=== PATIENT | male | born 1950 | race Caucasian/White ===

== ENCOUNTER 2021-10-15 11:45 | Outpatient (RCR) | payer MEDICARE, SELFPAY ==
[2021-10-15 12:03] VITALS: BMI 23.8
[2021-10-15 13:13] VITALS: BP 166/80; PULSE 76; TEMP 37.2
--- NOTE | 2021-10-15 13:34 | PC.ADMIT ---
Patient advised to come [place] [facility] by his sister who is a practitioner as patient has been experiencing increased depression and anxiety sxs. Patient has a history of ECT. When meeting with patient he appeared with increased anxiety. Stated he is here as he is struggling with some issues however would not elaborate. Patient is alert and oriented x4. Calm and cooperative. Presented with depressed mood and anxious affect. Denied SI or thoughts to harm himself. Patient given a copy of his safety plan if needed. BP 166/80 P 76. Patient denied history of hypertension. Denied any medical issues. [facility] prescriber Rosalia Calvillo [employer] is aware. Will monitor.
--- NOTE | 2021-10-15 14:31 | PC.NURSE ---
Medications reconciled with patient's pharmacy and per patient. Patient reports taking medications as prescribed.
--- NOTE | 2021-10-15 16:03 | P.HPPSP_ITS ---
[facility] Date of Service: 10/15/21 Chief Complaint: MDD Sources of Information: patient interviewed, chart reviewed and crisis/core team assessment reviewed HPI Medical Problems Affecting Mental Status: No Narrative: Patient is a 71-year-old male, referred to [facility] through his sister who is a retired nurse practitioner. His sister had become concerned due to indecisiveness, planning to go visit a sibling, turning around after 2 hours to come back home. Patient reports experiencing increased depression, anxiety, excessive worry, indecisiveness over past several months. Patient also had reported catastrophic thinking during initial intake with clinician, as well as feeling dread, confusion, hopelessness, anhedonia, low energy, difficulty with appetite and sleep. Patient has lost 15 lb recently. 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 Passive SI, with no intent or plan. Patient was guarded and constricted during interview, with hesitancy to answer questions at times. When asked if he had any concerns at this time, he stated ?no ?. He then stated that he had some issues he needed to work through. Patient has had ECT year in the past, which he found helpful. Medical chart review shows he was here in 2000 for ECT, and then he participated in this programs [facility]. Patient currently has outpatient provider psychiatrist and therapist. Past Psychiatric History: Several inpatient stays at [facility], as well as in 2000, After being referred here from inpatient unit at [place] for ECT. Several [facility]'s, including [facility]. Psychiatrist: Tim Brooks [phone]. Therapist Daniel Ryan [phone]. Medical Evaluation Reviewed: Yes [facility] Medical History No known health problems Ruptured liver Surgical History H/O right knee surgery Family History: Alcohol use disorder Social History: Lives alone in an apartment. Raised by both parents, they when he was 12 years old. Five sisters, 1 at age 22 due to illness. Describes family as supportive. Lives alone, has supportive friends. Met developmental milestones as expected. Attended private boarding schools, graduated high school, college. 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 Patient , former spouse has 2 children from a previous marriage. Substance History: Occasional alcohol, 1-2 glasses of wine per month. Trauma History: None reported Diagnostics Vital Signs (24Hr): Vital Signs - 24 hr 10/15/21 13:13 Temperature 98.9 F Pulse Rate 76 Blood Pressure 166/80 H BMI result Body Mass Index 23.8 Meds/Allergies Meds Home Medications Medication Instructions Recorded Confirmed Type l theanine 200 mg PO QID PRN Anxiety 10/15/21 History lamotrigine 100 mg tablet 100 mg PO DAILY 10/15/21 10/15/21 History (Lamictal) mirtazapine 15 mg tablet 15 mg PO BEDTIME 10/15/21 10/15/21 History quetiapine 50 mg tablet 50 - 100 mg PO BEDTIME PRN Anxiety 10/15/21 10/15/21 History risperidone 0.5 mg tablet 0.5 mg PO BID 10/15/21 10/15/21 History (Risperdal) Allergies Allergies Allergy/AdvReac Type Severity Reaction Status Date / Time No Known Allergies Allergy Verified 10/15/21 12:04 Mental Status Exam Mental Status Exam Narrative: Well-developed, well-nourished male, in NAD. Appears stated age. Patient Appearance: Disheveled and Unkempt Patient Orientation: Person, Place, Time and Situation Level of Consciousness: Appropriate Patient Behavior: Guarded, Anxious and Good Eye Contact Mood Description: Depressed and Anxious Affect Description: Depressed and Anxious Patient Cognition Impaired: No Ability to Follow Directions: Good Speech Pattern: Clear, Appropriate, Coherent and Soft-Spoken Memory Description: Intact Hallucinations: None Delusions: Not Present Thought Process: Intact Thought Content: positive for Preoccupation, positive for Slowed Thinking and positive for Suicidal Ideation (Passive, no intent or plan.) Depressive Symptoms: Increased Anxiety, Diff. Making Decisions, Difficulty Sleeping, Changes in Appetite (Decreased), Significant Weight Loss (Lost 15 lb recently), Loss of Int. in Activity, Increased Fatigue, Thoughts of /Suicide, Loss of Energy and Difficulty Concentrating Judgement: Fair Telehealth Telehealth Location of provider rendering services: practice address Location of patient: address on file Patient Identification confirmed using: Name, : Yes Telehealth method: video Patient verbally consented to treatment: Yes Patient verbally consented to billing insurance company: Yes Patient informed of any privacy concerns related to visit: Yes Minutes spent on Phone/Video with Pt.: 45 Assessment & Plan Assessment & Plan (1) Major depressive disorder, recurrent severe without psychotic features: Status: Acute Code(s): F33.2 - Major depressive disorder, recurrent severe without psychotic features Assessment and Plan: Patient is a 71-year-old male, referred to [facility] through his sister who is a retired nurse practitioner. His sister had become concerned due to indecisiveness, planning to go visit a sibling, turning around after 2 hours to come back home. Patient reports experiencing increased depression, anxiety, excessive worry, indecisiveness over past several months. Patient also had reported catastrophic thinking during initial intake with clinician, as well as feeling dread, confusion, hopelessness, anhedonia, low energy, difficulty with appetite and sleep. Patient has lost 15 lb recently. 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 Passive SI, with no intent or plan. Patient reports he had been here in 2000 to receive ECT after several inpatient hospitalizations due to increased depression symptoms. ECT had been effective at that time. Patient was guarded at times. He is working with an outpatient psychiatrist, he states that he sees him every 2-3 weeks. Patient also has an outpatient therapist that he works with on a regular basis. Patient was unkempt in appearance, and appear distracted at times, with anxious, depressed mood and affect. Patient reports that he has had some difficulty attending here today, as he has found it to be anxiety provoking. Will I did reassure him that after the 1st day he will be more familiar with the schedule in the groups, and that he may feel more at ease tomorrow. We discussed his current medication regimen. He is satisfied with current medications, and does not want any changes today. We will explore this further during next encounter, and possibly discuss adding antidepressant, or possibly discuss to TMS or ECT as a treatment option. (2) Generalized anxiety disorder: Status: Acute Code(s): F41.1 - Generalized anxiety disorder Plan 1. Continue with current [facility] plan of care. 2. Obtain labs, including Marsha Chem profile, DA S, CBC with diff, free T4, TSH. 3. Obtain collateral information. 4. A follow-up as per protocol. Patient educated on: diagnosis, medication risk/benefits and therapeutic strategies Informed Consent: understands Reason for continued partial hosp. stay Substantial Risk for: harm to self, inability to function, rapid decompensation and med/psych decompensation Certification I certify that partial hospital treatment is medically necessary due to the symptoms and problems resulting from the patient's mental illness and the failure to treat the patient at the partial hospital level of care would likely result in the patient requiring inpatient psychiatric care which could not be prevented at a less intensive level of care.
--- NOTE | 2021-10-16 09:51 | PC.NURSE ---
I spoke with Kobe. He states that he doesn't want to continue in the program at this time. He does have outpatient providers . I reminded him that he is welcome to call for an intake any in the future if he should decide that he wants to come back.
--- NOTE | 2021-10-16 09:57 | PC.NURSE ---
Patient decided to discharge from the program today as he is too anxious however stated he would like to do the program possibly in the future. Patient denied SI or thoughts to harm himself. He has the crisis number if needed. Spoke to patient about his blood pressure of 166/80 and had him write it down. I recommended having his sister monitor it and to f/u with his PCP.
== END 2021-10-15 23:59 | disposition home or self-care (01) ==
LOC: HO.PHPA 11:45
PROVIDERS: Visit Provider Psychiatry & Neurology Psychiatry
DX: F33.2 Major depressive disorder, recurrent severe without psychotic features (principal); F41.1 Generalized anxiety disorder
CPT/HCPCS: 90791; 90853

== ENCOUNTER 2022-05-07 16:33 | Inpatient (IN) | payer MEDICARE, SELFPAY ==
[2022-05-07 18:00] VITALS: BP 147/76; PULSE 57; RESP 16; TEMP 37.2; O2SAT 99
[2022-05-07 18:57] VITALS: BMI 22.4
--- NOTE | 2022-05-07 19:04 | PC.ADMIT ---
Pt. arrived on unit via stretcher accompanied by 2 leverman. Pt. is a lateral transfer from [facility] behavioral health unit, where he has been since January. Pt. with diagnosis of depression with psychosis and is here for ECT. Pt. alert and oriented X 4 at time of admission. [facility] reports he has periods of confusion, and he endorses problems with his memory. Pt. signed CV and oriented to unit and policies. Ambulated independently with walker. Has known hx. of orthostatic hypotension but denies dizziness at this time. Uses TEDs and abdominal binder to support BP and education done to count to 10 upon sitting before standing and again before walking and he verbalized understanding. Pt. signed ROIs and message left for sister to call for update.
[2022-05-07] MEDS: traZODone HCL 50 MG TABLET PO (20:52)
[2022-05-07] MEDS: OLANZapine 7.5 MG TABLET 15 MG PO (21:37)
[2022-05-07] MEDS: risperiDONE 0.5 MG TABLET PO (21:37)
[2022-05-07] MEDS: clonazePAM 0.5 MG TABLET PO (21:37)
[2022-05-07] MEDS: Mirtazapine 15 MG TABLET PO (21:37)
[2022-05-08 06:00] VITALS: BP 124/62; PULSE 78; RESP 16; TEMP 36.7; O2SAT 97
--- NOTE | 2022-05-08 07:29 | HO.PSYADMNOT ---
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 The patient has been transferred from [facility] for ECT. According to the chart and patient's report, the present episode started more than a year ago with neurovegetative symptoms elicited by and atonia, lack of energy, and even suicidal thoughts. He had been admitted at [facility] inpatient Unit for several weeks, he was Section 7 and [address] and we have a court order to do ECT. He was transferred to this facility for ECT treatment. On interview, the patient reported depressed mood, anhedonia, lack of energy, feelings of hopelessness and worthlessness and even suicidal ideation but he is able to contract for safety in the facility. I provided psychoeducation to ECT and the patient was reluctant since he is scared of losing his memory. Risks, benefits, side-effects and alternatives were thoroughly discussed that he is fully aware that he will have ECT as per court order. There is no evidence of active psychotic symptoms at this moment. Past Psychiatric History: Several inpatient stays at [facility], as well as in 2000, After being referred here from inpatient unit at [facility] for ECT. Several [facility], [place] [facility] Psychiatrist: Tim Brooks [phone]. Therapist Daniel Ryan [phone]. Medical Evaluation Reviewed: Hospitalist Elieser Pending [facility] Medical History No known health problems Ruptured liver Surgical History H/O right knee surgery Family History: Alcohol use disorder Social History: Lives alone in an apartment. Raised by both parents, they when he was 12 years old. Five sisters, 1 at age 24 due to illness. Describes family as supportive. Lives alone, has supportive friends. Met developmental milestones as expected. Attended private boarding schools, graduated high school, college. 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 Patient , former spouse has 2 children from a previous marriage. Substance History: Denies Trauma History: None reported Diagnostics Vital Signs (24Hr): Vital Signs - 24 hr 05/07/22 18:00 Temperature 99 F Pulse Rate 57 Respiratory Rate 16 Blood Pressure 147/76 H Pulse Oximetry 99 Oxygen Delivery Method Room Air BMI result Body Mass Index 22.4 Labs 05/08/22 08:43 05/08/22 08:43 Meds/Allergies Meds Home Medications Medication Instructions Recorded Confirmed Type l theanine 200 mg PO QID PRN Anxiety 10/15/21 05/07/22 History lamotrigine 100 mg tablet 100 mg PO DAILY 10/15/21 05/07/22 History (Lamictal) mirtazapine 15 mg tablet 15 mg PO BEDTIME 10/15/21 05/07/22 History quetiapine 50 mg tablet 50 - 100 mg PO BEDTIME PRN Anxiety 10/15/21 05/07/22 History risperidone 0.5 mg tablet 0.5 mg PO BID 10/15/21 05/07/22 History (Risperdal) amlodipine 2.5 mg tablet 2.5 mg PO DAILY 05/07/22 05/07/22 History cholecalciferol (vitamin D3) 25 25 mcg PO DAILY 05/07/22 05/07/22 History mcg (1,000 unit) capsule clonazepam 0.5 mg disintegrating 0.5 mg PO BEDTIME 05/07/22 05/07/22 History tablet cyanocobalamin (vitamin B-12) 1,000 mcg PO DAILY 05/07/22 05/07/22 History 1,000 mcg tablet fluvoxamine 100 mg tablet 100 mg PO BEDTIME 05/07/22 05/07/22 History olanzapine 15 mg disintegrating 15 mg PO BEDTIME 05/07/22 05/07/22 History tablet olanzapine 5 mg disintegrating 2.5 mg PO BID PRN Agitation 05/07/22 05/07/22 History tablet ondansetron HCl 4 mg tablet 4 mg PO NEEDED PRN Nausea 05/07/22 05/07/22 History Allergies Allergies Allergy/AdvReac Type Severity Reaction Status Date / Time Latex, Natural Rubber AdvReac Mild Rash Verified 05/07/22 19:00 Mental Status Exam Mental Status Exam Patient Appearance: Well Grooomed and Appropriate Patient Orientation: Person, Place and Situation Level of Consciousness: Awake and Appropriate Patient Behavior: Cooperative and Passive Mood Description: Depressed Affect Description: Blunted Patient Cognition Impaired: No Ability to Follow Directions: Good Speech Pattern: Clear Hallucinations: None Delusions: Not Present Thought Process: Linear Thought Content: positive for Circumstantial Judgement: Poor Assessment & Plan Assessment & Plan (1) Generalized anxiety disorder: Status: Acute Code(s): F41.1 - Generalized anxiety disorder (2) Major depressive disorder, recurrent: Status: Acute Code(s): F33.9 - Major depressive disorder, recurrent, unspecified Plan The patient is an elderly male with a long history of major depressive disorder with several prior admissions into the hospital for exacerbation of depression and previous treatment with ECT with for improvement. The patient was initially treated at [facility] and transferring to this facility for ECT. At this moment, the patient is severely depressed with some neuro cognitive impairment. Plan 1. Gather collateral information. 2. Hospitalist workout with clearance for ECT. 3. Continue regular medications. 4. EKG for ECT treatment. 5. ECT as soon as he is medically cleared. 6. Reassessment with results. Patient educated on: diagnosis and ECT Informed Consent: further education needed Reason for continued inpatient stay Substantial Risk for: harm to self, inability to function, rapid decompensation and med/psych decompensation Statement Statement: I have reviewed the history and physical and performed a pertinent examination on my patient. No changes have occurred unless specified. If the History and Physical was not performed prior to admission, the Hospitalist's service will be consulted for completing the admission physical. Time Spent With Patient Time: Total time managing care of this patient today __60__ minutes.
[2022-05-08] MEDS: Cyanocobalamin (Vitamin B-12) 1,000 MCG TABLET 1000 MCG PO (08:34)
[2022-05-08] MEDS: amLODIPine Besylate 2.5 MG TABLET PO (08:34)
[2022-05-08] MEDS: risperiDONE 0.5 MG TABLET PO ×2 (08:34→20:48)
[2022-05-08] MEDS: lamoTRIgine 100 MG TABLET PO (08:34)
[2022-05-08] MEDS: Cholecalciferol (Vitamin D3) 25 MCG TABLET PO (08:35)
[2022-05-08 09:00] LABS: MANUAL DIFF FLAG NO
[2022-05-08 09:01] LABS: Basophils Percent Auto 0.5 % (0-2); Eosinophils Absolute Auto 0.1 X10*3/uL (0.0-0.4); Eosinophils Percent Auto 3.2 % (0-4); Hemoglobin 13.6 g/dl (14.0-18.0); Imm Gran Abs Auto 0.01 X10*3/uL (0.00-0.03); Imm Gran Pct Auto 0.3 % (0.0-0.4); Lymphocytes Percent Auto 27.4 % (20-40); Mean Corpuscular Hemoglobin 31.3 pg (27.0-33.0); Mean Corpuscular Volume 92.2 fL (80.0-98.0); Mean Platelet Volume 8.7 fL (9.4-12.4); Monocytes Absolute Auto 0.3 X10*3/uL (0.1-1.2); Monocytes Percent Auto 8.6 % (2-11); Neutrophils Absolute Auto 2.2 x10*3/uL (2.0-8.3); Platelet Count 150 X10*3/uL (160-400); Red Blood Count 4.34 X10*6/uL (4.60-5.80); Red Cell Distribution Width 12.5 % (11.0-16.0); White Blood Count 3.7 X10*3/uL (4.8-10.8)
[2022-05-08 09:42] LABS: Alanine Aminotransferase 13 U/L (0-40); Albumin Level 3.4 g/dL (3.5-5.0); Alkaline Phosphatase 54 U/L (39-117); Anion Gap 11 (12-20); Aspartate Amino Transferase 15 U/L (5-37); Bilirubin Total 0.7 mg/dL (0.0-1.0); Blood Urea Nitrogen 16 mg/dL (9-16); Calcium 8.8 mg/dL (8.4-10.2); Carbon Dioxide 31 mmol/L (22-29); Chloride 107 mmol/L (96-108); Cholesterol 165 mg/dL; Creatinine Clr Calc Pharmacy 94.6; Estimated Glomerular Filt Rate > 60; Glucose Fasting 128 mg/dL (60-99); HDL Cholesterol 50 mg/dL; LDL Cholesterol Calculated 101 mg/dl; Potassium 3.9 mmol/L (3.3-5.1); Sodium 145 mmol/L (135-145); Total Protein 5.3 g/dL (6.5-8.0); Triglycerides 72 mg/dL
[2022-05-08 09:55] LABS: Estimated Average Glucose 103 mg/dL; Hemoglobin A1c % 5.2 %
[2022-05-08 10:11] LABS: Folate 14.9 ng/mL (> or = 4.0); TSH reflex Free T4 1.51 uIU/mL (0.32-4.0); Vitamin B12 545 pg/mL (200-900)
--- NOTE | 2022-05-08 15:35 | MHC.CLN ---
RE: CONSULT FOR WT LOSS HT 77 WT 85.7KG (188.5#) IBW 208# PT IS 91% IBW INDICATES ADEQUATE WT FOR HT BMI 22.4 PREVIOUS WT HX REVEALS 91.1KG (10/15/21) PT WITH 6% NONSIGNIFICANT WT LOSS X 6 MONTHS DIET RX: REGULAR-APPROPRIATE IF PO INTAKE <25% X 3 DAYS RECOMMEND ADDING ENSURE SUPPLEMENT BID MONITOR PO INTAKE CLOSELY WEEKLY WEIGHTS
[2022-05-08 18:00] VITALS: BP 118/69; PULSE 70; RESP 16; TEMP 36.5; O2SAT 97
[2022-05-08] MEDS: OLANZapine 7.5 MG TABLET 15 MG PO (20:47)
[2022-05-08] MEDS: Mirtazapine 15 MG TABLET PO (20:47)
[2022-05-08] MEDS: clonazePAM 0.5 MG TABLET PO (20:48)
[2022-05-08] MEDS: fluvoxaMINE Maleate 50 MG TABLET 100 MG PO (20:48)
[2022-05-09 06:00] VITALS: BP 109/52; PULSE 68; RESP 16; TEMP 36.7; O2SAT 96
[2022-05-09] MEDS: Cholecalciferol (Vitamin D3) 25 MCG TABLET PO (08:46)
[2022-05-09] MEDS: lamoTRIgine 100 MG TABLET PO (08:46)
[2022-05-09] MEDS: amLODIPine Besylate 2.5 MG TABLET PO (08:46)
[2022-05-09] MEDS: Cyanocobalamin (Vitamin B-12) 1,000 MCG TABLET 1000 MCG PO (08:46)
[2022-05-09] MEDS: risperiDONE 0.5 MG TABLET PO ×2 (08:46→20:18)
--- NOTE | 2022-05-09 13:35 | ECG_ITS ---
Test Reason : ECT CLEARENCE Blood Pressure : / mmHG Vent. Rate : 062 BPM Atrial Rate : 062 BPM P-R Int : 152 ms QRS Dur : 098 ms QT Int : 392 ms P-R-T Axes : 071 050 055 degrees QTc Int : 397 ms Normal sinus rhythm Normal ECG No previous ECGs available Referred By: Shital Bui Electronically Signed By:GOPAL FLORIAN
--- NOTE | 2022-05-09 14:23 | P.PNPSI_ITS ---
Subjective Subjective Date of Service: 05/09/22 Reason For Visit: depression w/ SI Subjective Notes: Conditional Voluntary Interim History: The nursing staff reported the patient is cooperative and pleasant, no new symptoms. On interview the patient has severe depression with blunted affect even though, his cognition is impaired. The occupational therapist reported that he scored 20/30 on the [place] and 5.0 on the Geoff test. Most likely this cognitive impair ment is due to save the dementia or depression. We discussed with the patient the treatment options and we will have ECT schedule starting next Thursday. Mental Status Exam Mental Status Exam Patient Appearance: Well Grooomed and Appropriate Patient Orientation: Person, Place, Time and Situation Level of Consciousness: Awake and Appropriate Patient Behavior: Guarded and Passive Mood Description: Withdrawn and Depressed Affect Description: Blunted Patient Cognition Impaired: Yes Ability to Follow Directions: Fair Speech Pattern: Clear Hallucinations: None Delusions: Not Present Thought Process: Distracted and Linear Thought Content: positive for [place] and positive for Circumstantial Judgement: Fair Diagnostics Vital Signs (24Hr): Vital Signs - 24 hr 05/08/22 18:00 05/09/22 06:00 Temperature 97.7 F 98.0 F Pulse Rate 70 68 Respiratory Rate 16 16 Blood Pressure 118/69 109/52 L Pulse Oximetry 97 96 Oxygen Delivery Method Room Air Room Air BMI result Body Mass Index 22.4 Labs 05/08/22 08:43 05/08/22 08:43 Labs: Laboratory Results - last 48 hr 05/08/22 05/08/22 05/08/22 08:43 08:43 08:43 WBC 3.7 L RBC 4.34 L Hgb 13.6 L Hct 40.0 L MCV 92.2 MCH 31.3 MCHC 34.0 RDW 12.5 Plt Count 150 L MPV 8.7 L Immature Gran % (Auto) 0.3 Neut % (Auto) 60.0 Lymph % (Auto) 27.4 [place] % (Auto) 8.6 Eos % (Auto) 3.2 Baso % (Auto) 0.5 Lymph # (Auto) 1.0 L [place] # (Auto) 0.3 Eos # (Auto) 0.1 Baso # (Auto) 0.0 Abs Immat Gran (auto) 0.01 Absolute Neuts (auto) 2.2 Absolute Nucleated RBC 0.000 Nucleated RBC % (auto) 0.0 Sodium 145 Potassium 3.9 Chloride 107 Carbon Dioxide 31 H Anion Gap 11 L BUN 16 Creatinine 0.83 Estim Creat Clear Calc 94.6 Estimated GFR > 60 Fasting Glucose 128 H Estimat Average Glucose 103 Hemoglobin A1c % 5.2 Calcium 8.8 Total Bilirubin 0.7 AST 15 ALT 13 Alkaline Phosphatase 54 Total Protein 5.3 L Albumin 3.4 L Triglycerides 72 Cholesterol 165 LDL Cholesterol, Calc 101 HDL Cholesterol 50 Vitamin B12 545 Folate 14.9 TSH 1.51 Medications Medications Current Medications Acetaminophen (Acetaminophen 325 Mg Tablet) 650 mg PO Q6H PRN PRN Reason: Headache/Pain Mild Scale (1-3) Acetaminophen (Acetaminophen 325 Mg Tablet) 650 mg PO Q6H PRN PRN Reason: Headache/Pain Mild Scale (1-3) Al Hydroxide/Mg Hydroxide (Magnesium Hydrox/Alum Hydrox 30 Ml Oral.Susp) 30 ml PO Q6H PRN PRN Reason: Heartburn/Nausea Al Hydroxide/Mg Hydroxide (Magnesium Hydrox/Alum Hydrox 30 Ml Oral.Susp) 30 ml PO Q6H PRN PRN Reason: Heartburn/Nausea Amlodipine Besylate (Amlodipine Besylate 2.5 Mg Tablet) 2.5 mg PO DAILY [facility]; Protocol Last Admin: 05/09/22 08:46 Dose: 2.5 mg Clonazepam (Clonazepam 0.5 Mg Tablet) 0.5 mg PO BEDTIME [facility] Last Admin: 05/08/22 20:48 Dose: 0.5 mg Cyanocobalamin (Cyanocobalamin (Vitamin B-12) 1,000 Mcg Tablet) 1,000 mcg PO DAILY [facility] Last Admin: 05/09/22 08:46 Dose: 1,000 mcg Fluvoxamine Maleate (Fluvoxamine Maleate 50 Mg Tablet) 100 mg PO BEDTIME [facility] Last Admin: 05/08/22 20:48 Dose: 100 mg Hydroxyzine HCl (Hydroxyzine Hcl 25 Mg Tablet) 25 mg PO Q6H PRN PRN Reason: Anxiety Lamotrigine (Lamotrigine 100 Mg Tablet) 100 mg PO DAILY [facility] Last Admin: 05/09/22 08:46 Dose: 100 mg Magnesium Hydroxide (Milk Of Magnesia 30 Ml Oral.Susp) 30 ml PO DAILY PRN PRN Reason: Constipation Magnesium Hydroxide (Milk Of Magnesia 30 Ml Oral.Susp) 30 ml PO DAILY PRN PRN Reason: Constipation Mirtazapine (Mirtazapine 15 Mg Tablet) 15 mg PO BEDTIME [facility] Last Admin: 05/08/22 20:47 Dose: 15 mg Non-Formulary Medication (L Theanine) 200 mg PO QID PRN PRN Reason: Anxiety Olanzapine (Olanzapine 2.5 Mg Tablet) 2.5 mg PO BID PRN PRN Reason: Agitation Olanzapine (Olanzapine 7.5 Mg Tablet) 15 mg PO BEDTIME I[facility] Last Admin: 05/08/22 20:47 Dose: 15 mg Ondansetron HCl (Ondansetron Odt 4 Mg Tab.Rapdis) 4 mg TRANSLINGU DAILY PRN PRN Reason: Nausea Quetiapine Fumarate (Quetiapine Fumarate 100 Mg Tablet) 100 mg PO BEDTIME PRN PRN Reason: Anxiety Risperidone (Risperidone 0.5 Mg Tablet) 0.5 mg PO BID [facility] Last Admin: 05/09/22 08:46 Dose: 0.5 mg Trazodone HCl (Trazodone Hcl 50 Mg Tablet) 50 mg PO BEDTIME MRX1 PRN PRN Reason: Insomnia Last Admin: 05/07/22 20:52 Dose: 50 mg Vitamin D (Cholecalciferol (Vitamin D3) 25 Mcg Tablet) 25 mcg PO DAILY [facility] Last Admin: 05/09/22 08:46 Dose: 25 mcg Allergies Allergies Allergy/AdvReac Type Severity Reaction Status Date / Time Latex, Natural Rubber AdvReac Mild Rash Verified 05/07/22 19:00 Assessment & Plan Assessment & Plan (1) Generalized anxiety disorder: Status: Acute Code(s): F41.1 - Generalized anxiety disorder (2) Major depressive disorder, recurrent: Status: Acute Code(s): F33.9 - Major depressive disorder, recurrent, unspecified Plan The patient is an elderly male with a long history of major depressive disorder with several prior admissions into the hospital for exacerbation of depression and previous treatment with ECT with for improvement. The patient was initially treated at [facility] and transferring to this facility for ECT. At this moment, the patient is severely depressed with some neuro cognitive impairment. Plan 1. Gather collateral information. 2. Hospitalist workout with clearance for ECT. 3. Continue regular medications. 4. EKG for ECT treatment. 5. ECT as soon as he is medically cleared. Schedule for next Thursday 6. Reassessment with results. Reason for contiued inpatient stay Substantial Risk for: inability to function, rapid decompensation and med/psych decompensation Time Spent With Patient Time: Total time managing care of this patient today _20___ minutes.
--- NOTE | 2022-05-09 14:27 | P.CONAN_ITS ---
HPI - Anesthesia Eval Consult details Narrative: 72 yo male patient for ECT PMFSH Active Problems Active Problems: All Active Problems (Updated 05/08/22 @ 07:31 by Robin Chambers) Major depressive disorder, recurrent (Acute) Generalized anxiety disorder (Acute) Major depressive disorder, recurrent severe without psychotic features (Acute) Past Medical History Medical History No known health problems Ruptured liver Surgical History Surgical History H/O right knee surgery Social History Social History Household Members: None Housing: Apartment Do you presently have visiting nurse or other home services: No Patient Tobacco Use Status: Never used Tobacco Smoked in Last 30 Days: No e-Cigarette/Vaping Use: Never Used Second Hand Smoke Exposure: No Use of substances other than those prescribed or required for medical reasons: No Currently Displaying Signs/Symptoms of Drug Intoxication Withdrawal: No Any prior treatment program specific to substance use: No Have you been hit, kicked, punched, or otherwise hurt by someone within the past year? If so, by whom?: No Do you feel safe in your current relationship?: No Current Relationship Is there a partner from a previous relationship who is making you feel unsafe now?: No Are you made to feel afraid or neglected: No Spiritual Healthcare Practices: n/a Yarsani Healthcare Practices: n/a Cultural Healthcare Practices: n/a Advance Directives: No Advance Directives Information Provided: No Do you have thoughts of harming others: None Do you have a plan to hurt others: No Plan Recently lost weight without trying: Yes How much weight loss: Unsure Eating poorly because of decreased appetite: No Nutrition screen score: 4 Nutrition Risks: No Nutritional Risk Poor oral hygiene: No Meds Allergies Allergy/AdvReac Type Severity Reaction Status Date / Time Latex, Natural Rubber AdvReac Mild Rash Verified 05/07/22 19:00 Active Medications: Current Medications Acetaminophen (Acetaminophen 325 Mg Tablet) 650 mg PO Q6H PRN PRN Reason: Headache/Pain Mild Scale (1-3) Acetaminophen (Acetaminophen 325 Mg Tablet) 650 mg PO Q6H PRN PRN Reason: Headache/Pain Mild Scale (1-3) Al Hydroxide/Mg Hydroxide (Magnesium Hydrox/Alum Hydrox 30 Ml Oral.Susp) 30 ml PO Q6H PRN PRN Reason: Heartburn/Nausea Al Hydroxide/Mg Hydroxide (Magnesium Hydrox/Alum Hydrox 30 Ml Oral.Susp) 30 ml PO Q6H PRN PRN Reason: Heartburn/Nausea Amlodipine Besylate (Amlodipine Besylate 2.5 Mg Tablet) 2.5 mg PO DAILY [facility]; Protocol Last Admin: 05/09/22 08:46 Dose: 2.5 mg Clonazepam (Clonazepam 0.5 Mg Tablet) 0.5 mg PO BEDTIME [facility] Last Admin: 05/08/22 20:48 Dose: 0.5 mg Cyanocobalamin (Cyanocobalamin (Vitamin B-12) 1,000 Mcg Tablet) 1,000 mcg PO DAILY [facility] Last Admin: 05/09/22 08:46 Dose: 1,000 mcg Fluvoxamine Maleate (Fluvoxamine Maleate 50 Mg Tablet) 100 mg PO BEDTIME [facility] Last Admin: 05/08/22 20:48 Dose: 100 mg Hydroxyzine HCl (Hydroxyzine Hcl 25 Mg Tablet) 25 mg PO Q6H PRN PRN Reason: Anxiety Lamotrigine (Lamotrigine 100 Mg Tablet) 100 mg PO DAILY [facility] Last Admin: 05/09/22 08:46 Dose: 100 mg Magnesium Hydroxide (Milk Of Magnesia 30 Ml Oral.Susp) 30 ml PO DAILY PRN PRN Reason: Constipation Magnesium Hydroxide (Milk Of Magnesia 30 Ml Oral.Susp) 30 ml PO DAILY PRN PRN Reason: Constipation Mirtazapine (Mirtazapine 15 Mg Tablet) 15 mg PO BEDTIME [facility] Last Admin: 05/08/22 20:47 Dose: 15 mg Non-Formulary Medication (L Theanine) 200 mg PO QID PRN PRN Reason: Anxiety Olanzapine (Olanzapine 2.5 Mg Tablet) 2.5 mg PO BID PRN PRN Reason: Agitation Olanzapine (Olanzapine 7.5 Mg Tablet) 15 mg PO BEDTIME [facility] Last Admin: 05/08/22 20:47 Dose: 15 mg Ondansetron HCl (Ondansetron Odt 4 Mg Tab.Rapdis) 4 mg TRANSLINGU DAILY PRN PRN Reason: Nausea Quetiapine Fumarate (Quetiapine Fumarate 100 Mg Tablet) 100 mg PO BEDTIME PRN PRN Reason: Anxiety Risperidone (Risperidone 0.5 Mg Tablet) 0.5 mg PO BID [facility] Last Admin: 05/09/22 08:46 Dose: 0.5 mg Trazodone HCl (Trazodone Hcl 50 Mg Tablet) 50 mg PO BEDTIME MRX1 PRN PRN Reason: Insomnia Last Admin: 05/07/22 20:52 Dose: 50 mg Vitamin D (Cholecalciferol (Vitamin D3) 25 Mcg Tablet) 25 mcg PO DAILY [facility] Last Admin: 05/09/22 08:46 Dose: 25 mcg Home Medications Medication Instructions Recorded Confirmed Last Taken Type l theanine 200 mg PO QID PRN Anxiety 10/15/21 05/07/22 10/15/21 07:20 History lamotrigine 100 mg tablet 100 mg PO DAILY 10/15/21 05/07/22 10/15/21 07:20 History (Lamictal) mirtazapine 15 mg tablet 15 mg PO BEDTIME 10/15/21 05/07/22 10/14/21 21:30 History quetiapine 50 mg tablet 50 - 100 mg PO BEDTIME PRN Anxiety 10/15/21 05/07/22 10/14/21 20:30 History risperidone 0.5 mg tablet 0.5 mg PO BID 10/15/21 05/07/22 10/15/21 07:20 History (Risperdal) amlodipine 2.5 mg tablet 2.5 mg PO DAILY 05/07/22 05/07/22 Unknown History cholecalciferol (vitamin D3) 25 25 mcg PO DAILY 05/07/22 05/07/22 Unknown History mcg (1,000 unit) capsule clonazepam 0.5 mg disintegrating 0.5 mg PO BEDTIME 05/07/22 05/07/22 Unknown History tablet cyanocobalamin (vitamin B-12) 1,000 mcg PO DAILY 05/07/22 05/07/22 Unknown History 1,000 mcg tablet fluvoxamine 100 mg tablet 100 mg PO BEDTIME 05/07/22 05/07/22 Unknown History olanzapine 15 mg disintegrating 15 mg PO BEDTIME 05/07/22 05/07/22 Unknown History tablet olanzapine 5 mg disintegrating 2.5 mg PO BID PRN Agitation 05/07/22 05/07/22 Unknown History tablet ondansetron HCl 4 mg tablet 4 mg PO NEEDED PRN Nausea 05/07/22 05/07/22 Unknown History Exam Exam Date and Time: May 09, 2022 053 Height,Weight and Vital Signs: Height 6 ft 5 in Weight 85.7 kg Last Vital Signs Temp 98.0 F 05/09/22 06:00 Pulse 68 05/09/22 06:00 Resp 16 05/09/22 06:00 BP 109/52 L 05/09/22 06:00 Pulse Ox 96 05/09/22 06:00 O2 Del Method 05/09/22 06:00 Pertinent Lab Results Pertinent Lab Results: Laboratory Tests 05/08/22 05/08/22 05/08/22 08:43 08:43 08:43 WBC 3.7 L RBC 4.34 L Hgb 13.6 L Hct 40.0 L MCV 92.2 MCH 31.3 MCHC 34.0 RDW 12.5 Plt Count 150 L MPV 8.7 L Immature Gran % (Auto) 0.3 Neut % (Auto) 60.0 Lymph % (Auto) 27.4 Sutton % (Auto) 8.6 Eos % (Auto) 3.2 Baso % (Auto) 0.5 Lymph # (Auto) 1.0 L Sutton # (Auto) 0.3 Eos # (Auto) 0.1 Baso # (Auto) 0.0 Abs Immat Gran (auto) 0.01 Absolute Neuts (auto) 2.2 Absolute Nucleated RBC 0.000 Nucleated RBC % (auto) 0.0 Sodium 145 Potassium 3.9 Chloride 107 Carbon Dioxide 31 H Anion Gap 11 L BUN 16 Creatinine 0.83 Estim Creat Clear Calc 94.6 Estimated GFR > 60 Fasting Glucose 128 H Estimat Average Glucose 103 Hemoglobin A1c % 5.2 Calcium 8.8 Total Bilirubin 0.7 AST 15 ALT 13 Alkaline Phosphatase 54 Total Protein 5.3 L Albumin 3.4 L Triglycerides 72 Cholesterol 165 LDL Cholesterol, Calc 101 HDL Cholesterol 50 Vitamin B12 545 Folate 14.9 TSH 1.51
--- NOTE | 2022-05-09 15:25 | P.CONHOSP_ITS ---
History of Present Illness Data of Consult Service Date: 05/09/22 Primary Care Provider: Chandni Hidalgo MD HPI Reason for consult: Admission H&P and ECT clearance Pt is a 72-year-old male with a PMH significant for HTN, insomnia, ERENDIRA, and severe depression who is seen for admission history and physical and ECT clearance. Patient has been hospitalized psych gomez at [facility] since October 2021, transferred here for ECT therapy. Pt states he has had occasional lightheadedness and dizziness for past 5-6 months since when he was admitted to [facility]. Also notes he has not been drinking much less fluid than normal out of fear of urinary incontinence while in the hospital. Patient also complains of chronic constipation with last BM nearly a week ago. Patient requesting suppository. Patient otherwise has no acute complaints. Denies chest pain/pressure, palpitations. No shortness of breath. Denies fever, chills, nausea, vomiting, abdominal pain. Patient notes that he has had one previous ECT procedure 2000. He is unaware of any complications from the procedure, though he does not feel that it helped much. Pt denies a PMH of cerebral hemorrhage or stroke, CAD, space-occupying intracranial lesion, bleeding or otherwise unstable vascular aneurysm, seizure, TBI, and severe pulmonary condition. Pt denies any past problems with anesthesiaPt. EKG normal sinus rhythm and negative for acute ischemia and prolonged QTc. There are no obvious contraindications to the planned procedure. Review of Systems Review of Systems: Negative except that which is stated in the HPI. Yes all other systems are reviewed and are negative [facility] Medical History (Updated 05/09/22 @ 15:51 by SYDNI Mao) No known health problems Ruptured liver Surgical History H/O right knee surgery Social History Household Members: None Housing: Apartment Do you presently have visiting nurse or other home services: No Patient Tobacco Use Status: Never used Tobacco Smoked in Last 30 Days: No e-Cigarette/Vaping Use: Never Used Second Hand Smoke Exposure: No Use of substances other than those prescribed or required for medical reasons: No Currently Displaying Signs/Symptoms of Drug Intoxication Withdrawal: No Any prior treatment program specific to substance use: No Have you been hit, kicked, punched, or otherwise hurt by someone within the past year? If so, by whom?: No Do you feel safe in your current relationship?: No Current Relationship Is there a partner from a previous relationship who is making you feel unsafe now?: No Are you made to feel afraid or neglected: No Spiritual Healthcare Practices: n/a Islam Healthcare Practices: n/a Cultural Healthcare Practices: n/a Advance Directives: No Advance Directives Information Provided: No Do you have thoughts of harming others: None Do you have a plan to hurt others: No Plan Recently lost weight without trying: Yes How much weight loss: Unsure Eating poorly because of decreased appetite: No Nutrition screen score: 4 Nutrition Risks: No Nutritional Risk Poor oral hygiene: No Meds Allergies Allergy/AdvReac Type Severity Reaction Status Date / Time Latex, Natural Rubber AdvReac Mild Rash Verified 05/07/22 19:00 Active Medications: Current Medications Acetaminophen (Acetaminophen 325 Mg Tablet) 650 mg PO Q6H PRN PRN Reason: Headache/Pain Mild Scale (1-3) Acetaminophen (Acetaminophen 325 Mg Tablet) 650 mg PO Q6H PRN PRN Reason: Headache/Pain Mild Scale (1-3) Al Hydroxide/Mg Hydroxide (Magnesium Hydrox/Alum Hydrox 30 Ml Oral.Susp) 30 ml PO Q6H PRN PRN Reason: Heartburn/Nausea Al Hydroxide/Mg Hydroxide (Magnesium Hydrox/Alum Hydrox 30 Ml Oral.Susp) 30 ml PO Q6H PRN PRN Reason: Heartburn/Nausea Amlodipine Besylate (Amlodipine Besylate 2.5 Mg Tablet) 2.5 mg PO DAILY [facility]; Protocol Last Admin: 05/09/22 08:46 Dose: 2.5 mg Clonazepam (Clonazepam 0.5 Mg Tablet) 0.5 mg PO BEDTIME [facility] Last Admin: 05/08/22 20:48 Dose: 0.5 mg Cyanocobalamin (Cyanocobalamin (Vitamin B-12) 1,000 Mcg Tablet) 1,000 mcg PO DAILY [facility] Last Admin: 05/09/22 08:46 Dose: 1,000 mcg Fluvoxamine Maleate (Fluvoxamine Maleate 50 Mg Tablet) 100 mg PO BEDTIME [facility] Last Admin: 05/08/22 20:48 Dose: 100 mg Hydroxyzine HCl (Hydroxyzine Hcl 25 Mg Tablet) 25 mg PO Q6H PRN PRN Reason: Anxiety Lamotrigine (Lamotrigine 100 Mg Tablet) 100 mg PO DAILY [facility] Last Admin: 05/09/22 08:46 Dose: 100 mg Magnesium Hydroxide (Milk Of Magnesia 30 Ml Oral.Susp) 30 ml PO DAILY PRN PRN Reason: Constipation Magnesium Hydroxide (Milk Of Magnesia 30 Ml Oral.Susp) 30 ml PO DAILY PRN PRN Reason: Constipation Mirtazapine (Mirtazapine 15 Mg Tablet) 15 mg PO BEDTIME [facility] Last Admin: 05/08/22 20:47 Dose: 15 mg Non-Formulary Medication (L Theanine) 200 mg PO QID PRN PRN Reason: Anxiety Olanzapine (Olanzapine 2.5 Mg Tablet) 2.5 mg PO BID PRN PRN Reason: Agitation Olanzapine (Olanzapine 7.5 Mg Tablet) 15 mg PO BEDTIME [facility] Last Admin: 05/08/22 20:47 Dose: 15 mg Ondansetron HCl (Ondansetron Odt 4 Mg Tab.Rapdis) 4 mg TRANSLINGU DAILY PRN PRN Reason: Nausea Quetiapine Fumarate (Quetiapine Fumarate 100 Mg Tablet) 100 mg PO BEDTIME PRN PRN Reason: Anxiety Risperidone (Risperidone 0.5 Mg Tablet) 0.5 mg PO BID [facility] Last Admin: 05/09/22 08:46 Dose: 0.5 mg Trazodone HCl (Trazodone Hcl 50 Mg Tablet) 50 mg PO BEDTIME MRX1 PRN PRN Reason: Insomnia Last Admin: 05/07/22 20:52 Dose: 50 mg Vitamin D (Cholecalciferol (Vitamin D3) 25 Mcg Tablet) 25 mcg PO DAILY [facility] Last Admin: 05/09/22 08:46 Dose: 25 mcg Home Medications Medication Instructions Recorded Confirmed Last Taken Type l theanine 200 mg PO QID PRN Anxiety 10/15/21 05/07/22 10/15/21 07:20 History lamotrigine 100 mg tablet 100 mg PO DAILY 10/15/21 05/07/22 10/15/21 07:20 History (Lamictal) mirtazapine 15 mg tablet 15 mg PO BEDTIME 10/15/21 05/07/22 10/14/21 21:30 History quetiapine 50 mg tablet 50 - 100 mg PO BEDTIME PRN Anxiety 10/15/21 05/07/22 10/14/21 20:30 History risperidone 0.5 mg tablet 0.5 mg PO BID 10/15/21 05/07/22 10/15/21 07:20 History (Risperdal) amlodipine 2.5 mg tablet 2.5 mg PO DAILY 05/07/22 05/07/22 Unknown History cholecalciferol (vitamin D3) 25 25 mcg PO DAILY 05/07/22 05/07/22 Unknown History mcg (1,000 unit) capsule clonazepam 0.5 mg disintegrating 0.5 mg PO BEDTIME 05/07/22 05/07/22 Unknown History tablet cyanocobalamin (vitamin B-12) 1,000 mcg PO DAILY 05/07/22 05/07/22 Unknown History 1,000 mcg tablet fluvoxamine 100 mg tablet 100 mg PO BEDTIME 05/07/22 05/07/22 Unknown History olanzapine 15 mg disintegrating 15 mg PO BEDTIME 05/07/22 05/07/22 Unknown History tablet olanzapine 5 mg disintegrating 2.5 mg PO BID PRN Agitation 05/07/22 05/07/22 Unknown History tablet ondansetron HCl 4 mg tablet 4 mg PO NEEDED PRN Nausea 05/07/22 05/07/22 Unknown History Physical Exam Vital Signs and Narrative: Vital Signs: Last Vital Signs Temp 98.0 F 05/09/22 06:00 Pulse 68 05/09/22 06:00 Resp 16 05/09/22 06:00 BP 109/52 L 05/09/22 06:00 Pulse Ox 96 05/09/22 06:00 O2 Del Method 05/09/22 06:00 BMI result Body Mass Index 22.4 General: AOx3, no acute distress Resp: CTA bilaterally CVS: S1, S2, RRR GI: +BS, NT, no distention Skin: No rash Neuro: Cranial nerves II-XII grossly intact. Motor grossly intact Extremities: No edema Psych: Appropriate affect Results Labs 05/08/22 08:43 05/08/22 08:43 Assessment and Plan (1) Routine history and physical examination of adult: Status: Acute Plan Pt is a 72-year-old male with a PMH significant for HTN, insomnia, ERENDIRA, and severe depression who is seen for admission history and physical and ECT clearance. Patient has been hospitalized psych gomez at [facility] since October 2021, transferred here for ECT therapy. Pt states he has had occasional lightheadedness and dizziness for past 5-6 months since when he was admitted to [facility]. Also notes he has not been drinking much less fluid than normal out of fear of urinary incontinence while in the hospital. Patient also complains of chronic constipation with last BM nearly a week ago. Patient requesting suppository. Patient otherwise has no acute complaints. ECT Pt scheduled to undergo ECT on Thursday Pt with previous ECTY experience in 2000 H&P reveal no obvious contraindications to the planned procedure HTN Continue amlodipine Constipation Pt states he has not had a bowel movement for the past week Suppository Daily Colace Lightheadedness and dizziness Likely secondary to lack of p.o. intake Encourage p.o. intake of fluid Mental health Plan as per psychiatry team Thank you for allowing us to participate in the care of this pt. Signing off at this time. Please contact us if there are any acute questions or concerns. Time Spent With Patient Time: Total time managing care of this patient today ____ minutes.
[2022-05-09 18:00] VITALS: BP 169/77; PULSE 74; RESP 20; TEMP 36.8; O2SAT 95
[2022-05-09] MEDS: clonazePAM 0.5 MG TABLET PO (20:17)
[2022-05-09] MEDS: Mirtazapine 15 MG TABLET PO (20:17)
[2022-05-09] MEDS: OLANZapine 7.5 MG TABLET 15 MG PO (20:17)
[2022-05-09] MEDS: fluvoxaMINE Maleate 50 MG TABLET 100 MG PO (20:17)
[2022-05-10 06:00] VITALS: BP 133/70; PULSE 80; RESP 18; TEMP 37.1; O2SAT 94
[2022-05-10] MEDS: amLODIPine Besylate 2.5 MG TABLET PO (10:55)
[2022-05-10] MEDS: lamoTRIgine 100 MG TABLET PO (10:55)
[2022-05-10] MEDS: risperiDONE 0.5 MG TABLET PO ×2 (10:55→20:27)
[2022-05-10] MEDS: Cholecalciferol (Vitamin D3) 25 MCG TABLET PO (10:55)
[2022-05-10] MEDS: Cyanocobalamin (Vitamin B-12) 1,000 MCG TABLET 1000 MCG PO (10:55)
[2022-05-10] MEDS: Milk of Magnesia 30 ML ORAL.SUSP PO (11:05)
--- NOTE | 2022-05-10 11:57 | P.PNPSI_ITS ---
Subjective Subjective Date of Service: 05/10/22 Reason For Visit: depression w/ SI Interim History: depressed. ECT starts thursday. somatically preoccupied - bowels. no notable issues per staff weapons officer. Mental Status Exam Mental Status Exam Patient Appearance: Well Grooomed and Appropriate Patient Orientation: Person, Place, Time and Situation Level of Consciousness: Awake and Appropriate Patient Behavior: Guarded and Passive Mood Description: Withdrawn and Depressed Affect Description: Blunted Patient Cognition Impaired: Yes Ability to Follow Directions: Fair Speech Pattern: Clear Hallucinations: None Delusions: Not Present Thought Process: Distracted and Linear Thought Content: positive for Adrian and positive for Circumstantial Judgement: Fair Diagnostics Vital Signs (24Hr): Vital Signs - 24 hr 05/09/22 18:00 05/10/22 06:00 Temperature 98.2 F 98.8 F Pulse Rate 74 80 Respiratory Rate 20 18 Blood Pressure 169/77 H 133/70 Pulse Oximetry 95 94 Oxygen Delivery Method Room Air Room Air BMI result Body Mass Index 22.4 Labs 05/08/22 08:43 05/08/22 08:43 Medications Medications Current Medications Acetaminophen (Acetaminophen 325 Mg Tablet) 650 mg PO Q6H PRN PRN Reason: Headache/Pain Mild Scale (1-3) Acetaminophen (Acetaminophen 325 Mg Tablet) 650 mg PO Q6H PRN PRN Reason: Headache/Pain Mild Scale (1-3) Al Hydroxide/Mg Hydroxide (Magnesium Hydrox/Alum Hydrox 30 Ml Oral.Susp) 30 ml PO Q6H PRN PRN Reason: Heartburn/Nausea Al Hydroxide/Mg Hydroxide (Magnesium Hydrox/Alum Hydrox 30 Ml Oral.Susp) 30 ml PO Q6H PRN PRN Reason: Heartburn/Nausea Amlodipine Besylate (Amlodipine Besylate 2.5 Mg Tablet) 2.5 mg PO DAILY [facility]; Protocol Last Admin: 05/10/22 10:55 Dose: 2.5 mg Bisacodyl (Bisacodyl 10 Mg Supp.Rect) 10 mg NE DAILY PRN PRN Reason: Constipation Clonazepam (Clonazepam 0.5 Mg Tablet) 0.5 mg PO BEDTIME [facility] Last Admin: 05/09/22 20:17 Dose: 0.5 mg Cyanocobalamin (Cyanocobalamin (Vitamin B-12) 1,000 Mcg Tablet) 1,000 mcg PO DAILY [facility] Last Admin: 05/10/22 10:55 Dose: 1,000 mcg Fluvoxamine Maleate (Fluvoxamine Maleate 50 Mg Tablet) 100 mg PO BEDTIME [facility] Last Admin: 05/09/22 20:17 Dose: 100 mg Hydroxyzine HCl (Hydroxyzine Hcl 25 Mg Tablet) 25 mg PO Q6H PRN PRN Reason: Anxiety Lamotrigine (Lamotrigine 100 Mg Tablet) 100 mg PO DAILY [facility] Last Admin: 05/10/22 10:55 Dose: 100 mg Magnesium Hydroxide (Milk Of Magnesia 30 Ml Oral.Susp) 30 ml PO DAILY PRN PRN Reason: Constipation Last Admin: 05/10/22 11:05 Dose: 30 ml Magnesium Hydroxide (Milk Of Magnesia 30 Ml Oral.Susp) 30 ml PO DAILY PRN PRN Reason: Constipation Mirtazapine (Mirtazapine 15 Mg Tablet) 15 mg PO BEDTIME [facility] Last Admin: 05/09/22 20:17 Dose: 15 mg Olanzapine (Olanzapine 2.5 Mg Tablet) 2.5 mg PO BID PRN PRN Reason: Agitation Olanzapine (Olanzapine 7.5 Mg Tablet) 15 mg PO BEDTIME [facility] Last Admin: 05/09/22 20:17 Dose: 15 mg Ondansetron HCl (Ondansetron Odt 4 Mg Tab.Rapdis) 4 mg TRANSLINGU DAILY PRN PRN Reason: Nausea Quetiapine Fumarate (Quetiapine Fumarate 100 Mg Tablet) 100 mg PO BEDTIME PRN PRN Reason: Anxiety Risperidone (Risperidone 0.5 Mg Tablet) 0.5 mg PO BID [facility] Last Admin: 05/10/22 10:55 Dose: 0.5 mg Trazodone HCl (Trazodone Hcl 50 Mg Tablet) 50 mg PO BEDTIME MRX1 PRN PRN Reason: Insomnia Last Admin: 05/07/22 20:52 Dose: 50 mg Vitamin D (Cholecalciferol (Vitamin D3) 25 Mcg Tablet) 25 mcg PO DAILY [facility] Last Admin: 05/10/22 10:55 Dose: 25 mcg Allergies Allergies Allergy/AdvReac Type Severity Reaction Status Date / Time Latex, Natural Rubber AdvReac Mild Rash Verified 05/07/22 19:00 Assessment & Plan Assessment & Plan (1) Routine history and physical examination of adult: Status: Acute Code(s): Z00.00 - Encounter for general adult medical examination without abnormal findings (2) Generalized anxiety disorder: Status: Acute Code(s): F41.1 - Generalized anxiety disorder (3) Major depressive disorder, recurrent severe without psychotic features: Status: Acute Code(s): F33.2 - Major depressive disorder, recurrent severe without psychotic features (4) HTN (hypertension): Status: Acute Code(s): I10 - Essential (primary) hypertension Plan The patient is an elderly male with a long history of major depressive disorder with several prior admissions into the hospital for exacerbation of depression and previous treatment with ECT with for improvement.? The patient was initially treated at [facility] and transferring to this facility for ECT.? At this moment, the patient is severely depressed with some neuro cognitive impairment. Plan 1. Gather collateral information.? 2. Hospitalist workout with clearance for ECT.? 3. Continue regular medications.? 4. EKG for ECT treatment.? 5. ECT as soon as he is medically cleared.? Schedule for next Thursday 6. Reassessment with results.? 05/10: no change in mgmt, ECT for thursday. Reason for contiued inpatient stay Substantial Risk for: harm to self, inability to function and rapid decompensation Time Spent With Patient Time: Total time managing care of this patient today _20___ minutes.
[2022-05-10 18:00] VITALS: BP 126/58; PULSE 61; RESP 16; TEMP 36.6; O2SAT 99
[2022-05-10] MEDS: clonazePAM 0.5 MG TABLET PO (20:27)
[2022-05-10] MEDS: fluvoxaMINE Maleate 50 MG TABLET 100 MG PO (20:27)
[2022-05-10] MEDS: Mirtazapine 15 MG TABLET PO (20:27)
[2022-05-10] MEDS: OLANZapine 7.5 MG TABLET 15 MG PO (20:27)
[2022-05-11 08:30] VITALS: BP 184/87; PULSE 71; RESP 18; TEMP 36.6; O2SAT 98
[2022-05-11] MEDS: amLODIPine Besylate 2.5 MG TABLET PO (09:09)
[2022-05-11] MEDS: Cyanocobalamin (Vitamin B-12) 1,000 MCG TABLET 1000 MCG PO (09:09)
[2022-05-11] MEDS: risperiDONE 0.5 MG TABLET PO ×2 (09:09→20:44)
[2022-05-11] MEDS: lamoTRIgine 100 MG TABLET PO (09:09)
[2022-05-11] MEDS: Cholecalciferol (Vitamin D3) 25 MCG TABLET PO (09:09)
--- NOTE | 2022-05-11 12:26 | P.PNPSI_ITS ---
Subjective Subjective Date of Service: 05/11/22 Reason For Visit: depression w/ SI Interim History: calm, cooperative. 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 planning for ECT tomorrow. no change in presentation. had a satisfactory BM yesterday. per staff, no issues. Mental Status Exam Mental Status Exam Patient Appearance: Well Grooomed and Appropriate Patient Orientation: Person, Place, Time and Situation Level of Consciousness: Awake and Appropriate Patient Behavior: Guarded and Passive Mood Description: Withdrawn and Depressed Affect Description: Blunted Patient Cognition Impaired: Yes Ability to Follow Directions: Fair Speech Pattern: Clear Hallucinations: None Delusions: Not Present Thought Process: Distracted and Linear Thought Content: positive for [place] and positive for Circumstantial Judgement: Fair Diagnostics Vital Signs (24Hr): Vital Signs - 24 hr 05/10/22 18:00 05/11/22 08:30 Temperature 98 F 97.9 F Pulse Rate 61 71 Respiratory Rate 16 18 Blood Pressure 126/58 L 184/87 H Pulse Oximetry 99 98 Oxygen Delivery Method Room Air Room Air BMI result Body Mass Index 22.4 Labs 05/08/22 08:43 05/08/22 08:43 Medications Medications Current Medications Acetaminophen (Acetaminophen 325 Mg Tablet) 650 mg PO Q6H PRN PRN Reason: Headache/Pain Mild Scale (1-3) Acetaminophen (Acetaminophen 325 Mg Tablet) 650 mg PO Q6H PRN PRN Reason: Headache/Pain Mild Scale (1-3) Al Hydroxide/Mg Hydroxide (Magnesium Hydrox/Alum Hydrox 30 Ml Oral.Susp) 30 ml PO Q6H PRN PRN Reason: Heartburn/Nausea Al Hydroxide/Mg Hydroxide (Magnesium Hydrox/Alum Hydrox 30 Ml Oral.Susp) 30 ml PO Q6H PRN PRN Reason: Heartburn/Nausea Amlodipine Besylate (Amlodipine Besylate 2.5 Mg Tablet) 2.5 mg PO DAILY [facility]; Protocol Last Admin: 05/11/22 09:09 Dose: 2.5 mg Bisacodyl (Bisacodyl 10 Mg Supp.Rect) 10 mg [place] DAILY PRN PRN Reason: Constipation Clonazepam (Clonazepam 0.5 Mg Tablet) 0.5 mg PO BEDTIME [facility] Last Admin: 05/10/22 20:27 Dose: 0.5 mg Cyanocobalamin (Cyanocobalamin (Vitamin B-12) 1,000 Mcg Tablet) 1,000 mcg PO D AILY [facility] Last Admin: 05/11/22 09:09 Dose: 1,000 mcg Fluvoxamine Maleate (Fluvoxamine Maleate 50 Mg Tablet) 100 mg PO BEDTIME [facility] Last Admin: 05/10/22 20:27 Dose: 100 mg Hydroxyzine HCl (Hydroxyzine Hcl 25 Mg Tablet) 25 mg PO Q6H PRN PRN Reason: Anxiety Lamotrigine (Lamotrigine 100 Mg Tablet) 100 mg PO DAILY [facility] Last Admin: 05/11/22 09:09 Dose: 100 mg Magnesium Hydroxide (Milk Of Magnesia 30 Ml Oral.Susp) 30 ml PO DAILY PRN PRN Reason: Constipation Last Admin: 05/10/22 11:05 Dose: 30 ml Magnesium Hydroxide (Milk Of Magnesia 30 Ml Oral.Susp) 30 ml PO DAILY PRN PRN Reason: Constipation Mirtazapine (Mirtazapine 15 Mg Tablet) 15 mg PO BEDTIME [facility] Last Admin: 05/10/22 20:27 Dose: 15 mg Olanzapine (Olanzapine 2.5 Mg Tablet) 2.5 mg PO BID PRN PRN Reason: Agitation Olanzapine (Olanzapine 7.5 Mg Tablet) 15 mg PO BEDTIME [facility] Last Admin: 05/10/22 20:27 Dose: 15 mg Ondansetron HCl (Ondansetron Odt 4 Mg Tab.Rapdis) 4 mg TRANSLINGU DAILY PRN PRN Reason: Nausea Quetiapine Fumarate (Quetiapine Fumarate 100 Mg Tablet) 100 mg PO BEDTIME PRN PRN Reason: Anxiety Risperidone (Risperidone 0.5 Mg Tablet) 0.5 mg PO BID [facility] Last Admin: 05/11/22 09:09 Dose: 0.5 mg Trazodone HCl (Trazodone Hcl 50 Mg Tablet) 50 mg PO BEDTIME MRX1 PRN PRN Reason: Insomnia Last Admin: 05/07/22 20:52 Dose: 50 mg Vitamin D (Cholecalciferol (Vitamin D3) 25 Mcg Tablet) 25 mcg PO DAILY [facility] Last Admin: 05/11/22 09:09 Dose: 25 mcg Allergies Allergies Allergy/AdvReac Type Severity Reaction Status Date / Time Latex, Natural Rubber AdvReac Mild Rash Verified 05/07/22 19:00 Assessment & Plan Assessment & Plan (1) Routine history and physical examination of adult: Status: Acute Code(s): Z00.00 - Encounter for general adult medical examination without abnormal findings (2) Generalized anxiety disorder: Status: Acute Code(s): F41.1 - Generalized anxiety disorder (3) Major depressive disorder, recurrent severe without psychotic features: Status: Acute Code(s): F33.2 - Major depressive disorder, recurrent severe without psychotic features (4) HTN (hypertension): Status: Acute Code(s): I10 - Essential (primary) hypertension Plan The patient is an elderly male with a long history of major depressive disorder with several prior admissions into the hospital for exacerbation of depression and previous treatment with ECT with for improvement.? The patient was initially treated at [facility] and transferring to this facility for ECT.? At this moment, the patient is severely depressed with some neuro cognitive impairment. Plan 1. Gather collateral information.? 2. Hospitalist workout with clearance for ECT.? 3. Continue regular medications.? 4. EKG for ECT treatment.? 5. ECT as soon as he is medically cleared.? Schedule for next Thursday 6. Reassessment with results.? 05/10: no change in mgmt, ECT for thursday. 05/11: no change in mgmt, ECT for tomorrow. Reason for contiued inpatient stay Substantial Risk for: harm to self, inability to function and rapid decompensation Time Spent With Patient Time: Total time managing care of this patient today ____ minutes.
[2022-05-11 18:42] LABS: COVID-19 Test Positive (Negative); IDNOW Serial# 55D5AD1C
[2022-05-11 20:30] VITALS: BP 139/64; PULSE 71; RESP 16; TEMP 37; O2SAT 95
[2022-05-11] MEDS: OLANZapine 7.5 MG TABLET 15 MG PO (20:44)
[2022-05-11] MEDS: clonazePAM 0.5 MG TABLET PO (20:44)
[2022-05-11] MEDS: Mirtazapine 15 MG TABLET PO (20:44)
[2022-05-11] MEDS: fluvoxaMINE Maleate 50 MG TABLET 100 MG PO (20:44)
[2022-05-12] VITALS (8 sets, daily range): BP systolic 121–189; BP diastolic 58–87; PULSE 61–86; RESP 16–22; TEMP 36.8–39; O2SAT 95–97
[2022-05-12] MEDS: Cholecalciferol (Vitamin D3) 25 MCG TABLET PO (08:59)
[2022-05-12] MEDS: Cyanocobalamin (Vitamin B-12) 1,000 MCG TABLET 1000 MCG PO (09:00)
[2022-05-12] MEDS: lamoTRIgine 100 MG TABLET PO (09:00)
[2022-05-12] MEDS: amLODIPine Besylate 2.5 MG TABLET PO (09:00)
[2022-05-12] MEDS: risperiDONE 0.5 MG TABLET PO ×2 (09:00→20:53)
--- NOTE | 2022-05-12 12:31 | P.PNPSI_ITS ---
Subjective Subjective Date of Service: 05/12/22 Reason For Visit: depression w/ SI Subjective Notes: Conditional Voluntary Interim History: The nursing staff reported the patient tested positive to COVID, the ACT was consult today. Apparently he has been asymptomatic afebrile with vital signs within normal limits. He slept well last night. On interview the patient denies new symptoms he is a little anxious due to the new diagnosis but able to cope with it. Still depressed at baseline. We discussed the case with the substation operator chief the% any and we will wait until next Thursday if his remains asymptomatic to reassess if we can start ECT as soon as possible. Mental Status Exam Mental Status Exam Patient Appearance: Well Grooomed Patient Orientation: Person and Situation Level of Consciousness: Awake and Appropriate Patient Behavior: Guarded and Passive Mood Description: Withdrawn Affect Description: Constricted Patient Cognition Impaired: Yes Ability to Follow Directions: Good Speech Pattern: Clear Hallucinations: None Delusions: Not Present Thought Process: Linear Thought Content: positive for [place] and positive for Circumstantial Judgement: Fair Diagnostics Vital Signs (24Hr): Vital Signs - 24 hr 05/11/22 20:30 05/12/22 05:37 05/12/22 05:42 Temperature 98.6 F 98.2 F 98.2 F Pulse Rate 71 68 68 Respiratory Rate 16 16 16 Blood Pressure 139/64 154/78 H 154/78 H Pulse Oximetry 95 97 97 Oxygen Delivery Method Room Air Room Air 05/12/22 09:00 Temperature 98.3 F Pulse Rate 61 Respiratory Rate 18 Blood Pressure 149/71 H Pulse Oximetry 97 Oxygen Delivery Method Room Air BMI result Body Mass Index 22.4 Labs 05/08/22 08:43 05/08/22 08:43 Labs: Laboratory Results - last 48 hr 05/11/22 18:25 COVID-19 ([facility]) Positive A COVID-19 Clin Com See Note Medications Medications Current Medications Acetaminophen (Acetaminophen 325 Mg Tablet) 650 mg PO Q6H PRN PRN Reason: Headache/Pain Mild Scale (1-3) Acetaminophen (Acetaminophen 325 Mg Tablet) 650 mg PO Q6H PRN PRN Reason: Headache/Pain Mild Scale (1-3) Al Hydroxide/Mg Hydroxide (Magnesium Hydrox/Alum Hydrox 30 Ml Oral.Susp) 30 ml PO Q6H PRN PRN Reason: Heartburn/Nausea Al Hydroxide/Mg Hydroxide (Magnesium Hydrox/Alum Hydrox 30 Ml Oral.Susp) 30 ml PO Q6H PRN PRN Reason: Heartburn/Nausea Amlodipine Besylate (Amlodipine Besylate 2.5 Mg Tablet) 2.5 mg PO DAILY [facility]; Protocol Last Admin: 05/12/22 09:00 Dose: 2.5 mg Bisacodyl (Bisacodyl 10 Mg Supp.Rect) 10 mg [place] DAILY PRN PRN Reason: Constipation Clonazepam (Clonazepam 0.5 Mg Tablet) 0.5 mg PO BEDTIME [facility] Last Admin: 05/11/22 20:44 Dose: 0.5 mg Cyanocobalamin (Cyanocobalamin (Vitamin B-12) 1,000 Mcg Tablet) 1,000 mcg PO DAILY [facility] Last Admin: 05/12/22 09:00 Dose: 1,000 mcg Fluvoxamine Maleate (Fluvoxamine Maleate 50 Mg Tablet) 100 mg PO BEDTIME [facility] Last Admin: 05/11/22 20:44 Dose: 100 mg Hydroxyzine HCl (Hydroxyzine Hcl 25 Mg Tablet) 25 mg PO Q6H PRN PRN Reason: Anxiety Lamotrigine (Lamotrigine 100 Mg Tablet) 100 mg PO DAILY [facility] Last Admin: 05/12/22 09:00 Dose: 100 mg Magnesium Hydroxide (Milk Of Magnesia 30 Ml Oral.Susp) 30 ml PO DAILY PRN PRN Reason: Constipation Last Admin: 05/10/22 11:05 Dose: 30 ml Magnesium Hydroxide (Milk Of Magnesia 30 Ml Oral.Susp) 30 ml PO DAILY PRN PRN Reason: Constipation Mirtazapine (Mirtazapine 15 Mg Tablet) 15 mg PO BEDTIME [facility] Last Admin: 05/11/22 20:44 Dose: 15 mg Olanzapine (Olanzapine 2.5 Mg Tablet) 2.5 mg PO BID PRN PRN Reason: Agitation Olanzapine (Olanzapine 7.5 Mg Tablet) 15 mg PO BEDTIME [facility] Last Admin: 05/11/22 20:44 Dose: 15 mg Ondansetron HCl (Ondansetron Odt 4 Mg Tab.Rapdis) 4 mg TRANSLINGU DAILY PRN PRN Reason: Nausea Quetiapine Fumarate (Quetiapine Fumarate 100 Mg Tablet) 100 mg PO BEDTIME PRN PRN Reason: Anxiety Risperidone (Risperidone 0.5 Mg Tablet) 0.5 mg PO BID [facility] Last Admin: 05/12/22 09:00 Dose: 0.5 mg Trazodone HCl (Trazodone Hcl 50 Mg Tablet) 50 mg PO BEDTIME MRX1 PRN PRN Reason: Insomnia Last Admin: 05/07/22 20:52 Dose: 50 mg Vitamin D (Cholecalciferol (Vitamin D3) 25 Mcg Tablet) 25 mcg PO DAILY [facility] Last Admin: 05/12/22 08:59 Dose: 25 mcg Allergies Allergies Allergy/AdvReac Type Severity Reaction Status Date / Time Latex, Natural Rubber AdvReac Mild Rash Verified 05/07/22 19:00 Assessment & Plan Assessment & Plan (1) Routine history and physical examination of adult: Status: Acute Code(s): Z00.00 - Encounter for general adult medical examination without abnormal findings (2) Generalized anxiety disorder: Status: Acute Code(s): F41.1 - Generalized anxiety disorder (3) Major depressive disorder, recurrent severe without psychotic features: Status: Acute Code(s): F33.2 - Major depressive disorder, recurrent severe without psychotic features (4) HTN (hypertension): Status: Acute Code(s): I10 - Essential (primary) hypertension Plan The patient is an elderly male with a long history of major depressive disorder with several prior admissions into the hospital for exacerbation of d epression and previous treatment with ECT with for improvement.? The patient was initially treated at [facility] and transferring to this facility for ECT.? At this moment, the patient is severely depressed with some neuro cognitive impairment. Plan 1. Gather collateral information.? 2. Hospitalist workout with clearance for ECT.? Ready for ECT as per ThursdayMay 12 3. Continue regular medications.? 4. EKG for ECT treatment.? 5. ECT as soon as he is medically cleared.? Schedule for next Thursday but since he is COVID-19 his will be held until reassessment 6. Reassessment with results.? Reason for contiued inpatient stay Substantial Risk for: inability to function, rapid decompensation and med/psych decompensation Time Spent With Patient Time: Total time managing care of this patient today __20__ minutes.
[2022-05-12] MEDS: Acetaminophen 325 MG TABLET 650 MG PO ×2 (16:05→21:15)
--- NOTE | 2022-05-12 19:33 | PC.NURSE ---
COVID positive, remains isolative to room due to precautions. Intermittent non-productive cough noted. VS 98.3-61-18 149/71 O2 sat 97% rm air at 0900. VS 100.4-86-18 02 SAT 96% rm air at 1546. BP 189/87 right arm supine, 174/82 left arm supine at 1547. Dr Chambers notified of BP, no new orders received. Tylenol 650 mg po given at 1605 for temp. Temp 100.5 orally at 1850. Temps reported to nurses on oncoming shift.
[2022-05-12] MEDS: OLANZapine 7.5 MG TABLET 15 MG PO (20:52)
[2022-05-12] MEDS: clonazePAM 0.5 MG TABLET PO (20:52)
[2022-05-12] MEDS: Mirtazapine 15 MG TABLET PO (20:53)
[2022-05-12] MEDS: fluvoxaMINE Maleate 50 MG TABLET 100 MG PO (20:53)
[2022-05-13 01:46] VITALS: TEMP 37.3
[2022-05-13] MEDS: Acetaminophen 325 MG TABLET 650 MG PO ×2 (04:56→20:13)
[2022-05-13] MEDS: Cholecalciferol (Vitamin D3) 25 MCG TABLET PO (10:33)
[2022-05-13] MEDS: Cyanocobalamin (Vitamin B-12) 1,000 MCG TABLET 1000 MCG PO (10:33)
[2022-05-13] MEDS: lamoTRIgine 100 MG TABLET PO (10:33)
[2022-05-13] MEDS: risperiDONE 0.5 MG TABLET PO ×2 (10:33→20:27)
[2022-05-13 11:25] VITALS: BP 108/49; PULSE 68; RESP 18; TEMP 37.2; O2SAT 96
--- NOTE | 2022-05-13 13:56 | P.PNPSI_ITS ---
Subjective Subjective Date of Service: 05/13/22 Reason For Visit: depression w/ SI Subjective Notes: Conditional Voluntary Interim History: The nursing staff reported that he had a mild low fever his blood pressure was slightly high last evening. Besides that he seems asymptomatic of COVID-19. He is complaining of urinary incontinence. The occupational therapist reported that he should be using his [employer] because it is unsafe. He is trying to exercise himself. On interview the patient denies new symptoms he is dysphoric and anxious, ECT has been held due to COVID-19 infection. Mental Status Exam Mental Status Exam Patient Appearance: Well Grooomed and Appropriate Patient Orientation: Person and Situation Level of Consciousness: Awake and Appropriate Patient Behavior: Guarded and Passive Mood Description: Calm Affect Description: Constricted Patient Cognition Impaired: Yes Ability to Follow Directions: Good Speech Pattern: Clear Hallucinations: None Delusions: Not Present Thought Process: Linear and Slowed Thinking Thought Content: positive for [place] and positive for Circumstantial Judgement: Fair Diagnostics Vital Signs (24Hr): Vital Signs - 24 hr 05/12/22 15:46 05/12/22 15:47 05/12/22 18:50 Temperature 100.4 F 100.5 F H Pulse Rate 86 86 Respiratory Rate 18 Blood Pressure 189/87 H 174/82 H Pulse Oximetry 96 Oxygen Delivery Method Room Air 05/12/22 19:30 05/12/22 22:00 05/13/22 01:46 Temperature 101.2 F H 102.2 F H 99.1 F Pulse Rate 78 76 Respiratory Rate 20 22 H Blood Pressure 144/67 H 121/58 L Pulse Oximetry 95 97 Oxygen Delivery Method Room Air Room Air 05/13/22 11:25 Temperature 99.0 F Pulse Rate 68 Respiratory Rate 18 Blood Pressure 108/49 L Pulse Oximetry 96 Oxygen Delivery Method Room Air BMI result Body Mass Index 22.4 Labs 05/08/22 08:43 05/08/22 08:43 Labs: Laboratory Results - last 48 hr 05/11/22 18:25 COVID-19 ([facility]) Positive A COVID-19 Clin Com See Note Medications Medications Current Medications Acetaminophen (Acetaminophen 325 Mg Tablet) 650 mg PO Q6H PRN PRN Reason: Headache/Pain Mild Scale (1-3) Last Admin: 05/13/22 04:56 Dose: 650 mg Acetaminophen (Acetaminophen 325 Mg Tablet) 650 mg PO Q6H PRN PRN Reason: Headache/Pain Mild Scale (1-3) Al Hydroxide/Mg Hydroxide (Magnesium Hydrox/Alum Hydrox 30 Ml Oral.Susp) 30 ml PO Q6H PRN PRN Reason: Heartburn/Nausea Al Hydroxide/Mg Hydroxide (Magnesium Hydrox/Alum Hydrox 30 Ml Oral.Susp) 30 ml PO Q6H PRN PRN Reason: Heartburn/Nausea Amlodipine Besylate (Amlodipine Besylate 2.5 Mg Tablet) 2.5 mg PO DAILY [facility]; Protocol Last Admin: 05/13/22 10:34 Dose: Not Given Bisacodyl (Bisacodyl 10 Mg Supp.Rect) 10 mg [place] DAILY PRN PRN Reason: Constipation Clonazepam (Clonazepam 0.5 Mg Tablet) 0.5 mg PO BEDTIME [facility] Last Admin: 05/12/22 20:52 Dose: 0.5 mg Cyanocobalamin (Cyanocobalamin (Vitamin B-12) 1,000 Mcg Tablet) 1,000 mcg PO DAILY [facility] Last Admin: 05/13/22 10:33 Dose: 1,000 mcg Fluvoxamine Maleate (Fluvoxamine Maleate 50 Mg Tablet) 100 mg PO BEDTIME [facility] Last Admin: 05/12/22 20:53 Dose: 100 mg Hydroxyzine HCl (Hydroxyzine Hcl 25 Mg Tablet) 25 mg PO Q6H PRN PRN Reason: Anxiety Lamotrigine (Lamotrigine 100 Mg Tablet) 100 mg PO DAILY [facility] Last Admin: 05/13/22 10:33 Dose: 100 mg Magnesium Hydroxide (Milk Of Magnesia 30 Ml Oral.Susp) 30 ml PO DAILY PRN PRN Reason: Constipation Last Admin: 05/10/22 11:05 Dose: 30 ml Magnesium Hydroxide (Milk Of Magnesia 30 Ml Oral.Susp) 30 ml PO DAILY PRN PRN Reason: Constipation Mirtazapine (Mirtazapine 15 Mg Tablet) 15 mg PO BEDTIME [facility] Last Admin: 05/12/22 20:53 Dose: 15 mg Olanzapine (Olanzapine 2.5 Mg Tablet) 2.5 mg PO BID PRN PRN Reason: Agitation Olanzapine (Olanzapine 7.5 Mg Tablet) 15 mg PO BEDTIME [facility] Last Admin: 05/12/22 20:52 Dose: 15 mg Ondansetron HCl (Ondansetron Odt 4 Mg Tab.Rapdis) 4 mg TRANSLINGU DAILY PRN PRN Reason: Nausea Quetiapine Fumarate (Quetiapine Fumarate 100 Mg Tablet) 100 mg PO BEDTIME PRN PRN Reason: Anxiety Risperidone (Risperidone 0.5 Mg Tablet) 0.5 mg PO BID [facility] Last Admin: 05/13/22 10:33 Dose: 0.5 mg Trazodone HCl (Trazodone Hcl 50 Mg Tablet) 50 mg PO BEDTIME MRX1 PRN PRN Reason: Insomnia Last Admin: 05/07/22 20:52 Dose: 50 mg Vitamin D (Cholecalciferol (Vitamin D3) 25 Mcg Tablet) 25 mcg PO DAILY [facility] Last Admin: 05/13/22 10:33 Dose: 25 mcg Allergies Allergies Allergy/AdvReac Type Severity Reaction Status Date / Time Latex, Natural Rubber AdvReac Mild Rash Verified 05/07/22 19:00 Assessment & Plan Assessment & Plan (1) Routine history and physical examination of adult: Status: Acute Code(s): Z00.00 - Encounter for general adult medical examination without abnormal findings (2) Generalized anxiety disorder: Status: Acute Code(s): F41.1 - Generalized anxiety disorder (3) Major depressive disorder, recurrent severe without psychotic features: Status: Acute Code(s): F33.2 - Major depressive disorder, recurrent severe without psychotic features (4) HTN (hypertension): Status: Acute Code(s): I10 - Essential (primary) hypertension Plan The patient is an elderly male with a long history of major depressive disorder with several prior admissions into the hospital for exacerbation of depression and previous treatment with ECT with for improvement.? The patient was initially treated at [facility] and transferring to this facility for ECT.? At this moment, the patient is severely depressed with some neuro cognitive impairment. Plan 1. Gather collateral information.? 2. Hospitalist workout with clearance for ECT.? Ready for ECT as per ThursdayMay 12 3. Continue regular medications.? 4. EKG for ECT treatment.? 5. ECT as soon as he is medically cleared.? Schedule for next Thursday but since he is COVID-19 his will be held until reassessment 6. Reassessment with results.? Reason for contiued inpatient stay Substantial Risk for: inability to function, rapid decompensation and med/psych decompensation Time Spent With Patient Time: Total time managing care of this patient today __20__ minutes.
[2022-05-13 18:00] VITALS: BP 160/74; PULSE 84; RESP 18; TEMP 38.1; O2SAT 93
[2022-05-13] MEDS: clonazePAM 0.5 MG TABLET PO (19:53)
[2022-05-13] MEDS: fluvoxaMINE Maleate 50 MG TABLET 100 MG PO (19:54)
[2022-05-13] MEDS: OLANZapine 7.5 MG TABLET 15 MG PO (19:54)
[2022-05-13] MEDS: Mirtazapine 15 MG TABLET PO (19:54)
[2022-05-14 01:21] VITALS: TEMP 37.2
[2022-05-14 06:00] VITALS: BP 125/58; PULSE 73; RESP 14; TEMP 37.3; O2SAT 95
[2022-05-14] MEDS: amLODIPine Besylate 2.5 MG TABLET PO (10:22)
[2022-05-14] MEDS: Cholecalciferol (Vitamin D3) 25 MCG TABLET PO (10:22)
[2022-05-14] MEDS: lamoTRIgine 100 MG TABLET PO (10:22)
[2022-05-14] MEDS: risperiDONE 0.5 MG TABLET PO ×2 (10:22→20:13)
[2022-05-14] MEDS: Cyanocobalamin (Vitamin B-12) 1,000 MCG TABLET 1000 MCG PO (10:23)
--- NOTE | 2022-05-14 12:43 | HO.PSYCHPN ---
Subjective Subjective Date of Service: 05/14/22 Reason For Visit: depression w/ SI Subjective Notes: Conditional Voluntary Interim History: The nursing staff reported the patient has been isolative for COVID-19, he has productive cough that he slept the 2nd half of the night. He has been slightly irritable due to his peer who speaks a lot. The occupational therapist reports that he the patient can not follow directions but he has poor judgment. On interview the patient denies new symptoms, he is waiting to clear for COVID-19 to start ECT. Mental Status Exam Mental Status Exam Patient Appearance: Well Grooomed and Appropriate Patient Orientation: Person and Situation Level of Consciousness: Awake and Appropriate Patient Behavior: Guarded and Passive Mood Description: Calm Affect Description: Constricted Patient Cognition Impaired: Yes Ability to Follow Directions: Good Speech Pattern: Clear Hallucinations: None Delusions: Not Present Thought Process: Distracted and Linear Thought Content: positive for [place] and positive for Circumstantial Judgement: Fair Diagnostics Vital Signs (24Hr): Vital Signs - 24 hr 05/13/22 18:00 05/14/22 01:21 05/14/22 06:00 Temperature 100.6 F H 98.9 F 99.1 F Pulse Rate 84 73 Respiratory Rate 18 14 Blood Pressure 160/74 H 125/58 L Pulse Oximetry 93 95 Oxygen Delivery Method Room Air Room Air BMI result Body Mass Index 22.4 Labs 05/08/22 08:43 05/08/22 08:43 Medications Medications Current Medications Acetaminophen (Acetaminophen 325 Mg Tablet) 650 mg PO Q6H PRN PRN Reason: Headache/Pain Mild Scale (1-3) Last Admin: 05/13/22 20:13 Dose: 650 mg Acetaminophen (Acetaminophen 325 Mg Tablet) 650 mg PO Q6H PRN PRN Reason: Headache/Pain Mild Scale (1-3) Al Hydroxide/Mg Hydroxide (Magnesium Hydrox/Alum Hydrox 30 Ml Oral.Susp) 30 ml PO Q6H PRN PRN Reason: Heartburn/Nausea Al Hydroxide/Mg Hydroxide (Magnesium Hydrox/Alum Hydrox 30 Ml Oral.Susp) 30 ml PO Q6H PRN PRN Reason: Heartburn/Nausea Amlodipine Besylate (Amlodipine Besylate 2.5 Mg Tablet) 2.5 mg PO DAILY [facility]; Protocol Last Admin: 05/14/22 10:22 Dose: 2.5 mg Bisacodyl (Bisacodyl 10 Mg Supp.Rect) 10 mg [place] DAILY PRN PRN Reason: Constipation Clonazepam (Clonazepam 0.5 Mg Tablet) 0.5 mg PO BEDTIME [facility] Last Admin: 05/13/22 19:53 Dose: 0.5 mg Cyanocobalamin (Cyanocobalamin (Vitamin B-12) 1,000 Mcg Tablet) 1,000 mcg PO DAILY [facility] Last Admin: 05/14/22 10:23 Dose: 1,000 mcg Fluvoxamine Maleate (Fluvoxamine Maleate 50 Mg Tablet) 100 mg PO BEDTIME [facility] Last Admin: 05/13/22 19:54 Dose: 100 mg Hydroxyzine HCl (Hydroxyzine Hcl 25 Mg Tablet) 25 mg PO Q6H PRN PRN Reason: Anxiety Lamotrigine (Lamotrigine 100 Mg Tablet) 100 mg PO DAILY [facility] Last Admin: 05/14/22 10:22 Dose: 100 mg Magnesium Hydroxide (Milk Of Magnesia 30 Ml Oral.Susp) 30 ml PO DAILY PRN PRN Reason: Constipation Last Admin: 05/10/22 11:05 Dose: 30 ml Magnesium Hydroxide (Milk Of Magnesia 30 Ml Oral.Susp) 30 ml PO DAILY PRN PRN Reason: Constipation Mirtazapine (Mirtazapine 15 Mg Tablet) 15 mg PO BEDTIME [facility] Last Admin: 05/13/22 19:54 Dose: 15 mg Olanzapine (Olanzapine 2.5 Mg Tablet) 2.5 mg PO BID PRN PRN Reason: Agitation Olanzapine (Olanzapine 7.5 Mg Tablet) 15 mg PO BEDTIME [facility] Last Admin: 05/13/22 19:54 Dose: 15 mg Ondansetron HCl (Ondansetron Odt 4 Mg Tab.Rapdis) 4 mg TRANSLINGU DAILY PRN PRN Reason: Nausea Quetiapine Fumarate (Quetiapine Fumarate 100 Mg Tablet) 100 mg PO BEDTIME PRN PRN Reason: Anxiety Risperidone (Risperidone 0.5 Mg Tablet) 0.5 mg PO BID [facility] Last Admin: 05/14/22 10:22 Dose: 0.5 mg Trazodone HCl (Trazodone Hcl 50 Mg Tablet) 50 mg PO BEDTIME MRX1 PRN PRN Reason: Insomnia Last Admin: 05/07/22 20:52 Dose: 50 mg Vitamin D (Cholecalciferol (Vitamin D3) 25 Mcg Tablet) 25 mcg PO DAILY [facility] Last Admin: 05/14/22 10:22 Dose: 25 mcg Allergies Allergies Allergy/AdvReac Type Severity Reaction Status Date / Time Latex, Natural Rubber AdvReac Mild Rash Verified 05/07/22 19:00 Assessment & Plan Assessment & Plan (1) Routine history and physical examination of adult: Status: Acute Code(s): Z00.00 - Encounter for general adult medical examination without abnormal findings (2) Generalized anxiety disorder: Status: Acute Code(s): F41.1 - Generalized anxiety disorder (3) Major depressive disorder, recurrent severe without psychotic features: Status: Acute Code(s): F33.2 - Major depressive disorder, recurrent severe without psychotic features (4) HTN (hypertension): Status: Acute Code(s): I10 - Essential (primary) hypertension Plan The patient is an elderly male with a long history of major depressive disorder with several prior admissions into the hospital for exacerbation of depression and previous treatment with ECT with for improvement.? The patient was initially treated at [facility] and transferring to this facility for ECT.? At this moment, the patient is severely depressed with some neuro cognitive impairment. Plan 1. Gather collateral information.? 2. Hospitalist workout with clearance for ECT.? Ready for ECT as per ThursdayMay 12 3. Continue regular medications.? 4. EKG for ECT treatment.? 5. ECT as soon as he is medically cleared.? Schedule for next Thursday but since he is COVID-19 his will be held until reassessment 6. Reassessment with results.? Reason for contiued inpatient stay Substantial Risk for: inability to function, rapid decompensation and med/psych decompensation Time Spent With Patient Time: Total time managing care of this patient today __20__ minutes.
[2022-05-14 18:00] VITALS: BP 151/78; PULSE 68; RESP 18; TEMP 37.5; O2SAT 97
[2022-05-14] MEDS: fluvoxaMINE Maleate 50 MG TABLET 100 MG PO (20:13)
[2022-05-14] MEDS: traZODone HCL 50 MG TABLET PO (20:13)
[2022-05-14] MEDS: clonazePAM 0.5 MG TABLET PO (20:13)
[2022-05-14] MEDS: OLANZapine 7.5 MG TABLET 15 MG PO (20:13)
[2022-05-14] MEDS: Mirtazapine 15 MG TABLET PO (20:14)
[2022-05-15 06:00] VITALS: BP 125/58; PULSE 75; RESP 16; TEMP 36.8; O2SAT 94
[2022-05-15 07:00] VITALS: BMI 25.6
[2022-05-15] MEDS: lamoTRIgine 100 MG TABLET PO (09:18)
[2022-05-15] MEDS: Cyanocobalamin (Vitamin B-12) 1,000 MCG TABLET 1000 MCG PO (09:19)
[2022-05-15] MEDS: amLODIPine Besylate 2.5 MG TABLET PO (09:19)
[2022-05-15] MEDS: Cholecalciferol (Vitamin D3) 25 MCG TABLET PO (09:19)
[2022-05-15] MEDS: risperiDONE 0.5 MG TABLET PO ×2 (09:19→20:41)
--- NOTE | 2022-05-15 17:36 | P.PNPSI_ITS ---
Subjective Subjective Date of Service: 05/15/22 Reason For Visit: depression w/ SI Subjective Notes: Conditional Voluntary Interim History: The nursing staff reported the patient has been isolative due to COVID. He had a productive cough and he slept the 2nd half of the night. He had been irritable with peers. The occupational therapy reported that he can not follow directions and he had been exercising. But he has very poor judgment and safety awareness chart On interview the patient denies new symptoms he looks dysphoric but able to cope with stressor of COVID-19 treatment. Mental Status Exam Mental Status Exam Patient Appearance: Well Grooomed and Appropriate Patient Orientation: Person, Place and Time Level of Consciousness: Awake and Appropriate Patient Behavior: Appropriate and Cooperative Mood Description: Withdrawn Affect Description: Constricted Ability to Follow Directions: Good Speech Pattern: Clear Hallucinations: None Delusions: Not Present Thought Process: Distracted Thought Content: positive for Ge[place] Judgement: Fair Diagnostics Vital Signs (24Hr): Vital Signs - 24 hr 05/14/22 18:00 05/15/22 06:00 Temperature 99.5 F 98.3 F Pulse Rate 68 75 Respiratory Rate 18 16 Blood Pressure 151/78 H 125/58 L Pulse Oximetry 97 94 Oxygen Delivery Method Room Air Room Air BMI result Body Mass Index 25.6 Labs 05/08/22 08:43 05/08/22 08:43 Medications Medications Current Medications Acetaminophen (Acetaminophen 325 Mg Tablet) 650 mg PO Q6H PRN PRN Reason: Headache/Pain Mild Scale (1-3) Last Admin: 05/13/22 20:13 Dose: 650 mg Acetaminophen (Acetaminophen 325 Mg Tablet) 650 mg PO Q6H PRN PRN Reason: Headache/Pain Mild Scale (1-3) Al Hydroxide/Mg Hydroxide (Magnesium Hydrox/Alum Hydrox 30 Ml Oral.Susp) 30 ml PO Q6H PRN PRN Reason: Heartburn/Nausea Al Hydroxide/Mg Hydroxide (Magnesium Hydrox/Alum Hydrox 30 Ml Oral.Susp) 30 ml PO Q6H PRN PRN Reason: Heartburn/Nausea Amlodipine Besylate (Amlodipine Besylate 2.5 Mg Tablet) 2.5 mg PO DAILY [facility]; Protocol Last Admin: 05/15/22 09:19 Dose: 2.5 mg Bisacodyl (Bisacodyl 10 Mg Supp.Rect) 10 mg [place] DAILY PRN PRN Reason: Constipation Clonazepam (Clonazepam 0.5 Mg Tablet) 0.5 mg PO BEDTIME [facility] Last Admin: 05/14/22 20:13 Dose: 0.5 mg Cyanocobalamin (Cyanocobalamin (Vitamin B-12) 1,000 Mcg Tablet) 1,000 mcg PO DAILY [facility] Last Admin: 05/15/22 09:19 Dose: 1,000 mcg Fluvoxamine Maleate (Fluvoxamine Maleate 50 Mg Tablet) 100 mg PO BEDTIME [facility] Last Admin: 05/14/22 20:13 Dose: 100 mg Hydroxyzine HCl (Hydroxyzine Hcl 25 Mg Tablet) 25 mg PO Q6H PRN PRN Reason: Anxiety Lamotrigine (Lamotrigine 100 Mg Tablet) 100 mg PO DAILY [facility] Last Admin: 05/15/22 09:18 Dose: 100 mg Magnesium Hydroxide (Milk Of Magnesia 30 Ml Oral.Susp) 30 ml PO DAILY PRN PRN Reason: Constipation Last Admin: 05/10/22 11:05 Dose: 30 ml Magnesium Hydroxide (Milk Of Magnesia 30 Ml Oral.Susp) 30 ml PO DAILY PRN PRN Reason: Constipation Mirtazapine (Mirtazapine 15 Mg Tablet) 15 mg PO BEDTIME [facility] Last Admin: 05/14/22 20:14 Dose: 15 mg Olanzapine (Olanzapine 2.5 Mg Tablet) 2.5 mg PO BID PRN PRN Reason: Agitation Olanzapine (Olanzapine 7.5 Mg Tablet) 15 mg PO BEDTIME [facility] Last Admin: 05/14/22 20:13 Dose: 15 mg Ondansetron HCl (Ondansetron Odt 4 Mg Tab.Rapdis) 4 mg TRANSLINGU DAILY PRN PRN Reason: Nausea Quetiapine Fumarate (Quetiapine Fumarate 100 Mg Tablet) 100 mg PO BEDTIME PRN PRN Reason: Anxiety Risperidone (Risperidone 0.5 Mg Tablet) 0.5 mg PO BID [facility] Last Admin: 05/15/22 09:19 Dose: 0.5 mg Trazodone HCl (Trazodone Hcl 50 Mg Tablet) 50 mg PO BEDTIME MRX1 PRN PRN Reason: Insomnia Last Admin: 05/14/22 20:13 Dose: 50 mg Vitamin D (Cholecalciferol (Vitamin D3) 25 Mcg Tablet) 25 mcg PO DAILY [facility] Last Admin: 05/15/22 09:19 Dose: 25 mcg Allergies Allergies Allergy/AdvReac Type Severity Reaction Status Date / Time Latex, Natural Rubber AdvReac Mild Rash Verified 05/07/22 19:00 Assessment & Plan Assessment & Plan (1) Routine history and physical examination of adult: Status: Acute Code(s): Z00.00 - Encounter for general adult medical examination without abnormal findings (2) Generalized anxiety disorder: Status: Acute Code(s): F41.1 - Generalized anxiety disorder (3) Major depressive disorder, recurrent severe without psychotic features: Status: Acute Code(s): F33.2 - Major depressive disorder, recurrent severe without psychotic features (4) HTN (hypertension): Status: Acute Code(s): I10 - Essential (primary) hypertension Plan The patient is an elderly male with a long history of major depressive disorder with several prior admissions into the hospital for exacerbation of d epression and previous treatment with ECT with for improvement.? The patient was initially treated at [facility] and transferring to this facility for ECT.? At this moment, the patient is severely depressed with some neuro cognitive impairment. Plan 1. Gather collateral information.? 2. Hospitalist workout with clearance for ECT.? Ready for ECT as per ThursdayMay 12 3. Continue regular medications.? 4. EKG for ECT treatment.? 5. ECT as soon as he is medically cleared.? Since he has COVID, he cannot have ECT at this moment. Reason for contiued inpatient stay Substantial Risk for: inability to function, rapid decompensation and med/psych decompensation Time Spent With Patient Time: Total time managing care of this patient today _20___ minutes.
[2022-05-15 18:00] VITALS: BP 133/70; PULSE 90; RESP 16; TEMP 36.7; O2SAT 95
[2022-05-15] MEDS: fluvoxaMINE Maleate 50 MG TABLET 100 MG PO (20:41)
[2022-05-15] MEDS: Mirtazapine 15 MG TABLET PO (20:41)
[2022-05-15] MEDS: OLANZapine 7.5 MG TABLET 15 MG PO (20:41)
[2022-05-15] MEDS: traZODone HCL 50 MG TABLET PO (20:42)
[2022-05-15] MEDS: clonazePAM 0.5 MG TABLET PO (20:42)
[2022-05-16] MEDS: amLODIPine Besylate 2.5 MG TABLET PO (09:36)
[2022-05-16] MEDS: lamoTRIgine 100 MG TABLET PO (09:36)
[2022-05-16] MEDS: Cholecalciferol (Vitamin D3) 25 MCG TABLET PO (09:36)
[2022-05-16] MEDS: risperiDONE 0.5 MG TABLET PO ×2 (09:36→20:07)
[2022-05-16] MEDS: Cyanocobalamin (Vitamin B-12) 1,000 MCG TABLET 1000 MCG PO (09:36)
--- NOTE | 2022-05-16 10:56 | P.PNPSI_ITS ---
Subjective Subjective Date of Service: 05/16/22 Reason For Visit: depression w/ SI Subjective Notes: Conditional Voluntary Interim History: Pt reports feeling physically better given that he is covid positive. He reports less malaise and less chills. No fever. No SOB.He does report feeling tired. He reports constipation. He states last BM 3 days ago and feels it was hard and not complete. He denies SI/HI. He asks appropriate questions about isolation and when can he resume ECT. No plan or intent to harm himself. Medication Compliance: Yes Side effects from medications: No Mental Status Exam Mental Status Exam Narrative: Appearance: wearing hospital gown, fair hygiene in NAD behavior: cooperative Speech: clear, normal rate/rhythm/volume, spontaneous TP: linear TC: feeling better from covid, but feeling tired, sleeping most of day. Mood: very tired Affect: congruent, does brightens at times SI: none HI: none VH/AH: none Delusions: no overt delusional content reported or noted. Insight/judgment: fair x 2 Memory/cog: alert, oriented x 3. grossly intact to conversational testing. Diagnostics Vital Signs (24Hr): Vital Signs - 24 hr 05/15/22 18:00 Temperature 98.1 F Pulse Rate 90 Respiratory Rate 16 Blood Pressure 133/70 Pulse Oximetry 95 Oxygen Delivery Method Room Air BMI result Body Mass Index 25.6 Labs 05/08/22 08:43 05/08/22 08:43 Medications Medications Current Medications Acetaminophen (Acetaminophen 325 Mg Tablet) 650 mg PO Q6H PRN PRN Reason: Headache/Pain Mild Scale (1-3) Last Admin: 05/13/22 20:13 Dose: 650 mg Acetaminophen (Acetaminophen 325 Mg Tablet) 650 mg PO Q6H PRN PRN Reason: Headache/Pain Mild Scale (1-3) Al Hydroxide/Mg Hydroxide (Magnesium Hydrox/Alum Hydrox 30 Ml Oral.Susp) 30 ml PO Q6H PRN PRN Reason: Heartburn/Nausea Al Hydroxide/Mg Hydroxide (Magnesium Hydrox/Alum Hydrox 30 Ml Oral.Susp) 30 ml PO Q6H PRN PRN Reason: Heartburn/Nausea Amlodipine Besylate (Amlodipine Besylate 2.5 Mg Tablet) 2.5 mg PO DAILY [facility]; Protocol Last Admin: 05/16/22 09:36 Dose: 2.5 mg Bisacodyl (Bisacodyl 10 Mg Supp.Rect) 10 mg [place] DAILY PRN PRN Reason: Constipation Clonazepam (Clonazepam 0.5 Mg Tablet) 0.5 mg PO BEDTIME ON [facility] OF [facility] Last Admin: 05/15/22 20:42 Dose: 0.5 mg Cyanocobalamin (Cyanocobalamin (Vitamin B-12) 1,000 Mcg Tablet) 1,000 mcg PO DAILY [facility] Last Admin: 05/16/22 09:36 Dose: 1,000 mcg Fluvoxamine Maleate (Fluvoxamine Maleate 50 Mg Tablet) 100 mg PO BEDTIME ON [facility] Last Admin: 05/15/22 20:41 Dose: 100 mg Hydroxyzine HCl (Hydroxyzine Hcl 25 Mg Tablet) 25 mg PO Q6H PRN PRN Reason: Anxiety Lamotrigine (Lamotrigine 100 Mg Tablet) 100 mg PO DAILY [facility] Last Admin: 05/16/22 09:36 Dose: 100 mg Magnesium Hydroxide (Milk Of Magnesia 30 Ml Oral.Susp) 30 ml PO DAILY PRN PRN Reason: Constipation Last Admin: 05/10/22 11:05 Dose: 30 ml Magnesium Hydroxide (Milk Of Magnesia 30 Ml Oral.Susp) 30 ml PO DAILY PRN PRN Reason: Constipation Mirtazapine (Mirtazapine 15 Mg Tablet) 15 mg PO BEDTIME [facility] Last Admin: 05/15/22 20:41 Dose: 15 mg Olanzapine (Olanzapine 2.5 Mg Tablet) 2.5 mg PO BID PRN PRN Reason: Agitation Olanzapine (Olanzapine 7.5 Mg Tablet) 15 mg PO BEDTIME [facility] Last Admin: 05/15/22 20:41 Dose: 15 mg Ondansetron HCl (Ondansetron Odt 4 Mg Tab.Rapdis) 4 mg TRANSLINGU DAILY PRN PRN Reason: Nausea Quetiapine Fumarate (Quetiapine Fumarate 100 Mg Tablet) 100 mg PO BEDTIME PRN PRN Reason: Anxiety Risperidone (Risperidone 0.5 Mg Tablet) 0.5 mg PO BID [facility] Last Admin: 05/16/22 09:36 Dose: 0.5 mg Senna/Docusate Sodium (Sennosides/Docusate Sodium Tablet) 1 tab PO BEDTIME ON [facility] OF [facility] Trazodone HCl (Trazodone Hcl 50 Mg Tablet) 50 mg PO BEDTIME MRX1 PRN PRN Reason: Insomnia Last Admin: 05/15/22 20:42 Dose: 50 mg Vitamin D (Cholecalciferol (Vitamin D3) 25 Mcg Tablet) 25 mcg PO DAILY [facility] Last Admin: 05/16/22 09:36 Dose: 25 mcg Allergies Allergies Allergy/AdvReac Type Severity Reaction Status Date / Time Latex, Natural Rubber AdvReac Mild Rash Verified 05/07/22 19:00 Assessment & Plan Assessment & Plan (1) Major depressive disorder, recurrent severe without psychotic features: Status: Acute Code(s): F33.2 - Major depressive disorder, recurrent severe without psychotic features Plan The patient is an elderly male with a long history of major depressive disorder with several prior admissions into the hospital for exacerbation of depression and previous treatment with ECT with for improvement.? The patient was initially treated at [facility] and transferring to this facility for ECT.? At this moment, the patient is severely depressed with some neuro cognitive impairment. Plan 1. Gather collateral information.? 2. Hospitalist workout with clearance for ECT.? Ready for ECT as per ThursdayMay 12 3. Continue regular medications.? 4. EKG for ECT treatment.? 5. ECT as soon as he is medically cleared.? Since he has COVID, he cannot have E CT at this moment. 3/3- added sennakot 1 tab po qhs for constipation s/s anticholigergic medication s. one time dose of dulcolax. No SOB. No s/s of respiratory distress. afebrile. Reason for contiued inpatient stay Substantial Risk for: inability to function Time Spent With Patient Time: Total time managing care of this patient today ____ minutes.
[2022-05-16 18:00] VITALS: BP 112/59; PULSE 67
[2022-05-16] MEDS: bisacodyL 5 MG TABLET.DR 10 MG PO (18:09)
[2022-05-16] MEDS: fluvoxaMINE Maleate 50 MG TABLET 100 MG PO (20:07)
[2022-05-16] MEDS: Mirtazapine 15 MG TABLET PO (20:07)
[2022-05-16] MEDS: traZODone HCL 50 MG TABLET PO (20:07)
[2022-05-17 08:50] VITALS: BP 132/65; PULSE 63; RESP 18; TEMP 35.8; O2SAT 95
[2022-05-17] MEDS: Cholecalciferol (Vitamin D3) 25 MCG TABLET PO (09:35)
[2022-05-17] MEDS: Cyanocobalamin (Vitamin B-12) 1,000 MCG TABLET 1000 MCG PO (09:35)
[2022-05-17] MEDS: lamoTRIgine 100 MG TABLET PO (09:35)
[2022-05-17] MEDS: risperiDONE 0.5 MG TABLET PO ×2 (09:35→20:31)
[2022-05-17] MEDS: amLODIPine Besylate 2.5 MG TABLET PO (09:35)
--- NOTE | 2022-05-17 16:29 | P.PNPSI_ITS ---
Subjective Subjective Date of Service: 05/17/22 Reason For Visit: depression w/ SI Healthcare Proxy: Yes Interim History: pt anxious ruminationg needs much reassurance pt continues on isolation Medication Compliance: Yes Review of Systems Acute medical concerns: Yes covid pos not febrile Mental Status Exam Mental Status Exam Narrative: Appearance: wearing hospital gown, fair hygiene in NAD behavior: cooperative Speech: clear, normal rate/rhythm/volume, spontaneous TP: linear TC: feeling better from covid, ruminating re future and his behavoir Mood: very tired Affect: congruent, does brightens at times SI: none HI: none VH/AH: none Delusions: no overt delusional content reported or noted. Insight/judgment: fair x 2 Memory/cog: alert, oriented x 3. Diagnostics Vital Signs (24Hr): Vital Signs - 24 hr 05/15/22 18:00 Temperature 98.1 F Pulse Rate 90 Respiratory Rate 16 Blood Pressure 133/70 Pulse Oximetry 95 Oxygen Delivery Method Room Air BMI result Body Mass Index 25.6 Labs 05/08/22 08:43 05/08/22 08:43 Medications Medications Current Medications Acetaminophen (Acetaminophen 325 Mg Tablet) 650 mg PO Q6H PRN PRN Reason: Headache/Pain Mild Scale (1-3) Last Admin: 05/13/22 20:13 Dose: 650 mg Acetaminophen (Acetaminophen 325 Mg Tablet) 650 mg PO Q6H PRN PRN Reason: Headache/Pain Mild Scale (1-3) Al Hydroxide/Mg Hydroxide (Magnesium Hydrox/Alum Hydrox 30 Ml Oral.Susp) 30 ml PO Q6H PRN PRN Reason: Heartburn/Nausea Al Hydroxide/Mg Hydroxide (Magnesium Hydrox/Alum Hydrox 30 Ml Oral.Susp) 30 ml PO Q6H PRN PRN Reason: Heartburn/Nausea Amlodipine Besylate (Amlodipine Besylate 2.5 Mg Tablet) 2.5 mg PO DAILY [facility]; Protocol Last Admin: 05/15/22 09:19 Dose: 2.5 mg Bisacodyl (Bisacodyl 10 Mg Supp.Rect) 10 mg [place] DAILY PRN PRN Reason: Constipation Clonazepam (Clonazepam 0.5 Mg Tablet) 0.5 mg PO BEDTIME [facility] Last Admin: 05/15/22 20:42 Dose: 0.5 mg Cyanocobalamin (Cyanocobalamin (Vitamin B-12) 1,000 Mcg Tablet) 1,000 mcg PO DAILY [facility] Last Admin: 05/15/22 09:19 Dose: 1,000 mcg Fluvoxamine Maleate (Fluvoxamine Maleate 50 Mg Tablet) 100 mg PO BEDTIME [facility] Last Admin: 05/15/22 20:41 Dose: 100 mg Hydroxyzine HCl (Hydroxyzine Hcl 25 Mg Tablet) 25 mg PO Q6H PRN PRN Reason: Anxiety Lamotrigine (Lamotrigine 100 Mg Tablet) 100 mg PO DAILY [facility] Last Admin: 05/15/22 09:18 Dose: 100 mg Magnesium Hydroxide (Milk Of Magnesia 30 Ml Oral.Susp) 30 ml PO DAILY PRN PRN Reason: Constipation Last Admin: 05/10/22 11:05 Dose: 30 ml Magnesium Hydroxide (Milk Of Magnesia 30 Ml Oral.Susp) 30 ml PO DAILY PRN PRN Reason: Constipation Mirtazapine (Mirtazapine 15 Mg Tablet) 15 mg PO BEDTIME [facility] Last Admin: 05/15/22 20:41 Dose: 15 mg Olanzapine (Olanzapine 2.5 Mg Tablet) 2.5 mg PO BID PRN PRN Reason: Agitation Olanzapine (Olanzapine 7.5 Mg Tablet) 15 mg PO BEDTIME [facility] Last Admin: 05/15/22 20:41 Dose: 15 mg Ondansetron HCl (Ondansetron Odt 4 Mg Tab.Rapdis) 4 mg TRANSLINGU DAILY PRN PRN Reason: Nausea Quetiapine Fumarate (Quetiapine Fumarate 100 Mg Tablet) 100 mg PO BEDTIME PRN PRN Reason: Anxiety Risperidone (Risperidone 0.5 Mg Tablet) 0.5 mg PO BID [facility] Last Admin: 05/15/22 20:41 Dose: 0.5 mg Trazodone HCl (Trazodone Hcl 50 Mg Tablet) 50 mg PO BEDTIME MRX1 PRN PRN Reason: Insomnia Last Admin: 05/15/22 20:42 Dose: 50 mg Vitamin D (Cholecalciferol (Vitamin D3) 25 Mcg Tablet) 25 mcg PO DAILY [facility] Last Admin: 05/15/22 09:19 Dose: 25 mcg Allergies Allergies Allergy/AdvReac Type Severity Reaction Status Date / Time Latex, Natural Rubber AdvReac Mild Rash Verified 05/07/22 19:00 Assessment & Plan Assessment & Plan (1) Routine history and physical examination of adult: Status: Acute Code(s): Z00.00 - Encounter for general adult medical examination without abnormal findings (2) Generalized anxiety disorder: Status: Acute Code(s): F41.1 - Generalized anxiety disorder (3) Major depressive disorder, recurrent severe without psychotic features: Status: Acute Code(s): F33.2 - Major depressive disorder, recurrent severe without psychotic features (4) HTN (hypertension): Status: Acute Code(s): I10 - Essential (primary) hypertension Plan The patient is an elderly male with a long history of major depressive disorder with several prior admissions into the hospital for exacerbation of depression and previous treatment with ECT with for improvement.? The patient was initially treated at [facility] and transferring to this facility for ECT.? At this moment, the patient is severely depressed with some neuro cognitive impairment. Plan 1. Gather collateral information.? 2. Hospitalist workout with clearance for ECT.? Ready for ECT as per ThursdayMay 12 3. Continue regular medications.? 4. EKG for ECT treatment.? 5. ECT as soon as he is medically cleared.? Since he has COVID, he cannot have ECT at this moment. 05/17/21 cont luvox risp 0.5 bid ect when medically cleared Patient educated on: diagnosis and ECT Informed Consent: further education needed Reason for contiued inpatient stay Substantial Risk for: harm to self and rapid decompensation Time Spent With Patient Time: Total time managing care of this patient today ____ minutes.
[2022-05-17 18:00] VITALS: BP 148/75; PULSE 62; RESP 18; TEMP 36.6; O2SAT 94
[2022-05-17] MEDS: fluvoxaMINE Maleate 50 MG TABLET 100 MG PO (20:30)
[2022-05-17] MEDS: Sennosides/Docusate Sodium TABLET 1 TAB PO (20:31)
[2022-05-17] MEDS: OLANZapine 7.5 MG TABLET 15 MG PO (20:31)
[2022-05-17] MEDS: Mirtazapine 15 MG TABLET PO (20:31)
[2022-05-18 06:00] VITALS: BP 134/71; PULSE 65; RESP 18; TEMP 35.9; O2SAT 95
[2022-05-18] MEDS: risperiDONE 0.5 MG TABLET PO ×2 (08:55→20:02)
[2022-05-18] MEDS: Cyanocobalamin (Vitamin B-12) 1,000 MCG TABLET 1000 MCG PO (08:55)
[2022-05-18] MEDS: lamoTRIgine 100 MG TABLET PO (08:55)
[2022-05-18] MEDS: Cholecalciferol (Vitamin D3) 25 MCG TABLET PO (08:55)
[2022-05-18] MEDS: amLODIPine Besylate 2.5 MG TABLET PO (08:55)
--- NOTE | 2022-05-18 15:21 | P.PNPSI_ITS ---
Subjective Subjective Date of Service: 05/18/22 Reason For Visit: depression w/ SI Subjective Notes: Conditional Voluntary Interim History: Pt reports feeling physically better given that he is covid positive. He reports less malaise and less chills. No fever. No SOB.He does report feeling tired. . He asks appropriate questions about isolation and when can he resume ECT. No plan or intent to harm himself.Tends to be ruminating Medication Compliance: Yes Side effects from medications: No Mental Status Exam Mental Status Exam Narrative: Appearance: wearing hospital gown, fair hygiene in NAD behavior: cooperative Speech: clear, normal rate/rhythm/volume, spontaneous TP: linear TC: feeling better from covid, but feeling tired, sleeping most of day. Mood: very tired Affect: congruent, does brightens at times SI: somewhat vague regarding recent thoughts HI: none VH/AH: none Delusions: no overt delusional content reported or noted. Insight/judgment: fair x 2 Memory/cog: alert, oriented x 3. grossly intact to conversational testing. Diagnostics Vital Signs (24Hr): Vital Signs - 24 hr 05/18/22 18:00 Temperature 98 F Pulse Rate 56 Respiratory Rate 18 Blood Pressure 120/68 Pulse Oximetry 96 Oxygen Delivery Method Room Air BMI result Body Mass Index 25.6 Labs 05/08/22 08:43 05/08/22 08:43 Medications Medications Current Medications Acetaminophen (Acetaminophen 325 Mg Tablet) 650 mg PO Q6H PRN PRN Reason: Headache/Pain Mild Scale (1-3) Last Admin: 05/13/22 20:13 Dose: 650 mg Acetaminophen (Acetaminophen 325 Mg Tablet) 650 mg PO Q6H PRN PRN Reason: Headache/Pain Mild Scale (1-3) Al Hydroxide/Mg Hydroxide (Magnesium Hydrox/Alum Hydrox 30 Ml Oral.Susp) 30 ml PO Q6H PRN PRN Reason: Heartburn/Nausea Al Hydroxide/Mg Hydroxide (Magnesium Hydrox/Alum Hydrox 30 Ml Oral.Susp) 30 ml PO Q6H PRN PRN Reason: Heartburn/Nausea Amlodipine Besylate (Amlodipine Besylate 2.5 Mg Tablet) 2.5 mg PO DAILY [facility]; Protocol Last Admin: 05/18/22 08:55 Dose: 2.5 mg Bisacodyl (Bisacodyl 10 Mg Supp.Rect) 10 mg DC DAILY PRN PRN Reason: Constipation Cyanocobalamin (Cyanocobalamin (Vitamin B-12) 1,000 Mcg Tablet) 1,000 mcg PO DAILY [facility] Last Admin: 05/18/22 08:55 Dose: 1,000 mcg Fluvoxamine Maleate (Fluvoxamine Maleate 50 Mg Tablet) 100 mg PO BEDTIME [facility] Last Admin: 05/18/22 20:02 Dose: 100 mg Hydroxyzine HCl (Hydroxyzine Hcl 25 Mg Tablet) 25 mg PO Q6H PRN PRN Reason: Anxiety Lamotrigine (Lamotrigine 100 Mg Tablet) 100 mg PO DAILY [facility] Last Admin: 05/18/22 08:55 Dose: 100 mg Magnesium Hydroxide (Milk Of Magnesia 30 Ml Oral.Susp) 30 ml PO DAILY PRN PRN Reason: Constipation Last Admin: 05/10/22 11:05 Dose: 30 ml Magnesium Hydroxide (Milk Of Magnesia 30 Ml Oral.Susp) 30 ml PO DAILY PRN PRN Reason: Constipation Mirtazapine (Mirtazapine 15 Mg Tablet) 15 mg PO BEDTIME [facility] Last Admin: 05/18/22 20:02 Dose: 15 mg Olanzapine (Olanzapine 2.5 Mg Tablet) 2.5 mg PO BID PRN PRN Reason: Agitation Olanzapine (Olanzapine 7.5 Mg Tablet) 15 mg PO BEDTIME [facility] Last Admin: 05/18/22 20:01 Dose: 15 mg Ondansetron HCl (Ondansetron Odt 4 Mg Tab.Rapdis) 4 mg TRANSLINGU DAILY PRN PRN Reason: Nausea Quetiapine Fumarate (Quetiapine Fumarate 100 Mg Tablet) 100 mg PO BEDTIME PRN PRN Reason: Anxiety Risperidone (Risperidone 0.5 Mg Tablet) 0.5 mg PO BID [facility] Last Admin: 05/18/22 20:02 Dose: 0.5 mg Senna/Docusate Sodium (Sennosides/Docusate Sodium Tablet) 1 tab PO BEDTIME [facility] Last Admin: 05/18/22 20:02 Dose: 1 tab Trazodone HCl (Trazodone Hcl 50 Mg Tablet) 50 mg PO BEDTIME MRX1 PRN PRN Reason: Insomnia Last Admin: 05/16/22 20:07 Dose: 50 mg Vitamin D (Cholecalciferol (Vitamin D3) 25 Mcg Tablet) 25 mcg PO DAILY [facility] Last Admin: 05/18/22 08:55 Dose: 25 mcg Allergies Allergies Allergy/AdvReac Type Severity Reaction Status Date / Time Latex, Natural Rubber AdvReac Mild Rash Verified 05/07/22 19:00 Assessment & Plan Assessment & Plan (1) Routine history and physical examination of adult: Status: Acute Code(s): Z00.00 - Encounter for general adult medical examination without abnormal findings (2) Generalized anxiety disorder: Status: Acute Code(s): F41.1 - Generalized anxiety disorder (3) Major depressive disorder, recurrent severe without psychotic features: Status: Acute Code(s): F33.2 - Major depressive disorder, recurrent severe without psychotic features (4) HTN (hypertension): Status: Acute Code(s): I10 - Essential (primary) hypertension Plan The patient is an elderly male with a long history of major depressive disorder with several prior admissions into the hospital for exacerbation of depression and previous treatment with ECT with for improvement.? The patient was initially treated at [facility] and transferring to this [facility] for ECT.? At this moment, the patient is severely depressed with some neuro cognitive impairment. Plan 1. Gather collateral information.? 2. Hospitalist workout with clearance for ECT.? Ready for ECT as per ThursdayMay 12 3. Continue regular medications.? 4. EKG for ECT treatment.? 5. ECT as soon as he is medically cleared.? Since he has COVID, he cannot have ECT at this moment. 05/17/21 cont luvox risp 0.5 bid ect when medically cleared 05/18/21 cont tx plan ect for 05/20/22 Patient educated on: diagnosis, medication risk/benefits and ECT Informed Consent: understands Reason for contiued inpatient stay Substantial Risk for: harm to self and inability to function Time Spent With Patient Time: Total time managing care of this patient today ____ minutes.
[2022-05-18 18:00] VITALS: BP 120/68; PULSE 56; RESP 18; TEMP 36.6; O2SAT 96
[2022-05-18] MEDS: OLANZapine 7.5 MG TABLET 15 MG PO (20:01)
[2022-05-18] MEDS: Mirtazapine 15 MG TABLET PO (20:02)
[2022-05-18] MEDS: fluvoxaMINE Maleate 50 MG TABLET 100 MG PO (20:02)
[2022-05-18] MEDS: Sennosides/Docusate Sodium TABLET 1 TAB PO (20:02)
[2022-05-19 09:35] VITALS: BP 144/74; PULSE 60; RESP 16; TEMP 36.2; O2SAT 97
[2022-05-19] MEDS: amLODIPine Besylate 2.5 MG TABLET PO (10:07)
[2022-05-19] MEDS: Cholecalciferol (Vitamin D3) 25 MCG TABLET PO (10:08)
[2022-05-19] MEDS: Cyanocobalamin (Vitamin B-12) 1,000 MCG TABLET 1000 MCG PO (10:08)
[2022-05-19] MEDS: risperiDONE 0.5 MG TABLET PO ×2 (10:08→20:39)
[2022-05-19] MEDS: lamoTRIgine 100 MG TABLET PO (10:08)
[2022-05-19 18:00] VITALS: BP 126/58; PULSE 74; RESP 19; TEMP 36.5; O2SAT 96
[2022-05-19] MEDS: fluvoxaMINE Maleate 50 MG TABLET 100 MG PO (20:38)
[2022-05-19] MEDS: OLANZapine 7.5 MG TABLET 15 MG PO (20:39)
[2022-05-19] MEDS: Sennosides/Docusate Sodium TABLET 1 TAB PO (20:39)
[2022-05-19] MEDS: Mirtazapine 15 MG TABLET PO (20:39)
--- NOTE | 2022-05-19 23:31 | HO.PSYCHPN ---
Subjective Subjective Date of Service: 05/19/22 Reason For Visit: depression w/ SI Subjective Notes: Conditional Voluntary Interim History: Patient anxious ruminating consider concerns about his cognitive status cognitive impairment versus pseudo cognitive impairment taking in information regarding ECT resistant to discussing suicidal thoughts he was having a [facility] if he was not in a safe setting Mental Status Exam Mental Status Exam Narrative: Appearance: wearing hospital gown, fair hygiene in NAD behavior: cooperative Speech: clear, normal rate/rhythm/volume, spontaneous TP: linear TC: feeling better from covid, but feeling tired, sleeping most of day. Mood: very tired Affect: congruent, does brightens at times SI: somewhat vague regarding recent thoughts HI: none VH/AH: none Delusions: no overt delusional content reported or noted. Insight/judgment: fair x 2 Memory/cog: alert, oriented x 3. grossly intact to conversational testing. Diagnostics Vital Signs (24Hr): Vital Signs - 24 hr 05/19/22 09:35 05/19/22 18:00 Temperature 97.2 F 97.7 F Pulse Rate 60 74 Respiratory Rate 16 19 Blood Pressure 144/74 H 126/58 L Pulse Oximetry 97 96 Oxygen Delivery Method Room Air Room Air BMI result Body Mass Index 25.6 Labs 05/08/22 08:43 05/08/22 08:43 Medications Medications Current Medications Acetaminophen (Acetaminophen 325 Mg Tablet) 650 mg PO Q6H PRN PRN Reason: Headache/Pain Mild Scale (1-3) Last Admin: 05/13/22 20:13 Dose: 650 mg Acetaminophen (Acetaminophen 325 Mg Tablet) 650 mg PO Q6H PRN PRN Reason: Headache/Pain Mild Scale (1-3) Al Hydroxide/Mg Hydroxide (Magnesium Hydrox/Alum Hydrox 30 Ml Oral.Susp) 30 ml PO Q6H PRN PRN Reason: Heartburn/Nausea Al Hydroxide/Mg Hydroxide (Magnesium Hydrox/Alum Hydrox 30 Ml Oral.Susp) 30 ml PO Q6H PRN PRN Reason: Heartburn/Nausea Amlodipine Besylate (Amlodipine Besylate 2.5 Mg Tablet) 2.5 mg PO DAILY [facility]; Protocol Last Admin: 05/19/22 10:07 Dose: 2.5 mg Bisacodyl (Bisacodyl 10 Mg Supp.Rect) 10 mg [place] DAILY PRN PRN Reason: Constipation Cyanocobalamin (Cyanocobalamin (Vitamin B-12) 1,000 Mcg Tablet) 1,000 mcg PO DAILY [facility] Last Admin: 05/19/22 10:08 Dose: 1,000 mcg Fluvoxamine Maleate (Fluvoxamine Maleate 50 Mg Tablet) 100 mg PO BEDTIME [facility] Last Admin: 05/19/22 20:38 Dose: 100 mg Hydroxyzine HCl (Hydroxyzine Hcl 25 Mg Tablet) 25 mg PO Q6H PRN PRN Reason: Anxiety Lamotrigine (Lamotrigine 100 Mg Tablet) 100 mg PO DAILY [facility] Last Admin: 05/19/22 10:08 Dose: 100 mg Magnesium Hydroxide (Milk Of Magnesia 30 Ml Oral.Susp) 30 ml PO DAILY PRN PRN Reason: Constipation Last Admin: 05/10/22 11:05 Dose: 30 ml Magnesium Hydroxide (Milk Of Magnesia 30 Ml Oral.Susp) 30 ml PO DAILY PRN PRN Reason: Constipation Mirtazapine (Mirtazapine 15 Mg Tablet) 15 mg PO BEDTIME [facility] Last Admin: 05/19/22 20:39 Dose: 15 mg Olanzapine (Olanzapine 2.5 Mg Tablet) 2.5 mg PO BID PRN PRN Reason: Agitation Olanzapine (Olanzapine 7.5 Mg Tablet) 15 mg PO BEDTIME [facility] Last Admin: 05/19/22 20:39 Dose: 15 mg Ondansetron HCl (Ondansetron Odt 4 Mg Tab.Rapdis) 4 mg TRANSLINGU DAILY PRN PRN Reason: Nausea Quetiapine Fumarate (Quetiapine Fumarate 100 Mg Tablet) 100 mg PO BEDTIME PRN PRN Reason: Anxiety Risperidone (Risperidone 0.5 Mg Tablet) 0.5 mg PO BID [facility] Last Admin: 05/19/22 20:39 Dose: 0.5 mg Senna/Docusate Sodium (Sennosides/Docusate Sodium Tablet) 1 tab PO BEDTIME [facility] Last Admin: 05/19/22 20:39 Dose: 1 tab Trazodone HCl (Trazodone Hcl 50 Mg Tablet) 50 mg PO BEDTIME MRX1 PRN PRN Reason: Insomnia Last Admin: 05/16/22 20:07 Dose: 50 mg Vitamin D (Cholecalciferol (Vitamin D3) 25 Mcg Tablet) 25 mcg PO DAILY [facility] Last Admin: 05/19/22 10:08 Dose: 25 mcg Allergies Allergies Allergy/AdvReac Type Severity Reaction Status Date / Time Latex, Natural Rubber AdvReac Mild Rash Verified 05/07/22 19:00 Assessment & Plan Assessment & Plan (1) Routine history and physical examination of adult: Status: Acute Code(s): Z00.00 - Encounter for general adult medical examination without abnormal findings (2) Generalized anxiety disorder: Status: Acute Code(s): F41.1 - Generalized anxiety disorder (3) Major depressive disorder, recurrent severe without psychotic features: Status: Acute Code(s): F33.2 - Major depressive disorder, recurrent severe without psychotic features (4) HTN (hypertension): Status: Acute Code(s): I10 - Essential (primary) hypertension Plan The patient is an elderly male with a long history of major depressive disorder with several prior admissions into the hospital for exacerbation of depression and previous treatment with ECT with for improvement.? The patient was initially treated at [facility] and transferring to this facility for ECT.? At this moment, the patient is severely depressed with some neuro cognitive impairment. Plan 1. Gather collateral information.? 2. Hospitalist workout with clearance for ECT.? Ready for ECT as per ThursdayMay 12 3. Continue regular medications.? 4. EKG for ECT treatment.? 5. ECT as soon as he is medically cleared.? Since he has COVID, he cannot have ECT at this moment. 05/17/21 cont luvox risp 0.5 bid ect when medically cleared 05/18/21 cont tx plan ect for 05/19/22 Patient educated on: ECT Reason for contiued inpatient stay Substantial Risk for: harm to self Time Spent With Patient Time: Total time managing care of this patient today ____ minutes.
[2022-05-20 06:00] VITALS: BP 136/65; PULSE 60; RESP 18; TEMP 36.4; O2SAT 97
[2022-05-20] MEDS: Cholecalciferol (Vitamin D3) 25 MCG TABLET PO (08:12)
[2022-05-20] MEDS: risperiDONE 0.5 MG TABLET PO ×2 (08:12→20:40)
[2022-05-20] MEDS: amLODIPine Besylate 2.5 MG TABLET PO (08:12)
[2022-05-20] MEDS: lamoTRIgine 100 MG TABLET PO (08:12)
[2022-05-20] MEDS: Cyanocobalamin (Vitamin B-12) 1,000 MCG TABLET 1000 MCG PO (08:12)
[2022-05-20 18:00] VITALS: BP 142/71; PULSE 57; RESP 17; TEMP 36.8; O2SAT 96
[2022-05-20] MEDS: OLANZapine 7.5 MG TABLET 15 MG PO (20:40)
[2022-05-20] MEDS: fluvoxaMINE Maleate 50 MG TABLET 100 MG PO (20:40)
[2022-05-20] MEDS: Mirtazapine 15 MG TABLET PO (20:40)
[2022-05-20] MEDS: Sennosides/Docusate Sodium TABLET 1 TAB PO (20:40)
[2022-05-21] VITALS (11 sets, daily range): BP systolic 72–167; BP diastolic 42–90; PULSE 57–84; RESP 11–18; TEMP 36.6–37.3; O2SAT 93–97
--- NOTE | 2022-05-21 07:07 | MHC.SHP ---
Pre-Procedural Eval Section A Date of Service: 05/21/22 The patient is an INPATIENT: Yes Changes since office visit: Yes Cold of Flu in the past 2 weeks, Yes New Medical Problems and Yes Patient answered all questions; No Changes in Medication The History & Physical has been completed within 30 days and I have reviewed it.: Yes Section B Chief Complaint: depression w/ SI Allergies: Allergies Allergy/AdvReac Type Severity Reaction Status Date / Time Latex, Natural Rubber AdvReac Mild Rash Verified 05/07/22 19:00 Plan I have reviewed the history and physical and performed a pertinent physical examination on my patient. No changes have occurred unless specified. Time Spent With Patient Time: Total time managing care of this patient today ____ minutes.
--- NOTE | 2022-05-21 07:27 | P.CONAN_ITS ---
[facility] Active Problems Active Problems: All Active Problems (Updated 05/09/22 @ 15:51 by SYDNI Mao) HTN (hypertension) (Acute) Routine history and physical examination of adult (Acute) Major depressive disorder, recurrent (Acute) Generalized anxiety disorder (Acute) Major depressive disorder, recurrent severe without psychotic features (Acute) Past Medical History Medical History No known health problems Ruptured liver Functional capacity: independent ambulation Family History Family history of problems with anesthesia: No Surgical History Surgical History H/O right knee surgery History of Problems with Anesthesia: No Social History Social History Household Members: None Housing: Apartment Do you presently have visiting nurse or other home services: No Patient Tobacco Use Status: Never used Tobacco Smoked in Last 30 Days: No e-Cigarette/Vaping Use: Never Used Second Hand Smoke Exposure: No Use of substances other than those prescribed or required for medical reasons: No Currently Displaying Signs/Symptoms of Drug Intoxication Withdrawal: No Any prior treatment program specific to substance use: No Have you been hit, kicked, punched, or otherwise hurt by someone within the past year? If so, by whom?: No Do you feel safe in your current relationship?: No Current Relationship Is there a partner from a previous relationship who is making you feel unsafe now?: No Are you made to feel afraid or neglected: No Spiritual Healthcare Practices: n/a Gnosticism Healthcare Practices: n/a Cultural Healthcare Practices: n/a Advance Directives: No Advance Directives Information Provided: No Do you have thoughts of harming others: None Do you have a plan to hurt others: No Plan Recently lost weight without trying: Yes How much weight loss: Unsure Eating poorly because of decreased appetite: No Nutrition screen score: 4 Nutrition Risks: No Nutritional Risk Poor oral hygiene: No service: No Sexual orientation: Straight/Heterosexual Meds Allergies Allergy/AdvReac Type Severity Reaction Status Date / Time Latex, Natural Rubber AdvReac Mild Rash Verified 05/07/22 19:00 Active Medications: Current Medications Acetaminophen (Acetaminophen 325 Mg Tablet) 650 mg PO Q6H PRN PRN Reason: Headache/Pain Mild Scale (1-3) Last Admin: 05/13/22 20:13 Dose: 650 mg Acetaminophen (Acetaminophen 325 Mg Tablet) 650 mg PO Q6H PRN PRN Reason: Headache/Pain Mild Scale (1-3) Al Hydroxide/Mg Hydroxide (Magnesium Hydrox/Alum Hydrox 30 Ml Oral.Susp) 30 ml PO Q6H PRN PRN Reason: Heartburn/Nausea Al Hydroxide/Mg Hydroxide (Magnesium Hydrox/Alum Hydrox 30 Ml Oral.Susp) 30 ml PO Q6H PRN PRN Reason: Heartburn/Nausea Amlodipine Besylate (Amlodipine Besylate 2.5 Mg Tablet) 2.5 mg PO DAILY [facility]; Protocol Last Admin: 05/20/22 08:12 Dose: 2.5 mg Bisacodyl (Bisacodyl 10 Mg Supp.Rect) 10 mg [place] DAILY PRN PRN Reason: Constipation Cyanocobalamin (Cyanocobalamin (Vitamin B-12) 1,000 Mcg Tablet) 1,000 mcg PO DAILY [facility] Last Admin: 05/20/22 08:12 Dose: 1,000 mcg Fluvoxamine Maleate (Fluvoxamine Maleate 50 Mg Tablet) 100 mg PO BEDTIME [facility] Last Admin: 05/20/22 20:40 Dose: 100 mg Hydroxyzine HCl (Hydroxyzine Hcl 25 Mg Tablet) 25 mg PO Q6H PRN PRN Reason: Anxiety Lamotrigine (Lamotrigine 100 Mg Tablet) 100 mg PO DAILY [facility] Last Admin: 05/20/22 08:12 Dose: 100 mg Magnesium Hydroxide (Milk Of Magnesia 30 Ml Oral.Susp) 30 ml PO DAILY PRN PRN Reason: Constipation Last Admin: 05/10/22 11:05 Dose: 30 ml Magnesium Hydroxide (Milk Of Magnesia 30 Ml Oral.Susp) 30 ml PO DAILY PRN PRN Reason: Constipation Mirtazapine (Mirtazapine 15 Mg Tablet) 15 mg PO BEDTIME [facility] Last Admin: 05/20/22 20:40 Dose: 15 mg Olanzapine (Olanzapine 2.5 Mg Tablet) 2.5 mg PO BID PRN PRN Reason: Agitation Olanzapine (Olanzapine 7.5 Mg Tablet) 15 mg PO BEDTIME [facility] Last Admin: 05/20/22 20:40 Dose: 15 mg Ondansetron HCl (Ondansetron Odt 4 Mg Tab.Rapdis) 4 mg TRANSLINGU DAILY PRN PRN Reason: Nausea Quetiapine Fumarate (Quetiapine Fumarate 100 Mg Tablet) 100 mg PO BEDTIME PRN PRN Reason: Anxiety Risperidone (Risperidone 0.5 Mg Tablet) 0.5 mg PO BID [facility] Last Admin: 05/20/22 20:40 Dose: 0.5 mg Senna/Docusate Sodium (Sennosides/Docusate Sodium Tablet) 1 tab PO BEDTIME [facility] Last Admin: 05/20/22 20:40 Dose: 1 tab Trazodone HCl (Trazodone Hcl 50 Mg Tablet) 50 mg PO BEDTIME MRX1 PRN PRN Reason: Insomnia Last Admin: 05/16/22 20:07 Dose: 50 mg Vitamin D (Cholecalciferol (Vitamin D3) 25 Mcg Tablet) 25 mcg PO DAILY [facility] Last Admin: 05/20/22 08:12 Dose: 25 mcg Home Medications Medication Instructions Recorded Confirmed Last Taken Type l theanine 200 mg PO QID PRN Anxiety 10/15/21 05/07/22 10/15/21 07:20 History lamotrigine 100 mg tablet 100 mg PO DAILY 10/15/21 05/07/22 10/15/21 07:20 History (Lamictal) mirtazapine 15 mg tablet 15 mg PO BEDTIME 10/15/21 05/07/22 10/14/21 21:30 History quetiapine 50 mg tablet 50 - 100 mg PO BEDTIME PRN Anxiety 10/15/21 05/07/22 10/14/21 20:30 History risperidone 0.5 mg tablet 0.5 mg PO BID 10/15/21 05/07/22 10/15/21 07:20 History (Risperdal) amlodipine 2.5 mg tablet 2.5 mg PO DAILY 05/07/22 05/07/22 Unknown History cholecalciferol (vitamin D3) 25 25 mcg PO DAILY 05/07/22 05/07/22 Unknown History mcg (1,000 unit) capsule clonazepam 0.5 mg disintegrating 0.5 mg PO BEDTIME 05/07/22 05/07/22 Unknown History tablet cyanocobalamin (vitamin B-12) 1,000 mcg PO DAILY 05/07/22 05/07/22 Unknown History 1,000 mcg tablet fluvoxamine 100 mg tablet 100 mg PO BEDTIME 05/07/22 05/07/22 Unknown History olanzapine 15 mg disintegrating 15 mg PO BEDTIME 05/07/22 05/07/22 Unknown History tablet olanzapine 5 mg disintegrating 2.5 mg PO BID PRN Agitation 05/07/22 05/07/22 Unknown History tablet ondansetron HCl 4 mg tablet 4 mg PO NEEDED PRN Nausea 05/07/22 05/07/22 Unknown History Exam Exam Date and Time: May 21, 2022 0775 Height,Weight and Vital Signs: Height 6 ft 5 in Weight 97.9 kg Last Vital Signs Temp 97.9 F 05/21/22 06:31 Pulse 59 05/21/22 06:31 Resp 18 05/21/22 06:31 BP 107/55 L 05/21/22 06:31 Pulse Ox 94 05/21/22 06:31 O2 Del Method 05/21/22 06:31 Pertinent Lab Results Pertinent Lab Results: Laboratory Tests 05/08/22 05/08/22 05/08/22 08:43 08:43 08:43 WBC 3.7 L RBC 4.34 L Hgb 13.6 L Hct 40.0 L MCV 92.2 MCH 31.3 MCHC 34.0 RDW 12.5 Plt Count 150 L MPV 8.7 L Immature Gran % (Auto) 0.3 Neut % (Auto) 60.0 Lymph % (Auto) 27.4 [place] % (Auto) 8.6 Eos % (Auto) 3.2 Baso % (Auto) 0.5 Lymph # (Auto) 1.0 L [place] # (Auto) 0.3 Eos # (Auto) 0.1 Baso # (Auto) 0.0 Abs Immat Gran (auto) 0.01 Absolute Neuts (auto) 2.2 Absolute Nucleated RBC 0.000 Nucleated RBC % (auto) 0.0 Sodium 145 Potassium 3.9 Chloride 107 Carbon Dioxide 31 H Anion Gap 11 L BUN 16 Creatinine 0.83 Estim Creat Clear Calc 94.6 Estimated GFR > 60 Fasting Glucose 128 H Estimat Average Glucose 103 Hemoglobin A1c % 5.2 Calcium 8.8 Total Bilirubin 0.7 AST 15 ALT 13 Alkaline Phosphatase 54 Total Protein 5.3 L Albumin 3.4 L Triglycerides 72 Cholesterol 165 LDL Cholesterol, Calc 101 HDL Cholesterol 50 Vitamin B12 545 Folate 14.9 TSH 1.51 COVID-19 ([facility]) COVID-19 Clin Com 05/11/22 18:25 WBC RBC Hgb Hct MCV MCH MCHC RDW Plt Count MPV Immature Gran % (Auto) Neut % (Auto) Lymph % (Auto) [place] % (Auto) Eos % (Auto) Baso % (Auto) Lymph # (Auto) [place] # (Auto) Eos # (Auto) Baso # (Auto) Abs Immat Gran (auto) Absolute Neuts (auto) Absolute Nucleated RBC Nucleated RBC % (auto) Sodium Potassium Chloride Carbon Dioxide Anion Gap BUN Creatinine Estim Creat Clear Calc Estimated GFR Fasting Glucose Estimat Average Glucose Hemoglobin A1c % Calcium Total Bilirubin AST ALT Alkaline Phosphatase Total Protein Albumin Triglycerides Cholesterol LDL Cholesterol, Calc HDL Cholesterol Vitamin B12 Folate TSH COVID-19 ([facility]) Positive A COVID-19 Clin Com See Note Airway Mallampati Class: II TM Dist: >3cm Neck ROM: Full Heart: fRRR Lungs: CTA Assessment and Plan Final Anesthetic Review Family History of Problems with Anesthesia: No History of Problems with Anesthesia: No ASA Class: III Final Preanesthetic Review: Meds/Allgs Chart Reviewed, Consent Obtained/Reviewed and Anes Risks/Benef Reviewed Patient Risk: Low (J) Procedure Risk: Low Anesthetic Plan Anesthetic Plan: GA Disposition: Standard PACU
--- NOTE | 2022-05-21 07:46 | HO.ECTPROC ---
ECT Procedure Note Diagnosis/Treatment Date of Service: 05/21/22 Diagnosis: Major Depressive Disorder Current Treatment Number: 1 Treatment: Series Interval Clinical Notes: pt medically stble s/p 10 day covid able to give informed consent ect cont to ruminate Time: Total time managing care of this patient today ____ minutes. ECT Settings Device: THYMATRON DGx Electrode Placement: Right Unilateral Program/Pulse Width: 0.25 Energy Percent: 100 Seizure Duration By EEG (in seconds): 69 Medications Administration General Anesthetic: Etomidate (14) Muscle Relaxant: Succinylcholine (100) Ancillary Medications Analgesics: Torodol - Pre ECT Anti-emetics: Zofran - Pre ECT Cardiovascular Medications: Glycopyrrolate Miscillaneous Medications: Propofol (30) Airway Management Airway Management: Bag Mask Ventilation Treatment Recommendations Program/Pulse Width: 0.25 Energy Percent: 80 Pt Tolerated Procedure w/o Issue: Yes
[2022-05-21] MEDS: amLODIPine Besylate 2.5 MG TABLET PO (09:39)
[2022-05-21] MEDS: lamoTRIgine 100 MG TABLET PO (09:39)
[2022-05-21] MEDS: Cholecalciferol (Vitamin D3) 25 MCG TABLET PO (09:39)
[2022-05-21] MEDS: Cyanocobalamin (Vitamin B-12) 1,000 MCG TABLET 1000 MCG PO (09:39)
[2022-05-21] MEDS: risperiDONE 0.5 MG TABLET PO ×2 (09:39→20:21)
--- NOTE | 2022-05-21 09:45 | HO.POSTANES ---
Post Anesthesia Evaluation Post Anesthesia Evaluation Vital Signs: Vital Signs Temp Pulse Resp BP Pulse Ox O2 Del Method O2 Flow Rate 05/21/22 08:34 98.3 F 75 18 161/90 H 97 Room Air 05/21/22 08:19 61 14 139/79 97 Room Air 05/21/22 08:04 67 12 151/77 H 97 Room Air 05/21/22 07:59 69 11 L 144/75 H 96 Nasal Cannula 2 05/21/22 07:54 70 11 L 152/74 H 96 Nasal Cannula 2 05/21/22 07:49 99 F 84 16 167/68 H 96 Nasal Cannula 2 05/21/22 06:31 97.9 F 59 18 107/55 L 94 Room Air 05/21/22 06:14 99.1 F 57 18 125/58 L 93 Anesthesia: General Mental Status: Awake Pain Control: Satisfactory Nausea/Vomiting: None Hydration: Adequate Anesthesia-Related Issues: No Anes. Related Issues
[2022-05-21] MEDS: OLANZapine 7.5 MG TABLET 15 MG PO (20:21)
[2022-05-21] MEDS: Sennosides/Docusate Sodium TABLET 1 TAB PO (20:22)
[2022-05-21] MEDS: fluvoxaMINE Maleate 50 MG TABLET 100 MG PO (20:23)
[2022-05-21] MEDS: Mirtazapine 15 MG TABLET PO (20:23)
--- NOTE | 2022-05-21 23:02 | HO.PSYCHPN ---
Subjective Subjective Date of Service: 05/20/22 Reason For Visit: depression w/ SI Interim History: Patient remains in isolation he stable to give good history of multiple events that happened over the past year that he felt he could not overcome some these involved adaptive technology and feeling like he could not do the work that he had done at [facility] [employer] [facility] housing began to feel increasingly depressed despairing anxious and obsessional and that he could never function probably felt ashamed no clear benefit to treatment included consult hospital with multiple medication trials he did have ECT in 2000 Agreeable to ECT in the morning no clear medical significant wrist and a Medication Compliance: Yes Mental Status Exam Mental Status Exam Narrative: Appearance: wearing hospital gown, fair hygiene in NAD behavior: cooperative Speech: clear, normal rate/rhythm/volume, spontaneous TP: linear TC: feeling better from covid, but feeling tired, sleeping most of day. Mood: very tired Affect: congruent, does brightens at times SI: somewhat vague regarding recent thoughts HI: none VH/AH: none Delusions: no overt delusional content reported or noted. Insight/judgment: fair x 2 Memory/cog: alert, oriented x 3. grossly intact to conversational testing. Diagnostics Vital Signs (24Hr): Vital Signs - 24 hr 05/21/22 06:14 05/21/22 06:31 05/21/22 07:49 Temperature 99.1 F 97.9 F 99 F Pulse Rate 57 59 84 Respiratory Rate 18 18 16 Blood Pressure 125/58 L 107/55 L 167/68 H Pulse Oximetry 93 94 96 Oxygen Delivery Method Room Air Nasal Cannula Oxygen Flow Rate 2 05/21/22 07:54 05/21/22 07:59 05/21/22 08:04 Temperature Pulse Rate 70 69 67 Respiratory Rate 11 L 11 L 12 Blood Pressure 152/74 H 144/75 H 151/77 H Pulse Oximetry 96 96 97 Oxygen Delivery Method Nasal Cannula Nasal Cannula Room Air Oxygen Flow Rate 2 2 05/21/22 08:19 05/21/22 08:34 05/21/22 11:00 Temperature 98.3 F Pulse Rate 61 75 78 Respiratory Rate 14 18 16 Blood Pressure 139/79 161/90 H 72/42 L Pulse Oximetry 97 97 94 Oxygen Delivery Method Room Air Room Air Room Air Oxygen Flow Rate 05/21/22 12:27 05/21/22 19:25 Temperature 97.9 F Pulse Rate 61 Respiratory Rate 18 Blood Pressure 129/60 143/67 H Pulse Oximetry 97 Oxygen Delivery Method Room Air Oxygen Flow Rate BMI result Body Mass Index 25.6 Labs 05/08/22 08:43 05/08/22 08:43 Medications Medications Current Medications Acetaminophen (Acetaminophen 325 Mg Tablet) 650 mg PO Q6H PRN PRN Reason: Headache/Pain Mild Scale (1-3) Last Admin: 05/13/22 20:13 Dose: 650 mg Acetaminophen (Acetaminophen 325 Mg Tablet) 650 mg PO Q6H PRN PRN Reason: Headache/Pain Mild Scale (1-3) Al Hydroxide/Mg Hydroxide (Magnesium Hydrox/Alum Hydrox 30 Ml Oral.Susp) 30 ml PO Q6H PRN PRN Reason: Heartburn/Nausea Al Hydroxide/Mg Hydroxide (Magnesium Hydrox/Alum Hydrox 30 Ml Oral.Susp) 30 ml PO Q6H PRN PRN Reason: Heartburn/Nausea Amlodipine Besylate (Amlodipine Besylate 2.5 Mg Tablet) 2.5 mg PO DAILY [facility]; Protocol Last Admin: 05/21/22 09:39 Dose: 2.5 mg Bisacodyl (Bisacodyl 10 Mg Supp.Rect) 10 mg [place] DAILY PRN PRN Reason: Constipation Cyanocobalamin (Cyanocobalamin (Vitamin B-12) 1,000 Mcg Tablet) 1,000 mcg PO DAILY [facility] Last Admin: 05/21/22 09:39 Dose: 1,000 mcg Fluvoxamine Maleate (Fluvoxamine Maleate 50 Mg Tablet) 100 mg PO BEDTIME [facility] Last Admin: 05/21/22 20:23 Dose: 100 mg Hydroxyzine HCl (Hydroxyzine Hcl 25 Mg Tablet) 25 mg PO Q6H PRN PRN Reason: Anxiety Lamotrigine (Lamotrigine 100 Mg Tablet) 100 mg PO DAILY [facility] Last Admin: 05/21/22 09:39 Dose: 100 mg Magnesium Hydroxide (Milk Of Magnesia 30 Ml Oral.Susp) 30 ml PO DAILY PRN PRN Reason: Constipation Last Admin: 05/10/22 11:05 Dose: 30 ml Magnesium Hydroxide (Milk Of Magnesia 30 Ml Oral.Susp) 30 ml PO DAILY PRN PRN Reason: Constipation Mirtazapine (Mirtazapine 15 Mg Tablet) 15 mg PO BEDTIME [facility] Last Admin: 05/21/22 20:23 Dose: 15 mg Olanzapine (Olanzapine 2.5 Mg Tablet) 2.5 mg PO BID PRN PRN Reason: Agitation Olanzapine (Olanzapine 7.5 Mg Tablet) 15 mg PO BEDTIME [facility] Last Admin: 05/21/22 20:21 Dose: 15 mg Ondansetron HCl (Ondansetron Odt 4 Mg Tab.Rapdis) 4 mg TRANSLINGU DAILY PRN PRN Reason: Nausea Quetiapine Fumarate (Quetiapine Fumarate 100 Mg Tablet) 100 mg PO BEDTIME PRN PRN Reason: Anxiety Risperidone (Risperidone 0.5 Mg Tablet) 0.5 mg PO BID [facility] Last Admin: 05/21/22 20:21 Dose: 0.5 mg Senna/Docusate Sodium (Sennosides/Docusate Sodium Tablet) 1 tab PO BEDTIME [facility] Last Admin: 05/21/22 20:22 Dose: 1 tab Trazodone HCl (Trazodone Hcl 50 Mg Tablet) 50 mg PO BEDTIME MRX1 PRN PRN Reason: Insomnia Last Admin: 05/16/22 20:07 Dose: 50 mg Vitamin D (Cholecalciferol (Vitamin D3) 25 Mcg Tablet) 25 mcg PO DAILY [facility] Last Admin: 05/21/22 09:39 Dose: 25 mcg Allergies Allergies Allergy/AdvReac Type Severity Reaction Status Date / Time Latex, Natural Rubber AdvReac Mild Rash Verified 05/07/22 19:00 Assessment & Plan Assessment & Plan (1) Routine history and physical examination of adult: Status: Acute Code(s): Z00.00 - Encounter for general adult medical examination without abnormal findings (2) Generalized anxiety disorder: Status: Acute Code(s): F41.1 - Generalized anxiety disorder (3) Major depressive disorder, recurrent severe without psychotic features: Status: Acute Code(s): F33.2 - Major depressive disorder, recurrent severe without psychotic features (4) HTN (hypertension): Status: Acute Code(s): I10 - Essential (primary) hypertension Plan The patient is an elderly male with a long history of major depressive disorder with several prior admissions into the hospital for exacerbation of depression and previous treatment with ECT with for improvement.? The patient was initially treated at [facility] and transferring to this facility for ECT.? At this moment, the patient is severely depressed with some neuro cognitive impairment. Plan 1. Gather collateral information.? 2. Hospitalist workout with clearance for ECT.? Ready for ECT as per ThursdayMay 12 3. Continue regular medications.? 4. EKG for ECT treatment.? 5. ECT as soon as he is medically cleared.? Since he has COVID, he cannot have ECT at this moment. 05/17/21 cont luvox risp 0.5 bid ect when medically cleared 05/18/21 cont tx plan ect 05/19/2022 05/20/2022 patient has been tolerating isolation continues to be agreeable for May 21 did have ECT in the past he does have concerns regarding memory impairment cognitive changes these questions were reviewed and strategies initiated scheduled for treatment 05/21/2022 Reason for contiued inpatient stay Substantial Risk for: harm to self, inability to function and rapid decompensation Time Spent With Patient Time: Total time managing care of this patient today ____ minutes.
[2022-05-22 06:00] VITALS: BP 136/61; PULSE 59; RESP 16; TEMP 36.8; O2SAT 98
[2022-05-22 07:00] VITALS: BMI 22.3
[2022-05-22] MEDS: risperiDONE 0.5 MG TABLET PO (10:42)
[2022-05-22] MEDS: lamoTRIgine 100 MG TABLET PO (10:42)
[2022-05-22] MEDS: Cyanocobalamin (Vitamin B-12) 1,000 MCG TABLET 1000 MCG PO (10:42)
[2022-05-22] MEDS: Cholecalciferol (Vitamin D3) 25 MCG TABLET PO (10:42)
[2022-05-22] MEDS: amLODIPine Besylate 2.5 MG TABLET PO (10:44)
--- NOTE | 2022-05-22 15:56 | HO.PSYCHPN ---
Subjective Subjective Date of Service: 05/22/22 Reason For Visit: depression w/ SI Interim History: The patient continues to be ruminating for a obsessional detail oriented appears to have limited strategies at this time to manage anxiety denies active self-harm in the setting reticent to explain why he had been feeling suicidal actively when he had been at [facility] less hopeless no adverse effects from initial ECT noted Diagnostics Vital Signs (24Hr): Vital Signs - 24 hr 05/23/22 17:40 05/24/22 08:00 Temperature 98.0 F Pulse Rate 60 Respiratory Rate 16 Blood Pressure 128/67 163/75 H Pulse Oximetry 99 97 Oxygen Delivery Method Room Air Room Air BMI result Body Mass Index 22.3 Labs 05/08/22 08:43 05/08/22 08:43 Medications Medications Current Medications Acetaminophen (Acetaminophen 325 Mg Tablet) 650 mg PO Q6H PRN PRN Reason: Headache/Pain Mild Scale (1-3) Last Admin: 05/13/22 20:13 Dose: 650 mg Acetaminophen (Acetaminophen 325 Mg Tablet) 650 mg PO Q6H PRN PRN Reason: Headache/Pain Mild Scale (1-3) Al Hydroxide/Mg Hydroxide (Magnesium Hydrox/Alum Hydrox 30 Ml Oral.Susp) 30 ml PO Q6H PRN PRN Reason: Heartburn/Nausea Al Hydroxide/Mg Hydroxide (Magnesium Hydrox/Alum Hydrox 30 Ml Oral.Susp) 30 ml PO Q6H PRN PRN Reason: Heartburn/Nausea Amlodipine Besylate (Amlodipine Besylate 2.5 Mg Tablet) 2.5 mg PO DAILY@1300 IZA; Protocol Last Admin: 05/24/22 13:28 Dose: 2.5 mg Bisacodyl (Bisacodyl 10 Mg Supp.Rect) 10 mg [place] DAILY PRN PRN Reason: Constipation Cyanocobalamin (Cyanocobalamin (Vitamin B-12) 1,000 Mcg Tablet) 1,000 mcg PO DAILY [facility] Last Admin: 05/24/22 08:57 Dose: 1,000 mcg Fluvoxamine Maleate (Fluvoxamine Maleate 50 Mg Tablet) 100 mg PO BEDTIME [facility] Last Admin: 05/23/22 19:46 Dose: 100 mg Hydroxyzine HCl (Hydroxyzine Hcl 25 Mg Tablet) 25 mg PO Q6H PRN PRN Reason: Anxiety Lamotrigine (Lamotrigine 100 Mg Tablet) 100 mg PO DAILY [facility] Last Admin: 05/24/22 08:57 Dose: 100 mg Magnesium Hydroxide (Milk Of Magnesia 30 Ml Oral.Susp) 30 ml PO DAILY PRN PRN Reason: Constipation Last Admin: 05/10/22 11:05 Dose: 30 ml Magnesium Hydroxide (Milk Of Magnesia 30 Ml Oral.Susp) 30 ml PO DAILY PRN PRN Reason: Constipation Mirtazapine (Mirtazapine 15 Mg Tablet) 15 mg PO BEDTIME [facility] Last Admin: 05/23/22 19:47 Dose: 15 mg Olanzapine (Olanzapine 2.5 Mg Tablet) 2.5 mg PO BID PRN PRN Reason: Agitation Olanzapine (Olanzapine 7.5 Mg Tablet) 15 mg PO BEDTIME [facility] Last Admin: 05/23/22 19:00 Dose: 15 mg Ondansetron HCl (Ondansetron Odt 4 Mg Tab.Rapdis) 4 mg TRANSLINGU DAILY PRN PRN Reason: Nausea Quetiapine Fumarate (Quetiapine Fumarate 100 Mg Tablet) 100 mg PO BEDTIME PRN PRN Reason: Anxiety Senna/Docusate Sodium (Sennosides/Docusate Sodium Tablet) 1 tab PO BEDTIME [facility] Last Admin: 05/23/22 19:46 Dose: 1 tab Trazodone HCl (Trazodone Hcl 50 Mg Tablet) 50 mg PO BEDTIME MRX1 PRN PRN Reason: Insomnia Last Admin: 05/16/22 20:07 Dose: 50 mg Vitamin D (Cholecalciferol (Vitamin D3) 25 Mcg Tablet) 25 mcg PO DAILY [facility] Last Admin: 05/24/22 08:57 Dose: 25 mcg Allergies Allergies Allergy/AdvReac Type Severity Reaction Status Date / Time Latex, Natural Rubber AdvReac Mild Rash Verified 05/07/22 19:00 Assessment & Plan Assessment & Plan (1) Routine history and physical examination of adult: Status: Acute Code(s): Z00.00 - Encounter for general adult medical examination without abnormal findings (2) Generalized anxiety disorder: Status: Acute Code(s): F41.1 - Generalized anxiety disorder (3) Major depressive disorder, recurrent severe without psychotic features: Status: Acute Code(s): F33.2 - Major depressive disorder, recurrent severe without psychotic features (4) HTN (hypertension): Status: Acute Code(s): I10 - Essential (primary) hypertension Plan The patient is an elderly male with a long history of major depressive disorder with several prior admissions into the hospital for exacerbation of depression and previous treatment with ECT with for improvement.? The patient was initially treated at [facility] and transferring to this facility for ECT.? At this moment, the patient is severely depressed with some neuro cognitive impairment. Plan 1. Gather collateral information.? 2. Hospitalist workout with clearance for ECT.? Ready for ECT as per ThursdayMay 12 3. Continue regular medications.? 4. EKG for ECT treatment.? 5. ECT as soon as he is medically cleared.? Since he has COVID, he cannot have ECT at this moment. 05/17/21 cont luvox risp 0.5 bid ect when medically cleared 05/18/21 cont tx plan ect 05/19/2022 05/20/2022 patient has been tolerating isolation continues to be agreeable for May 21 did have ECT in the past he does have concerns regarding memory impairment cognitive changes these questions were reviewed and strategies initiated scheduled for treatment 05/21/2022 05/22/2022 Patient tolerated 1st ECT without difficulty did have some degree of hypotension post while on the unit will change amlodipine to later in the day encourage fluids monitor mood and safety discontinuing Risperdal unclear if needed with olanzapine monitor for change in mood or anxiety Reason for contiued inpatient stay Substantial Risk for: harm to self and rapid decompensation Time Spent With Patient Time: Total time managing care of this patient today ____ minutes.
[2022-05-22 19:25] VITALS: BP 129/59; PULSE 75; RESP 18; TEMP 36.7; O2SAT 97
[2022-05-22] MEDS: fluvoxaMINE Maleate 50 MG TABLET 100 MG PO (20:12)
[2022-05-22] MEDS: OLANZapine 7.5 MG TABLET 15 MG PO (20:12)
[2022-05-22] MEDS: Mirtazapine 15 MG TABLET PO (20:12)
[2022-05-22] MEDS: Sennosides/Docusate Sodium TABLET 1 TAB PO (20:12)
[2022-05-23] VITALS (11 sets, daily range): BP systolic 98–183; BP diastolic 52–112; PULSE 50–101; RESP 12–20; TEMP 36.4–37; O2SAT 96–99
--- NOTE | 2022-05-23 06:52 | HO.ANESPROP2 ---
[facility] Active Problems Active Problems: All Active Problems (Updated 05/09/22 @ 15:51 by SYDNI Mao) HTN (hypertension) (Acute) Routine history and physical examination of adult (Acute) Major depressive disorder, recurrent (Acute) Generalized anxiety disorder (Acute) Major depressive disorder, recurrent severe without psychotic features (Acute) Past Medical History Medical History No known health problems Ruptured liver Functional capacity: independent ambulation Family History Family history of problems with anesthesia: No Surgical History Surgical History H/O right knee surgery History of Problems with Anesthesia: No Social History Social History Household Members: None Housing: Apartment Do you presently have visiting nurse or other home services: No Patient Tobacco Use Status: Never used Tobacco Smoked in Last 30 Days: No e-Cigarette/Vaping Use: Never Used Second Hand Smoke Exposure: No Use of substances other than those prescribed or required for medical reasons: No Currently Displaying Signs/Symptoms of Drug Intoxication Withdrawal: No Any prior treatment program specific to substance use: No Have you been hit, kicked, punched, or otherwise hurt by someone within the past year? If so, by whom?: No Do you feel safe in your current relationship?: No Current Relationship Is there a partner from a previous relationship who is making you feel unsafe now?: No Are you made to feel afraid or neglected: No Spiritual Healthcare Practices: n/a Uatsdin Healthcare Practices: n/a Cultural Healthcare Practices: n/a Advance Directives: No Advance Directives Information Provided: No Do you have thoughts of harming others: None Do you have a plan to hurt others: No Plan Recently lost weight without trying: Yes How much weight loss: Unsure Eating poorly because of decreased appetite: No Nutrition screen score: 4 Nutrition Risks: No Nutritional Risk Poor oral hygiene: No service: No Sexual orientation: Straight/Heterosexual Meds Allergies Allergy/AdvReac Type Severity Reaction Status Date / Time Latex, Natural Rubber AdvReac Mild Rash Verified 05/07/22 19:00 Active Medications: Current Medications Acetaminophen (Acetaminophen 325 Mg Tablet) 650 mg PO Q6H PRN PRN Reason: Headache/Pain Mild Scale (1-3) Last Admin: 05/13/22 20:13 Dose: 650 mg Acetaminophen (Acetaminophen 325 Mg Tablet) 650 mg PO Q6H PRN PRN Reason: Headache/Pain Mild Scale (1-3) Al Hydroxide/Mg Hydroxide (Magnesium Hydrox/Alum Hydrox 30 Ml Oral.Susp) 30 ml PO Q6H PRN PRN Reason: Heartburn/Nausea Al Hydroxide/Mg Hydroxide (Magnesium Hydrox/Alum Hydrox 30 Ml Oral.Susp) 30 ml PO Q6H PRN PRN Reason: Heartburn/Nausea Amlodipine Besylate (Amlodipine Besylate 2.5 Mg Tablet) 2.5 mg PO DAILY@1300 IZA; Protocol Bisacodyl (Bisacodyl 10 Mg Supp.Rect) 10 mg [place] DAILY PRN PRN Reason: Constipation Cyanocobalamin (Cyanocobalamin (Vitamin B-12) 1,000 Mcg Tablet) 1,000 mcg PO DAILY [facility] Last Admin: 05/22/22 10:42 Dose: 1,000 mcg Fluvoxamine Maleate (Fluvoxamine Maleate 50 Mg Tablet) 100 mg PO BEDTIME [facility] Last Admin: 05/22/22 20:12 Dose: 100 mg Hydroxyzine HCl (Hydroxyzine Hcl 25 Mg Tablet) 25 mg PO Q6H PRN PRN Reason: Anxiety Lactated Ringer's (Lr) 1,000 mls @ 50 mls/hr IVCONT .Q20H IZA Lamotrigine (Lamotrigine 100 Mg Tablet) 100 mg PO DAILY [facility] Last Admin: 05/22/22 10:42 Dose: 100 mg Magnesium Hydroxide (Milk Of Magnesia 30 Ml Oral.Susp) 30 ml PO DAILY PRN PRN Reason: Constipation Last Admin: 05/10/22 11:05 Dose: 30 ml Magnesium Hydroxide (Milk Of Magnesia 30 Ml Oral.Susp) 30 ml PO DAILY PRN PRN Reason: Constipation Mirtazapine (Mirtazapine 15 Mg Tablet) 15 mg PO BEDTIME [facility] Last Admin: 05/22/22 20:12 Dose: 15 mg Olanzapine (Olanzapine 2.5 Mg Tablet) 2.5 mg PO BID PRN PRN Reason: Agitation Olanzapine (Olanzapine 7.5 Mg Tablet) 15 mg PO BEDTIME [facility] Last Admin: 05/22/22 20:12 Dose: 15 mg Ondansetron HCl (Ondansetron Odt 4 Mg Tab.Rapdis) 4 mg TRANSLINGU DAILY PRN PRN Reason: Nausea Quetiapine Fumarate (Quetiapine Fumarate 100 Mg Tablet) 100 mg PO BEDTIME PRN PRN Reason: Anxiety Senna/Docusate Sodium (Sennosides/Docusate Sodium Tablet) 1 tab PO BEDTIME IZA Last Admin: 05/22/22 20:12 Dose: 1 tab Trazodone HCl (Trazodone Hcl 50 Mg Tablet) 50 mg PO BEDTIME MRX1 PRN PRN Reason: Insomnia Last Admin: 05/16/22 20:07 Dose: 50 mg Vitamin D (Cholecalciferol (Vitamin D3) 25 Mcg Tablet) 25 mcg PO DAILY IZA Last Admin: 05/22/22 10:42 Dose: 25 mcg Home Medications Medication Instructions Recorded Confirmed Last Taken Type l theanine 200 mg PO QID PRN Anxiety 10/15/21 05/07/22 10/15/21 07:20 History lamotrigine 100 mg tablet 100 mg PO DAILY 10/15/21 05/07/22 10/15/21 07:20 History (Lamictal) mirtazapine 15 mg tablet 15 mg PO BEDTIME 10/15/21 05/07/22 10/14/21 21:30 History quetiapine 50 mg tablet 50 - 100 mg PO BEDTIME PRN Anxiety 10/15/21 05/07/22 10/14/21 20:30 History risperidone 0.5 mg tablet 0.5 mg PO BID 10/15/21 05/07/22 10/15/21 07:20 History (Risperdal) amlodipine 2.5 mg tablet 2.5 mg PO DAILY 05/07/22 05/07/22 Unknown History cholecalciferol (vitamin D3) 25 25 mcg PO DAILY 05/07/22 05/07/22 Unknown History mcg (1,000 unit) capsule clonazepam 0.5 mg disintegrating 0.5 mg PO BEDTIME 05/07/22 05/07/22 Unknown History tablet cyanocobalamin (vitamin B-12) 1,000 mcg PO DAILY 05/07/22 05/07/22 Unknown History 1,000 mcg tablet fluvoxamine 100 mg tablet 100 mg PO BEDTIME 05/07/22 05/07/22 Unknown History olanzapine 15 mg disintegrating 15 mg PO BEDTIME 05/07/22 05/07/22 Unknown History tablet olanzapine 5 mg disintegrating 2.5 mg PO BID PRN Agitation 05/07/22 05/07/22 Unknown History tablet ondansetron HCl 4 mg tablet 4 mg PO NEEDED PRN Nausea 05/07/22 05/07/22 Unknown History Exam Exam Date and Time: May 23, 2022 0652 Height,Weight and Vital Signs: Height 6 ft 5 in Weight 85.5 kg Last Vital Signs Temp 97.8 F 05/23/22 06:32 Pulse 50 05/23/22 06:32 Resp 16 05/23/22 06:32 BP 131/81 05/23/22 06:32 Pulse Ox 96 05/23/22 06:32 O2 Del Method 05/23/22 06:32 O2 Flow Rate 2 05/21/22 07:59 Pertinent Lab Results Pertinent Lab Results: Laboratory Tests 05/08/22 05/08/22 05/08/22 08:43 08:43 08:43 WBC 3.7 L RBC 4.34 L Hgb 13.6 L Hct 40.0 L MCV 92.2 MCH 31.3 MCHC 34.0 RDW 12.5 Plt Count 150 L MPV 8.7 L Immature Gran % (Auto) 0.3 Neut % (Auto) 60.0 Lymph % (Auto) 27.4 [place] % (Auto) 8.6 Eos % (Auto) 3.2 Baso % (Auto) 0.5 Lymph # (Auto) 1.[address] [place] # (Auto) 0.3 Eos # (Auto) 0.1 Baso # (Auto) 0.0 Abs Immat Gran (auto) 0.01 Absolute Neuts (auto) 2.2 Absolute Nucleated RBC 0.000 Nucleated RBC % (auto) 0.0 Sodium 145 Potassium 3.9 Chloride 107 Carbon Dioxide 31 H Anion Gap 11 L BUN 16 Creatinine 0.83 Estim Creat Clear Calc 94.6 Estimated GFR > 60 Fasting Glucose 128 H Estimat Average Glucose 103 Hemoglobin A1c % 5.2 Calcium 8.8 Total Bilirubin 0.7 AST 15 ALT 13 Alkaline Phosphatase 54 Total Protein 5.3 L Albumin 3.4 L Triglycerides 72 Cholesterol 165 LDL Cholesterol, Calc 101 HDL Cholesterol 50 Vitamin B12 545 Folate 14.9 TSH 1.51 COVID-19 ([facility]) COVID-19 Clin Com 05/11/22 18:25 WBC RBC Hgb Hct MCV MCH MCHC RDW Plt Count MPV Immature Gran % (Auto) Neut % (Auto) Lymph % (Auto) [place] % (Auto) Eos % (Auto) Baso % (Auto) Lymph # (Auto) [place] # (Auto) Eos # (Auto) Baso # (Auto) Abs Immat Gran (auto) Absolute Neuts (auto) Absolute Nucleated RBC Nucleated RBC % (auto) Sodium Potassium Chloride Carbon Dioxide Anion Gap BUN Creatinine Estim Creat Clear Calc Estimated GFR Fasting Glucose Estimat Average Glucose Hemoglobin A1c % Calcium Total Bilirubin AST ALT Alkaline Phosphatase Total Protein Albumin Triglycerides Cholesterol LDL Cholesterol, Calc HDL Cholesterol Vitamin B12 Folate TSH COVID-19 ([facility]) Positive A COVID-19 Clin Com See Note Airway Mallampati Class: II TM Dist: >3cm Neck ROM: Full Heart: rrr Lungs: cta Assessment and Plan Assessment Anesthesia Assessment: Anesthesia Plan Discussed and Chart Reviewed Final Anesthetic Review Family History of Problems with Anesthesia: No History of Problems with Anesthesia: No NPO: Yes ASA Class: III Final Preanesthetic Review: No Changes in Pt Med Stat, Meds/Allgs Chart Reviewed and Consent Obtained/Reviewed Patient Risk: Intermediate Procedure Risk: Intermediate Anesthetic Plan Anesthetic Plan: GA
--- NOTE | 2022-05-23 07:35 | MHC.SHP ---
Pre-Procedural Eval Section A Date of Service: 05/23/22 The patient is an INPATIENT: Yes Changes since office visit: Yes Cold of Flu in the past 2 weeks, Yes New Medical Problems and Yes Patient answered all questions; No Changes in Medication The History & Physical has been completed within 30 days and I have reviewed it.: Yes Section B Chief Complaint: depression w/ SI Allergies: Allergies Allergy/AdvReac Type Severity Reaction Status Date / Time Latex, Natural Rubber AdvReac Mild Rash Verified 05/07/22 19:00 Plan I have reviewed the history and physical and performed a pertinent physical examination on my patient. No changes have occurred unless specified. Time Spent With Patient Time: Total time managing care of this patient today ____ minutes.
--- NOTE | 2022-05-23 07:46 | HO.ECTPROC ---
ECT Procedure Note Diagnosis/Treatment Date of Service: 05/23/22 Diagnosis: Major Depressive Disorder Previous ECT Date: 05/21/22 Current Treatment Number: 2 Treatment: Series Interval Clinical Notes: has ongoing rumination dysphoria Time: Total time managing care of this patient today ____ minutes. ECT Settings Device: THYMATRON DGx Electrode Placement: Right Unilateral Program/Pulse Width: 0.25 Energy Percent: 80 Seizure Duration By EEG (in seconds): 55 Medications Administration General Anesthetic: Etomidate (14) Muscle Relaxant: Succinylcholine (100) Ancillary Medications Analgesics: Torodol - Pre ECT Anti-emetics: Zofran - Pre ECT Cardiovascular Medications: Glycopyrrolate Miscillaneous Medications: Other (Lorazepam 0.5 mg) Airway Management Airway Management: Bag Mask Ventilation Treatment Recommendations Program/Pulse Width: 0.25 Energy Percent: 80 Notes: got ativan 0.5 mg po did better with propofol post give next tx continue treatment series Pt Tolerated Procedure w/o Issue: Yes
[2022-05-23] MEDS: LORazepam 0.5 MG TABLET PO (08:48)
[2022-05-23] MEDS: Cyanocobalamin (Vitamin B-12) 1,000 MCG TABLET 1000 MCG PO (09:22)
[2022-05-23] MEDS: Cholecalciferol (Vitamin D3) 25 MCG TABLET PO (09:22)
[2022-05-23] MEDS: lamoTRIgine 100 MG TABLET PO (09:22)
--- NOTE | 2022-05-23 12:37 | MHC.CLN ---
NUTRITION PATIENT ASKED THIS GIS ANALYST DEVELOPER ABOUT GETTING ENSURE. ORDERING ENSURE BID PER DISCUSSION WITH PATIENT. PROVIDES ADDITIONAL 700 KCALS, 40 G PROTEIN. PATIENT WITH HIGHER CALORIE NEEDS DUE TO STATURE.
[2022-05-23] MEDS: OLANZapine 7.5 MG TABLET 15 MG PO (19:00)
[2022-05-23] MEDS: Sennosides/Docusate Sodium TABLET 1 TAB PO (19:46)
[2022-05-23] MEDS: fluvoxaMINE Maleate 50 MG TABLET 100 MG PO (19:46)
[2022-05-23] MEDS: Mirtazapine 15 MG TABLET PO (19:47)
[2022-05-24 08:00] VITALS: BP 163/75; O2SAT 97
[2022-05-24] MEDS: Cyanocobalamin (Vitamin B-12) 1,000 MCG TABLET 1000 MCG PO (08:57)
[2022-05-24] MEDS: Cholecalciferol (Vitamin D3) 25 MCG TABLET PO (08:57)
[2022-05-24] MEDS: lamoTRIgine 100 MG TABLET PO (08:57)
--- NOTE | 2022-05-24 09:33 | P.PNPSI_ITS ---
Subjective Subjective Date of Service: 05/24/22 Reason For Visit: depression w/ SI Subjective Notes: Conditional Voluntary Interim History: Patient was seen and discussed in rounds today. Records and plans were reviewed. He is undergoing ECT treatment and has received 2. He states that he is anxious about it being helpful. He was little confused yesterday about the events and had some questions which I could not necessarily answer. I encouraged him to ask his doctor on Thursday. No other complaints. Eating and sleeping adequately. He has been appropriate and active. No changes were made today Review of Systems Review of Systems Negative except that which is stated in the HPI. Yes all other systems are reviewed and are negative Diagnostics Vital Signs (24Hr): Vital Signs - 24 hr 05/23/22 11:05 05/23/22 13:52 05/23/22 17:40 Temperature 97.5 F 98.0 F Pulse Rate 63 60 Respiratory Rate 16 Blood Pressure 137/78 98/52 L 128/67 Pulse Oximetry 99 Oxygen Delivery Method Room Air BMI result Body Mass Index 22.3 Labs 05/08/22 08:43 05/08/22 08:43 Medications Medications Current Medications Acetaminophen (Acetaminophen 325 Mg Tablet) 650 mg PO Q6H PRN PRN Reason: Headache/Pain Mild Scale (1-3) Last Admin: 05/13/22 20:13 Dose: 650 mg Acetaminophen (Acetaminophen 325 Mg Tablet) 650 mg PO Q6H PRN PRN Reason: Headache/Pain Mild Scale (1-3) Al Hydroxide/Mg Hydroxide (Magnesium Hydrox/Alum Hydrox 30 Ml Oral.Susp) 30 ml PO Q6H PRN PRN Reason: Heartburn/Nausea Al Hydroxide/Mg Hydroxide (Magnesium Hydrox/Alum Hydrox 30 Ml Oral.Susp) 30 ml PO Q6H PRN PRN Reason: Heartburn/Nausea Amlodipine Besylate (Amlodipine Besylate 2.5 Mg Tablet) 2.5 mg PO DAILY@1300 IZA; Protocol Last Admin: 05/23/22 13:53 Dose: Not Given Bisacodyl (Bisacodyl 10 Mg Supp.Rect) 10 mg [place] DAILY PRN PRN Reason: Constipation Cyanocobalamin (Cyanocobalamin (Vitamin B-12) 1,000 Mcg Tablet) 1,000 mcg PO DAILY [facility] Last Admin: 05/24/22 08:57 Dose: 1,000 mcg Fluvoxamine Maleate (Fluvoxamine Maleate 50 Mg Tablet) 100 mg PO BEDTIME [facility] Last Admin: 05/23/22 19:46 Dose: 100 mg Hydroxyzine HCl (Hydroxyzine Hcl 25 Mg Tablet) 25 mg PO Q6H PRN PRN Reason: Anxiety Lamotrigine (Lamotrigine 100 Mg Tablet) 100 mg PO DAILY [facility] Last Admin: 05/24/22 08:57 Dose: 100 mg Magnesium Hydroxide (Milk Of Magnesia 30 Ml Oral.Susp) 30 ml PO DAILY PRN PRN Reason: Constipation Last Admin: 05/10/22 11:05 Dose: 30 ml Magnesium Hydroxide (Milk Of Magnesia 30 Ml Oral.Susp) 30 ml PO DAILY PRN PRN Reason: Constipation Mirtazapine (Mirtazapine 15 Mg Tablet) 15 mg PO BEDTIME [facility] Last Admin: 05/23/22 19:47 Dose: 15 mg Olanzapine (Olanzapine 2.5 Mg Tablet) 2.5 mg PO BID PRN PRN Reason: Agitation Olanzapine (Olanzapine 7.5 Mg Tablet) 15 mg PO BEDTIME [facility] Last Admin: 05/23/22 19:00 Dose: 15 mg Ondansetron HCl (Ondansetron Odt 4 Mg Tab.Rapdis) 4 mg TRANSLINGU DAILY PRN PRN Reason: Nausea Quetiapine Fumarate (Quetiapine Fumarate 100 Mg Tablet) 100 mg PO BEDTIME PRN PRN Reason: Anxiety Senna/Docusate Sodium (Sennosides/Docusate Sodium Tablet) 1 tab PO BEDTIME [facility] Last Admin: 05/23/22 19:46 Dose: 1 tab Trazodone HCl (Trazodone Hcl 50 Mg Tablet) 50 mg PO BEDTIME MRX1 PRN PRN Reason: Insomnia Last Admin: 05/16/22 20:07 Dose: 50 mg Vitamin D (Cholecalciferol (Vitamin D3) 25 Mcg Tablet) 25 mcg PO DAILY [facility] Last Admin: 05/24/22 08:57 Dose: 25 mcg Allergies Allergies Allergy/AdvReac Type Severity Reaction Status Date / Time Latex, Natural Rubber AdvReac Mild Rash Verified 05/07/22 19:00 Assessment & Plan Assessment & Plan (1) Routine history and physical examination of adult: Status: Acute Code(s): Z00.00 - Encounter for general adult medical examination without abnormal findings (2) Generalized anxiety disorder: Status: Acute Code(s): F41.1 - Generalized anxiety disorder (3) Major depressive disorder, recurrent severe without psychotic features: Status: Acute Code(s): F33.2 - Major depressive disorder, recurrent severe without psychotic features (4) HTN (hypertension): Status: Acute Code(s): I10 - Essential (primary) hypertension Plan The patient is an elderly male with a long history of major depressive disorder with several prior admissions into the hospital for exacerbation of depression and previous treatment with ECT with for improvement.? The patient was initially treated at [facility] and transferring to this facility for ECT.? At this moment, the patient is severely depressed with some neuro cognitive impairment. Plan 1. Gather collateral information.? 2. Hospitalist workout with clearance for ECT.? Ready for ECT as per ThursdayMay 12 3. Continue regular medications.? 4. EKG for ECT treatment.? 5. ECT as soon as he is medically cleared.? Since he has COVID, he cannot have ECT at this moment. 05/17/21 cont luvox risp 0.5 bid ect when medically cleared 05/18/21 cont tx plan ect 05/19/2022 05/20/2022 patient has been tolerating isolation continues to be agreeable for May 21 did have ECT in the past he does have concerns regarding memory impairment cognitive changes these questions were reviewed and strategies initiated scheduled for treatment 05/21/202205/24: Continue current regimen and plans. Continue ECT Reason for contiued inpatient stay Substantial Risk for: inability to function Time Spent With Patient Time: Total time managing care of this patient today ____ minutes.
[2022-05-24] MEDS: amLODIPine Besylate 2.5 MG TABLET PO (13:28)
[2022-05-24 19:30] VITALS: BP 156/72; PULSE 62; RESP 16; TEMP 36.1; O2SAT 97
[2022-05-24] MEDS: OLANZapine 7.5 MG TABLET 15 MG PO (20:12)
[2022-05-24] MEDS: fluvoxaMINE Maleate 50 MG TABLET 100 MG PO (20:12)
[2022-05-24] MEDS: Sennosides/Docusate Sodium TABLET 1 TAB PO (20:12)
[2022-05-24] MEDS: Mirtazapine 15 MG TABLET PO (20:12)
[2022-05-25 08:00] VITALS: BP 118/59; PULSE 65; RESP 16; TEMP 36.3; O2SAT 97
--- NOTE | 2022-05-25 09:00 | HO.PSYCHPN ---
Subjective Subjective Date of Service: 05/25/22 Reason For Visit: depression w/ SI Interim History: Patient was seen and discussed in rounds today. Records and plans were reviewed. He continues to be feeling better since the ECT treatment and is hopeful that he would achieve more gains. An in today's visit he reminded me that I had seen in many years ago in my practice in [facility]. He denies any side effects except as for some achiness in his lower legs. He continues to have some OCD symptoms. Eating and sleeping adequately. No changes were made today Medication Compliance: Yes Side effects from medications: No Attending Groups: Yes Diagnostics Vital Signs (24Hr): Vital Signs - 24 hr 05/24/22 19:30 Temperature 96.9 F Pulse Rate 62 Respiratory Rate 16 Blood Pressure 156/72 H Pulse Oximetry 97 Oxygen Delivery Method Room Air BMI result Body Mass Index 22.3 Labs 05/08/22 08:43 05/08/22 08:43 Medications Medications Current Medications Acetaminophen (Acetaminophen 325 Mg Tablet) 650 mg PO Q6H PRN PRN Reason: Headache/Pain Mild Scale (1-3) Last Admin: 05/13/22 20:13 Dose: 650 mg Acetaminophen (Acetaminophen 325 Mg Tablet) 650 mg PO Q6H PRN PRN Reason: Headache/Pain Mild Scale (1-3) Al Hydroxide/Mg Hydroxide (Magnesium Hydrox/Alum Hydrox 30 Ml Oral.Susp) 30 ml PO Q6H PRN PRN Reason: Heartburn/Nausea Al Hydroxide/Mg Hydroxide (Magnesium Hydrox/Alum Hydrox 30 Ml Oral.Susp) 30 ml PO Q6H PRN PRN Reason: Heartburn/Nausea Amlodipine Besylate (Amlodipine Besylate 2.5 Mg Tablet) 2.5 mg PO DAILY@1300 IZA; Protocol Last Admin: 05/24/22 13:28 Dose: 2.5 mg Bisacodyl (Bisacodyl 10 Mg Supp.Rect) 10 mg [place] DAILY PRN PRN Reason: Constipation Cyanocobalamin (Cyanocobalamin (Vitamin B-12) 1,000 Mcg Tablet) 1,000 mcg PO DAILY [facility] Last Admin: 05/24/22 08:57 Dose: 1,000 mcg Fluvoxamine Maleate (Fluvoxamine Maleate 50 Mg Tablet) 100 mg PO BEDTIME [facility] Last Admin: 05/24/22 20:12 Dose: 100 mg Hydroxyzine HCl (Hydroxyzine Hcl 25 Mg Tablet) 25 mg PO Q6H PRN PRN Reason: Anxiety Lamotrigine (Lamotrigine 100 Mg Tablet) 100 mg PO DAILY [facility] Last Admin: 05/24/22 08:57 Dose: 100 mg Magnesium Hydroxide (Milk Of Magnesia 30 Ml Oral.Susp) 30 ml PO DAILY PRN PRN Reason: Constipation Last Admin: 05/10/22 11:05 Dose: 30 ml Magnesium Hydroxide (Milk Of Magnesia 30 Ml Oral.Susp) 30 ml PO DAILY PRN PRN Reason: Constipation Mirtazapine (Mirtazapine 15 Mg Tablet) 15 mg PO BEDTIME [facility] Last Admin: 05/24/22 20:12 Dose: 15 mg Olanzapine (Olanzapine 2.5 Mg Tablet) 2.5 mg PO BID PRN PRN Reason: Agitation Olanzapine (Olanzapine 7.5 Mg Tablet) 15 mg PO BEDTIME [facility] Last Admin: 05/24/22 20:12 Dose: 15 mg Ondansetron HCl (Ondansetron Odt 4 Mg Tab.Rapdis) 4 mg TRANSLINGU DAILY PRN PRN Reason: Nausea Quetiapine Fumarate (Quetiapine Fumarate 100 Mg Tablet) 100 mg PO BEDTIME PRN PRN Reason: Anxiety Senna/Docusate Sodium (Sennosides/Docusate Sodium Tablet) 1 tab PO BEDTIME [facility] Last Admin: 05/24/22 20:12 Dose: 1 tab Trazodone HCl (Trazodone Hcl 50 Mg Tablet) 50 mg PO BEDTIME MRX1 PRN PRN Reason: Insomnia Last Admin: 05/16/22 20:07 Dose: 50 mg Vitamin D (Cholecalciferol (Vitamin D3) 25 Mcg Tablet) 25 mcg PO DAILY [facility] Last Admin: 05/24/22 08:57 Dose: 25 mcg Allergies Allergies Allergy/AdvReac Type Severity Reaction Status Date / Time Latex, Natural Rubber AdvReac Mild Rash Verified 05/07/22 19:00 Assessment & Plan Assessment & Plan (1) Routine history and physical examination of adult: Status: Acute Code(s): Z00.00 - Encounter for general adult medical examination without abnormal findings (2) Generalized anxiety disorder: Status: Acute Code(s): F41.1 - Generalized anxiety disorder (3) Major depressive disorder, recurrent severe without psychotic features: Status: Acute Code(s): F33.2 - Major depressive disorder, recurrent severe without psychotic features (4) HTN (hypertension): Status: Acute Code(s): I10 - Essential (primary) hypertension Plan The patient is an elderly male with a long history of major depressive disorder with several prior admissions into the hospital for exacerbation of depression and previous treatment with ECT with for improvement.? The patient was initially treated at [facility] and transferring to this facility for ECT.? At this moment, the patient is severely depressed with some neuro cognitive impairment. Plan 1. Gather collateral information.? 2. Hospitalist workout with clearance for ECT.? Ready for ECT as per ThursdayMay 12 3. Continue regular medications.? 4. EKG for ECT treatment.? 5. ECT as soon as he is medically cleared.? Since he has COVID, he cannot have ECT at this moment. 05/17/21 cont luvox risp 0.5 bid ect when medically cleared 05/18/21 cont tx plan ect 05/19/2022 05/20/2022 patient has been tolerating isolation continues to be agreeable for May 21 did have ECT in the past he does have concerns regarding memory impairment cognitive changes these questions were reviewed and strategies initiated scheduled for treatment 05/21/2022 05/22/2022 Patient tolerated 1st ECT without difficulty did have some degree of hypotension post while on the unit will change amlodipine to later in the day encourage fluids monitor mood and safety discontinuing Risperdal unclear if needed with olanzapine monitor for change in mood or anxiety 05/24: Continue current Regimen and plans 05/25: Continue current regimen and plans. Continue ECT Reason for contiued inpatient stay Substantial Risk for: med/psych decompensation Time Spent With Patient Time: Total time managing care of this patient today ____ minutes.
[2022-05-25] MEDS: Cholecalciferol (Vitamin D3) 25 MCG TABLET PO (09:02)
[2022-05-25] MEDS: Milk of Magnesia 30 ML ORAL.SUSP PO (09:02)
[2022-05-25] MEDS: Cyanocobalamin (Vitamin B-12) 1,000 MCG TABLET 1000 MCG PO (09:02)
[2022-05-25] MEDS: lamoTRIgine 100 MG TABLET PO (09:02)
[2022-05-25] MEDS: amLODIPine Besylate 2.5 MG TABLET PO (12:23)
[2022-05-25] MEDS: fluvoxaMINE Maleate 50 MG TABLET 100 MG PO (20:44)
[2022-05-25] MEDS: OLANZapine 7.5 MG TABLET 15 MG PO (20:44)
[2022-05-25] MEDS: Sennosides/Docusate Sodium TABLET 1 TAB PO (20:45)
[2022-05-25] MEDS: Mirtazapine 15 MG TABLET PO (20:45)
[2022-05-25 21:26] VITALS: BP 169/77; PULSE 60; RESP 14; TEMP 37; O2SAT 98
[2022-05-26] VITALS (10 sets, daily range): BP systolic 138–182; BP diastolic 76–97; PULSE 55–67; RESP 12–18; TEMP 35.6–37; O2SAT 96–100
--- NOTE | 2022-05-26 06:46 | P.CONAN_ITS ---
[facility] Active Problems Active Problems: All Active Problems (Updated 05/09/22 @ 15:51 by SYDNI Mao) HTN (hypertension) (Acute) Routine history and physical examination of adult (Acute) Major depressive disorder, recurrent (Acute) Generalized anxiety disorder (Acute) Major depressive disorder, recurrent severe without psychotic features (Acute) Past Medical History Medical History No known health problems Ruptured liver Functional capacity: independent ambulation Family History Family history of problems with anesthesia: No Surgical History Surgical History H/O right knee surgery History of Problems with Anesthesia: No Social History Social History Household Members: None Housing: Apartment Do you presently have visiting nurse or other home services: No Patient Tobacco Use Status: Never used Tobacco Smoked in Last 30 Days: No e-Cigarette/Vaping Use: Never Used Second Hand Smoke Exposure: No Use of substances other than those prescribed or required for medical reasons: No Currently Displaying Signs/Symptoms of Drug Intoxication Withdrawal: No Any prior treatment program specific to substance use: No Have you been hit, kicked, punched, or otherwise hurt by someone within the past year? If so, by whom?: No Do you feel safe in your current relationship?: No Current Relationship Is there a partner from a previous relationship who is making you feel unsafe now?: No Are you made to feel afraid or neglected: No Spiritual Healthcare Practices: n/a Faith Healthcare Practices: n/a Cultural Healthcare Practices: n/a Advance Directives: No Advance Directives Information Provided: No Do you have thoughts of harming others: None Do you have a plan to hurt others: No Plan Recently lost weight without trying: Yes How much weight loss: Unsure Eating poorly because of decreased appetite: No Nutrition screen score: 4 Nutrition Risks: No Nutritional Risk Poor oral hygiene: No service: No Sexual orientation: Straight/Heterosexual Meds Allergies Allergy/AdvReac Type Severity Reaction Status Date / Time Latex, Natural Rubber AdvReac Mild Rash Verified 05/07/22 19:00 Active Medications: Current Medications Acetaminophen (Acetaminophen 325 Mg Tablet) 650 mg PO Q6H PRN PRN Reason: Headache/Pain Mild Scale (1-3) Last Admin: 05/13/22 20:13 Dose: 650 mg Acetaminophen (Acetaminophen 325 Mg Tablet) 650 mg PO Q6H PRN PRN Reason: Headache/Pain Mild Scale (1-3) Al Hydroxide/Mg Hydroxide (Magnesium Hydrox/Alum Hydrox 30 Ml Oral.Susp) 30 ml PO Q6H PRN PRN Reason: Heartburn/Nausea Al Hydroxide/Mg Hydroxide (Magnesium Hydrox/Alum Hydrox 30 Ml Oral.Susp) 30 ml PO Q6H PRN PRN Reason: Heartburn/Nausea Amlodipine Besylate (Amlodipine Besylate 2.5 Mg Tablet) 2.5 mg PO DAILY@1300 IZA; Protocol Last Admin: 05/25/22 12:23 Dose: 2.5 mg Bisacodyl (Bisacodyl 10 Mg Supp.Rect) 10 mg [place] DAILY PRN PRN Reason: Constipation Cyanocobalamin (Cyanocobalamin (Vitamin B-12) 1,000 Mcg Tablet) 1,000 mcg PO DAILY [facility] Last Admin: 05/25/22 09:02 Dose: 1,000 mcg Fluvoxamine Maleate (Fluvoxamine Maleate 50 Mg Tablet) 100 mg PO BEDTIME [facility] Last Admin: 05/25/22 20:44 Dose: 100 mg Hydroxyzine HCl (Hydroxyzine Hcl 25 Mg Tablet) 25 mg PO Q6H PRN PRN Reason: Anxiety Lactated Ringer's (Lr) 1,000 mls @ 50 mls/hr IVCONT .Q20H IZA Lamotrigine (Lamotrigine 100 Mg Tablet) 100 mg PO DAILY [facility] Last Admin: 05/25/22 09:02 Dose: 100 mg Magnesium Hydroxide (Milk Of Magnesia 30 Ml Oral.Susp) 30 ml PO DAILY PRN PRN Reason: Constipation Last Admin: 05/25/22 09:02 Dose: 30 ml Magnesium Hydroxide (Milk Of Magnesia 30 Ml Oral.Susp) 30 ml PO DAILY PRN PRN Reason: Constipation Mirtazapine (Mirtazapine 15 Mg Tablet) 15 mg PO BEDTIME [facility] Last Admin: 05/25/22 20:45 Dose: 15 mg Olanzapine (Olanzapine 2.5 Mg Tablet) 2.5 mg PO BID PRN PRN Reason: Agitation Olanzapine (Olanzapine 7.5 Mg Tablet) 15 mg PO BEDTIME [facility] Last Admin: 05/25/22 20:44 Dose: 15 mg Ondansetron HCl (Ondansetron Odt 4 Mg Tab.Rapdis) 4 mg TRANSLINGU DAILY PRN PRN Reason: Nausea Quetiapine Fumarate (Quetiapine Fumarate 100 Mg Tablet) 100 mg PO BEDTIME PRN PRN Reason: Anxiety Senna/Docusate Sodium (Sennosides/Docusate Sodium Tablet) 1 tab PO BEDTIME [facility] Last Admin: 05/25/22 20:45 Dose: 1 tab Trazodone HCl (Trazodone Hcl 50 Mg Tablet) 50 mg PO BEDTIME MRX1 PRN PRN Reason: Insomnia Last Admin: 05/16/22 20:07 Dose: 50 mg Vitamin D (Cholecalciferol (Vitamin D3) 25 Mcg Tablet) 25 mcg PO DAILY [facility] Last Admin: 05/25/22 09:02 Dose: 25 mcg Home Medications Medication Instructions Recorded Confirmed Last Taken Type l theanine 200 mg PO QID PRN Anxiety 10/15/21 05/07/22 10/15/21 07:20 History lamotrigine 100 mg tablet 100 mg PO DAILY 10/15/21 05/07/22 10/15/21 07:20 History (Lamictal) mirtazapine 15 mg tablet 15 mg PO BEDTIME 10/15/21 05/07/22 10/14/21 21:30 History quetiapine 50 mg tablet 50 - 100 mg PO BEDTIME PRN Anxiety 10/15/21 05/07/22 10/14/21 20:30 History risperidone 0.5 mg tablet 0.5 mg PO BID 10/15/21 05/07/22 10/15/21 07:20 History (Risperdal) amlodipine 2.5 mg tablet 2.5 mg PO DAILY 05/07/22 05/07/22 Unknown History cholecalciferol (vitamin D3) 25 25 mcg PO DAILY 05/07/22 05/07/22 Unknown History mcg (1,000 unit) capsule clonazepam 0.5 mg disintegrating 0.5 mg PO BEDTIME 05/07/22 05/07/22 Unknown History tablet cyanocobalamin (vitamin B-12) 1,000 mcg PO DAILY 05/07/22 05/07/22 Unknown History 1,000 mcg tablet fluvoxamine 100 mg tablet 100 mg PO BEDTIME 05/07/22 05/07/22 Unknown History olanzapine 15 mg disintegrating 15 mg PO BEDTIME 05/07/22 05/07/22 Unknown History tablet olanzapine 5 mg disintegrating 2.5 mg PO BID PRN Agitation 05/07/22 05/07/22 Unknown History tablet ondansetron HCl 4 mg tablet 4 mg PO NEEDED PRN Nausea 05/07/22 05/07/22 Un known History Exam Exam Date and Time: May 26, 2022 0646 Height,Weight and Vital Signs: Height 6 ft 5 in Weight 85.5 kg Last Vital Signs Temp 98.2 F 05/26/22 06:33 Pulse 55 05/26/22 06:33 Resp 16 05/26/22 06:33 BP 152/76 H 05/26/22 06:33 Pulse Ox 96 05/26/22 06:33 O2 Del Method 05/26/22 06:33 O2 Flow Rate 2 05/23/22 08:07 Pertinent Lab Results Pertinent Lab Results: Laboratory Tests 05/08/22 05/08/22 05/08/22 08:43 08:43 08:43 WBC 3.7 L RBC 4.34 L Hgb 13.6 L Hct 40.0 L MCV 92.2 MCH 31.3 MCHC 34.0 RDW 12.5 Plt Count 150 L MPV 8.7 L Immature Gran % (Auto) 0.3 Neut % (Auto) 60.0 Lymph % (Auto) 27.4 [place] % (Auto) 8.6 Eos % (Auto) 3.2 Baso % (Auto) 0.5 Lymph # (Auto) 1.0 L [place] # (Auto) 0.3 Eos # (Auto) 0.1 Baso # (Auto) 0.0 Abs Immat Gran (auto) 0.01 Absolute Neuts (auto) 2.2 Absolute Nucleated RBC 0.000 Nucleated RBC % (auto) 0.0 Sodium 145 Potassium 3.9 Chloride 107 Carbon Dioxide 31 H Anion Gap 11 L BUN 16 Creatinine 0.83 Estim Creat Clear Calc 94.6 Estimated GFR > 60 Fasting Glucose 128 H Estimat Average Glucose 103 Hemoglobin A1c % 5.2 Calcium 8.8 Total Bilirubin 0.7 AST 15 ALT 13 Alkaline Phosphatase 54 Total Protein 5.3 L Albumin 3.4 L Triglycerides 72 Cholesterol 165 LDL Cholesterol, Calc 101 HDL Cholesterol 50 Vitamin B12 545 Folate 14.9 TSH 1.51 COVID-19 (AYUSH) COVID-19 Epom Com 05/11/22 18:25 WBC RBC Hgb Hct MCV MCH MCHC RDW Plt Count MPV Immature Gran % (Auto) Neut % (Auto) Lymph % (Auto) [place] % (Auto) Eos % (Auto) Baso % (Auto) Lymph # (Auto) [place] # (Auto) Eos # (Auto) Baso # (Auto) Abs Immat Gran (auto) Absolute Neuts (auto) Absolute Nucleated RBC Nucleated RBC % (auto) Sodium Potassium Chloride Carbon Dioxide Anion Gap BUN Creatinine Estim Creat Clear Calc Estimated GFR Fasting Glucose Estimat Average Glucose Hemoglobin A1c % Calcium Total Bilirubin AST ALT Alkaline Phosphatase Total Protein Albumin Triglycerides Cholesterol LDL Cholesterol, Calc HDL Cholesterol Vitamin B12 Folate TSH COVID-19 (AYUSH) Positive A COVID-19 Clin Com See Note Airway Mallampati Class: II TM Dist: >3cm Neck ROM: Full Heart: rrr Lungs: cta Assessment and Plan Assessment Anesthesia Assessment: Anesthesia Plan Discussed and Chart Reviewed Final Anesthetic Review Family History of Problems with Anesthesia: No History of Problems with Anesthesia: No NPO: Yes ASA Class: III Final Preanesthetic Review: No Changes in Pt Med Stat, Meds/Allgs Chart Reviewed and Consent Obtained/Reviewed Patient Risk: Intermediate Procedure Risk: Intermediate Anesthetic Plan Anesthetic Plan: GA Disposition: Standard PACU
--- NOTE | 2022-05-26 07:09 | MHC.SHP ---
Pre-Procedural Eval Section A Date of Service: 05/26/22 The patient is an INPATIENT: Yes Changes since office visit: Yes Patient answered all questions; No Cold of Flu in the past 2 weeks, No New Medical Problems and No Changes in Medication The History & Physical has been completed within 30 days and I have reviewed it.: Yes Section B Chief Complaint: depression w/ SI Allergies: Allergies Allergy/AdvReac Type Severity Reaction Status Date / Time Latex, Natural Rubber AdvReac Mild Rash Verified 05/07/22 19:00 Plan I have reviewed the history and physical and performed a pertinent physical examination on my patient. No changes have occurred unless specified. Time Spent With Patient Time: Total time managing care of this patient today ____ minutes.
--- NOTE | 2022-05-26 07:54 | HO.ECTPROC ---
ECT Procedure Note Diagnosis/Treatment Date of Service: 05/26/22 Diagnosis: Major Depressive Disorder Previous ECT Date: 05/23/22 Current Treatment Number: 3 Treatment: Series Interval Clinical Notes: pt with c/o anxiety and dysphoria Time: Total time managing care of this patient today ____ minutes. ECT Settings Device: THYMATRON DGx Electrode Placement: Right Unilateral Program/Pulse Width: 0.50 Energy Percent: 80 Seizure Duration By EEG (in seconds): 42 Medications Administration General Anesthetic: Etomidate (14) Muscle Relaxant: Succinylcholine (100) Ancillary Medications Analgesics: Torodol - Pre ECT Anti-emetics: Zofran - Pre ECT Cardiovascular Medications: Glycopyrrolate (pre tx ) Miscillaneous Medications: Propofol (30 mg ) Airway Management Airway Management: Bag Mask Ventilation Treatment Recommendations No Changes Recommended: No change Pt Tolerated Procedure w/o Issue: Yes
[2022-05-26] MEDS: lamoTRIgine 100 MG TABLET PO (09:03)
[2022-05-26] MEDS: Cyanocobalamin (Vitamin B-12) 1,000 MCG TABLET 1000 MCG PO (09:03)
[2022-05-26] MEDS: Cholecalciferol (Vitamin D3) 25 MCG TABLET PO (09:03)
--- NOTE | 2022-05-26 12:33 | P.PNPSI_ITS ---
Subjective Subjective Date of Service: 05/26/22 Reason For Visit: depression w/ SI Subjective Notes: Section 8 Interim History: Pt reports mood is up and down. He does not notice changes with ECT but staff noticing pt with much brighter affect. Pt reports he is sleeping and eating well. He reports constipation- ordered enema. He reports intermittent suicidal thoughts, not this morning. No behavioral concerns. Pt had ECT this morning- denies STARK. Some muscle aches, taking ibuprofen. Medication Compliance: Yes Side effects from medications: No Attending Groups: Yes Review of Systems Review of Systems Negative except that which is stated in the HPI. Yes all other systems are reviewed and are negative Mental Status Exam Mental Status Exam Narrative: Appearance: wearing hospital gown, fair hygiene in NAD behavior: cooperative Speech: clear, normal rate/rhythm/volume, spontaneous TP: linear TC:feeling better, still depressed Mood: better Affect: congruent, does brightens at times SI: somewhat vague regarding recent thoughts HI: none VH/AH: none Delusions: no overt delusional content reported or noted. Insight/judgment: fair x 2 Memory/cog: alert, oriented x 3. grossly intact to conversational testing. Diagnostics Vital Signs (24Hr): Vital Signs - 24 hr 05/25/22 21:26 05/26/22 05:44 05/26/22 06:33 Temperature 98.6 F 98.6 F 98.2 F Pulse Rate 60 58 55 Respiratory Rate 14 16 Blood Pressure 169/77 H 156/77 H 152/76 H Pulse Oximetry 98 96 Oxygen Delivery Method Room Air Room Air Oxygen Flow Rate 05/26/22 07:29 05/26/22 07:34 05/26/22 07:39 Temperature 98.1 F Pulse Rate 62 60 67 Respiratory Rate 16 12 16 Blood Pressure 174/77 H 155/80 H 170/94 H Pulse Oximetry 98 98 98 Oxygen Delivery Method Nasal Cannula with ETCO2 Nasal Cannula with ETCO2 Nasal Cannula with ETCO2 Oxygen Flow Rate 2 2 2 05/26/22 07:44 05/26/22 07:59 05/26/22 08:14 Temperature 97.1 F Pulse Rate 58 57 58 Respiratory Rate 14 14 18 Blood Pressure 163/90 H 182/87 H 138/97 H Pulse Oximetry 99 100 99 Oxygen Delivery Method Nasal Cannula with ETCO2 Nasal Cannula with ETCO2 Room Air Oxygen Flow Rate 2 2 05/26/22 08:30 Temperature 96.0 F L Pulse Rate 55 Respiratory Rate 16 Blood Pressure 168/83 H Pulse Oximetry Oxygen Delivery Method Oxygen Flow Rate BMI result Body Mass Index 22.3 Labs 05/08/22 08:43 05/08/22 08:43 Medications Medications Current Medications Acetaminophen (Acetaminophen 325 Mg Tablet) 650 mg PO Q6H PRN PRN Reason: Headache/Pain Mild Scale (1-3) Last Admin: 05/13/22 20:13 Dose: 650 mg Acetaminophen (Acetaminophen 325 Mg Tablet) 650 mg PO Q6H PRN PRN Reason: Headache/Pain Mild Scale (1-3) Al Hydroxide/Mg Hydroxide (Magnesium Hydrox/Alum Hydrox 30 Ml Oral.Susp) 30 ml PO Q6H PRN PRN Reason: Heartburn/Nausea Al Hydroxide/Mg Hydroxide (Magnesium Hydrox/Alum Hydrox 30 Ml Oral.Susp) 30 ml PO Q6H PRN PRN Reason: Heartburn/Nausea Amlodipine Besylate (Amlodipine Besylate 2.5 Mg Tablet) 2.5 mg PO DAILY@1300 IZA; Protocol Last Admin: 05/25/22 12:23 Dose: 2.5 mg Bisacodyl (Bisacodyl 10 Mg Supp.Rect) 10 mg [place] DAILY PRN PRN Reason: Constipation Cyanocobalamin (Cyanocobalamin (Vitamin B-12) 1,000 Mcg Tablet) 1,000 mcg PO DAILY [facility] Last Admin: 05/26/22 09:03 Dose: 1,000 mcg Fluvoxamine Maleate (Fluvoxamine Maleate 50 Mg Tablet) 100 mg PO BEDTIME [facility] Last Admin: 05/25/22 20:44 Dose: 100 mg Hydroxyzine HCl (Hydroxyzine Hcl 25 Mg Tablet) 25 mg PO Q6H PRN PRN Reason: Anxiety Lamotrigine (Lamotrigine 100 Mg Tablet) 100 mg PO DAILY [facility] Last Admin: 05/26/22 09:03 Dose: 100 mg Magnesium Hydroxide (Milk Of Magnesia 30 Ml Oral.Susp) 30 ml PO DAILY PRN PRN Reason: Constipation Last Admin: 05/25/22 09:02 Dose: 30 ml Magnesium Hydroxide (Milk Of Magnesia 30 Ml Oral.Susp) 30 ml PO DAILY PRN PRN Reason: Constipation Mirtazapine (Mirtazapine 15 Mg Tablet) 15 mg PO BEDTIME [facility] Last Admin: 05/25/22 20:45 Dose: 15 mg Olanzapine (Olanzapine 2.5 Mg Tablet) 2.5 mg PO BID PRN PRN Reason: Agitation Olanzapine (Olanzapine 7.5 Mg Tablet) 15 mg PO BEDTIME [facility] Last Admin: 05/25/22 20:44 Dose: 15 mg Ondansetron HCl (Ondansetron Odt 4 Mg Tab.Rapdis) 4 mg TRANSLINGU DAILY PRN PRN Reason: Nausea Polyethylene Glycol (Polyethylene Glycol 3350 17 Gm Powd.Pack) 17 gm PO DAILY [facility] Quetiapine Fumarate (Quetiapine Fumarate 100 Mg Tablet) 100 mg PO BEDTIME PRN PRN Reason: Anxiety Senna/Docusate Sodium (Sennosides/Docusate Sodium Tablet) 1 tab PO BID [facility] Trazodone HCl (Trazodone Hcl 50 Mg Tablet) 50 mg PO BEDTIME MRX1 PRN PRN Reason: Insomnia Last Admin: 05/16/22 20:07 Dose: 50 mg Vitamin D (Cholecalciferol (Vitamin D3) 25 Mcg Tablet) 25 mcg PO DAILY [facility] Last Admin: 05/26/22 09:03 Dose: 25 mcg Allergies Allergies Allergy/AdvReac Type Severity Reaction Status Date / Time Latex, Natural Rubber AdvReac Mild Rash Verified 05/07/22 19:00 Assessment & Plan Assessment & Plan (1) Major depressive disorder, recurrent severe without psychotic features: Status: Acute Code(s): F33.2 - Major depressive disorder, recurrent severe without psychotic features (2) Generalized anxiety disorder: Status: Acute Code(s): F41.1 - Generalized anxiety disorder Plan The patient is an elderly male with a long history of major depressive disorder with several prior admissions into the hospital for exacerbation of depression and previous treatment with ECT with for improvement.? The patient was initially treated at [facility] and transferring to this facility for ECT.? At this moment, the patient is severely depressed with some neuro cognitive impairment. Plan 1. Gather collateral information.? 2. Hospitalist workout with clearance for ECT.? Ready for ECT as per ThursdayMay 12 3. Continue regular medications.? 4. EKG for ECT treatment.? 5. ECT as soon as he is medically cleared.? Since he has COVID, he cannot have ECT at this moment. 05/17/21 cont luvox risp 0.5 bid ect when medically cleared 05/18/21 cont tx plan ect 05/19/2022 05/20/2022 patient has been tolerating isolation continues to be agreeable for May 21 did have ECT in the past he does have concerns regarding memory impairment cognitive changes these questions were reviewed and strategies initiated scheduled for treatment 05/21/2022 05/22/2022 Patient tolerated 1st ECT without difficulty did have some degree of hypotension post while on the unit will change amlodipine to later in the day encourage fluids monitor mood and safety discontinuing Risperdal unclear if needed with olanzapine monitor for change in mood or anxiety 05/24: Continue current Regimen and plans 05/25: Continue current regimen and plans. Continue ECT 05/26 had ECT this morning, no complications. Pt reports constipation, ordered enema, increase sennakot to 1 tablet PO BID. Patient educated on: diagnosis Informed Consent: understands Reason for contiued inpatient stay Substantial Risk for: harm to self Time Spent With Patient Time: Total time managing care of this patient today _20_ minutes.
[2022-05-26] MEDS: amLODIPine Besylate 2.5 MG TABLET PO (12:41)
[2022-05-26] MEDS: Sennosides/Docusate Sodium TABLET 1 TAB PO (18:39)
[2022-05-26] MEDS: fluvoxaMINE Maleate 50 MG TABLET 100 MG PO (20:51)
[2022-05-26] MEDS: OLANZapine 7.5 MG TABLET 15 MG PO (20:51)
[2022-05-26] MEDS: Mirtazapine 15 MG TABLET PO (20:51)
[2022-05-27 07:30] VITALS: BP 146/71; PULSE 67; RESP 16; TEMP 36.8; O2SAT 96
[2022-05-27] MEDS: Sennosides/Docusate Sodium TABLET 1 TAB PO ×2 (09:33→21:14)
[2022-05-27] MEDS: polyethylene glycoL 3350 17 GM POWD.PACK PO (09:33)
[2022-05-27] MEDS: lamoTRIgine 100 MG TABLET PO (09:33)
[2022-05-27] MEDS: Cyanocobalamin (Vitamin B-12) 1,000 MCG TABLET 1000 MCG PO (09:34)
[2022-05-27] MEDS: Cholecalciferol (Vitamin D3) 25 MCG TABLET PO (09:34)
[2022-05-27 12:45] VITALS: BP 138/63
[2022-05-27] MEDS: amLODIPine Besylate 2.5 MG TABLET PO (12:48)
[2022-05-27 12:52] VITALS: BMI 23.6
[2022-05-27] MEDS: Milk of Magnesia 30 ML ORAL.SUSP PO (13:08)
--- NOTE | 2022-05-27 19:32 | P.PNPSI_ITS ---
Subjective Subjective Date of Service: 05/27/22 Reason For Visit: depression w/ [facility] Proxy: Yes (Not invoked) Medical Problems Affecting Mental Status: No Medication Compliance: Yes Attending Groups: Yes Review of Systems Medical Review of Systems: unchanged Mental Status Exam Mental Status Exam Narrative: Appearance: wearing hospital gown, fair hygiene in NAD behavior: cooperative Speech: clear, normal rate/rhythm/volume, spontaneous TP: linear TC:feeling better, still depressed ruminating and obsessional Mood: Improved Affect: congruent, does brightens at times SI: somewhat vague regarding recent thoughts becomes defensive HI: none VH/AH: none Delusions: no overt delusional content reported or noted. Insight/judgment: fair x 2 tendency toward catastrophic thinking interferes with judgment Memory/cog: alert, oriented x 3. Diagnostics Vital Signs (24Hr): Vital Signs - 24 hr 05/27/22 07:30 05/27/22 12:45 Temperature 98.2 F Pulse Rate 67 Respiratory Rate 16 Blood Pressure 146/71 H 138/63 Pulse Oximetry 96 Oxygen Delivery Method Room Air BMI result Body Mass Index 23.6 Labs 05/08/22 08:43 05/08/22 08:43 Medications Medications Current Medications Acetaminophen (Acetaminophen 325 Mg Tablet) 650 mg PO Q6H PRN PRN Reason: Headache/Pain Mild Scale (1-3) Last Admin: 05/13/22 20:13 Dose: 650 mg Acetaminophen (Acetaminophen 325 Mg Tablet) 650 mg PO Q6H PRN PRN Reason: Headache/Pain Mild Scale (1-3) Al Hydroxide/Mg Hydroxide (Magnesium Hydrox/Alum Hydrox 30 Ml Oral.Susp) 30 ml PO Q6H PRN PRN Reason: Heartburn/Nausea Al Hydroxide/Mg Hydroxide (Magnesium Hydrox/Alum Hydrox 30 Ml Oral.Susp) 30 ml PO Q6H PRN PRN Reason: Heartburn/Nausea Amlodipine Besylate (Amlodipine Besylate 2.5 Mg Tablet) 2.5 mg PO DAILY@1300 IZA; Protocol Last Admin: 05/27/22 12:48 Dose: 2.5 mg Bisacodyl (Bisacodyl 10 Mg Supp.Rect) 10 mg [place] DAILY PRN PRN Reason: Constipation Cyanocobalamin (Cyanocobalamin (Vitamin B-12) 1,000 Mcg Tablet) 1,000 mcg PO DAILY [facility] Last Admin: 05/27/22 09:34 Dose: 1,000 mcg Fluvoxamine Maleate (Fluvoxamine Maleate 50 Mg Tablet) 100 mg PO BEDTIME [facility] Last Admin: 05/27/22 21:07 Dose: 100 mg Hydroxyzine HCl (Hydroxyzine Hcl 25 Mg Tablet) 25 mg PO Q6H PRN PRN Reason: Anxiety Lamotrigine (Lamotrigine 100 Mg Tablet) 100 mg PO DAILY [facility] Last Admin: 05/27/22 09:33 Dose: 100 mg Magnesium Hydroxide (Milk Of Magnesia 30 Ml Oral.Susp) 30 ml PO DAILY PRN PRN Reason: Constipation Last Admin: 05/27/22 13:08 Dose: 30 ml Magnesium Hydroxide (Milk Of Magnesia 30 Ml Oral.Susp) 30 ml PO DAILY PRN PRN Reason: Constipation Mirtazapine (Mirtazapine 15 Mg Tablet) 15 mg PO BEDTIME [facility] Last Admin: 05/27/22 21:07 Dose: 15 mg Olanzapine (Olanzapine 2.5 Mg Tablet) 2.5 mg PO BID PRN PRN Reason: Agitation Olanzapine (Olanzapine 7.5 Mg Tablet) 15 mg PO BEDTIME [facility] Last Admin: 05/27/22 21:08 Dose: 15 mg Ondansetron HCl (Ondansetron Odt 4 Mg Tab.Rapdis) 4 mg TRANSLINGU DAILY PRN PRN Reason: Nausea Polyethylene Glycol (Polyethylene Glycol 3350 17 Gm Powd.Pack) 17 gm PO DAILY [facility] Last Admin: 05/27/22 09:33 Dose: 17 gm Quetiapine Fumarate (Quetiapine Fumarate 100 Mg Tablet) 100 mg PO BEDTIME PRN PRN Reason: Anxiety Senna/Docusate Sodium (Sennosides/Docusate Sodium Tablet) 1 tab PO BID [facility] Last Admin: 05/27/22 21:14 Dose: 1 tab Trazodone HCl (Trazodone Hcl 50 Mg Tablet) 50 mg PO BEDTIME MRX1 PRN PRN Reason: Insomnia Last Admin: 05/16/22 20:07 Dose: 50 mg Vitamin D (Cholecalciferol (Vitamin D3) 25 Mcg Tablet) 25 mcg PO DAILY [facility] Last Admin: 05/27/22 09:34 Dose: 25 mcg Allergies Allergies Allergy/AdvReac Type Severity Reaction Status Date / Time Latex, Natural Rubber AdvReac Mild Rash Verified 05/07/22 19:00 Assessment & Plan Assessment & Plan (1) Major depressive disorder, recurrent severe without psychotic features: Status: Acute Code(s): F33.2 - Major depressive disorder, recurrent severe without psychotic features (2) Generalized anxiety disorder: Status: Acute Code(s): F41.1 - Generalized anxiety disorder Plan The patient is an elderly male with a long history of major depressive disorder with several prior admissions into the hospital for exacerbation of depression and previous treatment with ECT with for improvement.? The patient was initially treated at [facility] and transferring to this facility for ECT.? At this moment, the patient is severely depressed with some neuro cognitive impairment. Plan 1. Gather collateral information.? 2. Hospitalist workout with clearance for ECT.? Ready for ECT as per ThursdayMay 12 3. Continue regular medications.? 4. EKG for ECT treatment.? 5. ECT as soon as he is medically cleared.? Since he has COVID, he cannot have ECT at this moment. 05/17/21 cont luvox risp 0.5 bid ect when medically cleared 05/18/21 cont tx plan ect 05/19/2022 05/20/2022 patient has been tolerating isolation continues to be agreeable for May 21 did have ECT in the past he does have concerns regarding memory impair ment cognitive changes these questions were reviewed and strategies initiated scheduled for treatment 05/21/2022 05/22/2022 Patient tolerated 1st ECT without difficulty did have some degree of hypotension post while on the unit will change amlodipine to later in the day encourage fluids monitor mood and safety discontinuing Risperdal unclear if needed with olanzapine monitor for change in mood or anxiety 05/24: Continue current Regimen and plans 05/25: Continue current regimen and plans. Continue ECT 05/26 had ECT this morning, no complications. Pt reports constipation, ordered enema, increase sennakot to 1 tablet PO BID. 05/27/2022 Patient continue is depressed with obsessional negativistic catastrophic thinking. Fearful he can never function again and overwhelmed how he can care for himself is much reassurance help in seeing distorted thinking patterns continue Luvox continue ECT which patient has benefited from previously would consider Rexulti augmentation Patient educated on: diagnosis, ECT and therapeutic strategies Informed Consent: further education needed Reason for contiued inpatient stay Substantial Risk for: harm to self, inability to function and rapid decompensati on Time Spent With Patient Time: Total time managing care of this patient today _35___ minutes.
[2022-05-27] MEDS: fluvoxaMINE Maleate 50 MG TABLET 100 MG PO (21:07)
[2022-05-27] MEDS: Mirtazapine 15 MG TABLET PO (21:07)
[2022-05-27] MEDS: OLANZapine 7.5 MG TABLET 15 MG PO (21:08)
[2022-05-28] VITALS (8 sets, daily range): BP systolic 149–184; BP diastolic 59–93; PULSE 56–97; RESP 12–18; TEMP 36.6–36.8; O2SAT 95–99
--- NOTE | 2022-05-28 06:56 | HO.ANESPROP2 ---
[facility] Active Problems Active Problems: All Active Problems (Updated 05/09/22 @ 15:51 by SYDNI Mao) HTN (hypertension) (Acute) Routine history and physical examination of adult (Acute) Major depressive disorder, recurrent (Acute) Generalized anxiety disorder (Acute) Major depressive disorder, recurrent severe without psychotic features (Acute) Past Medical History Medical History No known health problems Ruptured liver Functional capacity: independent ambulation Family History Family history of problems with anesthesia: No Surgical History Surgical History H/O right knee surgery History of Problems with Anesthesia: No Social History Social History Household Members: None Housing: Apartment Do you presently have visiting nurse or other home services: No Patient Tobacco Use Status: Never used Tobacco Smoked in Last 30 Days: No e-Cigarette/Vaping Use: Never Used Second Hand Smoke Exposure: No Use of substances other than those prescribed or required for medical reasons: No Currently Displaying Signs/Symptoms of Drug Intoxication Withdrawal: No Any prior treatment program specific to substance use: No Have you been hit, kicked, punched, or otherwise hurt by someone within the past year? If so, by whom?: No Do you feel safe in your current relationship?: No Current Relationship Is there a partner from a previous relationship who is making you feel unsafe now?: No Are you made to feel afraid or neglected: No Spiritual Healthcare Practices: n/a Taoism Healthcare Practices: n/a Cultural Healthcare Practices: n/a Advance Directives: No Advance Directives Information Provided: No Do you have thoughts of harming others: None Do you have a plan to hurt others: No Plan Recently lost weight without trying: Yes How much weight loss: Unsure Eating poorly because of decreased appetite: No Nutrition screen score: 4 Nutrition Risks: No Nutritional Risk Poor oral hygiene: No service: No Sexual orientation: Straight/Heterosexual Meds Allergies Allergy/AdvReac Type Severity Reaction Status Date / Time Latex, Natural Rubber AdvReac Mild Rash Verified 05/07/22 19:00 Active Medications: Current Medications Acetaminophen (Acetaminophen 325 Mg Tablet) 650 mg PO Q6H PRN PRN Reason: Headache/Pain Mild Scale (1-3) Last Admin: 05/13/22 20:13 Dose: 650 mg Acetaminophen (Acetaminophen 325 Mg Tablet) 650 mg PO Q6H PRN PRN Reason: Headache/Pain Mild Scale (1-3) Al Hydroxide/Mg Hydroxide (Magnesium Hydrox/Alum Hydrox 30 Ml Oral.Susp) 30 ml PO Q6H PRN PRN Reason: Heartburn/Nausea Al Hydroxide/Mg Hydroxide (Magnesium Hydrox/Alum Hydrox 30 Ml Oral.Susp) 30 ml PO Q6H PRN PRN Reason: Heartburn/Nausea Amlodipine Besylate (Amlodipine Besylate 2.5 Mg Tablet) 2.5 mg PO DAILY@1300 IZA; Protocol Last Admin: 05/27/22 12:48 Dose: 2.5 mg Bisacodyl (Bisacodyl 10 Mg Supp.Rect) 10 mg [place] DAILY PRN PRN Reason: Constipation Cyanocobalamin (Cyanocobalamin (Vitamin B-12) 1,000 Mcg Tablet) 1,000 mcg PO DAILY [facility] Last Admin: 05/27/22 09:34 Dose: 1,000 mcg Fluvoxamine Maleate (Fluvoxamine Maleate 50 Mg Tablet) 100 mg PO BEDTIME [facility] Last Admin: 05/27/22 21:07 Dose: 100 mg Hydroxyzine HCl (Hydroxyzine Hcl 25 Mg Tablet) 25 mg PO Q6H PRN PRN Reason: Anxiety Lactated Ringer's (Lr) 1,000 mls @ 50 mls/hr IVCONT .Q20H IZA Lamotrigine (Lamotrigine 100 Mg Tablet) 100 mg PO DAILY [facility] Last Admin: 05/27/22 09:33 Dose: 100 mg Magnesium Hydroxide (Milk Of Magnesia 30 Ml Oral.Susp) 30 ml PO DAILY PRN PRN Reason: Constipation Last Admin: 05/27/22 13:08 Dose: 30 ml Magnesium Hydroxide (Milk Of Magnesia 30 Ml Oral.Susp) 30 ml PO DAILY PRN PRN Reason: Constipation Mirtazapine (Mirtazapine 15 Mg Tablet) 15 mg PO BEDTIME [facility] Last Admin: 05/27/22 21:07 Dose: 15 mg Olanzapine (Olanzapine 2.5 Mg Tablet) 2.5 mg PO BID PRN PRN Reason: Agitation Olanzapine (Olanzapine 7.5 Mg Tablet) 15 mg PO BEDTIME [facility] Last Admin: 05/27/22 21:08 Dose: 15 mg Ondansetron HCl (Ondansetron Odt 4 Mg Tab.Rapdis) 4 mg TRANSLINGU DAILY PRN PRN Reason: Nausea Polyethylene Glycol (Polyethylene Glycol 3350 17 Gm Powd.Pack) 17 gm PO DAILY [facility] Last Admin: 05/27/22 09:33 Dose: 17 gm Quetiapine Fumarate (Quetiapine Fumarate 100 Mg Tablet) 100 mg PO BEDTIME PRN PRN Reason: Anxiety Senna/Docusate Sodium (Sennosides/Docusate Sodium Tablet) 1 tab PO BID [facility] Last Admin: 05/27/22 21:14 Dose: 1 tab Trazodone HCl (Trazodone Hcl 50 Mg Tablet) 50 mg PO BEDTIME MRX1 PRN PRN Reason: Insomnia Last Admin: 05/16/22 20:07 Dose: 50 mg Vitamin D (Cholecalciferol (Vitamin D3) 25 Mcg Tablet) 25 mcg PO DAILY [facility] Last Admin: 05/27/22 09:34 Dose: 25 mcg Home Medications Medication Instructions Recorded Confirmed Last Taken Type l theanine 200 mg PO QID PRN Anxiety 10/15/21 05/07/22 10/15/21 07:20 History lamotrigine 100 mg tablet 100 mg PO DAILY 10/15/21 05/07/22 10/15/21 07:20 History (Lamictal) mirtazapine 15 mg tablet 15 mg PO BEDTIME 10/15/21 05/07/22 10/14/21 21:30 History quetiapine 50 mg tablet 50 - 100 mg PO BEDTIME PRN Anxiety 10/15/21 05/07/22 10/14/21 20:30 History risperidone 0.5 mg tablet 0.5 mg PO BID 10/15/21 05/07/22 10/15/21 07:20 History (Risperdal) amlodipine 2.5 mg tablet 2.5 mg PO DAILY 05/07/22 05/07/22 Unknown History cholecalciferol (vitamin D3) 25 25 mcg PO DAILY 05/07/22 05/07/22 Unknown History mcg (1,000 unit) capsule clonazepam 0.5 mg disintegrating 0.5 mg PO BEDTIME 05/07/22 05/07/22 Unknown History tablet cyanocobalamin (vitamin B-12) 1,000 mcg PO DAILY 05/07/22 05/07/22 Unknown History 1,000 mcg tablet fluvoxamine 100 mg tablet 100 mg PO BEDTIME 05/07/22 05/07/22 Unknown History olanzapine 15 mg disintegrating 15 mg PO BEDTIME 05/07/22 05/07/22 Unknown History tablet olanzapine 5 mg disintegrating 2.5 mg PO BID PRN Agitation 05/07/22 05/07/22 Unknown History tablet ondansetron HCl 4 mg tablet 4 mg PO NEEDED PRN Nausea 05/07/22 05/07/22 Unknown History Exam Exam Date and Time: May 28, 2022 0656 Height,Weight and Vital Signs: Height 6 ft 5 in Weight 90.4 kg Last Vital Signs Temp 98.2 F 05/28/22 06:26 Pulse 56 05/28/22 06:26 Resp 18 05/28/22 06:26 BP 158/77 H 05/28/22 06:26 Pulse Ox 96 05/28/22 06:26 O2 Del Method 05/28/22 06:26 O2 Flow Rate 2 05/26/22 07:59 Pertinent Lab Results Pertinent Lab Results: Laboratory Tests 05/08/22 05/08/22 05/08/22 08:43 08:43 08:43 WBC 3.7 L RBC 4.34 L Hgb 13.6 L Hct 40.0 L MCV 92.2 MCH 31.3 MCHC 34.0 RDW 12.5 Plt Count 150 L MPV 8.7 L Immature Gran % (Auto) 0.3 Neut % (Auto) 60.0 Lymph % (Auto) 27.4 [place] % (Auto) 8.6 Eos % (Auto) 3.2 Baso % (Auto) 0.5 Lymph # (Auto) 1.0 L [place] # (Auto) 0.3 Eos # (Auto) 0.1 Baso # (Auto) 0.0 Abs Immat Gran (auto) 0.01 Absolute Neuts (auto) 2.2 Absolute Nucleated RBC 0.000 Nucleated RBC % (auto) 0.0 Sodium 145 Potassium 3.9 Chloride 107 Carbon Dioxide 31 H Anion Gap 11 L BUN 16 Creatinine 0.83 Estim Creat Clear Calc 94.6 Estimated GFR > 60 Fasting Glucose 128 H Estimat Average Glucose 103 Hemoglobin A1c % 5.2 Calcium 8.8 Total Bilirubin 0.7 AST 15 ALT 13 Alkaline Phosphatase 54 Total Protein 5.3 L Albumin 3.4 L Triglycerides 72 Cholesterol 165 LDL Cholesterol, Calc 101 HDL Cholesterol 50 Vitamin B12 545 Folate 14.9 TSH 1.51 COVID-19 (AYUSH) COVID-19 Assemblage Com 05/11/22 18:25 WBC RBC Hgb Hct MCV MCH MCHC RDW Plt Count MPV Immature Gran % (Auto) Neut % (Auto) Lymph % (Auto) [place] % (Auto) Eos % (Auto) Baso % (Auto) Lymph # (Auto) [place] # (Auto) Eos # (Auto) Baso # (Auto) Abs Immat Gran (auto) Absolute Neuts (auto) Absolute Nucleated RBC Nucleated RBC % (auto) Sodium Potassium Chloride Carbon Dioxide Anion Gap BUN Creatinine Estim Creat Clear Calc Estimated GFR Fasting Glucose Estimat Average Glucose Hemoglobin A1c % Calcium Total Bilirubin AST ALT Alkaline Phosphatase Total Protein Albumin Triglycerides Cholesterol LDL Cholesterol, Calc HDL Cholesterol Vitamin B12 Folate TSH COVID-19 (AYUSH) Positive A COVID-19 Clin Com See Note Airway Mallampati Class: II TM Dist: >3cm Neck ROM: Full Heart: rrr Lungs: cta Assessment and Plan Assessment Anesthesia Assessment: Anesthesia Plan Discussed and Chart Reviewed Final Anesthetic Review Family History of Problems with Anesthesia: No History of Problems with Anesthesia: No NPO: Yes ASA Class: III Final Preanesthetic Review: No Changes in Pt Med Stat, Meds/Allgs Chart Reviewed and Consent Obtained/Reviewed Patient Risk: Intermediate Procedure Risk: Intermediate Anesthetic Plan Anesthetic Plan: GA Disposition: Standard PACU
--- NOTE | 2022-05-28 07:20 | MHC.SHP ---
Pre-Procedural Eval Section A Date of Service: 05/28/22 The patient is an INPATIENT: Yes Changes since office visit: No Cold of Flu in the past 2 weeks, No New Medical Problems, No Changes in Medication and No Patient answered all questions The History & Physical has been completed within 30 days and I have reviewed it.: Yes Section B Chief Complaint: depression w/ SI Allergies: Allergies Allergy/AdvReac Type Severity Reaction Status Date / Time Latex, Natural Rubber AdvReac Mild Rash Verified 05/07/22 19:00 Plan I have reviewed the history and physical and performed a pertinent physical examination on my patient. No changes have occurred unless specified. Time Spent With Patient Time: Total time managing care of this patient today ____ minutes.
--- NOTE | 2022-05-28 07:20 | HO.ECTPROC ---
ECT Procedure Note Diagnosis/Treatment Date of Service: 05/28/22 Diagnosis: Major Depressive Disorder Previous ECT Date: 05/26/22 Current Treatment Number: 4 Treatment: Series Interval Clinical Notes: The patient reports dyshporia, no changes of mental status yet. Side effects reported with preivous ECT not reported.. Time: Total time managing care of this patient today __30__ minutes. ECT Settings Device: THYMATRON DGx Electrode Placement: Right Unilateral Program/Pulse Width: 0.50 Energy Percent: 80 Seizure Duration By EEG (in seconds): 96 By Motor Observation (in seconds): 47 Medications Administration General Anesthetic: Etomidate (14) Muscle Relaxant: Succinylcholine (100) Ancillary Medications Anti-emetics: Zofran - Pre ECT Cardiovascular Medications: Glycopyrrolate (0.2 pre ECT) Miscillaneous Medications: Propofol Airway Management Airway Management: Bag Mask Ventilation Treatment Recommendations Electrode Placement: Right Unilateral Program/Pulse Width: 0.50 Energy Percent: 75 Notes: Lower percentage to 75%, today he had a very long seizure Pt Tolerated Procedure w/o Issue: Yes
[2022-05-28] MEDS: lamoTRIgine 100 MG TABLET PO (10:32)
[2022-05-28] MEDS: Cyanocobalamin (Vitamin B-12) 1,000 MCG TABLET 1000 MCG PO (10:32)
[2022-05-28] MEDS: Sennosides/Docusate Sodium TABLET 1 TAB PO ×2 (10:33→20:40)
[2022-05-28] MEDS: Cholecalciferol (Vitamin D3) 25 MCG TABLET PO (10:33)
[2022-05-28] MEDS: polyethylene glycoL 3350 17 GM POWD.PACK PO ×2 (10:33→20:39)
--- NOTE | 2022-05-28 12:16 | HO.PSYCHPN ---
Subjective Subjective Date of Service: 05/28/22 Reason For Visit: depression w/ SI Subjective Notes: Conditional Voluntary Interim History: The nursing staff reported the patient has been compliant with treatment. Today he had ECT and he had a long seizure. He denies side effects with the current treatment. The staff has noticed that he has engageable and he goes to groups. Family and friends come to visit him and he looks better but he denies any improvement at this time. On interview the patient denies new symptoms, reports being depressed and constipated. Apparently, he has a chronic problem with constipation. Mental Status Exam Mental Status Exam Patient Appearance: Appropriate Patient Orientation: Person and Situation Level of Consciousness: Awake and Appropriate Patient Behavior: Guarded and Passive Mood Description: Withdrawn and Depressed Affect Description: Constricted Patient Cognition Impaired: Yes Ability to Follow Directions: Good Speech Pattern: Clear Hallucinations: None Delusions: Not Present Thought Process: Distracted and Slowed Thinking Thought Content: positive for [place] and positive for Circumstantial Judgement: Fair Diagnostics Vital Signs (24Hr): Vital Signs - 24 hr 05/27/22 12:45 05/28/22 06:26 05/28/22 07:42 Temperature 98.2 F 97.8 F Pulse Rate 56 61 Respiratory Rate 18 16 Blood Pressure 138/63 158/77 H 149/59 H Pulse Oximetry 96 99 Oxygen Delivery Method Room Air Nasal Cannula with ETCO2 Oxygen Flow Rate 2 05/28/22 07:47 05/28/22 07:52 05/28/22 07:57 Temperature Pulse Rate 97 90 84 Respiratory Rate 12 12 16 Blood Pressure 182/88 H 184/93 H 183/90 H Pulse Oximetry 97 97 97 Oxygen Delivery Method Nasal Cannula with ETCO2 Nasal Cannula with ETCO2 Nasal Cannula with ETCO2 Oxygen Flow Rate 2 2 2 05/28/22 08:12 05/28/22 08:27 05/28/22 08:42 Temperature 98.1 F Pulse Rate 78 75 71 Respiratory Rate 16 16 16 Blood Pressure 183/88 H 172/90 H 177/87 H Pulse Oximetry 96 96 95 Oxygen Delivery Method Nasal Cannula with ETCO2 Nasal Cannula with ETCO2 Room Air Oxygen Flow Rate 2 2 BMI result Body Mass Index 23.6 Labs 05/08/22 08:43 05/08/22 08:43 Medications Medications Current Medications Acetaminophen (Acetaminophen 325 Mg Tablet) 650 mg PO Q6H PRN PRN Reason: Headache/Pain Mild Scale (1-3) Last Admin: 05/13/22 20:13 Dose: 650 mg Acetaminophen (Acetaminophen 325 Mg Tablet) 650 mg PO Q6H PRN PRN Reason: Headache/Pain Mild Scale (1-3) Al Hydroxide/Mg Hydroxide (Magnesium Hydrox/Alum Hydrox 30 Ml Oral.Susp) 30 ml PO Q6H PRN PRN Reason: Heartburn/Nausea Al Hydroxide/Mg Hydroxide (Magnesium Hydrox/Alum Hydrox 30 Ml Oral.Susp) 30 ml PO Q6H PRN PRN Reason: Heartburn/Nausea Amlodipine Besylate (Amlodipine Besylate 2.5 Mg Tablet) 2.5 mg PO DAILY@1300 IZA; Protocol Last Admin: 05/27/22 12:48 Dose: 2.5 mg Bisacodyl (Bisacodyl 10 Mg Supp.Rect) 10 mg [place] DAILY PRN PRN Reason: Constipation Cyanocobalamin (Cyanocobalamin (Vitamin B-12) 1,000 Mcg Tablet) 1,000 mcg PO DAILY [facility] Last Admin: 05/28/22 10:32 Dose: 1,000 mcg Fluvoxamine Maleate (Fluvoxamine Maleate 50 Mg Tablet) 100 mg PO BEDTIME [facility] Last Admin: 05/27/22 21:07 Dose: 100 mg Hydroxyzine HCl (Hydroxyzine Hcl 25 Mg Tablet) 25 mg PO Q6H PRN PRN Reason: Anxiety Lamotrigine (Lamotrigine 100 Mg Tablet) 100 mg PO DAILY [facility] Last Admin: 05/28/22 10:32 Dose: 100 mg Magnesium Hydroxide (Milk Of Magnesia 30 Ml Oral.Susp) 30 ml PO DAILY PRN PRN Reason: Constipation Last Admin: 05/27/22 13:08 Dose: 30 ml Magnesium Hydroxide (Milk Of Magnesia 30 Ml Oral.Susp) 30 ml PO DAILY PRN PRN Reason: Constipation Mirtazapine (Mirtazapine 15 Mg Tablet) 15 mg PO BEDTIME [facility] Last Admin: 05/27/22 21:07 Dose: 15 mg Olanzapine (Olanzapine 2.5 Mg Tablet) 2.5 mg PO BID PRN PRN Reason: Agitation Olanzapine (Olanzapine 7.5 Mg Tablet) 15 mg PO BEDTIME [facility] Last Admin: 05/27/22 21:08 Dose: 15 mg Ondansetron HCl (Ondansetron Odt 4 Mg Tab.Rapdis) 4 mg TRANSLINGU DAILY PRN PRN Reason: Nausea Polyethylene Glycol (Polyethylene Glycol 3350 17 Gm Powd.Pack) 17 gm PO DAILY [facility] Last Admin: 05/28/22 10:33 Dose: 17 gm Quetiapine Fumarate (Quetiapine Fumarate 100 Mg Tablet) 100 mg PO BEDTIME PRN PRN Reason: Anxiety Senna/Docusate Sodium (Sennosides/Docusate Sodium Tablet) 1 tab PO BID [facility] Last Admin: 05/28/22 10:33 Dose: 1 tab Trazodone HCl (Trazodone Hcl 50 Mg Tablet) 50 mg PO BEDTIME MRX1 PRN PRN Reason: Insomnia Last Admin: 05/16/22 20:07 Dose: 50 mg Vitamin D (Cholecalciferol (Vitamin D3) 25 Mcg Tablet) 25 mcg PO DAILY [facility] Last Admin: 05/28/22 10:33 Dose: 25 mcg Allergies Allergies Allergy/AdvReac Type Severity Reaction Status Date / Time Latex, Natural Rubber AdvReac Mild Rash Verified 05/07/22 19:00 Assessment & Plan Assessment & Plan (1) Major depressive disorder, recurrent severe without psychotic features: Status: Acute Code(s): F33.2 - Major depressive disorder, recurrent severe without psychotic features (2) Generalized anxiety disorder: Status: Acute Code(s): F41.1 - Generalized anxiety disorder Plan The patient is an elderly male with a long history of major depressive disorder with several prior admissions into the hospital for exacerbation of depression and previous treatment with ECT with for improvement.? The patient was initially treated at [facility] and transferring to this facility for ECT.? At this moment, the patient is severely depressed with some neuro cognitive impairment. Plan 1. Gather collateral information.? 2. Hospitalist workout with clearance for ECT.? Ready for ECT as per ThursdayMay 12 3. Continue regular medications.? 4. EKG for ECT treatment.? 5. ECT as soon as he is medically cleared.? Since he had COVID he was started later. 6. ECT continue 3 times per week. 7. Bowel treatment for constipation. Reason for contiued inpatient stay Substantial Risk for: inability to function, rapid decompensation and med/psych decompensation Time Spent With Patient Time: Total time managing care of this patient today __20__ minutes.
[2022-05-28] MEDS: amLODIPine Besylate 2.5 MG TABLET PO (16:26)
[2022-05-28] MEDS: OLANZapine 7.5 MG TABLET 15 MG PO (20:39)
[2022-05-28] MEDS: Mirtazapine 15 MG TABLET PO (20:39)
[2022-05-28] MEDS: fluvoxaMINE Maleate 50 MG TABLET 100 MG PO (20:39)
[2022-05-29 07:00] VITALS: BMI 23.5
[2022-05-29 08:30] VITALS: BP 127/77; PULSE 67; RESP 18; TEMP 36.3; O2SAT 96
[2022-05-29] MEDS: lamoTRIgine 100 MG TABLET PO (08:35)
[2022-05-29] MEDS: polyethylene glycoL 3350 17 GM POWD.PACK PO ×2 (08:35→20:07)
[2022-05-29] MEDS: Sennosides/Docusate Sodium TABLET 1 TAB PO ×2 (08:35→20:07)
[2022-05-29] MEDS: Cholecalciferol (Vitamin D3) 25 MCG TABLET PO (08:36)
[2022-05-29] MEDS: Cyanocobalamin (Vitamin B-12) 1,000 MCG TABLET 1000 MCG PO (08:36)
[2022-05-29 16:05] VITALS: BP 131/63; PULSE 61
[2022-05-29] MEDS: amLODIPine Besylate 2.5 MG TABLET PO (16:08)
[2022-05-29] MEDS: OLANZapine 7.5 MG TABLET 15 MG PO (20:07)
[2022-05-29] MEDS: fluvoxaMINE Maleate 50 MG TABLET 100 MG PO (20:07)
[2022-05-29] MEDS: Mirtazapine 15 MG TABLET PO (20:08)
--- NOTE | 2022-05-29 21:50 | HO.PSYCHPN ---
Subjective Subjective Date of Service: 05/29/22 Reason For Visit: depression w/ SI Interim History: Patient quite ruminating anxious has difficulty keeping things in perspective no significant side effects from ECT Medication Compliance: Yes Review of Systems Review of Systems: Complains of constipation Mental Status Exam Mental Status Exam Patient Appearance: Appropriate Patient Orientation: Person and Situation Level of Consciousness: Awake and Appropriate Patient Behavior: Guarded and Passive Mood Description: Withdrawn and Depressed Affect Description: Constricted Patient Cognition Impaired: Yes Ability to Follow Directions: Good Speech Pattern: Clear Hallucinations: None Delusions: Not Present Thought Process: Distracted and Slowed Thinking Thought Content: positive for [place] and positive for Circumstantial Judgement: Fair Diagnostics Vital Signs (24Hr): Vital Signs - 24 hr 05/29/22 08:30 05/29/22 16:05 Temperature 97.4 F Pulse Rate 67 61 Respiratory Rate 18 Blood Pressure 127/77 131/63 Pulse Oximetry 96 Oxygen Delivery Method Room Air BMI result Body Mass Index 23.5 Labs 05/08/22 08:43 05/08/22 08:43 Medications Medications Current Medications Acetaminophen (Acetaminophen 325 Mg Tablet) 650 mg PO Q6H PRN PRN Reason: Headache/Pain Mild Scale (1-3) Last Admin: 05/13/22 20:13 Dose: 650 mg Acetaminophen (Acetaminophen 325 Mg Tablet) 650 mg PO Q6H PRN PRN Reason: Headache/Pain Mild Scale (1-3) Al Hydroxide/Mg Hydroxide (Magnesium Hydrox/Alum Hydrox 30 Ml Oral.Susp) 30 ml PO Q6H PRN PRN Reason: Heartburn/Nausea Al Hydroxide/Mg Hydroxide (Magnesium Hydrox/Alum Hydrox 30 Ml Oral.Susp) 30 ml PO Q6H PRN PRN Reason: Heartburn/Nausea Amlodipine Besylate (Amlodipine Besylate 2.5 Mg Tablet) 2.5 mg PO DAILY@1300 [facility]; Protocol Last Admin: 05/29/22 16:08 Dose: 2.5 mg Bisacodyl (Bisacodyl 10 Mg Supp.Rect) 10 mg [place] DAILY PRN PRN Reason: Constipation Cyanocobalamin (Cyanocobalamin (Vitamin B-12) 1,000 Mcg Tablet) 1,000 mcg PO DAILY [facility] Last Admin: 05/29/22 08:36 Dose: 1,000 mcg Fluvoxamine Maleate (Fluvoxamine Maleate 50 Mg Tablet) 100 mg PO BEDTIME [facility] Last Admin: 05/29/22 20:07 Dose: 100 mg Hydroxyzine HCl (Hydroxyzine Hcl 25 Mg Tablet) 25 mg PO Q6H PRN PRN Reason: Anxiety Lamotrigine (Lamotrigine 100 Mg Tablet) 100 mg PO DAILY [facility] Last Admin: 05/29/22 08:35 Dose: 100 mg Magnesium Hydroxide (Milk Of Magnesia 30 Ml Oral.Susp) 30 ml PO DAILY PRN PRN Reason: Constipation Last Admin: 05/27/22 13:08 Dose: 30 ml Magnesium Hydroxide (Milk Of Magnesia 30 Ml Oral.Susp) 30 ml PO DAILY PRN PRN Reason: Constipation Mirtazapine (Mirtazapine 15 Mg Tablet) 15 mg PO BEDTIME [facility] Last Admin: 05/29/22 20:08 Dose: 15 mg Olanzapine (Olanzapine 2.5 Mg Tablet) 2.5 mg PO BID PRN PRN Reason: Agitation Olanzapine (Olanzapine 7.5 Mg Tablet) 15 mg PO BEDTIME [facility] Last Admin: 05/29/22 20:07 Dose: 15 mg Ondansetron HCl (Ondansetron Odt 4 Mg Tab.Rapdis) 4 mg TRANSLINGU DAILY PRN PRN Reason: Nausea Polyethylene Glycol (Polyethylene Glycol 3350 17 Gm Powd.Pack) 17 gm PO BID [facility] Last Admin: 05/29/22 20:07 Dose: 17 gm Quetiapine Fumarate (Quetiapine Fumarate 100 Mg Tablet) 100 mg PO BEDTIME PRN PRN Reason: Anxiety Senna/Docusate Sodium (Sennosides/Docusate Sodium Tablet) 2 tab PO BID [facility] Trazodone HCl (Trazodone Hcl 50 Mg Tablet) 50 mg PO BEDTIME MRX1 PRN PRN Reason: Insomnia Last Admin: 05/16/22 20:07 Dose: 50 mg Vitamin D (Cholecalciferol (Vitamin D3) 25 Mcg Tablet) 25 mcg PO DAILY [facility] Last Admin: 05/29/22 08:36 Dose: 25 mcg Allergies Allergies Allergy/AdvReac Type Severity Reaction Status Date / Time Latex, Natural Rubber AdvReac Mild Rash Verified 05/07/22 19:00 Assessment & Plan Assessment & Plan (1) Major depressive disorder, recurrent severe without psychotic features: Status: Acute Code(s): F33.2 - Major depressive disorder, recurrent severe without psychotic features (2) Generalized anxiety disorder: Status: Acute Code(s): F41.1 - Generalized anxiety disorder Plan The patient is an elderly male with a long history of major depressive disorder with several prior admissions into the hospital for exacerbation of depression and previous treatment with ECT with for improvement.? The patient was initially treated at [facility] and transferring to this facility for ECT.? At this moment, the patient is severely depressed with some neuro cognitive impairment. Plan 1. Gather collateral information.? 2. Hospitalist workout with clearance for ECT.? Ready for ECT as per ThursdayMay 12 3. Continue regular medications.? 4. EKG for ECT treatment.? 5. ECT as soon as he is medically cleared.? Since he had COVID he was started later. 6. ECT continue 3 times per week. 7. Bowel treatment for constipation. Patient educated on: diagnosis and therapeutic strategies Informed Consent: further education needed Reason for contiued inpatient stay Substantial Risk for: harm to self and inability to function Time Spent With Patient Time: Total time managing care of this patient today ____ minutes.
[2022-05-30] VITALS (8 sets, daily range): BP systolic 138–178; BP diastolic 63–90; PULSE 61–74; RESP 12–16; TEMP 36.2–37.1; O2SAT 95–97
--- NOTE | 2022-05-30 10:03 | MHC.SHP ---
Pre-Procedural Eval Section A Date of Service: 05/30/22 The patient is an INPATIENT: Yes Changes since office visit: Yes Changes in Medication; No Cold of Flu in the past 2 weeks and No New Medical Problems The History & Physical has been completed within 30 days and I have reviewed it.: Yes Section B Chief Complaint: depression w/ SI Allergies: Allergies Allergy/AdvReac Type Severity Reaction Status Date / Time Latex, Natural Rubber AdvReac Mild Rash Verified 05/07/22 19:00 Plan I have reviewed the history and physical and performed a pertinent physical examination on my patient. No changes have occurred unless specified. Time Spent With Patient Time: Total time managing care of this patient today ____ minutes.
--- NOTE | 2022-05-30 10:11 | HO.ECTPROC ---
ECT Procedure Note Diagnosis/Treatment Date of Service: 05/30/22 Diagnosis: Major Depressive Disorder Previous ECT Date: 05/28/22 Current Treatment Number: 5 Treatment: Series Interval Clinical Notes: The patient reports perhaps less rumination Time: Total time managing care of this patient today ____ minutes. ECT Settings Device: THYMATRON DGx Electrode Placement: Right Unilateral Program/Pulse Width: 0.50 Energy Percent: 70 Seizure Duration By EEG (in seconds): 56 Medications Administration General Anesthetic: Etomidate (14) Muscle Relaxant: Succinylcholine (100) Ancillary Medications Anti-emetics: Zofran - Pre ECT Cardiovascular Medications: Glycopyrrolate (0.2 pre ECT) Miscillaneous Medications: Propofol Airway Management Airway Management: Bag Mask Ventilation Treatment Recommendations No Changes Recommended: No change Pt Tolerated Procedure w/o Issue: Yes
[2022-05-30] MEDS: Cholecalciferol (Vitamin D3) 25 MCG TABLET PO (11:55)
[2022-05-30] MEDS: polyethylene glycoL 3350 17 GM POWD.PACK PO ×2 (11:55→20:48)
[2022-05-30] MEDS: Sennosides/Docusate Sodium TABLET 2 TAB PO ×2 (11:56→20:48)
[2022-05-30] MEDS: Cyanocobalamin (Vitamin B-12) 1,000 MCG TABLET 1000 MCG PO (11:56)
[2022-05-30] MEDS: lamoTRIgine 100 MG TABLET PO (11:56)
[2022-05-30] MEDS: amLODIPine Besylate 2.5 MG TABLET PO (11:58)
--- NOTE | 2022-05-30 15:44 | P.PNPSI_ITS ---
Subjective Subjective Date of Service: 05/30/22 Reason For Visit: depression w/ SI Subjective Notes: Conditional Voluntary Interim History: The nursing staff reported the patient came back from ECT and he was confused. Though patient therapist reported that yesterday he was brighter, less anxious participating groups but he reports depression. On interview the patient reports no changes in his mental status and offered increase Luvox and he agreed it. Mental Status Exam Mental Status Exam Patient Appearance: Well Grooomed Patient Orientation: Person and Situation Level of Consciousness: Awake and Appropriate Patient Behavior: Passive Mood Description: Constricted Affect Description: Depressed Patient Cognition Impaired: Yes Ability to Follow Directions: Good Speech Pattern: Clear Hallucinations: None Delusions: Not Present Thought Process: Distracted and Evasive Thought Content: positive for [place], positive for Circum[place] and positive for [place] Judgement: Fair Diagnostics Vital Signs (24Hr): Vital Signs - 24 hr 05/29/22 16:05 05/30/22 08:41 05/30/22 10:25 Temperature 98.7 F 98.8 F Pulse Rate 61 62 70 Respiratory Rate 16 14 Blood Pressure 131/63 138/78 170/63 H Pulse Oximetry 95 97 Oxygen Delivery Method Room Air Nasal Cannula with ETCO2 Oxygen Flow Rate 2 05/30/22 10:30 05/30/22 10:35 05/30/22 10:40 Temperature Pulse Rate 74 69 71 Respiratory Rate 14 14 12 Blood Pressure 178/83 H 175/89 H 164/90 H Pulse Oximetry 97 96 96 Oxygen Delivery Method Nasal Cannula with ETCO2 Nasal Cannula with ETCO2 Nasal Cannula with ETCO2 Oxygen Flow Rate 2 2 2 05/30/22 10:55 05/30/22 11:09 05/30/22 11:51 Temperature 98.4 F 98.4 F 97.1 F Pulse Rate 66 64 61 Respiratory Rate 16 16 Blood Pressure 161/87 H 158/82 H 156/74 H Pulse Oximetry 97 96 Oxygen Delivery Method Room Air Room Air Oxygen Flow Rate BMI result Body Mass Index 23.5 Labs 05/08/22 08:43 05/08/22 08:43 Medications Medications Current Medications Acetaminophen (Acetaminophen 325 Mg Tablet) 650 mg PO Q6H PRN PRN Reason: Headache/Pain Mild Scale (1-3) Last Admin: 05/13/22 20:13 Dose: 650 mg Acetaminophen (Acetaminophen 325 Mg Tablet) 650 mg PO Q6H PRN PRN Reason: Headache/Pain Mild Scale (1-3) Al Hydroxide/Mg Hydroxide (Magnesium Hydrox/Alum Hydrox 30 Ml Oral.Susp) 30 ml PO Q6H PRN PRN Reason: Heartburn/Nausea Al Hydroxide/Mg Hydroxide (Magnesium Hydrox/Alum Hydrox 30 Ml Oral.Susp) 30 ml PO Q6H PRN PRN Reason: Heartburn/Nausea Amlodipine Besylate (Amlodipine Besylate 2.5 Mg Tablet) 2.5 mg PO DAILY@1300 [facility]; Protocol Last Admin: 05/30/22 11:58 Dose: 2.5 mg Bisacodyl (Bisacodyl 10 Mg Supp.Rect) 10 mg [place] DAILY PRN PRN Reason: Constipation Cyanocobalamin (Cyanocobalamin (Vitamin B-12) 1,000 Mcg Tablet) 1,000 mcg PO DAILY [facility] Last Admin: 05/30/22 11:56 Dose: 1,000 mcg Fluvoxamine Maleate (Fluvoxamine Maleate 50 Mg Tablet) 100 mg PO BEDTIME [facility] Last Admin: 05/29/22 20:07 Dose: 100 mg Hydroxyzine HCl (Hydroxyzine Hcl 25 Mg Tablet) 25 mg PO Q6H PRN PRN Reason: Anxiety Lamotrigine (Lamotrigine 100 Mg Tablet) 100 mg PO DAILY [facility] Last Admin: 05/30/22 11:56 Dose: 100 mg Magnesium Hydroxide (Milk Of Magnesia 30 Ml Oral.Susp) 30 ml PO DAILY PRN PRN Reason: Constipation Last Admin: 05/27/22 13:08 Dose: 30 ml Magnesium Hydroxide (Milk Of Magnesia 30 Ml Oral.Susp) 30 ml PO DAILY PRN PRN Reason: Constipation Mirtazapine (Mirtazapine 15 Mg Tablet) 15 mg PO BEDTIME [facility] Last Admin: 05/29/22 20:08 Dose: 15 mg Olanzapine (Olanzapine 2.5 Mg Tablet) 2.5 mg PO BID PRN PRN Reason: Agitation Olanzapine (Olanzapine 7.5 Mg Tablet) 15 mg PO BEDTIME [facility] Last Admin: 05/29/22 20:07 Dose: 15 mg Ondansetron HCl (Ondansetron Odt 4 Mg Tab.Rapdis) 4 mg TRANSLINGU DAILY PRN PRN Reason: Nausea Polyethylene Glycol (Polyethylene Glycol 3350 17 Gm Powd.Pack) 17 gm PO BID [facility] Last Admin: 05/30/22 11:55 Dose: 17 gm Quetiapine Fumarate (Quetiapine Fumarate 100 Mg Tablet) 100 mg PO BEDTIME PRN PRN Reason: Anxiety Senna/Docusate Sodium (Sennosides/Docusate Sodium Tablet) 2 tab PO BID [facility] Last Admin: 05/30/22 11:56 Dose: 2 tab Trazodone HCl (Trazodone Hcl 50 Mg Tablet) 50 mg PO BEDTIME MRX1 PRN PRN Reason: Insomnia Last Admin: 05/16/22 20:07 Dose: 50 mg Vitamin D (Cholecalciferol (Vitamin D3) 25 Mcg Tablet) 25 mcg PO DAILY [facility] Last Admin: 05/30/22 11:55 Dose: 25 mcg Allergies Allergies Allergy/AdvReac Type Severity Reaction Status Date / Time Latex, Natural Rubber AdvReac Mild Rash Verified 05/07/22 19:00 Assessment & Plan Assessment & Plan (1) Major depressive disorder, recurrent severe without psychotic features: Status: Acute Code(s): F33.2 - Major depressive disorder, recurrent severe without psychotic features (2) Generalized anxiety disorder: Status: Acute Code(s): F41.1 - Generalized anxiety disorder Plan The patient is an elderly male with a long history of major depressive disorder with several prior admissions into the hospital for exacerbation of depression and previous treatment with ECT with for improvement.? The patient was initially treated at [facility] and transferring to this facility for ECT.? At this moment, the patient is severely depressed with some neuro cognitive impairment. Plan 1. Gather collateral information.? 2. Hospitalist workout with clearance for ECT.? Ready for ECT as per ThursdayMay 12 3. Continue regular medications.? 4. EKG for ECT treatment.? 5. ECT as soon as he is medically cleared.? Since he had COVID he was started later. 6. ECT continue 3 times per week. 7. Bowel treatment for constipation. 8. Increase Luvox Reason for contiued inpatient stay Substantial Risk for: inability to function, rapid decompensation and med/psych decompensation Time Spent With Patient Time: Total time managing care of this patient today _20___ minutes.
[2022-05-30] MEDS: OLANZapine 7.5 MG TABLET 15 MG PO (20:48)
[2022-05-30] MEDS: Mirtazapine 15 MG TABLET PO (20:48)
[2022-05-30] MEDS: fluvoxaMINE Maleate 50 MG TABLET 100 MG PO (20:48)
[2022-05-31 08:45] VITALS: BP 98/53; PULSE 64; RESP 16; TEMP 35.9; O2SAT 97
[2022-05-31] MEDS: Cholecalciferol (Vitamin D3) 25 MCG TABLET PO (08:49)
[2022-05-31] MEDS: Sennosides/Docusate Sodium TABLET 2 TAB PO ×2 (08:49→20:17)
[2022-05-31] MEDS: Cyanocobalamin (Vitamin B-12) 1,000 MCG TABLET 1000 MCG PO (08:49)
[2022-05-31] MEDS: lamoTRIgine 100 MG TABLET PO (08:49)
[2022-05-31] MEDS: fluvoxaMINE Maleate 50 MG TABLET 25 MG PO (08:50)
[2022-05-31] MEDS: polyethylene glycoL 3350 17 GM POWD.PACK PO ×2 (09:08→20:17)
--- NOTE | 2022-05-31 10:00 | P.PNPSI_ITS ---
Subjective Subjective Date of Service: 05/31/22 Reason For Visit: depression w/ SI Subjective Notes: Conditional Voluntary Interim History: The nursing staff reported the patient has been pleasant, isolative he did attend to groups and he denies new problems. He slept 5 hours. On interview the patient denies new symptoms Mental Status Exam Mental Status Exam Patient Appearance: Well Grooomed and Appropriate Patient Orientation: Person and Situation Level of Consciousness: Awake and Appropriate Patient Behavior: Guarded and Passive Mood Description: Withdrawn Affect Description: Calm Patient Cognition Impaired: Yes Ability to Follow Directions: Good Speech Pattern: Clear Hallucinations: None Delusions: Not Present Thought Process: Linear Thought Content: positive for [place] and positive for Poverty of Content Judgement: Fair Diagnostics Vital Signs (24Hr): Vital Signs - 24 hr 05/30/22 10:25 05/30/22 10:30 05/30/22 10:35 Temperature 98.8 F Pulse Rate 70 74 69 Respiratory Rate 14 14 14 Blood Pressure 170/63 H 178/83 H 175/89 H Pulse Oximetry 97 97 96 Oxygen Delivery Method Nasal Cannula with ETCO2 Nasal Cannula with ETCO2 Nasal Cannula with ETCO2 Oxygen Flow Rate 2 2 2 05/30/22 10:40 05/30/22 10:55 05/30/22 11:09 Temperature 98.4 F 98.4 F Pulse Rate 71 66 64 Respiratory Rate 12 16 16 Blood Pressure 164/90 H 161/87 H 158/82 H Pulse Oximetry 96 97 96 Oxygen Delivery Method Nasal Cannula with ETCO2 Room Air Room Air Oxygen Flow Rate 2 05/30/22 11:51 Temperature 97.1 F Pulse Rate 61 Respiratory Rate Blood Pressure 156/74 H Pulse Oximetry Oxygen Delivery Method Oxygen Flow Rate BMI result Body Mass Index 23.5 Labs 05/08/22 08:43 05/08/22 08:43 Medications Medications Current Medications Acetaminophen (Acetaminophen 325 Mg Tablet) 650 mg PO Q6H PRN PRN Reason: Headache/Pain Mild Scale (1-3) Last Admin: 05/13/22 20:13 Dose: 650 mg Acetaminophen (Acetaminophen 325 Mg Tablet) 650 mg PO Q6H PRN PRN Reason: Headache/Pain Mild Scale (1-3) Al Hydroxide/Mg Hydroxide (Magnesium Hydrox/Alum Hydrox 30 Ml Oral.Susp) 30 ml PO Q6H PRN PRN Reason: Heartburn/Nausea Al Hydroxide/Mg Hydroxide (Magnesium Hydrox/Alum Hydrox 30 Ml Oral.Susp) 30 ml PO Q6H PRN PRN Reason: Heartburn/Nausea Amlodipine Besylate (Amlodipine Besylate 2.5 Mg Tablet) 2.5 mg PO DAILY@1300 [facility]; Protocol Last Admin: 05/30/22 11:58 Dose: 2.5 mg Bisacodyl (Bisacodyl 10 Mg Supp.Rect) 10 mg [place] DAILY PRN PRN Reason: Constipation Cyanocobalamin (Cyanocobalamin (Vitamin B-12) 1,000 Mcg Tablet) 1,000 mcg PO DAILY [facility] Last Admin: 05/31/22 08:49 Dose: 1,000 mcg Fluvoxamine Maleate (Fluvoxamine Maleate 50 Mg Tablet) 25 mg PO DAILY [facility] Last Admin: 05/31/22 08:50 Dose: 25 mg Fluvoxamine Maleate (Fluvoxamine Maleate 50 Mg Tablet) 100 mg PO BEDTIME [facility] Last Admin: 05/30/22 20:48 Dose: 100 mg Hydroxyzine HCl (Hydroxyzine Hcl 25 Mg Tablet) 25 mg PO Q6H PRN PRN Reason: Anxiety Lamotrigine (Lamotrigine 100 Mg Tablet) 100 mg PO DAILY [facility] Last Admin: 05/31/22 08:49 Dose: 100 mg Magnesium Hydroxide (Milk Of Magnesia 30 Ml Oral.Susp) 30 ml PO DAILY PRN PRN Reason: Constipation Last Admin: 05/27/22 13:08 Dose: 30 ml Magnesium Hydroxide (Milk Of Magnesia 30 Ml Oral.Susp) 30 ml PO DAILY PRN PRN Reason: Constipation Mirtazapine (Mirtazapine 15 Mg Tablet) 15 mg PO BEDTIME [facility] Last Admin: 05/30/22 20:48 Dose: 15 mg Olanzapine (Olanzapine 2.5 Mg Tablet) 2.5 mg PO BID PRN PRN Reason: Agitation Olanzapine (Olanzapine 7.5 Mg Tablet) 15 mg PO BEDTIME [facility] Last Admin: 05/30/22 20:48 Dose: 15 mg Ondansetron HCl (Ondansetron Odt 4 Mg Tab.Rapdis) 4 mg TRANSLINGU DAILY PRN PRN Reason: Nausea Polyethylene Glycol (Polyethylene Glycol 3350 17 Gm Powd.Pack) 17 gm PO BID [facility] Last Admin: 05/31/22 09:08 Dose: 17 gm Quetiapine Fumarate (Quetiapine Fumarate 100 Mg Tablet) 100 mg PO BEDTIME PRN PRN Reason: Anxiety Senna/Docusate Sodium (Sennosides/Docusate Sodium Tablet) 2 tab PO BID [facility] Last Admin: 05/31/22 08:49 Dose: 2 tab Trazodone HCl (Trazodone Hcl 50 Mg Tablet) 50 mg PO BEDTIME MRX1 PRN PRN Reason: Insomnia Last Admin: 05/16/22 20:07 Dose: 50 mg Vitamin D (Cholecalciferol (Vitamin D3) 25 Mcg Tablet) 25 mcg PO DAILY [facility] Last Admin: 05/31/22 08:49 Dose: 25 mcg Allergies Allergies Allergy/AdvReac Type Severity Reaction Status Date / Time Latex, Natural Rubber AdvReac Mild Rash Verified 05/07/22 19:00 Assessment & Plan Assessment & Plan (1) Major depressive disorder, recurrent severe without psychotic features: Status: Acute Code(s): F33.2 - Major depressive disorder, recurrent severe without psychotic features (2) Generalized anxiety disorder: Status: Acute Code(s): F41.1 - Generalized anxiety disorder Plan The patient is an elderly male with a long history of major depressive disorder with several prior admissions into the hospital for exacerbation of depression and previous treatment with ECT with for improvement.? The patient was initially treated at [facility] and transferring to this facility for ECT.? At this moment, the patient is severely depressed with some neuro cognitive impairment. Plan 1. Gather collateral information.? 2. Hospitalist workout with clearance for ECT.? Ready for ECT as per ThursdayMay 12 3. Continue regular medications.? 4. EKG for ECT treatment.? 5. ECT as soon as he is medically cleared.? Since he had COVID he was started later. 6. ECT continue 3 times per week. 7. Bowel treatment for constipation. 8. Increase Luvox Reason for contiued inpatient stay Substantial Risk for: inability to function, rapid decompensation and med/psych decompensation Time Spent With Patient Time: Total time managing care of this patient today __20__ minutes.
[2022-05-31 13:56] VITALS: BP 120/56; PULSE 69; O2SAT 95
[2022-05-31] MEDS: amLODIPine Besylate 2.5 MG TABLET PO (13:57)
[2022-05-31 18:47] VITALS: BP 141/64; PULSE 63; RESP 16; TEMP 36.7; O2SAT 97
[2022-05-31] MEDS: fluvoxaMINE Maleate 50 MG TABLET 100 MG PO (20:16)
[2022-05-31] MEDS: Mirtazapine 15 MG TABLET PO (20:17)
[2022-05-31] MEDS: OLANZapine 7.5 MG TABLET 15 MG PO (20:17)
[2022-06-01] MEDS: Sennosides/Docusate Sodium TABLET 2 TAB PO (09:14)
[2022-06-01] MEDS: Cyanocobalamin (Vitamin B-12) 1,000 MCG TABLET 1000 MCG PO (09:15)
[2022-06-01] MEDS: Cholecalciferol (Vitamin D3) 25 MCG TABLET PO (09:15)
[2022-06-01] MEDS: fluvoxaMINE Maleate 50 MG TABLET 25 MG PO (09:15)
[2022-06-01] MEDS: polyethylene glycoL 3350 17 GM POWD.PACK PO ×2 (09:16→19:55)
[2022-06-01] MEDS: lamoTRIgine 100 MG TABLET PO (09:16)
[2022-06-01 09:20] VITALS: BP 157/76; PULSE 74; RESP 18; TEMP 36.7; O2SAT 94
--- NOTE | 2022-06-01 12:06 | P.PNPSI_ITS ---
Subjective Subjective Date of Service: 06/01/22 Reason For Visit: depression w/ SI Subjective Notes: Conditional Voluntary Interim History: The nursing staff reported the patient has been cooperative and pleasant, he had a bowel movement yesterday and he slept 6 hours. On interview the patient denies new symptoms he states that he is slightly anxious since we increase Luvox so we will keep you walk so 50 mg in the evening. Mental Status Exam Mental Status Exam Patient Appearance: Well Grooomed and Appropriate Patient Orientation: Person and Situation Level of Consciousness: Awake and Appropriate Patient Behavior: Passive Mood Description: Withdrawn Affect Description: Constricted Patient Cognition Impaired: Yes Ability to Follow Directions: Good Speech Pattern: Clear Hallucinations: None Delusions: Not Present Thought Process: Linear Thought Content: positive for Circumstantial Judgement: Fair Diagnostics Vital Signs (24Hr): Vital Signs - 24 hr 05/31/22 13:56 05/31/22 18:47 06/01/22 09:20 Temperature 98.1 F 98.1 F Pulse Rate 69 63 74 Respiratory Rate 16 18 Blood Pressure 120/56 L 141/64 H 157/76 H Pulse Oximetry 95 97 94 Oxygen Delivery Method Room Air Room Air Room Air BMI result Body Mass Index 23.5 Labs 05/08/22 08:43 05/08/22 08:43 Medications Medications Current Medications Acetaminophen (Acetaminophen 325 Mg Tablet) 650 mg PO Q6H PRN PRN Reason: Headache/Pain Mild Scale (1-3) Last Admin: 05/13/22 20:13 Dose: 650 mg Acetaminophen (Acetaminophen 325 Mg Tablet) 650 mg PO Q6H PRN PRN Reason: Headache/Pain Mild Scale (1-3) Al Hydroxide/Mg Hydroxide (Magnesium Hydrox/Alum Hydrox 30 Ml Oral.Susp) 30 ml PO Q6H PRN PRN Reason: Heartburn/Nausea Al Hydroxide/Mg Hydroxide (Magnesium Hydrox/Alum Hydrox 30 Ml Oral.Susp) 30 ml PO Q6H PRN PRN Reason: Heartburn/Nausea Amlodipine Besylate (Amlodipine Besylate 2.5 Mg Tablet) 2.5 mg PO DAILY@1300 IZA; Protocol Last Admin: 05/31/22 13:57 Dose: 2.5 mg Bisacodyl (Bisacodyl 10 Mg Supp.Rect) 10 mg [place] DAILY PRN PRN Reason: Constipation Cyanocobalamin (Cyanocobalamin (Vitamin B-12) 1,000 Mcg Tablet) 1,000 mcg PO DAILY [facility] Last Admin: 06/01/22 09:15 Dose: 1,000 mcg Fluvoxamine Maleate (Fluvoxamine Maleate 50 Mg Tablet) 25 mg PO DAILY [facility] Last Admin: 06/01/22 09:15 Dose: 25 mg Fluvoxamine Maleate (Fluvoxamine Maleate 50 Mg Tablet) 100 mg PO BEDTIME [facility] Last Admin: 05/31/22 20:16 Dose: 100 mg Hydroxyzine HCl (Hydroxyzine Hcl 25 Mg Tablet) 25 mg PO Q6H PRN PRN Reason: Anxiety Lamotrigine (Lamotrigine 100 Mg Tablet) 100 mg PO DAILY [facility] Last Admin: 06/01/22 09:16 Dose: 100 mg Magnesium Hydroxide (Milk Of Magnesia 30 Ml Oral.Susp) 30 ml PO DAILY PRN PRN Reason: Constipation Last Admin: 05/27/22 13:08 Dose: 30 ml Magnesium Hydroxide (Milk Of Magnesia 30 Ml Oral.Susp) 30 ml PO DAILY PRN PRN Reason: Constipation Mirtazapine (Mirtazapine 15 Mg Tablet) 15 mg PO BEDTIME [facility] Last Admin: 05/31/22 20:17 Dose: 15 mg Olanzapine (Olanzapine 2.5 Mg Tablet) 2.5 mg PO BID PRN PRN Reason: Agitation Olanzapine (Olanzapine 7.5 Mg Tablet) 15 mg PO BEDTIME [facility] Last Admin: 05/31/22 20:17 Dose: 15 mg Ondansetron HCl (Ondansetron Odt 4 Mg Tab.Rapdis) 4 mg TRANSLINGU DAILY PRN PRN Reason: Nausea Polyethylene Glycol (Polyethylene Glycol 3350 17 Gm Powd.Pack) 17 gm PO BID [facility] Last Admin: 06/01/22 09:16 Dose: 17 gm Quetiapine Fumarate (Quetiapine Fumarate 100 Mg Tablet) 100 mg PO BEDTIME PRN PRN Reason: Anxiety Senna/Docusate Sodium (Sennosides/Docusate Sodium Tablet) 2 tab PO BID [facility] Last Admin: 06/01/22 09:14 Dose: 2 tab Trazodone HCl (Trazodone Hcl 50 Mg Tablet) 50 mg PO BEDTIME MRX1 PRN PRN Reason: Insomnia Last Admin: 05/16/22 20:07 Dose: 50 mg Vitamin D (Cholecalciferol (Vitamin D3) 25 Mcg Tablet) 25 mcg PO DAILY [facility] Last Admin: 06/01/22 09:15 Dose: 25 mcg Allergies Allergies Allergy/AdvReac Type Severity Reaction Status Date / Time Latex, Natural Rubber AdvReac Mild Rash Verified 05/07/22 19:00 Assessment & Plan Assessment & Plan (1) Major depressive disorder, recurrent severe without psychotic features: Status: Acute Code(s): F33.2 - Major depressive disorder, recurrent severe without psychotic features (2) Generalized anxiety disorder: Status: Acute Code(s): F41.1 - Generalized anxiety disorder Plan The patient is an elderly male with a long history of major depressive disorder with several prior admissions into the hospital for exacerbation of depression and previous treatment with ECT with for improvement.? The patient was initially treated at [facility] and transferring to this facility for ECT.? At this moment, the patient is severely depressed with some neuro cognitive impairment. Plan 1. Gather collateral information.? 2. Hospitalist workout with clearance for ECT.? Ready for ECT as per ThursdayMay 12 3. Continue regular medications.? 4. EKG for ECT treatment.? 5. ECT as soon as he is medically cleared.? Since he had COVID he was started later. 6. ECT continue 3 times per week. 7. Bowel treatment for constipation. 8. Increase Luvox , keep 100 mg daily and increased up to 50 in the morning Reason for contiued inpatient stay Substantial Risk for: inability to function, rapid decompensation and med/psych decompensation Time Spent With Patient Time: Total time managing care of this patient today _20___ minutes.
[2022-06-01 14:11] VITALS: BP 141/63; PULSE 67; RESP 16; O2SAT 95
[2022-06-01] MEDS: amLODIPine Besylate 2.5 MG TABLET PO (14:12)
[2022-06-01 18:55] VITALS: BP 140/63; PULSE 68; RESP 16; TEMP 36.8; O2SAT 95
[2022-06-01] MEDS: fluvoxaMINE Maleate 50 MG TABLET 100 MG PO (19:53)
[2022-06-01] MEDS: Mirtazapine 15 MG TABLET PO (19:54)
[2022-06-01] MEDS: OLANZapine 7.5 MG TABLET 15 MG PO (19:54)
[2022-06-02] VITALS (11 sets, daily range): BP systolic 128–192; BP diastolic 58–112; PULSE 16–97; RESP 11–19; TEMP 36.3–37.2; O2SAT 95–98
--- NOTE | 2022-06-02 06:28 | PC.NURSE ---
Patient called for ECT. Vital signs taken and sent to PACU via wheelchair.
--- NOTE | 2022-06-02 07:44 | HO.ANESPROP2 ---
[facility] Active Problems Active Problems: All Active Problems (Updated 05/09/22 @ 15:51 by SYDNI Mao) HTN (hypertension) (Acute) Routine history and physical examination of adult (Acute) Major depressive disorder, recurrent (Acute) Generalized anxiety disorder (Acute) Major depressive disorder, recurrent severe without psychotic features (Acute) Past Medical History Medical History No known health problems Ruptured liver Functional capacity: independent ambulation Family History Family history of problems with anesthesia: No Surgical History Surgical History H/O right knee surgery History of Problems with Anesthesia: No Social History Social History Household Members: None Housing: Apartment Do you presently have visiting nurse or other home services: No Patient Tobacco Use Status: Never used Tobacco Smoked in Last 30 Days: No e-Cigarette/Vaping Use: Never Used Second Hand Smoke Exposure: No Use of substances other than those prescribed or required for medical reasons: No Currently Displaying Signs/Symptoms of Drug Intoxication Withdrawal: No Any prior treatment program specific to substance use: No Have you been hit, kicked, punched, or otherwise hurt by someone within the past year? If so, by whom?: No Do you feel safe in your current relationship?: No Current Relationship Is there a partner from a previous relationship who is making you feel unsafe now?: No Are you made to feel afraid or neglected: No Spiritual Healthcare Practices: n/a Cheondoism Healthcare Practices: n/a Cultural Healthcare Practices: n/a Are you DNR?: No Advance Directives: No Advance Directives Information Provided: No Do you have thoughts of harming others: None Do you have a plan to hurt others: No Plan Recently lost weight without trying: Yes How much weight loss: Unsure Eating poorly because of decreased appetite: No Nutrition screen score: 4 Nutrition Risks: No Nutritional Risk Poor oral hygiene: No service: No Sexual orientation: Straight/Heterosexual Meds Allergies Allergy/AdvReac Type Severity Reaction Status Date / Time Latex, Natural Rubber AdvReac Mild Rash Verified 05/07/22 19:00 Active Medications: Current Medications Acetaminophen (Acetaminophen 325 Mg Tablet) 650 mg PO Q6H PRN PRN Reason: Headache/Pain Mild Scale (1-3) Last Admin: 05/13/22 20:13 Dose: 650 mg Acetaminophen (Acetaminophen 325 Mg Tablet) 650 mg PO Q6H PRN PRN Reason: Headache/Pain Mild Scale (1-3) Al Hydroxide/Mg Hydroxide (Magnesium Hydrox/Alum Hydrox 30 Ml Oral.Susp) 30 ml PO Q6H PRN PRN Reason: Heartburn/Nausea Al Hydroxide/Mg Hydroxide (Magnesium Hydrox/Alum Hydrox 30 Ml Oral.Susp) 30 ml PO Q6H PRN PRN Reason: Heartburn/Nausea Amlodipine Besylate (Amlodipine Besylate 2.5 Mg Tablet) 2.5 mg PO DAILY@1300 IZA; Protocol Last Admin: 06/01/22 14:12 Dose: 2.5 mg Bisacodyl (Bisacodyl 10 Mg Supp.Rect) 10 mg SD DAILY PRN PRN Reason: Constipation Cyanocobalamin (Cyanocobalamin (Vitamin B-12) 1,000 Mcg Tablet) 1,000 mcg PO DAILY [facility] Last Admin: 06/01/22 09:15 Dose: 1,000 mcg Fluvoxamine Maleate (Fluvoxamine Maleate 50 Mg Tablet) 50 mg PO DAILY [facility] Fluvoxamine Maleate (Fluvoxamine Maleate 50 Mg Tablet) 100 mg PO BEDTIME [facility] Last Admin: 06/01/22 19:53 Dose: 100 mg Hydroxyzine HCl (Hydroxyzine Hcl 25 Mg Tablet) 25 mg PO Q6H PRN PRN Reason: Anxiety Lamotrigine (Lamotrigine 100 Mg Tablet) 100 mg PO DAILY [facility] Last Admin: 06/01/22 09:16 Dose: 100 mg Magnesium Hydroxide (Milk Of Magnesia 30 Ml Oral.Susp) 30 ml PO DAILY PRN PRN Reason: Constipation Last Admin: 05/27/22 13:08 Dose: 30 ml Magnesium Hydroxide (Milk Of Magnesia 30 Ml Oral.Susp) 30 ml PO DAILY PRN PRN Reason: Constipation Mirtazapine (Mirtazapine 15 Mg Tablet) 15 mg PO BEDTIME [facility] Last Admin: 06/01/22 19:54 Dose: 15 mg Olanzapine (Olanzapine 2.5 Mg Tablet) 2.5 mg PO BID PRN PRN Reason: Agitation Olanzapine (Olanzapine 7.5 Mg Tablet) 15 mg PO BEDTIME [facility] Last Admin: 06/01/22 19:54 Dose: 15 mg Ondansetron HCl (Ondansetron Odt 4 Mg Tab.Rapdis) 4 mg TRANSLINGU DAILY PRN PRN Reason: Nausea Polyethylene Glycol (Polyethylene Glycol 3350 17 Gm Powd.Pack) 17 gm PO BID [facility] Last Admin: 06/01/22 19:55 Dose: 17 gm Quetiapine Fumarate (Quetiapine Fumarate 100 Mg Tablet) 100 mg PO BEDTIME PRN PRN Reason: Anxiety Senna/Docusate Sodium (Sennosides/Docusate Sodium Tablet) 2 tab PO BID [facility] Last Admin: 06/01/22 19:58 Dose: Not Given Trazodone HCl (Trazodone Hcl 50 Mg Tablet) 50 mg PO BEDTIME MRX1 PRN PRN Reason: Insomnia Last Admin: 05/16/22 20:07 Dose: 50 mg Vitamin D (Cholecalciferol (Vitamin D3) 25 Mcg Tablet) 25 mcg PO DAILY [facility] Last Admin: 06/01/22 09:15 Dose: 25 mcg Home Medications Medication Instructions Recorded Confirmed Last Taken Type l theanine 200 mg PO QID PRN Anxiety 10/15/21 05/07/22 10/15/21 07:20 History lamotrigine 100 mg tablet 100 mg PO DAILY 10/15/21 05/07/22 10/15/21 07:20 History (Lamictal) mirtazapine 15 mg tablet 15 mg PO BEDTIME 10/15/21 05/07/22 10/14/21 21:30 History quetiapine 50 mg tablet 50 - 100 mg PO BEDTIME PRN Anxiety 10/15/21 05/07/22 10/14/21 20:30 History risperidone 0.5 mg tablet 0.5 mg PO BID 10/15/21 05/07/22 10/15/21 07:20 History (Risperdal) amlodipine 2.5 mg tablet 2.5 mg PO DAILY 05/07/22 05/07/22 Unknown History cholecalciferol (vitamin D3) 25 25 mcg PO DAILY 05/07/22 05/07/22 Unknown History mcg (1,000 unit) capsule clonazepam 0.5 mg disintegrating 0.5 mg PO BEDTIME 05/07/22 05/07/22 Unknown History tablet cyanocobalamin (vitamin B-12) 1,000 mcg PO DAILY 05/07/22 05/07/22 Unknown History 1,000 mcg tablet fluvoxamine 100 mg tablet 100 mg PO BEDTIME 05/07/22 05/07/22 Unknown History olanzapine 15 mg disintegrating 15 mg PO BEDTIME 05/07/22 05/07/22 Unknown History tablet olanzapine 5 mg disintegrating 2.5 mg PO BID PRN Agitation 05/07/22 05/07/22 Unknown History tablet ondansetron HCl 4 mg tablet 4 mg PO NEEDED PRN Nausea 05/07/22 05/07/22 Unknown History Exam Exam Date and Time: June 02, 2022 0744 Height,Weight and Vital Signs: Height 6 ft 5 in Weight 90 kg Last Vital Signs Temp 98.7 F 06/02/22 06:37 Pulse 59 06/02/22 06:37 Resp 16 06/02/22 06:37 BP 147/74 H 06/02/22 06:37 Pulse Ox 96 06/02/22 06:37 O2 Del Method 06/02/22 06:37 O2 Flow Rate 2 05/30/22 10:40 Pertinent Lab Results Pertinent Lab Results: Laboratory Tests 05/08/22 05/08/22 05/08/22 08:43 08:43 08:43 WBC 3.7 L RBC 4.34 L Hgb 13.6 L Hct 40.0 L MCV 92.2 MCH 31.3 MCHC 34.0 RDW 12.5 Plt Count 150 L MPV 8.7 L Immature Gran % (Auto) 0.3 Neut % (Auto) 60.0 Lymph % (Auto) 27.4 Maury % (Auto) 8.6 Eos % (Auto) 3.2 Baso % (Auto) 0.5 Lymph # (Auto) 1.0 L Maury # (Auto) 0.3 Eos # (Auto) 0.1 Baso # (Auto) 0.0 Abs Immat Gran (auto) 0.01 Absolute Neuts (auto) 2.2 Absolute Nucleated RBC 0.000 Nucleated RBC % (auto) 0.0 Sodium 145 Potassium 3.9 Chloride 107 Carbon Dioxide 31 H Anion Gap 11 L BUN 16 Creatinine 0.83 Estim Creat Clear Calc 94.6 Estimated GFR > 60 Fasting Glucose 128 H Estimat Average Glucose 103 Hemoglobin A1c % 5.2 Calcium 8.8 Total Bilirubin 0.7 AST 15 ALT 13 Alkaline Phosphatase 54 Total Protein 5.3 L Albumin 3.4 L Triglycerides 72 Cholesterol 165 LDL Cholesterol, Calc 101 HDL Cholesterol 50 Vitamin B12 545 Folate 14.9 TSH 1.51 COVID-19 ([facility]USH) COVID-19 [place] Com 05/11/22 18:25 WBC RBC Hgb Hct MCV MCH MCHC RDW Plt Count MPV Immature Gran % (Auto) Neut % (Auto) Lymph % (Auto) Maury % (Auto) Eos % (Auto) Baso % (Auto) Lymph # (Auto) Maury # (Auto) Eos # (Auto) Baso # (Auto) Abs Immat Gran (auto) Absolute Neuts (auto) Absolute Nucleated RBC Nucleated RBC % (auto) Sodium Potassium Chloride Carbon Dioxide Anion Gap BUN Creatinine Estim Creat Clear Calc Estimated GFR Fasting Glucose Estimat Average Glucose Hemoglobin A1c % Calcium Total Bilirubin AST ALT Alkaline Phosphatase Total Protein Albumin Triglycerides Cholesterol LDL Cholesterol, Calc HDL Cholesterol Vitamin B12 Folate TSH COVID-19 ([facility]USH) Positive A COVID-19 Clin Com See Note Airway Mallampati Class: II TM Dist: >3cm Neck ROM: Full Assessment and Plan Assessment Anesthesia Assessment: Anesthesia Plan Discussed and Chart Reviewed Final Anesthetic Review Family History of Problems with Anesthesia: No History of Problems with Anesthesia: No NPO: Yes ASA Class: III Final Preanesthetic Review: No Changes in Pt Med Stat, Meds/Allgs Chart Reviewed, Consent Obtained/Reviewed and Anes Risks/Benef Reviewed Patient Risk: Low Procedure Risk: Low Anesthetic Plan Anesthetic Plan: GA and Regional Block
--- NOTE | 2022-06-02 07:49 | P.HPSUR_ITS ---
Pre-Procedural Eval Section A Date of Service: 06/02/22 Changes since office visit: Yes New Medical Problems, Yes Changes in Medication and Yes Patient answered all questions; No Cold of Flu in the past 2 weeks The History & Physical has been completed within 30 days and I have reviewed it .: Yes Section B Chief Complaint: depression w/ SI Allergies: Allergies Allergy/AdvReac Type Severity Reaction Status Date / Time Latex, Natural Rubber AdvReac Mild Rash Verified 05/07/22 19:00 Plan I have reviewed the history and physical and performed a pertinent physical examination on my patient. No changes have occurred unless specified. Time Spent With Patient Time: Total time managing care of this patient today ____ minutes.
--- NOTE | 2022-06-02 07:50 | HO.ECTPROC ---
ECT Procedure Note Diagnosis/Treatment Date of Service: 06/03/22 Diagnosis: Major Depressive Disorder Previous ECT Date: 05/28/22 Current Treatment Number: 6 Treatment: Series Interval Clinical Notes: The patient reports perhaps less rumination remains flat anxious Time: Total time managing care of this patient today ____ minutes. ECT Settings Device: THYMATRON DGx Electrode Placement: Right Unilateral Program/Pulse Width: 0.50 Energy Percent: 70 Seizure Duration By EEG (in seconds): 74 Medications Administration General Anesthetic: Etomidate (14) Muscle Relaxant: Succinylcholine (100) Ancillary Medications Anti-emetics: Zofran - Pre ECT Cardiovascular Medications: Glycopyrrolate (0.2 pre ECT) Miscillaneous Medications: Propofol Airway Management Airway Management: Bag Mask Ventilation Treatment Recommendations No Changes Recommended: No change Notes: Consider changed to bifrontal or right temporal left frontal if no significant improvement Pt Tolerated Procedure w/o Issue: Yes
[2022-06-02] MEDS: Sennosides/Docusate Sodium TABLET 2 TAB PO ×2 (09:52→20:46)
[2022-06-02] MEDS: Cholecalciferol (Vitamin D3) 25 MCG TABLET PO (09:52)
[2022-06-02] MEDS: fluvoxaMINE Maleate 50 MG TABLET PO (09:52)
[2022-06-02] MEDS: lamoTRIgine 100 MG TABLET PO (09:53)
[2022-06-02] MEDS: polyethylene glycoL 3350 17 GM POWD.PACK PO ×2 (09:53→20:48)
[2022-06-02] MEDS: Cyanocobalamin (Vitamin B-12) 1,000 MCG TABLET 1000 MCG PO (09:53)
[2022-06-02] MEDS: amLODIPine Besylate 2.5 MG TABLET PO (14:09)
[2022-06-02] MEDS: Mirtazapine 15 MG TABLET PO (20:46)
[2022-06-02] MEDS: fluvoxaMINE Maleate 50 MG TABLET 100 MG PO (20:46)
[2022-06-02] MEDS: OLANZapine 7.5 MG TABLET 15 MG PO (20:46)
--- NOTE | 2022-06-02 21:43 | P.PNPSI_ITS ---
Subjective Subjective Date of Service: 06/02/22 Reason For Visit: depression w/ SI Interim History: See ECT note patient somewhat passive constricted ruminating less florid catastrophic thinking denies active SI some anxiety post ECT Mental Status Exam Mental Status Exam Patient Appearance: Well Grooomed Patient Orientation: Person and Situation Level of Consciousness: Awake and Appropriate Patient Behavior: Guarded Mood Description: Withdrawn Affect Description: Constricted Patient Cognition Impaired: Yes Ability to Follow Directions: Fair Speech Pattern: Clear and Slurred Hallucinations: None Delusions: Not Present Thought Process: Distracted Thought Content: positive for Fletcher and positive for Circumstantial Judgement: Fair Diagnostics Vital Signs (24Hr): Vital Signs - 24 hr 06/02/22 06:25 06/02/22 06:37 06/02/22 08:14 Temperature 97.3 F 98.7 F 99 F Pulse Rate 66 59 78 Respiratory Rate 18 16 19 Blood Pressure 159/79 H 147/74 H 170/90 H Pulse Oximetry 96 96 98 Oxygen Delivery Method Room Air Room Air Nasal Cannula with ETCO2 Oxygen Flow Rate 3 06/02/22 08:19 06/02/22 08:24 06/02/22 08:28 Temperature Pulse Rate 89 82 79 Respiratory Rate 11 L 12 11 L Blood Pressure 188/112 H 192/103 H 184/94 H Pulse Oximetry 95 95 95 Oxygen Delivery Method Room Air Room Air Room Air Oxygen Flow Rate 3 06/02/22 08:44 06/02/22 08:59 06/02/22 09:37 Temperature 98 F 98.2 F Pulse Rate 67 68 16 L Respiratory Rate 16 16 16 Blood Pressure 165/98 H 171/93 H 164/86 H Pulse Oximetry 96 96 Oxygen Delivery Method Room Air Room Air Oxygen Flow Rate 06/02/22 14:05 06/02/22 18:00 Temperature 98.6 F Pulse Rate 97 70 Respiratory Rate 16 Blood Pressure 138/61 128/58 L Pulse Oximetry 95 Oxygen Delivery Method Room Air Oxygen Flow Rate BMI result Body Mass Index 23.5 Labs 05/08/22 08:43 05/08/22 08:43 Medications Medications Current Medications Acetaminophen (Acetaminophen 325 Mg Tablet) 650 mg PO Q6H PRN PRN Reason: Headache/Pain Mild Scale (1-3) Last Admin: 05/13/22 20:13 Dose: 650 mg Acetaminophen (Acetaminophen 325 Mg Tablet) 650 mg PO Q6H PRN PRN Reason: Headache/Pain Mild Scale (1-3) Al Hydroxide/Mg Hydroxide (Magnesium Hydrox/Alum Hydrox 30 Ml Oral.Susp) 30 ml PO Q6H PRN PRN Reason: Heartburn/Nausea Al Hydroxide/Mg Hydroxide (Magnesium Hydrox/Alum Hydrox 30 Ml Oral.Susp) 30 ml PO Q6H PRN PRN Reason: Heartburn/Nausea Amlodipine Besylate (Amlodipine Besylate 2.5 Mg Tablet) 2.5 mg PO DAILY@1300 IZA; Protocol Last Admin: 06/02/22 14:09 Dose: 2.5 mg Bisacodyl (Bisacodyl 10 Mg Supp.Rect) 10 mg SD DAILY PRN PRN Reason: Constipation Cyanocobalamin (Cyanocobalamin (Vitamin B-12) 1,000 Mcg Tablet) 1,000 mcg PO DAILY [facility] Last Admin: 06/02/22 09:53 Dose: 1,000 mcg Fluvoxamine Maleate (Fluvoxamine Maleate 50 Mg Tablet) 50 mg PO DAILY [facility] Last Admin: 06/02/22 09:52 Dose: 50 mg Fluvoxamine Maleate (Fluvoxamine Maleate 50 Mg Tablet) 100 mg PO BEDTIME [facility] Last Admin: 06/02/22 20:46 Dose: 100 mg Hydroxyzine HCl (Hydroxyzine Hcl 25 Mg Tablet) 25 mg PO Q6H PRN PRN Reason: Anxiety Lamotrigine (Lamotrigine 100 Mg Tablet) 100 mg PO DAILY [facility] Last Admin: 06/02/22 09:53 Dose: 100 mg Magnesium Hydroxide (Milk Of Magnesia 30 Ml Oral.Susp) 30 ml PO DAILY PRN PRN Reason: Constipation Last Admin: 05/27/22 13:08 Dose: 30 ml Magnesium Hydroxide (Milk Of Magnesia 30 Ml Oral.Susp) 30 ml PO DAILY PRN PRN Reason: Constipation Mirtazapine (Mirtazapine 15 Mg Tablet) 15 mg PO BEDTIME [facility] Last Admin: 06/02/22 20:46 Dose: 15 mg Olanzapine (Olanzapine 2.5 Mg Tablet) 2.5 mg PO BID PRN PRN Reason: Agitation Olanzapine (Olanzapine 7.5 Mg Tablet) 15 mg PO BEDTIME [facility] Last Admin: 06/02/22 20:46 Dose: 15 mg Ondansetron HCl (Ondansetron Odt 4 Mg Tab.Rapdis) 4 mg TRANSLINGU DAILY PRN PRN Reason: Nausea Polyethylene Glycol (Polyethylene Glycol 3350 17 Gm Powd.Pack) 17 gm PO BID [facility] Last Admin: 06/02/22 20:48 Dose: 17 gm Quetiapine Fumarate (Quetiapine Fumarate 100 Mg Tablet) 100 mg PO BEDTIME PRN PRN Reason: Anxiety Senna/Docusate Sodium (Sennosides/Docusate Sodium Tablet) 2 tab PO BID [facility] Last Admin: 06/02/22 20:46 Dose: 2 tab Trazodone HCl (Trazodone Hcl 50 Mg Tablet) 50 mg PO BEDTIME MRX1 PRN PRN Reason: Insomnia Last Admin: 05/16/22 20:07 Dose: 50 mg Vitamin D (Cholecalciferol (Vitamin D3) 25 Mcg Tablet) 25 mcg PO DAILY [facility] Last Admin: 06/02/22 09:52 Dose: 25 mcg Allergies Allergies Allergy/AdvReac Type Severity Reaction Status Date / Time Latex, Natural Rubber AdvReac Mild Rash Verified 05/07/22 19:00 Assessment & Plan Assessment & Plan (1) Major depressive disorder, recurrent severe without psychotic features: Status: Acute Code(s): F33.2 - Major depressive disorder, recurrent severe without psychotic features (2) Generalized anxiety disorder: Status: Acute Code(s): F41.1 - Generalized anxiety disorder Plan The patient is an elderly male with a long history of major depressive disorder with several prior admissions into the hospital for exacerbation of dep ression and previous treatment with ECT with for improvement.? The patient was initially treated at [facility] and transferring to this facility for ECT.? At this moment, the patient is severely depressed with some neuro cognitive impairment. Plan 1. Gather collateral information.? 2. Hospitalist workout with clearance for ECT.? Ready for ECT as per ThursdayMay 12 3. Continue regular medications.? 4. EKG for ECT treatment.? 5. ECT as soon as he is medically cleared.? Since he had COVID he was started later. 6. ECT continue 3 times per week. 7. Bowel treatment for constipation. 8. Increase Luvox , keep 100 mg daily and increased up to 50 in the morning 06/02/2022 Continue ECT trial Luvox increased consider seeing if patient can stay with his sister for period of time and consider outpatient treatment Patient educated on: ECT Informed Consent: understands Reason for contiued inpatient stay Substantial Risk for: harm to self and inability to function Time Spent With Patient Time: Total time managing care of this patient today ____ minutes.
[2022-06-03 06:00] VITALS: BP 124/60; PULSE 58; RESP 16; TEMP 36.6; O2SAT 98
[2022-06-03] MEDS: fluvoxaMINE Maleate 50 MG TABLET PO (08:14)
[2022-06-03] MEDS: polyethylene glycoL 3350 17 GM POWD.PACK PO ×2 (08:14→20:38)
[2022-06-03] MEDS: Cholecalciferol (Vitamin D3) 25 MCG TABLET PO (08:14)
[2022-06-03] MEDS: lamoTRIgine 100 MG TABLET PO (08:14)
[2022-06-03] MEDS: Cyanocobalamin (Vitamin B-12) 1,000 MCG TABLET 1000 MCG PO (08:14)
[2022-06-03] MEDS: Sennosides/Docusate Sodium TABLET 2 TAB PO ×2 (08:14→20:39)
[2022-06-03] MEDS: amLODIPine Besylate 2.5 MG TABLET PO (12:45)
--- NOTE | 2022-06-03 15:50 | P.PNPSI_ITS ---
Subjective Subjective Date of Service: 06/03/22 Reason For Visit: depression w/ SI Subjective Notes: Conditional Voluntary Interim History: The nursing staff reported that he had ECT yesterday he was reporting no improvement of his mood even though that the staff has noticed that his on the milieu interacting fairly well with staff and peers. His appetite is normal. The social media marketer reported that she spoke with the sister who is willing to take him back 10 poorly. On interview we discussed with the patient the treatment options and will continue with the titration of Luvox up to 100 mg p.o. b.i.d.. Mental Status Exam Mental Status Exam Patient Appearance: Well Grooomed Patient Orientation: Person and Situation Level of Consciousness: Awake and Appropriate Patient Behavior: Guarded Mood Description: Withdrawn Affect Description: Constricted Patient Cognition Impaired: Yes Ability to Follow Directions: Fair Speech Pattern: Clear and Slurred Hallucinations: None Delusions: Not Present Thought Process: Distracted Thought Content: positive for Marianna and positive for Circumstantial Judgement: Fair Diagnostics Vital Signs (24Hr): Vital Signs - 24 hr 06/02/22 18:00 06/03/22 06:00 Temperature 98.6 F 97.9 F Pulse Rate 70 58 Respiratory Rate 16 16 Blood Pressure 128/58 L 124/60 Pulse Oximetry 95 98 Oxygen Delivery Method Room Air Room Air BMI result Body Mass Index 23.5 Labs 05/08/22 08:43 05/08/22 08:43 Medications Medications Current Medications Acetaminophen (Acetaminophen 325 Mg Tablet) 650 mg PO Q6H PRN PRN Reason: Headache/Pain Mild Scale (1-3) Last Admin: 05/13/22 20:13 Dose: 650 mg Acetaminophen (Acetaminophen 325 Mg Tablet) 650 mg PO Q6H PRN PRN Reason: Headache/Pain Mild Scale (1-3) Al Hydroxide/Mg Hydroxide (Magnesium Hydrox/Alum Hydrox 30 Ml Oral.Susp) 30 ml PO Q6H PRN PRN Reason: Heartburn/Nausea Al Hydroxide/Mg Hydroxide (Magnesium Hydrox/Alum Hydrox 30 Ml Oral.Susp) 30 ml PO Q6H PRN PRN Reason: Heartburn/Nausea Amlodipine Besylate (Amlodipine Besylate 2.5 Mg Tablet) 2.5 mg PO DAILY@1300 IZA; Protocol Last Admin: 06/03/22 12:45 Dose: 2.5 mg Bisacodyl (Bisacodyl 10 Mg Supp.Rect) 10 mg [place] DAILY PRN PRN Reason: Constipation Cyanocobalamin (Cyanocobalamin (Vitamin B-12) 1,000 Mcg Tablet) 1,000 mcg PO DAILY [facility] Last Admin: 06/03/22 08:14 Dose: 1,000 mcg Fluvoxamine Maleate (Fluvoxamine Maleate 50 Mg Tablet) 50 mg PO DAILY [facility] Last Admin: 06/03/22 08:14 Dose: 50 mg Fluvoxamine Maleate (Fluvoxamine Maleate 50 Mg Tablet) 100 mg PO BEDTIME [facility] Last Admin: 06/02/22 20:46 Dose: 100 mg Hydroxyzine HCl (Hydroxyzine Hcl 25 Mg Tablet) 25 mg PO Q6H PRN PRN Reason: Anxiety Lamotrigine (Lamotrigine 100 Mg Tablet) 100 mg PO DAILY [facility] Last Admin: 06/03/22 08:14 Dose: 100 mg Magnesium Hydroxide (Milk Of Magnesia 30 Ml Oral.Susp) 30 ml PO DAILY PRN PRN Reason: Constipation Last Admin: 05/27/22 13:08 Dose: 30 ml Magnesium Hydroxide (Milk Of Magnesia 30 Ml Oral.Susp) 30 ml PO DAILY PRN PRN Reason: Constipation Mirtazapine (Mirtazapine 15 Mg Tablet) 15 mg PO BEDTIME [facility] Last Admin: 06/02/22 20:46 Dose: 15 mg Olanzapine (Olanzapine 2.5 Mg Tablet) 2.5 mg PO BID PRN PRN Reason: Agitation Olanzapine (Olanzapine 7.5 Mg Tablet) 15 mg PO BEDTIME [facility] Last Admin: 06/02/22 20:46 Dose: 15 mg Ondansetron HCl (Ondansetron Odt 4 Mg Tab.Rapdis) 4 mg TRANSLINGU DAILY PRN PRN Reason: Nausea Polyethylene Glycol (Polyethylene Glycol 3350 17 Gm Powd.Pack) 17 gm PO BID [facility] Last Admin: 06/03/22 08:14 Dose: 17 gm Quetiapine Fumarate (Quetiapine Fumarate 100 Mg Tablet) 100 mg PO BEDTIME PRN PRN Reason: Anxiety Senna/Docusate Sodium (Sennosides/Docusate Sodium Tablet) 2 tab PO BID [facility] Last Admin: 06/03/22 08:14 Dose: 2 tab Trazodone HCl (Trazodone Hcl 50 Mg Tablet) 50 mg PO BEDTIME MRX1 PRN PRN Reason: Insomnia Last Admin: 05/16/22 20:07 Dose: 50 mg Vitamin D (Cholecalciferol (Vitamin D3) 25 Mcg Tablet) 25 mcg PO DAILY I[facility] Last Admin: 06/03/22 08:14 Dose: 25 mcg Allergies Allergies Allergy/AdvReac Type Severity Reaction Status Date / Time Latex, Natural Rubber AdvReac Mild Rash Verified 05/07/22 19:00 Assessment & Plan Assessment & Plan (1) Major depressive disorder, recurrent severe without psychotic features: Status: Acute Code(s): F33.2 - Major depressive disorder, recurrent severe without psychotic features (2) Generalized anxiety disorder: Status: Acute Code(s): F41.1 - Generalized anxiety disorder Plan The patient is an elderly male with a long history of major depressive disorder with several prior admissions into the hospital for exacerbation of depression and previous treatment with ECT with for improvement.? The patient was initially treated at [facility] and transferring to this facility for ECT.? At this moment, the patient is severely depressed with some neuro cognitive impairment. Plan 1. Gather collateral information.? 2. Hospitalist workout with clearance for ECT.? Ready for ECT as per ThursdayMay 12 3. Continue regular medications.? 4. EKG for ECT treatment.? 5. ECT as soon as he is medically cleared.? Since he had COVID he was started later. 6. ECT continue 3 times per week. 7. Bowel treatment for constipation. 8. Increase Luvox , keep 100 mg daily and increased up to 100 in the morning Reason for contiued inpatient stay Substantial Risk for: inability to function, rapid decompensation and med/psych decompensation Time Spent With Patient Time: Total time managing care of this patient today __20__ minutes.
[2022-06-03 18:00] VITALS: BP 156/86; PULSE 64; RESP 18; TEMP 36.7; O2SAT 94
[2022-06-03] MEDS: Mirtazapine 15 MG TABLET PO (20:38)
[2022-06-03] MEDS: fluvoxaMINE Maleate 50 MG TABLET 100 MG PO (20:38)
[2022-06-03] MEDS: OLANZapine 7.5 MG TABLET 15 MG PO (20:39)
[2022-06-04] VITALS (12 sets, daily range): BP systolic 108–168; BP diastolic 55–94; PULSE 55–82; RESP 12–18; TEMP 36.5–37; O2SAT 93–98
--- NOTE | 2022-06-04 06:42 | P.CONAN_ITS ---
[facility] Active Problems Active Problems: All Active Problems (Updated 05/09/22 @ 15:51 by SYDNI Mao) HTN (hypertension) (Acute) Routine history and physical examination of adult (Acute) Major depressive disorder, recurrent (Acute) Generalized anxiety disorder (Acute) Major depressive disorder, recurrent severe without psychotic features (Acute) Past Medical History Medical History No known health problems Ruptured liver Functional capacity: independent ambulation Family History Family history of problems with anesthesia: No Surgical History Surgical History H/O right knee surgery History of Problems with Anesthesia: No Social History Social History Household Members: None Housing: Apartment Do you presently have visiting nurse or other home services: No Patient Tobacco Use Status: Never used Tobacco Smoked in Last 30 Days: No e-Cigarette/Vaping Use: Never Used Second Hand Smoke Exposure: No Use of substances other than those prescribed or required for medical reasons: No Currently Displaying Signs/Symptoms of Drug Intoxication Withdrawal: No Any prior treatment program specific to substance use: No Have you been hit, kicked, punched, or otherwise hurt by someone within the past year? If so, by whom?: No Do you feel safe in your current relationship?: No Current Relationship Is there a partner from a previous relationship who is making you feel unsafe now?: No Are you made to feel afraid or neglected: No Spiritual Healthcare Practices: n/a Jainism Healthcare Practices: n/a Cultural Healthcare Practices: n/a Are you DNR?: No Advance Directives: No Advance Directives Information Provided: No Do you have thoughts of harming others: None Do you have a plan to hurt others: No Plan Recently lost weight without trying: Yes How much weight loss: Unsure Eating poorly because of decreased appetite: No Nutrition screen score: 4 Nutrition Risks: No Nutritional Risk Poor oral hygiene: No service: No Sexual orientation: Straight/Heterosexual Meds Allergies Allergy/AdvReac Type Severity Reaction Status Date / Time Latex, Natural Rubber AdvReac Mild Rash Verified 05/07/22 19:00 Active Medications: Current Medications Acetaminophen (Acetaminophen 325 Mg Tablet) 650 mg PO Q6H PRN PRN Reason: Headache/Pain Mild Scale (1-3) Last Admin: 05/13/22 20:13 Dose: 650 mg Acetaminophen (Acetaminophen 325 Mg Tablet) 650 mg PO Q6H PRN PRN Reason: Headache/Pain Mild Scale (1-3) Al Hydroxide/Mg Hydroxide (Magnesium Hydrox/Alum Hydrox 30 Ml Oral.Susp) 30 ml PO Q6H PRN PRN Reason: Heartburn/Nausea Al Hydroxide/Mg Hydroxide (Magnesium Hydrox/Alum Hydrox 30 Ml Oral.Susp) 30 ml PO Q6H PRN PRN Reason: Heartburn/Nausea Amlodipine Besylate (Amlodipine Besylate 2.5 Mg Tablet) 2.5 mg PO DAILY@1300 IZA; Protocol Last Admin: 06/03/22 12:45 Dose: 2.5 mg Bisacodyl (Bisacodyl 10 Mg Supp.Rect) 10 mg [place] DAILY PRN PRN Reason: Constipation Cyanocobalamin (Cyanocobalamin (Vitamin B-12) 1,000 Mcg Tablet) 1,000 mcg PO D AILY [facility] Last Admin: 06/03/22 08:14 Dose: 1,000 mcg Fluvoxamine Maleate (Fluvoxamine Maleate 50 Mg Tablet) 100 mg PO DAILY [facility] Fluvoxamine Maleate (Fluvoxamine Maleate 50 Mg Tablet) 100 mg PO BEDTIME [facility] Last Admin: 06/03/22 20:38 Dose: 100 mg Hydroxyzine HCl (Hydroxyzine Hcl 25 Mg Tablet) 25 mg PO Q6H PRN PRN Reason: Anxiety Lactated Ringer's (Lr) 1,000 mls @ 50 mls/hr IVCONT .Q20H COUNT [facility]CLUDES [facility] Lamotrigine (Lamotrigine 100 Mg Tablet) 100 mg PO DAILY [facility] Last Admin: 06/03/22 08:14 Dose: 100 mg Magnesium Hydroxide (Milk Of Magnesia 30 Ml Oral.Susp) 30 ml PO DAILY PRN PRN Reason: Constipation Last Admin: 05/27/22 13:08 Dose: 30 ml Magnesium Hydroxide (Milk Of Magnesia 30 Ml Oral.Susp) 30 ml PO DAILY PRN PRN Reason: Constipation Mirtazapine (Mirtazapine 15 Mg Tablet) 15 mg PO BEDTIME COUNT [facility] Last Admin: 06/03/22 20:38 Dose: 15 mg Olanzapine (Olanzapine 2.5 Mg Tablet) 2.5 mg PO BID PRN PRN Reason: Agitation Olanzapine (Olanzapine 7.5 Mg Tablet) 15 mg PO BEDTIME [facility] Last Admin: 06/03/22 20:39 Dose: 15 mg Ondansetron HCl (Ondansetron Odt 4 Mg Tab.Rapdis) 4 mg TRANSLINGU DAILY PRN PRN Reason: Nausea Polyethylene Glycol (Polyethylene Glycol 3350 17 Gm Powd.Pack) 17 gm PO BID [facility] Last Admin: 06/03/22 20:38 Dose: 17 gm Quetiapine Fumarate (Quetiapine Fumarate 100 Mg Tablet) 100 mg PO BEDTIME PRN PRN Reason: Anxiety Senna/Docusate Sodium (Sennosides/Docusate Sodium Tablet) 2 tab PO BID [facility] Last Admin: 06/03/22 20:39 Dose: 2 tab Trazodone HCl (Trazodone Hcl 50 Mg Tablet) 50 mg PO BEDTIME MRX1 PRN PRN Reason: Insomnia Last Admin: 05/16/22 20:07 Dose: 50 mg Vitamin D (Cholecalciferol (Vitamin D3) 25 Mcg Tablet) 25 mcg PO DAILY [facility] Last Admin: 06/03/22 08:14 Dose: 25 mcg Home Medications Medication Instructions Recorded Confirmed Last Taken Type l theanine 200 mg PO QID PRN Anxiety 10/15/21 05/07/22 10/15/21 07:20 History lamotrigine 100 mg tablet 100 mg PO DAILY 10/15/21 05/07/22 10/15/21 07:20 History (Lamictal) mirtazapine 15 mg tablet 15 mg PO BEDTIME 10/15/21 05/07/22 10/14/21 21:30 History quetiapine 50 mg tablet 50 - 100 mg PO BEDTIME PRN Anxiety 10/15/21 05/07/22 10/14/21 20:30 History risperidone 0.5 mg tablet 0.5 mg PO BID 10/15/21 05/07/22 10/15/21 07:20 History (Risperdal) amlodipine 2.5 mg tablet 2.5 mg PO DAILY 05/07/22 05/07/22 Unknown History cholecalciferol (vitamin D3) 25 25 mcg PO DAILY 05/07/22 05/07/22 Unknown History mcg (1,000 unit) capsule clonazepam 0.5 mg disintegrating 0.5 mg PO BEDTIME 05/07/22 05/07/22 Unknown History tablet cyanocobalamin (vitamin B-12) 1,000 mcg PO DAILY 05/07/22 05/07/22 Unknown History 1,000 mcg tablet fluvoxamine 100 mg tablet 100 mg PO BEDTIME 05/07/22 05/07/22 Unknown History olanzapine 15 mg disintegrating 15 mg PO BEDTIME 05/07/22 05/07/22 Unknown History tablet olanzapine 5 mg disintegrating 2.5 mg PO BID PRN Agitation 05/07/22 05/07/22 Unknown History tablet ondansetron HCl 4 mg tablet 4 mg PO NEEDED PRN Nausea 05/07/22 05/07/22 Unknown History Exam Exam Date and Time: June 04, 2022 0642 Height,Weight and Vital Signs: Height 6 ft 5 in Weight 90 kg Last Vital Signs Temp 98.4 F 06/04/22 06:41 Pulse 55 06/04/22 06:41 Resp 18 06/04/22 06:41 BP 129/77 06/04/22 06:41 Pulse Ox 95 06/04/22 06:41 O2 Del Method 06/04/22 06:41 O2 Flow Rate 3 06/02/22 08:28 Pertinent Lab Results Pertinent Lab Results: Laboratory Tests 05/08/22 05/08/22 05/08/22 08:43 08:43 08:43 WBC 3.7 L RBC 4.34 L Hgb 13.6 L Hct 40.0 L MCV 92.2 MCH 31.3 MCHC 34.0 RDW 12.5 Plt Count 150 L MPV 8.7 L Immature Gran % (Auto) 0.3 Neut % (Auto) 60.0 Lymph % (Auto) 27.4 [place] % (Auto) 8.6 Eos % (Auto) 3.2 Baso % (Auto) 0.5 Lymph # (Auto) 1.0 L [place] # (Auto) 0.3 Eos # (Auto) 0.1 Baso # (Auto) 0.0 Abs Immat Gran (auto) 0.01 Absolute Neuts (auto) 2.2 Absolute Nucleated RBC 0.000 Nucleated RBC % (auto) 0.0 Sodium 145 Potassium 3.9 Chloride 107 Carbon Dioxide 31 H Anion Gap 11 L BUN 16 Creatinine 0.83 Estim Creat Clear Calc 94.6 Estimated GFR > 60 Fasting Glucose 128 H Estimat Average Glucose 103 Hemoglobin A1c % 5.2 Calcium 8.8 Total Bilirubin 0.7 AST 15 ALT 13 Alkaline Phosphatase 54 Total Protein 5.3 L Albumin 3.4 L Triglycerides 72 Cholesterol 165 LDL Cholesterol, Calc 101 HDL Cholesterol 50 Vitamin B12 545 Folate 14.9 TSH 1.51 COVID-19 ([facility]) COVID-19 Clin Com 05/11/22 18:25 WBC RBC Hgb Hct MCV MCH MCHC RDW Plt Count MPV Immature Gran % (Auto) Neut % (Auto) Lymph % (Auto) [place] % (Auto) Eos % (Auto) Baso % (Auto) Lymph # (Auto) [place] # (Auto) Eos # (Auto) Baso # (Auto) Abs Immat Gran (auto) Absolute Neuts (auto) Absolute Nucleated RBC Nucleated RBC % (auto) Sodium Potassium Chloride Carbon Dioxide Anion Gap BUN Creatinine Estim Creat Clear Calc Estimated GFR Fasting Glucose Estimat Average Glucose Hemoglobin A1c % Calcium Total Bilirubin AST ALT Alkaline Phosphatase Total Protein Albumin Triglycerides Cholesterol LDL Cholesterol, Calc HDL Cholesterol Vitamin B12 Folate TSH COVID-19 ([facility]) Positive A COVID-19 Clin Com See Note Airway Mallampati Class: II TM Dist: >3cm Neck ROM: Full Heart: rrr Lungs: cta Assessment and Plan Assessment Anesthesia Assessment: Anesthesia Plan Discussed and Chart Reviewed Final Anesthetic Review Family History of Problems with Anesthesia: No History of Problems with Anesthesia: No NPO: Yes ASA Class: III Final Preanesthetic Review: No Changes in Pt Med Stat, Meds/Allgs Chart Reviewed and Consent Obtained/Reviewed Patient Risk: Intermediate Procedure Risk: Intermediate Anesthetic Plan Anesthetic Plan: GA Disposition: Standard PACU
--- NOTE | 2022-06-04 07:45 | MHC.SHP ---
Pre-Procedural Eval Section A Date of Service: 06/04/22 The patient is an INPATIENT: Yes Changes since office visit: No Cold of Flu in the past 2 weeks, No New Medical Problems, No Changes in Medication and No Patient answered all questions The History & Physical has been completed within 30 days and I have reviewed it.: Yes Section B Chief Complaint: depression w/ SI Allergies: Allergies Allergy/AdvReac Type Severity Reaction Status Date / Time Latex, Natural Rubber AdvReac Mild Rash Verified 05/07/22 19:00 Plan I have reviewed the history and physical and performed a pertinent physical examination on my patient. No changes have occurred unless specified. Time Spent With Patient Time: Total time managing care of this patient today ____ minutes.
--- NOTE | 2022-06-04 07:45 | HO.ECTPROC ---
ECT Procedure Note Diagnosis/Treatment Date of Service: 06/04/22 Diagnosis: Major Depressive Disorder Previous ECT Date: 06/02/22 Current Treatment Number: 7 Treatment: Series Interval Clinical Notes: The patient still reports dysphoria, no side effects with ECT Time: Total time managing care of this patient today ___30_ minutes. ECT Settings Device: THYMATRON DGx Electrode Placement: Right Unilateral Program/Pulse Width: 0.50 Energy Percent: 70 Seizure Duration By EEG (in seconds): 78 By Motor Observation (in seconds): 15 Medications Administration General Anesthetic: Etomidate (14) Muscle Relaxant: Succinylcholine (100) Ancillary Medications Analgesics: Torodol - Pre ECT Anti-emetics: Zofran - Pre ECT Cardiovascular Medications: Glycopyrrolate (0.2 PRE-ECT) Miscillaneous Medications: Propofol Airway Management Airway Management: Bag Mask Ventilation Treatment Recommendations No Changes Recommended: No change Pt Tolerated Procedure w/o Issue: Yes
--- NOTE | 2022-06-04 09:19 | PC.NURSE ---
Patient arriveeed back from pacu post ECT. BP slightly elevateed 166/86. Denies pain, nausea.
[2022-06-04] MEDS: Cyanocobalamin (Vitamin B-12) 1,000 MCG TABLET 1000 MCG PO (09:53)
[2022-06-04] MEDS: fluvoxaMINE Maleate 50 MG TABLET 100 MG PO ×2 (09:53→20:43)
[2022-06-04] MEDS: lamoTRIgine 100 MG TABLET PO (09:53)
[2022-06-04] MEDS: Sennosides/Docusate Sodium TABLET 2 TAB PO ×2 (09:54→20:43)
[2022-06-04] MEDS: Cholecalciferol (Vitamin D3) 25 MCG TABLET PO (09:54)
--- NOTE | 2022-06-04 12:07 | HO.PSYCHPN ---
Subjective Subjective Date of Service: 06/04/22 Reason For Visit: depression w/ SI Subjective Notes: Conditional Voluntary Interim History: The nursing staff reported the patient had been compliant with treatment, he complains of depression but he looks more awake alert and oriented. The occupational therapist reported that he participates in groups and his mood looks brighter. The social service manager spoke with her sister who probably will accept him back. Apparently he will need a new therapist. On interview the patient denies new symptoms he had ECT today in the morning with no major side effects. Mental Status Exam Mental Status Exam Patient Appearance: Well Grooomed and Appropriate Patient Orientation: Person and Situation Level of Consciousness: Awake and Appropriate Patient Behavior: Passive Mood Description: Calm and Withdrawn Affect Description: Constricted Patient Cognition Impaired: No Ability to Follow Directions: Good Speech Pattern: Clear Hallucinations: None Delusions: Not Present Thought Process: Linear Thought Content: positive for Circumstantial, positive for Perseveration and positive for Preoccupation Judgement: Fair Diagnostics Vital Signs (24Hr): Vital Signs - 24 hr 06/03/22 18:00 06/04/22 05:22 06/04/22 06:08 Temperature 98.1 F 97.8 F 97.8 F Pulse Rate 64 59 59 Respiratory Rate 18 17 17 Blood Pressure 156/86 H 138/75 138/75 Pulse Oximetry 94 93 93 Oxygen Delivery Method Room Air Room Air Oxygen Flow Rate 06/04/22 06:41 06/04/22 07:49 06/04/22 07:54 Temperature 98.4 F 98.6 F Pulse Rate 55 63 80 Respiratory Rate 18 12 15 Blood Pressure 129/77 167/82 H 159/84 H Pulse Oximetry 95 97 97 Oxygen Delivery Method Room Air Nasal Cannula with ETCO2 Nasal Cannula with ETCO2 Oxygen Flow Rate 2 2 06/04/22 07:59 06/04/22 08:04 06/04/22 08:19 Temperature Pulse Rate 82 73 67 Respiratory Rate 15 16 16 Blood Pressure 161/89 H 166/86 H 158/78 H Pulse Oximetry 97 98 95 Oxygen Delivery Method Nasal Cannula with ETCO2 Nasal Cannula with ETCO2 Room Air Oxygen Flow Rate 2 2 06/04/22 08:34 06/04/22 09:18 06/04/22 09:19 Temperature 98.1 F 97.7 F 97.7 F Pulse Rate 75 60 60 Respiratory Rate 16 18 16 Blood Pressure 168/94 H 166/86 H 166/86 H Pulse Oximetry 96 97 97 Oxygen Delivery Method Room Air Room Air Oxygen Flow Rate BMI result Body Mass Index 23.5 Labs 05/08/22 08:43 05/08/22 08:43 Medications Medications Current Medications Acetaminophen (Acetaminophen 325 Mg Tablet) 650 mg PO Q6H PRN PRN Reason: Headache/Pain Mild Scale (1-3) Last Admin: 05/13/22 20:13 Dose: 650 mg Acetaminophen (Acetaminophen 325 Mg Tablet) 650 mg PO Q6H PRN PRN Reason: Headache/Pain Mild Scale (1-3) Al Hydroxide/Mg Hydroxide (Magnesium Hydrox/Alum Hydrox 30 Ml Oral.Susp) 30 ml PO Q6H PRN PRN Reason: Heartburn/Nausea Al Hydroxide/Mg Hydroxide (Magnesium Hydrox/Alum Hydrox 30 Ml Oral.Susp) 30 ml PO Q6H PRN PRN Reason: Heartburn/Nausea Amlodipine Besylate (Amlodipine Besylate 2.5 Mg Tablet) 2.5 mg PO DAILY@1300 IZA; Protocol Last Admin: 06/03/22 12:45 Dose: 2.5 mg Bisacodyl (Bisacodyl 10 Mg Supp.Rect) 10 mg [place] DAILY PRN PRN Reason: Constipation Cyanocobalamin (Cyanocobalamin (Vitamin B-12) 1,000 Mcg Tablet) 1,000 mcg PO DAILY [facility] Last Admin: 06/04/22 09:53 Dose: 1,000 mcg Fluvoxamine Maleate (Fluvoxamine Maleate 50 Mg Tablet) 100 mg PO DAILY [facility] Last Admin: 06/04/22 09:53 Dose: 100 mg Fluvoxamine Maleate (Fluvoxamine Maleate 50 Mg Tablet) 100 mg PO BEDTIME [facility] Last Admin: 06/03/22 20:38 Dose: 100 mg Hydroxyzine HCl (Hydroxyzine Hcl 25 Mg Tablet) 25 mg PO Q6H PRN PRN Reason: Anxiety Lamotrigine (Lamotrigine 100 Mg Tablet) 100 mg PO DAILY [facility] Last Admin: 06/04/22 09:53 Dose: 100 mg Magnesium Hydroxide (Milk Of Magnesia 30 Ml Oral.Susp) 30 ml PO DAILY PRN PRN Reason: Constipation Last Admin: 05/27/22 13:08 Dose: 30 ml Magnesium Hydroxide (Milk Of Magnesia 30 Ml Oral.Susp) 30 ml PO DAILY PRN PRN Reason: Constipation Mirtazapine (Mirtazapine 15 Mg Tablet) 15 mg PO BEDTIME [facility] Last Admin: 06/03/22 20:38 Dose: 15 mg Olanzapine (Olanzapine 2.5 Mg Tablet) 2.5 mg PO BID PRN PRN Reason: Agitation Olanzapine (Olanzapine 7.5 Mg Tablet) 15 mg PO BEDTIME [facility] Last Admin: 06/03/22 20:39 Dose: 15 mg Ondansetron HCl (Ondansetron Odt 4 Mg Tab.Rapdis) 4 mg TRANSLINGU DAILY PRN PRN Reason: Nausea Polyethylene Glycol (Polyethylene Glycol 3350 17 Gm Powd.Pack) 17 gm PO BID [facility] Last Admin: 06/04/22 09:55 Dose: Not Given Quetiapine Fumarate (Quetiapine Fumarate 100 Mg Tablet) 100 mg PO BEDTIME PRN PRN Reason: Anxiety Senna/Docusate Sodium (Sennosides/Docusate Sodium Tablet) 2 tab PO BID [facility] Last Admin: 06/04/22 09:54 Dose: 2 tab Trazodone HCl (Trazodone Hcl 50 Mg Tablet) 50 mg PO BEDTIME MRX1 PRN PRN Reason: Insomnia Last Admin: 05/16/22 20:07 Dose: 50 mg Vitamin D (Cholecalciferol (Vitamin D3) 25 Mcg Tablet) 25 mcg PO DAILY [facility] Last Admin: 06/04/22 09:54 Dose: 25 mcg Allergies Allergies Allergy/AdvReac Type Severity Reaction Status Date / Time Latex, Natural Rubber AdvReac Mild Rash Verified 05/07/22 19:00 Assessment & Plan Assessment & Plan (1) Major depressive disorder, recurrent severe without psychotic features: Status: Acute Code(s): F33.2 - Major depressive disorder, recurrent severe without psychotic features (2) Generalized anxiety disorder: Status: Acute Code(s): F41.1 - Generalized anxiety disorder Plan The patient is an elderly male with a long history of major depressive disorder with several prior admissions into the hospital for exacerbation of depression and previous treatment with ECT with for improvement.? The patient was initially treated at [facility] and transferring to this facility for ECT.? At this moment, the patient is severely depressed with some neuro cognitive impairment. Plan 1. Gather collateral information.? 2. Hospitalist workout with clearance for ECT.? Ready for ECT as per ThursdayMay 12 3. Continue regular medications.? 4. EKG for ECT treatment.? 5. ECT as soon as he is medically cleared.? Since he had COVID he was started later. 6. ECT continue 3 times per week. 7. Bowel treatment for constipation. 8. Increase Luvox up to 100 mg p.o. b.i.d. started on June 04. Reason for contiued inpatient stay Substantial Risk for: harm to self, inability to function, rapid decompensation and med/psych decompensation Time Spent With Patient Time: Total time managing care of this patient today ____ minutes.
[2022-06-04] MEDS: amLODIPine Besylate 2.5 MG TABLET PO (12:29)
[2022-06-04] MEDS: OLANZapine 7.5 MG TABLET 15 MG PO (20:43)
[2022-06-04] MEDS: Mirtazapine 15 MG TABLET PO (20:43)
[2022-06-04] MEDS: polyethylene glycoL 3350 17 GM POWD.PACK PO (20:44)
[2022-06-05 06:00] VITALS: BP 136/61; PULSE 63; RESP 16; TEMP 36.2; O2SAT 95
[2022-06-05 07:00] VITALS: BMI 23.6
[2022-06-05] MEDS: Cyanocobalamin (Vitamin B-12) 1,000 MCG TABLET 1000 MCG PO (09:10)
[2022-06-05] MEDS: polyethylene glycoL 3350 17 GM POWD.PACK PO (09:10)
[2022-06-05] MEDS: Sennosides/Docusate Sodium TABLET 2 TAB PO ×2 (09:10→20:13)
[2022-06-05] MEDS: Cholecalciferol (Vitamin D3) 25 MCG TABLET PO (09:10)
[2022-06-05] MEDS: lamoTRIgine 100 MG TABLET PO (09:10)
[2022-06-05] MEDS: fluvoxaMINE Maleate 50 MG TABLET 100 MG PO ×2 (09:10→20:13)
[2022-06-05 11:10] VITALS: BMI 24.0
--- NOTE | 2022-06-05 15:17 | P.PNPSI_ITS ---
Subjective Subjective Date of Service: 06/05/22 Reason For Visit: depression w/ SI Subjective Notes: Conditional Voluntary Interim History: The nursing staff reported the patient self-reported anxiety and depression for over 10. He has attended to a few groups in the afternoon but in the morning after ECT he was sedated. The occupational therapist reported the patient has poor self-esteem. On interview the patient reports that he has gained a lot of weight in the last weeks, even though that he denies increased of appetite. Mental Status Exam Mental Status Exam Patient Appearance: Well Grooomed and Appropriate Patient Orientation: Person and Situation Level of Consciousness: Awake and Appropriate Mood Description: Withdrawn Affect Description: Constricted Patient Cognition Impaired: Yes Ability to Follow Directions: Good Speech Pattern: Clear Hallucinations: None Delusions: Not Present Thought Process: Distracted and Slowed Thinking Thought Content: positive for Circumstantial Judgement: Fair Diagnostics Vital Signs (24Hr): Vital Signs - 24 hr 06/04/22 18:00 06/05/22 06:00 Temperature 98.4 F 97.2 F Pulse Rate 68 63 Respiratory Rate 18 16 Blood Pressure 108/55 L 136/61 Pulse Oximetry 94 95 Oxygen Delivery Method Room Air Room Air BMI result Body Mass Index 24.0 Labs 05/08/22 08:43 05/08/22 08:43 Medications Medications Current Medications Acetaminophen (Acetaminophen 325 Mg Tablet) 650 mg PO Q6H PRN PRN Reason: Headache/Pain Mild Scale (1-3) Last Admin: 05/13/22 20:13 Dose: 650 mg Acetaminophen (Acetaminophen 325 Mg Tablet) 650 mg PO Q6H PRN PRN Reason: Headache/Pain Mild Scale (1-3) Al Hydroxide/Mg Hydroxide (Magnesium Hydrox/Alum Hydrox 30 Ml Oral.Susp) 30 ml PO Q6H PRN PRN Reason: Heartburn/Nausea Al Hydroxide/Mg Hydroxide (Magnesium Hydrox/Alum Hydrox 30 Ml Oral.Susp) 30 ml PO Q6H PRN PRN Reason: Heartburn/Nausea Amlodipine Besylate (Amlodipine Besylate 2.5 Mg Tablet) 2.5 mg PO DAILY@1300 IZA; Protocol Last Admin: 06/04/22 12:29 Dose: 2.5 mg Bisacodyl (Bisacodyl 10 Mg Supp.Rect) 10 mg [place] DAILY PRN PRN Reason: Constipation Cyanocobalamin (Cyanocobalamin (Vitamin B-12) 1,000 Mcg Tablet) 1,000 mcg PO DAILY [facility] Last Admin: 06/05/22 09:10 Dose: 1,000 mcg Fluvoxamine Maleate (Fluvoxamine Maleate 50 Mg Tablet) 100 mg PO DAILY [facility] Last Admin: 06/05/22 09:10 Dose: 100 mg Fluvoxamine Maleate (Fluvoxamine Maleate 50 Mg Tablet) 100 mg PO BEDTIME [facility] Last Admin: 06/04/22 20:43 Dose: 100 mg Hydroxyzine HCl (Hydroxyzine Hcl 25 Mg Tablet) 25 mg PO Q6H PRN PRN Reason: Anxiety Lamotrigine (Lamotrigine 100 Mg Tablet) 100 mg PO DAILY [facility] Last Admin: 06/05/22 09:10 Dose: 100 mg Magnesium Hydroxide (Milk Of Magnesia 30 Ml Oral.Susp) 30 ml PO DAILY PRN PRN Reason: Constipation Last Admin: 05/27/22 13:08 Dose: 30 ml Magnesium Hydroxide (Milk Of Magnesia 30 Ml Oral.Susp) 30 ml PO DAILY PRN PRN Reason: Constipation Mirtazapine (Mirtazapine 15 Mg Tablet) 15 mg PO BEDTIME [facility] Last Admin: 06/04/22 20:43 Dose: 15 mg Olanzapine (Olanzapine 2.5 Mg Tablet) 2.5 mg PO BID PRN PRN Reason: Agitation Olanzapine (Olanzapine 7.5 Mg Tablet) 15 mg PO BEDTIME [facility] Last Admin: 06/04/22 20:43 Dose: 15 mg Ondansetron HCl (Ondansetron Odt 4 Mg Tab.Rapdis) 4 mg TRANSLINGU DAILY PRN PRN Reason: Nausea Polyethylene Glycol (Polyethylene Glycol 3350 17 Gm Powd.Pack) 17 gm PO BID [facility] Last Admin: 06/05/22 09:10 Dose: 17 gm Quetiapine Fumarate (Quetiapine Fumarate 100 Mg Tablet) 100 mg PO BEDTIME PRN PRN Reason: Anxiety Senna/Docusate Sodium (Sennosides/Docusate Sodium Tablet) 2 tab PO BID [facility] Last Admin: 06/05/22 09:10 Dose: 2 tab Trazodone HCl (Trazodone Hcl 50 Mg Tablet) 50 mg PO BEDTIME MRX1 PRN PRN Reason: Insomnia Last Admin: 05/16/22 20:07 Dose: 50 mg Vitamin D (Cholecalciferol (Vitamin D3) 25 Mcg Tablet) 25 mcg PO DAILY [facility] Last Admin: 06/05/22 09:10 Dose: 25 mcg Allergies Allergies Allergy/AdvReac Type Severity Reaction Status Date / Time Latex, Natural Rubber AdvReac Mild Rash Verified 05/07/22 19:00 Assessment & Plan Assessment & Plan (1) Major depressive disorder, recurrent severe without psychotic features: Status: Acute Code(s): F33.2 - Major depressive disorder, recurrent severe without psychotic features (2) Generalized anxiety disorder: Status: Acute Code(s): F41.1 - Generalized anxiety disorder Plan The patient is an elderly male with a long history of major depressive disorder with several prior admissions into the hospital for exacerbation of depression and previous treatment with ECT with for improvement.? The patient was initially treated at [facility] and transferring to this facility for ECT.? At this moment, the patient is severely depressed with some neuro cognitive impairment. Plan 1. Gather collateral information.? 2. Hospitalist workout with clearance for ECT.? Ready for ECT as per ThursdayMay 12 3. Continue regular medications.? 4. EKG for ECT treatment.? 5. ECT as soon as he is medically cleared.? Since he had COVID he was started later. 6. ECT continue 3 times per week. 7. Bowel treatment for constipation. 8. Increase Luvox up to 100 mg p.o. b.i.d. started on June 04. Reason for contiued inpatient stay Substantial Risk for: inability to function, rapid decompensation and med/psych decompensation Time Spent With Patient Time: Total time managing care of this patient today _20___ minutes.
[2022-06-05] MEDS: amLODIPine Besylate 2.5 MG TABLET PO (15:43)
[2022-06-05 18:00] VITALS: BP 134/60; PULSE 70; RESP 18; TEMP 36.3; O2SAT 95
[2022-06-05] MEDS: Mirtazapine 15 MG TABLET PO (20:13)
[2022-06-05] MEDS: OLANZapine 7.5 MG TABLET 15 MG PO (20:13)
[2022-06-06] VITALS (8 sets, daily range): BP systolic 126–190; BP diastolic 59–96; PULSE 62–78; RESP 13–18; TEMP 36.1–37.2; O2SAT 96–98
--- NOTE | 2022-06-06 09:01 | MHC.SHP ---
Pre-Procedural Eval Section A Date of Service: 06/06/22 The patient is an INPATIENT: Yes Changes since office visit: Yes Changes in Medication and Yes Patient answered all questions; No Cold of Flu in the past 2 weeks and No New Medical Problems The History & Physical has been completed within 30 days and I have reviewed it.: Yes Section B Chief Complaint: depression w/ SI Allergies: Allergies Allergy/AdvReac Type Severity Reaction Status Date / Time Latex, Natural Rubber AdvReac Mild Rash Verified 06/06/22 07:18 Plan I have reviewed the history and physical and performed a pertinent physical examination on my patient. No changes have occurred unless specified. Time Spent With Patient Time: Total time managing care of this patient today ____ minutes.
--- NOTE | 2022-06-06 09:02 | HO.ECTPROC ---
ECT Procedure Note Diagnosis/Treatment Date of Service: 06/06/22 Diagnosis: Major Depressive Disorder Previous ECT Date: 06/02/22 Current Treatment Number: 8 Treatment: Series Interval Clinical Notes: The patient still reports dysphoria, no side effects with ECT consider Time: Total time managing care of this patient today ____ minutes. ECT Settings Device: THYMATRON DGx Electrode Placement: Right Unilateral Program/Pulse Width: 0.50 Energy Percent: 75 Seizure Duration By EEG (in seconds): 33 Medications Administration General Anesthetic: Etomidate (14) Muscle Relaxant: Succinylcholine (100) Ancillary Medications Analgesics: Torodol - Pre ECT Anti-emetics: Zofran - Pre ECT Cardiovascular Medications: Glycopyrrolate (0.2 PRE-ECT) Miscillaneous Medications: Propofol Airway Management Airway Management: Bag Mask Ventilation Treatment Recommendations No Changes Recommended: No change Energy Percent: 100 Notes: CONSIDER CHANGE TO RTLF INC TO 100 Pt Tolerated Procedure w/o Issue: Yes
--- NOTE | 2022-06-06 09:18 | HO.ANESPROP2 ---
[facility] Active Problems Active Problems: All Active Problems (Updated 05/09/22 @ 15:51 by SYDNI Mao) HTN (hypertension) (Acute) Routine history and physical examination of adult (Acute) Major depressive disorder, recurrent (Acute) Generalized anxiety disorder (Acute) Major depressive disorder, recurrent severe without psychotic features (Acute) Past Medical History Medical History No known health problems Ruptured liver Functional capacity: independent ambulation Family History Family history of problems with anesthesia: No Surgical History Surgical History H/O right knee surgery History of Problems with Anesthesia: No Social History Social History Household Members: None Housing: Apartment Do you presently have visiting nurse or other home services: No Patient Tobacco Use Status: Never used Tobacco Smoked in Last 30 Days: No e-Cigarette/Vaping Use: Never Used Second Hand Smoke Exposure: No Use of substances other than those prescribed or required for medical reasons: No Currently Displaying Signs/Symptoms of Drug Intoxication Withdrawal: No Any prior treatment program specific to substance use: No Have you been hit, kicked, punched, or otherwise hurt by someone within the past year? If so, by whom?: No Do you feel safe in your current relationship?: No Current Relationship Is there a partner from a previous relationship who is making you feel unsafe now?: No Are you made to feel afraid or neglected: No Spiritual Healthcare Practices: n/a Restorationism Healthcare Practices: n/a Cultural Healthcare Practices: n/a Are you DNR?: No Advance Directives: No Advance Directives Information Provided: No Do you have thoughts of harming others: None Do you have a plan to hurt others: No Plan Recently lost weight without trying: Yes How much weight loss: Unsure Eating poorly because of decreased appetite: No Nutrition screen score: 4 Nutrition Risks: No Nutritional Risk Poor oral hygiene: No service: No Sexual orientation: Straight/Heterosexual Meds Allergies Allergy/AdvReac Type Severity Reaction Status Date / Time Latex, Natural Rubber AdvReac Mild Rash Verified 06/06/22 07:18 Active Medications: Current Medications Acetaminophen (Acetaminophen 325 Mg Tablet) 650 mg PO Q6H PRN PRN Reason: Headache/Pain Mild Scale (1-3) Last Admin: 05/13/22 20:13 Dose: 650 mg Acetaminophen (Acetaminophen 325 Mg Tablet) 650 mg PO Q6H PRN PRN Reason: Headache/Pain Mild Scale (1-3) Al Hydroxide/Mg Hydroxide (Magnesium Hydrox/Alum Hydrox 30 Ml Oral.Susp) 30 ml PO Q6H PRN PRN Reason: Heartburn/Nausea Al Hydroxide/Mg Hydroxide (Magnesium Hydrox/Alum Hydrox 30 Ml Oral.Susp) 30 ml PO Q6H PRN PRN Reason: Heartburn/Nausea Amlodipine Besylate (Amlodipine Besylate 2.5 Mg Tablet) 2.5 mg PO DAILY@1300 IZA; Protocol Last Admin: 06/05/22 15:43 Dose: 2.5 mg Bisacodyl (Bisacodyl 10 Mg Supp.Rect) 10 mg [place] DAILY PRN PRN Reason: Constipation Cyanocobalamin (Cyanocobalamin (Vitamin B-12) 1,000 Mcg Tablet) 1,000 mcg PO DAILY [facility] Last Admin: 06/05/22 09:10 Dose: 1,000 mcg Fluvoxamine Maleate (Fluvoxamine Maleate 50 Mg Tablet) 100 mg PO DAILY [facility] Last Admin: 06/05/22 09:10 Dose: 100 mg Fluvoxamine Maleate (Fluvoxamine Maleate 50 Mg Tablet) 100 mg PO BEDTIME [facility] Last Admin: 06/05/22 20:13 Dose: 100 mg Hydroxyzine HCl (Hydroxyzine Hcl 25 Mg Tablet) 25 mg PO Q6H PRN PRN Reason: Anxiety Lactated Ringer's (Lr) 1,000 mls @ 50 mls/hr IVCONT .Q20H [facility] Lamotrigine (Lamotrigine 100 Mg Tablet) 100 mg PO DAILY [facility] Last Admin: 06/05/22 09:10 Dose: 100 mg Magnesium Hydroxide (Milk Of Magnesia 30 Ml Oral.Susp) 30 ml PO DAILY PRN PRN Reason: Constipation Last Admin: 05/27/22 13:08 Dose: 30 ml Magnesium Hydroxide (Milk Of Magnesia 30 Ml Oral.Susp) 30 ml PO DAILY PRN PRN Reason: Constipation Mirtazapine (Mirtazapine 15 Mg Tablet) 15 mg PO BEDTIME [facility] Last Admin: 06/05/22 20:13 Dose: 15 mg Olanzapine (Olanzapine 2.5 Mg Tablet) 2.5 mg PO BID PRN PRN Reason: Agitation Olanzapine (Olanzapine 7.5 Mg Tablet) 15 mg PO BEDTIME [facility] Last Admin: 06/05/22 20:13 Dose: 15 mg Ondansetron HCl (Ondansetron Odt 4 Mg Tab.Rapdis) 4 mg TRANSLINGU DAILY PRN PRN Reason: Nausea Polyethylene Glycol (Polyethylene Glycol 3350 17 Gm Powd.Pack) 17 gm PO BID [facility] Last Admin: 06/05/22 20:15 Dose: Not Given Quetiapine Fumarate (Quetiapine Fumarate 100 Mg Tablet) 100 mg PO BEDTIME PRN PRN Reason: Anxiety Senna/Docusate Sodium (Sennosides/Docusate Sodium Tablet) 2 tab PO BID [facility] Last Admin: 06/05/22 20:13 Dose: 2 tab Trazodone HCl (Trazodone Hcl 50 Mg Tablet) 50 mg PO BEDTIME MRX1 PRN PRN Reason: Insomnia Last Admin: 05/16/22 20:07 Dose: 50 mg Vitamin D (Cholecalciferol (Vitamin D3) 25 Mcg Tablet) 25 mcg PO DAILY [facility] Last Admin: 06/05/22 09:10 Dose: 25 mcg Home Medications Medication Instructions Recorded Confirmed Last Taken Type l theanine 200 mg PO QID PRN Anxiety 10/15/21 05/07/22 10/15/21 07:20 History lamotrigine 100 mg tablet 100 mg PO DAILY 10/15/21 05/07/22 10/15/21 07:20 History (Lamictal) mirtazapine 15 mg tablet 15 mg PO BEDTIME 10/15/21 05/07/22 10/14/21 21:30 History quetiapine 50 mg tablet 50 - 100 mg PO BEDTIME PRN Anxiety 10/15/21 05/07/22 10/14/21 20:30 History risperidone 0.5 mg tablet 0.5 mg PO BID 10/15/21 05/07/22 10/15/21 07:20 History (Risperdal) amlodipine 2.5 mg tablet 2.5 mg PO DAILY 05/07/22 05/07/22 Unknown History cholecalciferol (vitamin D3) 25 25 mcg PO DAILY 05/07/22 05/07/22 Unknown History mcg (1,000 unit) capsule clonazepam 0.5 mg disintegrating 0.5 mg PO BEDTIME 05/07/22 05/07/22 Unknown History tablet cyanocobalamin (vitamin B-12) 1,000 mcg PO DAILY 05/07/22 05/07/22 Unknown History 1,000 mcg tablet fluvoxamine 100 mg tablet 100 mg PO BEDTIME 05/07/22 05/07/22 Unknown History olanzapine 15 mg disintegrating 15 mg PO BEDTIME 05/07/22 05/07/22 Unknown History tablet olanzapine 5 mg disintegrating 2.5 mg PO BID PRN Agitation 05/07/22 05/07/22 Unknown History tablet ondansetron HCl 4 mg tablet 4 mg PO NEEDED PRN Nausea 05/07/22 05/07/22 Unknown History Exam Exam Date and Time: June 06, [id number] Height,Weight and Vital Signs: Height 6 ft 5 in Weight 92.17 kg Last Vital Signs Temp 97.2 F 06/06/22 05:44 Pulse 67 06/06/22 05:44 Resp 16 06/06/22 05:44 BP 169/89 H 06/06/22 05:44 Pulse Ox 96 06/06/22 05:44 O2 Del Method Room Air 06/06/22 05:44 O2 Flow Rate 2 06/04/22 08:04 u Pertinent Lab Results Pertinent Lab Results: Laboratory Tests 05/08/22 05/08/22 05/08/22 08:43 08:43 08:43 WBC 3.7 L RBC 4.34 L Hgb 13.6 L Hct 40.0 L MCV 92.2 MCH 31.3 MCHC 34.0 RDW 12.5 Plt Count 150 L MPV 8.7 L Immature Gran % (Auto) 0.3 Neut % (Auto) 60.0 Lymph % (Auto) 27.4 [place] % (Auto) 8.6 Eos % (Auto) 3.2 Baso % (Auto) 0.5 Lymph # (Auto) 1.0 L [place] # (Auto) 0.3 Eos # (Auto) 0.1 Baso # (Auto) 0.0 Abs Immat Gran (auto) 0.01 Absolute Neuts (auto) 2.2 Absolute Nucleated RBC 0.000 Nucleated RBC % (auto) 0.0 Sodium 145 Potassium 3.9 Chloride 107 Carbon Dioxide 31 H Anion Gap 11 L BUN 16 Creatinine 0.83 Estim Creat Clear Calc 94.6 Estimated GFR > 60 Fasting Glucose 128 H Estimat Average Glucose 103 Hemoglobin A1c % 5.2 Calcium 8.8 Total Bilirubin 0.7 AST 15 ALT 13 Alkaline Phosphatase 54 Total Protein 5.3 L Albumin 3.4 L Triglycerides 72 Cholesterol 165 LDL Cholesterol, Calc 101 HDL Cholesterol 50 Vitamin B12 545 Folate 14.9 TSH 1.51 COVID-19 ([facility]) COVID-19 Clin Com 05/11/22 18:25 WBC RBC Hgb Hct MCV MCH MCHC RDW Plt Count MPV Immature Gran % (Auto) Neut % (Auto) Lymph % (Auto) [place]pton % (Auto) Eos % (Auto) Baso % (Auto) Lymph # (Auto) [place] # (Auto) Eos # (Auto) Baso # (Auto) Abs Immat Gran (auto) Absolute Neuts (auto) Absolute Nucleated RBC Nucleated RBC % (auto) Sodium Potassium Chloride Carbon Dioxide Anion Gap BUN Creatinine Estim Creat Clear Calc Estimated GFR Fasting Glucose Estimat Average Glucose Hemoglobin A1c % Calcium Total Bilirubin AST ALT Alkaline Phosphatase Total Protein Albumin Triglycerides Cholesterol LDL Cholesterol, Calc HDL Cholesterol Vitamin B12 Folate TSH COVID-19 ([facility]) Positive A COVID-19 Clin Com See Note Airway Mallampati Class: II TM Dist: >3cm Neck ROM: Full Heart: rrr Lungs: cta Assessment and Plan Assessment Anesthesia Assessment: Anesthesia Plan Discussed and Chart Reviewed Final Anesthetic Review Family History of Problems with Anesthesia: No History of Problems with Anesthesia: No NPO: Yes ASA Class: III Final Preanesthetic Review: No Changes in Pt Med Stat, Meds/Allgs Chart Reviewed and Consent Obtained/Reviewed Patient Risk: Intermediate Procedure Risk: Intermediate Anesthetic Plan Anesthetic Plan: GA Disposition: Standard PACU
[2022-06-06] MEDS: fluvoxaMINE Maleate 50 MG TABLET 100 MG PO ×2 (10:24→20:08)
[2022-06-06] MEDS: Cyanocobalamin (Vitamin B-12) 1,000 MCG TABLET 1000 MCG PO (10:24)
[2022-06-06] MEDS: Sennosides/Docusate Sodium TABLET 2 TAB PO ×2 (10:24→20:08)
[2022-06-06] MEDS: Cholecalciferol (Vitamin D3) 25 MCG TABLET PO (10:24)
[2022-06-06] MEDS: lamoTRIgine 100 MG TABLET PO (10:27)
[2022-06-06 13:11] LABS: Alanine Aminotransferase 36 U/L (0-40); Albumin Level 3.6 g/dL (3.5-5.0); Alkaline Phosphatase 75 U/L (39-117); Anion Gap 11 (12-20); Aspartate Amino Transferase 27 U/L (5-37); Bilirubin Direct 0.2 mg/dL (0.0-0.5); Bilirubin Total 0.7 mg/dL (0.0-1.0); Blood Urea Nitrogen 21 mg/dL (9-16); Calcium 8.4 mg/dL (8.4-10.2); Carbon Dioxide 28 mmol/L (22-29); Chloride 106 mmol/L (96-108); Cholesterol 201 mg/dL; Creatinine Clr Calc Pharmacy 100.8; Estimated Glomerular Filt Rate > 60; Glucose Random 122 mg/dL (60-115); HDL Cholesterol 62 mg/dL; LDL Cholesterol Calculated 130 mg/dl; Potassium 4.2 mmol/L (3.3-5.1); Sodium 141 mmol/L (135-145); Total Protein 5.9 g/dL (6.5-8.0); Triglycerides 46 mg/dL
[2022-06-06 13:25] LABS: Thyroid Stimulating Hormone 1.04 uIU/mL (0.32-4.0)
[2022-06-06 15:24] LABS: Estimated Average Glucose 103 mg/dL; Hemoglobin A1c % 5.2 %
[2022-06-06] MEDS: polyethylene glycoL 3350 17 GM POWD.PACK PO (20:08)
[2022-06-06] MEDS: OLANZapine 7.5 MG TABLET 15 MG PO (20:09)
[2022-06-06] MEDS: Mirtazapine 15 MG TABLET PO (20:09)
--- NOTE | 2022-06-07 00:16 | HO.PSYCHPN ---
Subjective Subjective Date of Service: 06/06/22 Reason For Visit: depression w/ SI Subjective Notes: Conditional Voluntary Interim History: The patient remains depressed and anxious he is more active in the milieu less withdrawn mild short-term memory difficulties noted See ECT note for full information Medication Compliance: Yes Review of Systems Acute medical concerns: No Mental Status Exam Mental Status Exam Patient Appearance: Well Grooomed and Appropriate Patient Orientation: Person and Situation Level of Consciousness: Awake and Appropriate Patient Behavior: Cooperative and Distractible Mood Description: Withdrawn Affect Description: Constricted Patient Cognition Impaired: Yes Ability to Follow Directions: Good Speech Pattern: Clear Hallucinations: None Delusions: Not Present Thought Process: Distracted and Slowed Thinking Thought Content: positive for Circumstantial Depressive Symptoms: Increased Anxiety, Diff. Making Decisions and Feelings of Worthlessness Judgement: Fair Diagnostics Vital Signs (24Hr): Vital Signs - 24 hr 06/06/22 05:44 06/06/22 09:30 06/06/22 09:35 Temperature 97.2 F 98.9 F Pulse Rate 67 73 78 Respiratory Rate 16 13 14 Blood Pressure 169/89 H 181/84 H 175/91 H Pulse Oximetry 96 97 96 Oxygen Delivery Method Room Air Nasal Cannula with ETCO2 Nasal Cannula with ETCO2 Oxygen Flow Rate 2 2 06/06/22 09:40 06/06/22 09:45 06/06/22 10:02 Temperature 97.1 F Pulse Rate 73 73 69 Respiratory Rate 16 16 18 Blood Pressure 190/93 H 179/96 H 171/88 H Pulse Oximetry 96 97 98 Oxygen Delivery Method Nasal Cannula with ETCO2 Nasal Cannula with ETCO2 Room Air Oxygen Flow Rate 2 2 06/06/22 07:30 06/06/22 18:00 Temperature 97.0 F 98.2 F Pulse Rate 62 62 Respiratory Rate 15 18 Blood Pressure 167/81 H 126/59 L Pulse Oximetry 96 98 Oxygen Delivery Method Room Air Room Air Oxygen Flow Rate BMI result Body Mass Index 24.0 Labs 05/08/22 08:43 06/06/22 12:38 Labs: Laboratory Results - last 48 hr 06/06/22 06/06/22 12:38 12:38 Sodium 141 Potassium 4.2 Chloride 106 Carbon Dioxide 28 Anion Gap 11 L BUN 21 H Creatinine 0.81 Estim Creat Clear Calc 100.8 Estimated GFR > 60 Random Glucose 122 H Estimat Average Glucose 103 Hemoglobin A1c % 5.2 Calcium 8.4 Total Bilirubin 0.7 Direct Bilirubin 0.2 AST 27 ALT 36 Alkaline Phosphatase 75 Total Protein 5.9 L Albumin 3.6 Triglycerides 46 Cholesterol 201 LDL Cholesterol, Calc 130 HDL Cholesterol 62 TSH 1.04 Medications Medications Current Medications Acetaminophen (Acetaminophen 325 Mg Tablet) 650 mg PO Q6H PRN PRN Reason: Headache/Pain Mild Scale (1-3) Last Admin: 05/13/22 20:13 Dose: 650 mg Acetaminophen (Acetaminophen 325 Mg Tablet) 650 mg PO Q6H PRN PRN Reason: Headache/Pain Mild Scale (1-3) Al Hydroxide/Mg Hydroxide (Magnesium Hydrox/Alum Hydrox 30 Ml Oral.Susp) 30 ml PO Q6H PRN PRN Reason: Heartburn/Nausea Al Hydroxide/Mg Hydroxide (Magnesium Hydrox/Alum Hydrox 30 Ml Oral.Susp) 30 ml PO Q6H PRN PRN Reason: Heartburn/Nausea Amlodipine Besylate (Amlodipine Besylate 2.5 Mg Tablet) 2.5 mg PO DAILY@1300 IZA; Protocol Last Admin: 06/06/22 13:54 Dose: Not Given Bisacodyl (Bisacodyl 10 Mg Supp.Rect) 10 mg [place] DAILY PRN PRN Reason: Constipation Cyanocobalamin (Cyanocobalamin (Vitamin B-12) 1,000 Mcg Tablet) 1,000 mcg PO DAILY [facility] Last Admin: 06/06/22 10:24 Dose: 1,000 mcg Fluvoxamine Maleate (Fluvoxamine Maleate 50 Mg Tablet) 100 mg PO DAILY [facility] Last Admin: 06/06/22 10:24 Dose: 100 mg Fluvoxamine Maleate (Fluvoxamine Maleate 50 Mg Tablet) 100 mg PO BEDTIME [facility] Last Admin: 06/06/22 20:08 Dose: 100 mg Hydroxyzine HCl (Hydroxyzine Hcl 25 Mg Tablet) 25 mg PO Q6H PRN PRN Reason: Anxiety Lamotrigine (Lamotrigine 100 Mg Tablet) 100 mg PO DAILY [facility] Last Admin: 06/06/22 10:27 Dose: 100 mg Magnesium Hydroxide (Milk Of Magnesia 30 Ml Oral.Susp) 30 ml PO DAILY PRN PRN Reason: Constipation Last Admin: 05/27/22 13:08 Dose: 30 ml Magnesium Hydroxide (Milk Of Magnesia 30 Ml Oral.Susp) 30 ml PO DAILY PRN PRN Reason: Constipation Mirtazapine (Mirtazapine 15 Mg Tablet) 15 mg PO BEDTIME [facility] Last Admin: 06/06/22 20:09 Dose: 15 mg Olanzapine (Olanzapine 2.5 Mg Tablet) 2.5 mg PO BID PRN PRN Reason: Agitation Olanzapine (Olanzapine 7.5 Mg Tablet) 15 mg PO BEDTIME [facility] Last Admin: 06/06/22 20:09 Dose: 15 mg Ondansetron HCl (Ondansetron Odt 4 Mg Tab.Rapdis) 4 mg TRANSLINGU DAILY PRN PRN Reason: Nausea Polyethylene Glycol (Polyethylene Glycol 3350 17 Gm Powd.Pack) 17 gm PO BID [facility] Last Admin: 06/06/22 20:08 Dose: 17 gm Quetiapine Fumarate (Quetiapine Fumarate 100 Mg Tablet) 100 mg PO BEDTIME PRN PRN Reason: Anxiety Senna/Docusate Sodium (Sennosides/Docusate Sodium Tablet) 2 tab PO BID [facility] Last Admin: 06/06/22 20:08 Dose: 2 tab Trazodone HCl (Trazodone Hcl 50 Mg Tablet) 50 mg PO BEDTIME MRX1 PRN PRN Reason: Insomnia Last Admin: 05/16/22 20:07 Dose: 50 mg Vitamin D (Cholecalciferol (Vitamin D3) 25 Mcg Tablet) 25 mcg PO DAILY [facility] Last Admin: 06/06/22 10:24 Dose: 25 mcg Allergies Allergies Allergy/AdvReac Type Severity Reaction Status Date / Time Latex, Natural Rubber AdvReac Mild Rash Verified 06/06/22 07:18 Assessment & Plan Assessment & Plan (1) Major depressive disorder, recurrent severe without psychotic features: Status: Acute Code(s): F33.2 - Major depressive disorder, recurrent severe without psychotic features (2) Generalized anxiety disorder: Status: Acute Code(s): F41.1 - Generalized anxiety disorder Plan The patient is an elderly male with a long history of major depressive disorder with several prior admissions into the hospital for exacerbation of depression and previous treatment with ECT with for improvement.? The patient was initially treated at [facility] and transferring to this facility for ECT.? At this moment, the patient is severely depressed with some neuro cognitive impairment. Plan 1. Gather collateral information.? 2. Hospitalist workout with clearance for ECT.? Ready for ECT as per ThursdayMay 12 3. Continue regular medications.? 4. EKG for ECT treatment.? 5. ECT as soon as he is medically cleared.? Since he had COVID he was started later. 6. ECT continue 3 times per week. 7. Bowel treatment for constipation. 8. Increase Luvox up to 100 mg p.o. b.i.d. started on June 04. 06/06/22 Continue ECT consider change to bilateral treatment patient did require bilateral treatment in the past Patient educated on: diagnosis and ECT Informed Consent: understands Reason for contiued inpatient stay Substantial Risk for: inability to function and rapid decompensation Time Spent With Patient Time: Total time managing care of this patient today ____ minutes.
[2022-06-07 07:30] VITALS: BP 165/77; PULSE 62; RESP 16; TEMP 36.4; O2SAT 94
[2022-06-07] MEDS: polyethylene glycoL 3350 17 GM POWD.PACK PO ×2 (08:43→20:04)
[2022-06-07] MEDS: Cholecalciferol (Vitamin D3) 25 MCG TABLET PO (08:43)
[2022-06-07] MEDS: lamoTRIgine 100 MG TABLET PO (08:43)
[2022-06-07] MEDS: fluvoxaMINE Maleate 50 MG TABLET 100 MG PO ×2 (08:43→20:04)
[2022-06-07] MEDS: Cyanocobalamin (Vitamin B-12) 1,000 MCG TABLET 1000 MCG PO (08:43)
[2022-06-07] MEDS: Sennosides/Docusate Sodium TABLET 2 TAB PO ×2 (08:43→20:04)
[2022-06-07] MEDS: amLODIPine Besylate 2.5 MG TABLET PO (14:53)
[2022-06-07 18:00] VITALS: BP 125/63; PULSE 61; RESP 17; TEMP 36.3; O2SAT 97
--- NOTE | 2022-06-07 18:58 | P.PNPSI_ITS ---
Subjective Subjective Date of Service: 06/07/22 Reason For Visit: depression w/ SI Interim History: Patient known to this examiner from prior coverage at [facility]. Patient is tolerating ECT. He is still depressed. He is seen in the milieu. He is steady. Appears slightly less preoccupied and perseverative and mildly less ruminative and less hopeless. Denies SI. Review of Systems Review of Systems Negative except that which is stated in the HPI. Yes all other systems are reviewed and are negative Mental Status Exam Mental Status Exam Narrative: Appearance: wearing hospital gown, fair hygiene in NAD behavior: cooperative Speech: clear, normal rate/rhythm/volume, spontaneous TP: linear TC:feeling better, still depressed ruminating and obsessional Mood: Improved Affect: congruent, does brightens at times SI: somewhat vague regarding recent thoughts becomes defensive HI: none VH/AH: none Delusions: no overt delusional content reported or noted. Insight/judgment: fair x 2 tendency toward catastrophic thinking interferes with judgment Memory/cog: alert, oriented x 3. Patient Appearance: Well Grooomed and Appropriate Patient Orientation: Person and Situation Level of Consciousness: Awake and Appropriate Patient Behavior: Cooperative and Distractible Mood Description: Withdrawn Affect Description: Constricted Patient Cognition Impaired: Yes Ability to Follow Directions: Good Speech Pattern: Clear Diagnostics Vital Signs (24Hr): Vital Signs - 24 hr 06/07/22 07:30 Temperature 97.5 F Pulse Rate 62 Respiratory Rate 16 Blood Pressure 165/77 H Pulse Oximetry 94 Oxygen Delivery Method Room Air BMI result Body Mass Index 24.0 Labs 05/08/22 08:43 06/06/22 12:38 Labs: Laboratory Results - last 48 hr 06/06/22 06/06/22 12:38 12:38 Sodium 141 Potassium 4.2 Chloride 106 Carbon Dioxide 28 Anion Gap 11 L BUN 21 H Creatinine 0.81 Estim Creat Clear Calc 100.8 Estimated GFR > 60 Random Glucose 122 H Estimat Average Glucose 103 Hemoglobin A1c % 5.2 Calcium 8.4 Total Bilirubin 0.7 Direct Bilirubin 0.2 AST 27 ALT 36 Alkaline Phosphatase 75 Total Protein 5.9 L Albumin 3.6 Triglycerides 46 Cholesterol 201 LDL Cholesterol, Calc 130 HDL Cholesterol 62 TSH 1.04 Medications Medications Current Medications Acetaminophen (Acetaminophen 325 Mg Tablet) 650 mg PO Q6H PRN PRN Reason: Headache/Pain Mild Scale (1-3) Last Admin: 05/13/22 20:13 Dose: 650 mg Acetaminophen (Acetaminophen 325 Mg Tablet) 650 mg PO Q6H PRN PRN Reason: Headache/Pain Mild Scale (1-3) Al Hydroxide/Mg Hydroxide (Magnesium Hydrox/Alum Hydrox 30 Ml Oral.Susp) 30 ml PO Q6H PRN PRN Reason: Heartburn/Nausea Al Hydroxide/Mg Hydroxide (Magnesium Hydrox/Alum Hydrox 30 Ml Oral.Susp) 30 ml PO Q6H PRN PRN Reason: Heartburn/Nausea Amlodipine Besylate (Amlodipine Besylate 2.5 Mg Tablet) 2.5 mg PO DAILY@1300 IZA; Protocol Last Admin: 06/07/22 14:53 Dose: 2.5 mg Bisacodyl (Bisacodyl 10 Mg Supp.Rect) 10 mg [place] DAILY PRN PRN Reason: Constipation Cyanocobalamin (Cyanocobalamin (Vitamin B-12) 1,000 Mcg Tablet) 1,000 mcg PO DAILY [facility] Last Admin: 06/07/22 08:43 Dose: 1,000 mcg Fluvoxamine Maleate (Fluvoxamine Maleate 50 Mg Tablet) 100 mg PO DAILY [facility] Last Admin: 06/07/22 08:43 Dose: 100 mg Fluvoxamine Maleate (Fluvoxamine Maleate 50 Mg Tablet) 100 mg PO BEDTIME [facility] Last Admin: 06/06/22 20:08 Dose: 100 mg Hydroxyzine HCl (Hydroxyzine Hcl 25 Mg Tablet) 25 mg PO Q6H PRN PRN Reason: Anxiety Lamotrigine (Lamotrigine 100 Mg Tablet) 100 mg PO DAILY [facility] Last Admin: 06/07/22 08:43 Dose: 100 mg Magnesium Hydroxide (Milk Of Magnesia 30 Ml Oral.Susp) 30 ml PO DAILY PRN PRN Reason: Constipation Last Admin: 05/27/22 13:08 Dose: 30 ml Magnesium Hydroxide (Milk Of Magnesia 30 Ml Oral.Susp) 30 ml PO DAILY PRN PRN Reason: Constipation Mirtazapine (Mirtazapine 15 Mg Tablet) 15 mg PO BEDTIME [facility] Last Admin: 06/06/22 20:09 Dose: 15 mg Olanzapine (Olanzapine 2.5 Mg Tablet) 2.5 mg PO BID PRN PRN Reason: Agitation Olanzapine (Olanzapine 7.5 Mg Tablet) 15 mg PO BEDTIME [facility] Last Admin: 06/06/22 20:09 Dose: 15 mg Ondansetron HCl (Ondansetron Odt 4 Mg Tab.Rapdis) 4 mg TRANSLINGU DAILY PRN PRN Reason: Nausea Polyethylene Glycol (Polyethylene Glycol 3350 17 Gm Powd.Pack) 17 gm PO BID [facility] Last Admin: 06/07/22 08:43 Dose: 17 gm Quetiapine Fumarate (Quetiapine Fumarate 100 Mg Tablet) 100 mg PO BEDTIME PRN PRN Reason: Anxiety Senna/Docusate Sodium (Sennosides/Docusate Sodium Tablet) 2 tab PO BID [facility] Last Admin: 06/07/22 08:43 Dose: 2 tab Trazodone HCl (Trazodone Hcl 50 Mg Tablet) 50 mg PO BEDTIME MRX1 PRN PRN Reason: Insomnia Last Admin: 05/16/22 20:07 Dose: 50 mg Vitamin D (Cholecalciferol (Vitamin D3) 25 Mcg Tablet) 25 mcg PO DAILY [facility] Last Admin: 06/07/22 08:43 Dose: 25 mcg Allergies Allergies Allergy/AdvReac Type Severity Reaction Status Date / Time Latex, Natural Rubber AdvReac Mild Rash Verified 06/06/22 07:18 Assessment & Plan Assessment & Plan (1) Major depressive disorder, recurrent severe without psychotic features: Status: Acute Code(s): F33.2 - Major depressive disorder, recurrent severe without psychotic features (2) Generalized anxiety disorder: Status: Acute Code(s): F41.1 - Generalized anxiety disorder Plan The patient is an elderly male with a long history of major depressive disorder with several prior admissions into the hospital for exacerbation of depression and previous treatment with ECT with for improvement.? The patient was initially treated at [facility] and transferring to this facility for ECT.? At this moment, the patient is severely depressed with some neuro cognitive impairment. Plan 1. Gather collateral information.? 2. Hospitalist workout with clearance for ECT.? Ready for ECT as per ThursdayMay 12 3. Continue regular medications.? 4. EKG for ECT treatment.? 5. ECT as soon as he is medically cleared.? Since he had COVID he was started later. 6. ECT continue 3 times per week. 7. Bowel treatment for constipation. 8. Increase Luvox up to 100 mg p.o. b.i.d. started on June 04. 06/06/22 Continue ECT consider change to bilateral treatment patient did require bilateral treatment in the past 9. Continue tx plan. Reason for contiued inpatient stay Substantial Risk for: inability to function and rapid decompensation Time Spent With Patient Time: Total time managing care of this patient today ____ minutes.
[2022-06-07] MEDS: OLANZapine 7.5 MG TABLET 15 MG PO (20:04)
[2022-06-07] MEDS: Mirtazapine 15 MG TABLET PO (20:04)
[2022-06-08 07:30] VITALS: BP 154/86; PULSE 84; RESP 16; TEMP 36.7; O2SAT 95
[2022-06-08] MEDS: polyethylene glycoL 3350 17 GM POWD.PACK PO ×2 (08:11→20:23)
[2022-06-08] MEDS: fluvoxaMINE Maleate 50 MG TABLET 100 MG PO ×2 (08:12→20:23)
[2022-06-08] MEDS: Cholecalciferol (Vitamin D3) 25 MCG TABLET PO (08:12)
[2022-06-08] MEDS: Sennosides/Docusate Sodium TABLET 2 TAB PO ×2 (08:12→20:23)
[2022-06-08] MEDS: Cyanocobalamin (Vitamin B-12) 1,000 MCG TABLET 1000 MCG PO (08:12)
[2022-06-08] MEDS: lamoTRIgine 100 MG TABLET PO (08:12)
[2022-06-08] MEDS: amLODIPine Besylate 2.5 MG TABLET PO (14:15)
[2022-06-08 18:00] VITALS: BP 150/67; PULSE 62; RESP 16; TEMP 36.4; O2SAT 97
--- NOTE | 2022-06-08 18:33 | HO.PSYCHPN ---
Subjective Subjective Date of Service: 06/08/22 Reason For Visit: depression w/ SI Interim History: Patient known to this examiner from prior coverage at [facility]. Patient is tolerating ECT. He is still depressed. Anxious about his living situation after the hospital. It's not a dramatic improvement. Says he has a lot he has to tackle when he is DC. He had a bowel movement and says My bowel issues seem to have resolved. He is seen in the milieu. He is steady. Appears slightly less preoccupied and perseverative, less ruminative and less hopeless. Denies SI. Review of Systems Review of Systems Negative except that which is stated in the HPI. Yes all other systems are reviewed and are negative Mental Status Exam Mental Status Exam Narrative: Appearance: wearing hospital gown, fair hygiene in NAD behavior: cooperative Speech: clear, normal rate/rhythm/volume, spontaneous TP: linear TC:feeling better, still depressed ruminating and obsessional Mood: Improved Affect: congruent, does brightens at times SI: somewhat vague regarding recent thoughts becomes defensive HI: none VH/AH: none Delusions: no overt delusional content reported or noted. Insight/judgment: fair x 2 tendency toward catastrophic thinking interferes with judgment Memory/cog: alert, oriented x 3. Patient Appearance: Well Grooomed and Appropriate Patient Orientation: Person and Situation Level of Consciousness: Awake and Appropriate Patient Behavior: Cooperative and Distractible Mood Description: Withdrawn Affect Description: Constricted Patient Cognition Impaired: Yes Ability to Follow Directions: Good Speech Pattern: Clear Diagnostics Vital Signs (24Hr): Vital Signs - 24 hr 06/08/22 07:30 Temperature 98.1 F Pulse Rate 84 Respiratory Rate 16 Blood Pressure 154/86 H Pulse Oximetry 95 Oxygen Delivery Method Room Air BMI result Body Mass Index 24.0 Labs 05/08/22 08:43 06/06/22 12:38 Medications Medications Current Medications Acetaminophen (Acetaminophen 325 Mg Tablet) 650 mg PO Q6H PRN PRN Reason: Headache/Pain Mild Scale (1-3) Last Admin: 05/13/22 20:13 Dose: 650 mg Acetaminophen (Acetaminophen 325 Mg Tablet) 650 mg PO Q6H PRN PRN Reason: Headache/Pain Mild Scale (1-3) Al Hydroxide/Mg Hydroxide (Magnesium Hydrox/Alum Hydrox 30 Ml Oral.Susp) 30 ml PO Q6H PRN PRN Reason: Heartburn/Nausea Al Hydroxide/Mg Hydroxide (Magnesium Hydrox/Alum Hydrox 30 Ml Oral.Susp) 30 ml PO Q6H PRN PRN Reason: Heartburn/Nausea Amlodipine Besylate (Amlodipine Besylate 2.5 Mg Tablet) 2.5 mg PO DAILY@1300 IZA; Protocol Last Admin: 06/08/22 14:15 Dose: 2.5 mg Bisacodyl (Bisacodyl 10 Mg Supp.Rect) 10 mg [place] DAILY PRN PRN Reason: Constipation Cyanocobalamin (Cyanocobalamin (Vitamin B-12) 1,000 Mcg Tablet) 1,000 mcg PO DAILY [facility] Last Admin: 06/08/22 08:12 Dose: 1,000 mcg Fluvoxamine Maleate (Fluvoxamine Maleate 50 Mg Tablet) 100 mg PO DAILY [facility] Last Admin: 06/08/22 08:12 Dose: 100 mg Fluvoxamine Maleate (Fluvoxamine Maleate 50 Mg Tablet) 100 mg PO BEDTIME [facility] Last Admin: 06/07/22 20:04 Dose: 100 mg Hydroxyzine HCl (Hydroxyzine Hcl 25 Mg Tablet) 25 mg PO Q6H PRN PRN Reason: Anxiety Lamotrigine (Lamotrigine 100 Mg Tablet) 100 mg PO DAILY [facility] Last Admin: 06/08/22 08:12 Dose: 100 mg Magnesium Hydroxide (Milk Of Magnesia 30 Ml Oral.Susp) 30 ml PO DAILY PRN PRN Reason: Constipation Last Admin: 05/27/22 13:08 Dose: 30 ml Magnesium Hydroxide (Milk Of Magnesia 30 Ml Oral.Susp) 30 ml PO DAILY PRN PRN Reason: Constipation Mirtazapine (Mirtazapine 15 Mg Tablet) 15 mg PO BEDTIME [facility] Last Admin: 06/07/22 20:04 Dose: 15 mg Olanzapine (Olanzapine 2.5 Mg Tablet) 2.5 mg PO BID PRN PRN Reason: Agitation Olanzapine (Olanzapine 7.5 Mg Tablet) 15 mg PO BEDTIME [facility] Last Admin: 06/07/22 20:04 Dose: 15 mg Ondansetron HCl (Ondansetron Odt 4 Mg Tab.Rapdis) 4 mg TRANSLINGU DAILY PRN PRN Reason: Nausea Polyethylene Glycol (Polyethylene Glycol 3350 17 Gm Powd.Pack) 17 gm PO BID [facility] Last Admin: 06/08/22 08:11 Dose: 17 gm Quetiapine Fumarate (Quetiapine Fumarate 100 Mg Tablet) 100 mg PO BEDTIME PRN PRN Reason: Anxiety Senna/Docusate Sodium (Sennosides/Docusate Sodium Tablet) 2 tab PO BID [facility] Last Admin: 06/08/22 08:12 Dose: 2 tab Trazodone HCl (Trazodone Hcl 50 Mg Tablet) 50 mg PO BEDTIME MRX1 PRN PRN Reason: Insomnia Last Admin: 05/16/22 20:07 Dose: 50 mg Vitamin D (Cholecalciferol (Vitamin D3) 25 Mcg Tablet) 25 mcg PO DAILY [facility] Last Admin: 06/08/22 08:12 Dose: 25 mcg Allergies Allergies Allergy/AdvReac Type Severity Reaction Status Date / Time Latex, Natural Rubber AdvReac Mild Rash Verified 06/06/22 07:18 Assessment & Plan Assessment & Plan (1) Major depressive disorder, recurrent severe without psychotic features: Status: Acute Code(s): F33.2 - Major depressive disorder, recurrent severe without psychotic features (2) Generalized anxiety disorder: Status: Acute Code(s): F41.1 - Generalized anxiety disorder Plan The patient is an elderly male with a long history of major depressive disorder with several prior admissions into the hospital for exacerbation of depression and previous treatment with ECT with for improvement.? The patient was initially treated at [facility] and transferring to this facility for ECT.? At this moment, the patient is severely depressed with some neuro cognitive impairment. Plan 1. Gather collateral information.? 2. Hospitalist workout with clearance for ECT.? Ready for ECT as per ThursdayMay 12 3. Continue regular medications.? 4. EKG for ECT treatment.? 5. ECT as soon as he is medically cleared.? Since he had COVID he was started later. 6. ECT continue 3 times per week. 7. Bowel treatment for constipation. 8. Increase Luvox up to 100 mg p.o. b.i.d. started on June 04. 06/06/22 Continue ECT consider change to bilateral treatment patient did require bilateral treatment in the past 9. Continue tx plan. 06/08: Continue tx plan. Primary team to decide BL vs continue RUL ECT. Reason for contiued inpatient stay Substantial Risk for: inability to function and rapid decompensation Time Spent With Patient Time: Total time managing care of this patient today ____ minutes.
[2022-06-08] MEDS: OLANZapine 7.5 MG TABLET 15 MG PO (20:23)
[2022-06-08] MEDS: Mirtazapine 15 MG TABLET PO (20:25)
[2022-06-09] VITALS (8 sets, daily range): BP systolic 136–183; BP diastolic 65–99; PULSE 57–76; RESP 12–20; TEMP 36.4–37.4; O2SAT 93–98
--- NOTE | 2022-06-09 07:20 | MHC.SHP ---
Pre-Procedural Eval Section A Date of Service: 06/09/22 The patient is an INPATIENT: Yes Changes since office visit: No Cold of Flu in the past 2 weeks, No New Medical Problems, No Changes in Medication and No Patient answered all questions The History & Physical has been completed within 30 days and I have reviewed it.: Yes Section B Chief Complaint: depression w/ SI Allergies: Allergies Allergy/AdvReac Type Severity Reaction Status Date / Time Latex, Natural Rubber AdvReac Mild Rash Verified 06/06/22 07:18 Plan I have reviewed the history and physical and performed a pertinent physical examination on my patient. No changes have occurred unless specified. Time Spent With Patient Time: Total time managing care of this patient today ____ minutes.
--- NOTE | 2022-06-09 07:21 | HO.ECTPROC ---
ECT Procedure Note Diagnosis/Treatment Date of Service: 06/09/22 Diagnosis: Major Depressive Disorder Previous ECT Date: 06/06/22 Treatment: Series Interval Clinical Notes: The patient reported no change on dysphoria but the staff has noticed more awake and alert. Time: Total time managing care of this patient today __30__ minutes. ECT Settings Device: THYMATRON DGx Electrode Placement: Rt temporal/ Lt frontal Program/Pulse Width: 0.50 Energy Percent: 100 Seizure Duration By EEG (in seconds): 0 (EEG did not record seizure but there was seizure activity until 55s) By Motor Observation (in seconds): 41 Medications Administration General Anesthetic: Etomidate (14) Muscle Relaxant: Succinylcholine (100) Ancillary Medications Analgesics: Torodol - Pre ECT Anti-emetics: Zofran - Pre ECT Cardiovascular Medications: Glycopyrrolate Miscillaneous Medications: Propofol Treatment Recommendations No Changes Recommended: No change Notes: Changed to right temporal, left frontal 100% Pt Tolerated Procedure w/o Issue: Yes
[2022-06-09] MEDS: lamoTRIgine 100 MG TABLET PO (09:04)
[2022-06-09] MEDS: Cyanocobalamin (Vitamin B-12) 1,000 MCG TABLET 1000 MCG PO (09:04)
[2022-06-09] MEDS: fluvoxaMINE Maleate 50 MG TABLET 100 MG PO ×2 (09:04→20:55)
[2022-06-09] MEDS: Cholecalciferol (Vitamin D3) 25 MCG TABLET PO (09:04)
[2022-06-09] MEDS: Sennosides/Docusate Sodium TABLET 2 TAB PO ×2 (09:04→20:55)
[2022-06-09] MEDS: amLODIPine Besylate 2.5 MG TABLET PO (12:44)
--- NOTE | 2022-06-09 13:43 | HO.PSYCHPN ---
Subjective Subjective Date of Service: 06/09/22 Reason For Visit: depression w/ SI Subjective Notes: Conditional Voluntary Interim History: The nursing staff reported the patient has been social and appropriate, with a brighter affect. He reports anxiety and passive suicidal ideation in the evening mostly. He was feeling hopeful that ECT will improved. Today he had a CT without any side effects or problems. Today after the ECT he reported that his affect was brighter and he feels slightly better. His only compliant was a rash on his leg, no evidence of pain. I will order a hospitalist consult. Mental Status Exam Mental Status Exam Patient Appearance: Well Grooomed and Appropriate Patient Orientation: Person and Situation Level of Consciousness: Awake and Appropriate Patient Behavior: Guarded and Passive Mood Description: Calm Affect Description: Constricted Patient Cognition Impaired: No Ability to Follow Directions: Good Speech Pattern: Clear Hallucinations: None Delusions: Not Present Thought Process: Linear Thought Content: positive for Circumstantial Judgement: Fair Diagnostics Vital Signs (24Hr): Vital Signs - 24 hr 06/08/22 18:00 06/09/22 05:33 06/09/22 06:34 Temperature 97.5 F 97.9 F 97.7 F Pulse Rate 62 72 59 Respiratory Rate 16 18 20 Blood Pressure 150/67 H 142/84 H 164/79 H Pulse Oximetry 97 96 97 Oxygen Delivery Method Room Air Room Air Oxygen Flow Rate 06/09/22 07:41 06/09/22 07:46 06/09/22 07:51 Temperature 99.3 F Pulse Rate 58 57 58 Respiratory Rate 12 14 16 Blood Pressure 161/82 H 183/81 H 136/92 H Pulse Oximetry 98 93 95 Oxygen Delivery Method Nasal Cannula Nasal Cannula Room Air Oxygen Flow Rate 2 2 06/09/22 07:56 06/09/22 08:11 Temperature Pulse Rate 71 76 Respiratory Rate 16 16 Blood Pressure 183/99 H 177/91 H Pulse Oximetry 95 95 Oxygen Delivery Method Room Air Room Air Oxygen Flow Rate BMI result Body Mass Index 24.0 Labs 05/08/22 08:43 06/06/22 12:38 Medications Medications Current Medications Acetaminophen (Acetaminophen 325 Mg Tablet) 650 mg PO Q6H PRN PRN Reason: Headache/Pain Mild Scale (1-3) Last Admin: 05/13/22 20:13 Dose: 650 mg Acetaminophen (Acetaminophen 325 Mg Tablet) 650 mg PO Q6H PRN PRN Reason: Headache/Pain Mild Scale (1-3) Al Hydroxide/Mg Hydroxide (Magnesium Hydrox/Alum Hydrox 30 Ml Oral.Susp) 30 ml PO Q6H PRN PRN Reason: Heartburn/Nausea Al Hydroxide/Mg Hydroxide (Magnesium Hydrox/Alum Hydrox 30 Ml Oral.Susp) 30 ml PO Q6H PRN PRN Reason: Heartburn/Nausea Amlodipine Besylate (Amlodipine Besylate 2.5 Mg Tablet) 2.5 mg PO DAILY@1300 IZA; Protocol Last Admin: 06/09/22 12:44 Dose: 2.5 mg Bisacodyl (Bisacodyl 10 Mg Supp.Rect) 10 mg [place] DAILY PRN PRN Reason: Constipation Cyanocobalamin (Cyanocobalamin (Vitamin B-12) 1,000 Mcg Tablet) 1,000 mcg PO DAILY [facility] Last Admin: 06/09/22 09:04 Dose: 1,000 mcg Fluvoxamine Maleate (Fluvoxamine Maleate 50 Mg Tablet) 100 mg PO DAILY [facility] Last Admin: 06/09/22 09:04 Dose: 100 mg Fluvoxamine Maleate (Fluvoxamine Maleate 50 Mg Tablet) 100 mg PO BEDTIME [facility] Last Admin: 06/08/22 20:23 Dose: 100 mg Hydroxyzine HCl (Hydroxyzine Hcl 25 Mg Tablet) 25 mg PO Q6H PRN PRN Reason: Anxiety Lamotrigine (Lamotrigine 100 Mg Tablet) 100 mg PO DAILY [facility] Last Admin: 06/09/22 09:04 Dose: 100 mg Magnesium Hydroxide (Milk Of Magnesia 30 Ml Oral.Susp) 30 ml PO DAILY PRN PRN Reason: Constipation Last Admin: 05/27/22 13:08 Dose: 30 ml Magnesium Hydroxide (Milk Of Magnesia 30 Ml Oral.Susp) 30 ml PO DAILY PRN PRN Reason: Constipation Mirtazapine (Mirtazapine 15 Mg Tablet) 15 mg PO BEDTIME [facility] Last Admin: 06/08/22 20:25 Dose: 15 mg Olanzapine (Olanzapine 2.5 Mg Tablet) 2.5 mg PO BID PRN PRN Reason: Agitation Olanzapine (Olanzapine 7.5 Mg Tablet) 15 mg PO BEDTIME [facility] Last Admin: 06/08/22 20:23 Dose: 15 mg Ondansetron HCl (Ondansetron Odt 4 Mg Tab.Rapdis) 4 mg TRANSLINGU DAILY PRN PRN Reason: Nausea Polyethylene Glycol (Polyethylene Glycol 3350 17 Gm Powd.Pack) 17 gm PO BID [facility] Last Admin: 06/09/22 09:07 Dose: Not Given Quetiapine Fumarate (Quetiapine Fumarate 100 Mg Tablet) 100 mg PO BEDTIME PRN PRN Reason: Anxiety Senna/Docusate Sodium (Sennosides/Docusate Sodium Tablet) 2 tab PO BID [facility] Last Admin: 06/09/22 09:04 Dose: 2 tab Trazodone HCl (Trazodone Hcl 50 Mg Tablet) 50 mg PO BEDTIME MRX1 PRN PRN Reason: Insomnia Last Admin: 05/16/22 20:07 Dose: 50 mg Vitamin D (Cholecalciferol (Vitamin D3) 25 Mcg Tablet) 25 mcg PO DAILY [facility] Last Admin: 06/09/22 09:04 Dose: 25 mcg Allergies Allergies Allergy/AdvReac Type Severity Reaction Status Date / Time Latex, Natural Rubber AdvReac Mild Rash Verified 06/06/22 07:18 Assessment & Plan Assessment & Plan (1) Major depressive disorder, recurrent severe without psychotic features: Status: Acute Code(s): F33.2 - Major depressive disorder, recurrent severe without psychotic features (2) Generalized anxiety disorder: Status: Acute Code(s): F41.1 - Generalized anxiety disorder Plan The patient is an elderly male with a long history of major depressive disorder with several prior admissions into the hospital for exacerbation of depression and previous treatment with ECT with for improvement.? The patient was initially treated at [facility] and transferring to this facility for ECT.? At this moment, the patient is severely depressed with some neuro cognitive impairment. Plan 1. Gather collateral information.? 2. Hospitalist workout with clearance for ECT.? Ready for ECT as per ThursdayMay 12 3. Continue regular medications.? 4. EKG for ECT treatment.? 5. ECT as soon as he is medically cleared.? Since he had COVID he was started later. 6. ECT continue 3 times per week. 7. Bowel treatment for constipation. 8. Increase Luvox up to 100 mg p.o. b.i.d. started on June 04. 9. Hospitalist consult for rash on leg, R/O cellulitis Reason for contiued inpatient stay Substantial Risk for: inability to function, rapid decompensation and med/psych decompensation Time Spent With Patient Time: Total time managing care of this patient today __20__ minutes.
--- NOTE | 2022-06-09 17:10 | PM.EVENT ---
Event Note Date of Service: 06/09/22 Event Note: Pt with hypertension, anxiety/depression admitted to psychiatry with consult placed to medicine for management of rash on RLE with question of cellulitis. Patient is wearing compression stocking for BLE edema. The RLE is diffusely covered with erythematous papules with mild excoriation. Pt reports pruritus. There is no cellulitic area. This is most consistent with a contact dermatitis. Would recommend dc'ing compression stockings. Treat with triamcinolone lotion twice daily x 1 week. Given amlodipine is likely contributing to the edema, we will also change antihypertensive agent to HCTZ 25mg daily. Check BMP in 1 week to evaluate for any electrolyte abnormalities. Thank you for allowing me to participate in this consult. Signing off at this time. Please do not hesitate to call for further questions. Time Spent With Patient Time: Total time managing care of this patient today ____ minutes.
[2022-06-09] MEDS: polyethylene glycoL 3350 17 GM POWD.PACK PO (20:55)
[2022-06-09] MEDS: OLANZapine 7.5 MG TABLET 15 MG PO (20:55)
[2022-06-09] MEDS: Mirtazapine 15 MG TABLET PO (20:55)
[2022-06-10 08:00] VITALS: BP 120/66; PULSE 84; RESP 16; TEMP 36.8; O2SAT 97
[2022-06-10] MEDS: hydroCHLOROthiazide 25 MG TABLET PO (08:44)
[2022-06-10] MEDS: Cholecalciferol (Vitamin D3) 25 MCG TABLET PO (08:45)
[2022-06-10] MEDS: lamoTRIgine 100 MG TABLET PO (08:45)
[2022-06-10] MEDS: Cyanocobalamin (Vitamin B-12) 1,000 MCG TABLET 1000 MCG PO (08:45)
[2022-06-10] MEDS: polyethylene glycoL 3350 17 GM POWD.PACK PO (08:46)
[2022-06-10] MEDS: Sennosides/Docusate Sodium TABLET 2 TAB PO ×2 (08:46→21:08)
[2022-06-10] MEDS: fluvoxaMINE Maleate 50 MG TABLET 100 MG PO ×2 (08:46→21:08)
[2022-06-10] MEDS: Triamcinolone Acet 0.1% Lotion 60 ML BOTTLE 1 APPL TOPICAL (14:46)
--- NOTE | 2022-06-10 15:51 | HO.PSYCHPN ---
Subjective Subjective Date of Service: 06/10/22 Reason For Visit: depression w/ SI Subjective Notes: Conditional Voluntary Interim History: The nursing staff reported the patient came back from [place] and he looked slightly better. No complaints. The staff has noticed that he has a brighter affect and more level of energy. Today we had a family meeting with his sister and it seems that he is improving slightly better and we were thinking on discharge planning. On interview the patient denies new symptoms, he reported that his depression is 6/10 Mental Status Exam Mental Status Exam Patient Appearance: Appropriate Patient Orientation: Person and Situation Level of Consciousness: Awake and Appropriate Patient Behavior: Guarded and Passive Mood Description: Withdrawn Affect Description: Constricted Patient Cognition Impaired: Yes Ability to Follow Directions: Good Speech Pattern: Appropriate Hallucinations: None Delusions: Not Present Thought Process: Linear Thought Content: positive for Circumstantial Judgement: Fair Diagnostics Vital Signs (24Hr): Vital Signs - 24 hr 06/09/22 18:00 06/10/22 08:00 Temperature 97.5 F 98.2 F Pulse Rate 72 84 Respiratory Rate 18 16 Blood Pressure 149/65 H 120/66 Pulse Oximetry 95 97 Oxygen Delivery Method Room Air Room Air BMI result Body Mass Index 24.0 Labs 05/08/22 08:43 06/06/22 12:38 Medications Medications Current Medications Acetaminophen (Acetaminophen 325 Mg Tablet) 650 mg PO Q6H PRN PRN Reason: Headache/Pain Mild Scale (1-3) Last Admin: 05/13/22 20:13 Dose: 650 mg Acetaminophen (Acetaminophen 325 Mg Tablet) 650 mg PO Q6H PRN PRN Reason: Headache/Pain Mild Scale (1-3) Al Hydroxide/Mg Hydroxide (Magnesium Hydrox/Alum Hydrox 30 Ml Oral.Susp) 30 ml PO Q6H PRN PRN Reason: Heartburn/Nausea Al Hydroxide/Mg Hydroxide (Magnesium Hydrox/Alum Hydrox 30 Ml Oral.Susp) 30 ml PO Q6H PRN PRN Reason: Heartburn/Nausea Bisacodyl (Bisacodyl 10 Mg Supp.Rect) 10 mg [place] DAILY PRN PRN Reason: Constipation Cyanocobalamin (Cyanocobalamin (Vitamin B-12) 1,000 Mcg Tablet) 1,000 mcg PO DAILY [facility] Last Admin: 06/10/22 08:45 Dose: 1,000 mcg Fluvoxamine Maleate (Fluvoxamine Maleate 50 Mg Tablet) 100 mg PO DAILY [facility] Last Admin: 06/10/22 08:46 Dose: 100 mg Fluvoxamine Maleate (Fluvoxamine Maleate 50 Mg Tablet) 100 mg PO BEDTIME [facility] Last Admin: 06/09/22 20:55 Dose: 100 mg Hydrochlorothiazide (Hydrochlorothiazide 25 Mg Tablet) 25 mg PO DAILY [facility]; Protocol Last Admin: 06/10/22 08:44 Dose: 25 mg Hydroxyzine HCl (Hydroxyzine Hcl 25 Mg Tablet) 25 mg PO Q6H PRN PRN Reason: Anxiety Lamotrigine (Lamotrigine 100 Mg Tablet) 100 mg PO DAILY [facility] Last Admin: 06/10/22 08:45 Dose: 100 mg Magnesium Hydroxide (Milk Of Magnesia 30 Ml Oral.Susp) 30 ml PO DAILY PRN PRN Reason: Constipation Last Admin: 05/27/22 13:08 Dose: 30 ml Magnesium Hydroxide (Milk Of Magnesia 30 Ml Oral.Susp) 30 ml PO DAILY PRN PRN Reason: Constipation Mirtazapine (Mirtazapine 15 Mg Tablet) 15 mg PO BEDTIME [facility] Last Admin: 06/09/22 20:55 Dose: 15 mg Olanzapine (Olanzapine 2.5 Mg Tablet) 2.5 mg PO BID PRN PRN Reason: Agitation Olanzapine (Olanzapine 7.5 Mg Tablet) 15 mg PO BEDTIME [facility] Last Admin: 06/09/22 20:55 Dose: 15 mg Ondansetron HCl (Ondansetron Odt 4 Mg Tab.Rapdis) 4 mg TRANSLINGU DAILY PRN PRN Reason: Nausea Polyethylene Glycol (Polyethylene Glycol 3350 17 Gm Powd.Pack) 17 gm PO BID [facility] Last Admin: 06/10/22 08:46 Dose: 17 gm Quetiapine Fumarate (Quetiapine Fumarate 100 Mg Tablet) 100 mg PO BEDTIME PRN PRN Reason: Anxiety Senna/Docusate Sodium (Sennosides/Docusate Sodium Tablet) 2 tab PO BID [facility] Last Admin: 06/10/22 08:46 Dose: 2 tab Trazodone HCl (Trazodone Hcl 50 Mg Tablet) 50 mg PO BEDTIME MRX1 PRN PRN Reason: Insomnia Last Admin: 05/16/22 20:07 Dose: 50 mg Triamcinolone Acetonide (Triamcinolone Acet 0.1% Lotion 60 Ml Bottle) 1 appl TOPICAL BID [facility] Stop: 06/16/22 09:01 Last Admin: 06/10/22 14:46 Dose: 1 appl Vitamin D (Cholecalciferol (Vitamin D3) 25 Mcg Tablet) 25 mcg PO DAILY [facility] Last Admin: 06/10/22 08:45 Dose: 25 mcg Allergies Allergies Allergy/AdvReac Type Severity Reaction Status Date / Time Latex, Natural Rubber AdvReac Mild Rash Verified 06/06/22 07:18 Assessment & Plan Assessment & Plan (1) Major depressive disorder, recurrent severe without psychotic features: Status: Acute Code(s): F33.2 - Major depressive disorder, recurrent severe without psychotic features (2) Generalized anxiety disorder: Status: Acute Code(s): F41.1 - Generalized anxiety disorder Plan The patient is an elderly male with a long history of major depressive disorder with several prior admissions into the hospital for exacerbation of depression and previous treatment with ECT with for improvement.? The patient was initially treated at [facility] and transferring to this facility for ECT.? At this moment, the patient is severely depressed with some neuro cognitive impairment. Plan 1. Gather collateral information.? 2. Hospitalist workout with clearance for ECT.? Ready for ECT as per ThursdayMay 12 3. Continue regular medications.? 4. EKG for ECT treatment.? 5. ECT as soon as he is medically cleared.? Since he had COVID he was started later. 6. ECT continue 3 times per week. 7. Bowel treatment for constipation. 8. Increase Luvox up to 100 mg p.o. b.i.d. started on June 04. 9. Hospitalist consult for rash on leg, R/O cellulitis Reason for contiued inpatient stay Substantial Risk for: inability to function, rapid decompensation and med/psych decompensation Time Spent With Patient Time: Total time managing care of this patient today _250___ minutes.
[2022-06-10 18:00] VITALS: BP 140/65; PULSE 60; RESP 16; TEMP 36.2; O2SAT 97
[2022-06-10] MEDS: OLANZapine 7.5 MG TABLET 15 MG PO (21:08)
[2022-06-10] MEDS: Mirtazapine 15 MG TABLET PO (21:10)
[2022-06-11] VITALS (10 sets, daily range): BP systolic 116–186; BP diastolic 60–93; PULSE 55–91; RESP 12–16; TEMP 35.7–36.9; O2SAT 93–99
--- NOTE | 2022-06-11 06:47 | P.CONAN_ITS ---
[facility] Active Problems Active Problems: All Active Problems (Updated 05/09/22 @ 15:51 by SYDNI Mao) HTN (hypertension) (Acute) Routine history and physical examination of adult (Acute) Major depressive disorder, recurrent (Acute) Generalized anxiety disorder (Acute) Major depressive disorder, recurrent severe without psychotic features (Acute) Past Medical History Medical History No known health problems Ruptured liver Functional capacity: independent ambulation Family History Family history of problems with anesthesia: No Surgical History Surgical History H/O right knee surgery History of Problems with Anesthesia: No Social History Social History Household Members: None Housing: Apartment Do you presently have visiting nurse or other home services: No Patient Tobacco Use Status: Never used Tobacco Smoked in Last 30 Days: No e-Cigarette/Vaping Use: Never Used Second Hand Smoke Exposure: No Use of substances other than those prescribed or required for medical reasons: No Currently Displaying Signs/Symptoms of Drug Intoxication Withdrawal: No Any prior treatment program specific to substance use: No Have you been hit, kicked, punched, or otherwise hurt by someone within the past year? If so, by whom?: No Do you feel safe in your current relationship?: No Current Relationship Is there a partner from a previous relationship who is making you feel unsafe now?: No Are you made to feel afraid or neglected: No Spiritual Healthcare Practices: n/a Judaism Healthcare Practices: n/a Cultural Healthcare Practices: n/a Are you DNR?: No Advance Directives: No Advance Directives Information Provided: No Do you have thoughts of harming others: None Do you have a plan to hurt others: No Plan Recently lost weight without trying: Yes How much weight loss: Unsure Eating poorly because of decreased appetite: No Nutrition screen score: 4 Nutrition Risks: No Nutritional Risk Poor oral hygiene: No service: No Sexual orientation: Straight/Heterosexual Meds Allergies Allergy/AdvReac Type Severity Reaction Status Date / Time Latex, Natural Rubber AdvReac Mild Rash Verified 06/06/22 07:18 Active Medications: Current Medications Acetaminophen (Acetaminophen 325 Mg Tablet) 650 mg PO Q6H PRN PRN Reason: Headache/Pain Mild Scale (1-3) Last Admin: 05/13/22 20:13 Dose: 650 mg Acetaminophen (Acetaminophen 325 Mg Tablet) 650 mg PO Q6H PRN PRN Reason: Headache/Pain Mild Scale (1-3) Al Hydroxide/Mg Hydroxide (Magnesium Hydrox/Alum Hydrox 30 Ml Oral.Susp) 30 ml PO Q6H PRN PRN Reason: Heartburn/Nausea Al Hydroxide/Mg Hydroxide (Magnesium Hydrox/Alum Hydrox 30 Ml Oral.Susp) 30 ml PO Q6H PRN PRN Reason: Heartburn/Nausea Bisacodyl (Bisacodyl 10 Mg Supp.Rect) 10 mg [place] DAILY PRN PRN Reason: Constipation Cyanocobalamin (Cyanocobalamin (Vitamin B-12) 1,000 Mcg Tablet) 1,000 mcg PO DAILY [facility] Last Admin: 06/10/22 08:45 Dose: 1,000 mcg Fluvoxamine Maleate (Fluvoxamine Maleate 50 Mg Tablet) 100 mg PO DAILY [facility] Last Admin: 06/10/22 08:46 Dose: 100 mg Fluvoxamine Maleate (Fluvoxamine Maleate 50 Mg Tablet) 100 mg PO BEDTIME [facility] Last Admin: 06/10/22 21:08 Dose: 100 mg Hydrochlorothiazide (Hydrochlorothiazide 25 Mg Tablet) 25 mg PO DAILY [facility]; Protocol Last Admin: 06/10/22 08:44 Dose: 25 mg Hydroxyzine HCl (Hydroxyzine Hcl 25 Mg Tablet) 25 mg PO Q6H PRN PRN Reason: Anxiety Lamotrigine (Lamotrigine 100 Mg Tablet) 100 mg PO DAILY [facility] Last Admin: 06/10/22 08:45 Dose: 100 mg Magnesium Hydroxide (Milk Of Magnesia 30 Ml Oral.Susp) 30 ml PO DAILY PRN PRN Reason: Constipation Last Admin: 05/27/22 13:08 Dose: 30 ml Magnesium Hydroxide (Milk Of Magnesia 30 Ml Oral.Susp) 30 ml PO DAILY PRN PRN Reason: Constipation Mirtazapine (Mirtazapine 15 Mg Tablet) 15 mg PO BEDTIME [facility] Last Admin: 06/10/22 21:10 Dose: 15 mg Olanzapine (Olanzapine 2.5 Mg Tablet) 2.5 mg PO BID PRN PRN Reason: Agitation Olanzapine (Olanzapine 7.5 Mg Tablet) 15 mg PO BEDTIME [facility] Last Admin: 06/10/22 21:08 Dose: 15 mg Ondansetron HCl (Ondansetron Odt 4 Mg Tab.Rapdis) 4 mg TRANSLINGU DAILY PRN PRN Reason: Nausea Polyethylene Glycol (Polyethylene Glycol 3350 17 Gm Powd.Pack) 17 gm PO BID [facility] Last Admin: 06/10/22 22:53 Dose: Not Given Quetiapine Fumarate (Quetiapine Fumarate 100 Mg Tablet) 100 mg PO BEDTIME PRN PRN Reason: Anxiety Senna/Docusate Sodium (Sennosides/Docusate Sodium Tablet) 2 tab PO BID [facility] Last Admin: 06/10/22 21:08 Dose: 2 tab Trazodone HCl (Trazodone Hcl 50 Mg Tablet) 50 mg PO BEDTIME MRX1 PRN PRN Reason: Insomnia Last Admin: 05/16/22 20:07 Dose: 50 mg Triamcinolone Acetonide (Triamcinolone Acet 0.1% Lotion 60 Ml Bottle) 1 appl TOPICAL BID [facility] Stop: 06/16/22 09:01 Last Admin: 06/10/22 22:53 Dose: Not Given Vitamin D (Cholecalciferol (Vitamin D3) 25 Mcg Tablet) 25 mcg PO DAILY [facility] Last Admin: 06/10/22 08:45 Dose: 25 mcg Home Medications Medication Instructions Recorded Confirmed Last Taken Type l theanine 200 mg PO QID PRN Anxiety 10/15/21 05/07/22 10/15/21 07:20 History lamotrigine 100 mg tablet 100 mg PO DAILY 10/15/21 05/07/22 10/15/21 07:20 History (Lamictal) mirtazapine 15 mg tablet 15 mg PO BEDTIME 10/15/21 05/07/22 10/14/21 21:30 History quetiapine 50 mg tablet 50 - 100 mg PO BEDTIME PRN Anxiety 10/15/21 05/07/22 10/14/21 20:30 History risperidone 0.5 mg tablet 0.5 mg PO BID 10/15/21 05/07/22 10/15/21 07:20 History (Risperdal) amlodipine 2.5 mg tablet 2.5 mg PO DAILY 05/07/22 05/07/22 Unknown History cholecalciferol (vitamin D3) 25 25 mcg PO DAILY 05/07/22 05/07/22 Unknown H istory mcg (1,000 unit) capsule clonazepam 0.5 mg disintegrating 0.5 mg PO BEDTIME 05/07/22 05/07/22 Unknown History tablet cyanocobalamin (vitamin B-12) 1,000 mcg PO DAILY 05/07/22 05/07/22 Unknown History 1,000 mcg tablet fluvoxamine 100 mg tablet 100 mg PO BEDTIME 05/07/22 05/07/22 Unknown History olanzapine 15 mg disintegrating 15 mg PO BEDTIME 05/07/22 05/07/22 Unknown History tablet olanzapine 5 mg disintegrating 2.5 mg PO BID PRN Agitation 05/07/22 05/07/22 Unknown History tablet ondansetron HCl 4 mg tablet 4 mg PO NEEDED PRN Nausea 05/07/22 05/07/22 Unknown History Exam Exam Date and Time: June 11, 2022 0647 Height,Weight and Vital Signs: Height 6 ft 5 in Weight 92.17 kg Last Vital Signs Temp 98.3 F 06/11/22 06:35 Pulse 55 06/11/22 06:35 Resp 16 06/11/22 06:35 BP 149/73 H 06/11/22 06:35 Pulse Ox 97 06/11/22 06:35 O2 Del Method Room Air 06/11/22 06:35 O2 Flow Rate 2 06/09/22 07:46 Pertinent Lab Results Pertinent Lab Results: Laboratory Tests 05/08/22 05/08/22 05/08/22 08:43 08:43 08:43 WBC 3.7 L RBC 4.34 L Hgb 13.6 L Hct 40.0 L MCV 92.2 MCH 31.3 MCHC 34.0 RDW 12.5 Plt Count 150 L MPV 8.7 L Immature Gran % (Auto) 0.3 Neut % (Auto) 60.0 Lymph % (Auto) 27.4 [place] % (Auto) 8.6 Eos % (Auto) 3.2 Baso % (Auto) 0.5 Lymph # (Auto) 1.0 L [place] # (Auto) 0.3 Eos # (Auto) 0.1 Baso # (Auto) 0.0 Abs Immat Gran (auto) 0.01 Absolute Neuts (auto) 2.2 Absolute Nucleated RBC 0.000 Nucleated RBC % (auto) 0.0 Sodium 145 Potassium 3.9 Chloride 107 Carbon Dioxide 31 H Anion Gap 11 L BUN 16 Creatinine 0.83 Estim Creat Clear Calc 94.6 Estimated GFR > 60 Random Glucose Fasting Glucose 128 H Estimat Average Glucose 103 Hemoglobin A1c % 5.2 Calcium 8.8 Total Bilirubin 0.7 Direct Bilirubin AST 15 ALT 13 Alkaline Phosphatase 54 Total Protein 5.3 L Albumin 3.4 L Triglycerides 72 Cholesterol 165 LDL Cholesterol, Calc 101 HDL Cholesterol 50 Vitamin B12 545 Folate 14.9 TSH 1.51 COVID-19 ([facility]) COVID-19 Clin Com 05/11/22 06/06/22 06/06/22 18:25 12:38 12:38 WBC RBC Hgb Hct MCV MCH MCHC RDW Plt Count MPV Immature Gran % (Auto) Neut % (Auto) Lymph % (Auto) [place] % (Auto) Eos % (Auto) Baso % (Auto) Lymph # (Auto) [place] # (Auto) Eos # (Auto) Baso # (Auto) Abs Immat Gran (auto) Absolute Neuts (auto) Absolute Nucleated RBC Nucleated RBC % (auto) Sodium 141 Potassium 4.2 Chloride 106 Carbon Dioxide 28 Anion Gap 11 L BUN 21 H Creatinine 0.81 Estim Creat Clear Calc 100.8 Estimated GFR > 60 Random Glucose 122 H Fasting Glucose Estimat Average Glucose 103 Hemoglobin A1c % 5.2 Calcium 8.4 Total Bilirubin 0.7 Direct Bilirubin 0.2 AST 27 ALT 36 Alkaline Phosphatase 75 Total Protein 5.9 L Albumin 3.6 Triglycerides 46 Cholesterol 201 LDL Cholesterol, Calc 130 HDL Cholesterol 62 Vitamin B12 Folate TSH 1.04 COVID-19 ([facility]) Positive A COVID-19 Clin Com See Note Airway Mallampati Class: II (multiple caps) TM Dist: >3cm Neck ROM: Full Heart: rrr Lungs: cta Assessment and Plan Final Anesthetic Review Family History of Problems with Anesthesia: No History of Problems with Anesthesia: No
--- NOTE | 2022-06-11 07:51 | MHC.SHP ---
Pre-Procedural Eval Section A Date of Service: 06/11/22 The patient is an INPATIENT: Yes Changes since office visit: Yes Changes in Medication and Yes Patient answered all questions; No Cold of Flu in the past 2 weeks and No New Medical Problems The History & Physical has been completed within 30 days and I have reviewed it.: Yes Section B Chief Complaint: depression w/ SI Allergies: Allergies Allergy/AdvReac Type Severity Reaction Status Date / Time Latex, Natural Rubber AdvReac Mild Rash Verified 06/06/22 07:18 Plan I have reviewed the history and physical and performed a pertinent physical examination on my patient. No changes have occurred unless specified. Time Spent With Patient Time: Total time managing care of this patient today ____ minutes.
[2022-06-11] MEDS: fluvoxaMINE Maleate 50 MG TABLET 100 MG PO ×2 (09:51→20:38)
[2022-06-11] MEDS: Cyanocobalamin (Vitamin B-12) 1,000 MCG TABLET 1000 MCG PO (09:51)
[2022-06-11] MEDS: Cholecalciferol (Vitamin D3) 25 MCG TABLET PO (09:51)
[2022-06-11] MEDS: hydroCHLOROthiazide 25 MG TABLET PO (09:51)
[2022-06-11] MEDS: lamoTRIgine 100 MG TABLET PO (09:51)
[2022-06-11] MEDS: polyethylene glycoL 3350 17 GM POWD.PACK PO (09:52)
[2022-06-11] MEDS: Triamcinolone Acet 0.1% Lotion 60 ML BOTTLE 1 APPL TOPICAL (11:37)
[2022-06-11] MEDS: Sennosides/Docusate Sodium TABLET 2 TAB PO ×2 (11:37→20:39)
--- NOTE | 2022-06-11 13:41 | P.PNPSI_ITS ---
Subjective Subjective Date of Service: 06/11/22 Reason For Visit: depression w/ SI Subjective Notes: Conditional Voluntary Interim History: The nursing staff reported the patient had been visible in the unit, he reports that his depression is 4 over time. Today he had ECT. On interview the patient denies new symptoms we will probably discharge him next week if he continues to progress. Mental Status Exam Mental Status Exam Patient Appearance: Well Grooomed and Appropriate Patient Orientation: Person and Situation Level of Consciousness: Awake and Appropriate Patient Behavior: Guarded and Passive Mood Description: Withdrawn Affect Description: Constricted Patient Cognition Impaired: Yes Ability to Follow Directions: Good Speech Pattern: Clear Hallucinations: None Delusions: Not Present Thought Process: Linear Thought Content: positive for [place] and positive for Circumstantial Judgement: Fair Diagnostics Vital Signs (24Hr): Vital Signs - 24 hr 06/10/22 18:00 06/11/22 05:41 06/11/22 06:35 Temperature 97.2 F 97.6 F 98.3 F Pulse Rate 60 55 55 Respiratory Rate 16 16 16 Blood Pressure 140/65 H 116/69 149/73 H Pulse Oximetry 97 98 97 Oxygen Delivery Method Room Air Room Air Room Air Oxygen Flow Rate 06/11/22 08:10 06/11/22 08:15 06/11/22 08:20 Temperature 98.5 F Pulse Rate 56 64 79 Respiratory Rate 16 12 15 Blood Pressure 166/75 H 161/81 H 166/87 H Pulse Oximetry 99 95 94 Oxygen Delivery Method Nasal Cannula Nasal Cannula Room Air Oxygen Flow Rate 4 4 06/11/22 08:25 06/11/22 08:40 06/11/22 08:55 Temperature 98.5 F Pulse Rate 84 91 84 Respiratory Rate 15 14 15 Blood Pressure 186/88 H 180/93 H 179/91 H Pulse Oximetry 93 95 97 Oxygen Delivery Method Room Air Room Air Room Air Oxygen Flow Rate 06/11/22 08:13 Temperature Pulse Rate 67 Respiratory Rate 16 Blood Pressure 175/84 H Pulse Oximetry 96 Oxygen Delivery Method Room Air Oxygen Flow Rate BMI result Body Mass Index 24.0 Labs 05/08/22 08:43 06/06/22 12:38 Medications Medications Current Medications Acetaminophen (Acetaminophen 325 Mg Tablet) 650 mg PO Q6H PRN PRN Reason: Headache/Pain Mild Scale (1-3) Last Admin: 05/13/22 20:13 Dose: 650 mg Acetaminophen (Acetaminophen 325 Mg Tablet) 650 mg PO Q6H PRN PRN Reason: Headache/Pain Mild Scale (1-3) Al Hydroxide/Mg Hydroxide (Magnesium Hydrox/Alum Hydrox 30 Ml Oral.Susp) 30 ml PO Q6H PRN PRN Reason: Heartburn/Nausea Al Hydroxide/Mg Hydroxide (Magnesium Hydrox/Alum Hydrox 30 Ml Oral.Susp) 30 ml PO Q6H PRN PRN Reason: Heartburn/Nausea Bisacodyl (Bisacodyl 10 Mg Supp.Rect) 10 mg [place] DAILY PRN PRN Reason: Constipation Cyanocobalamin (Cyanocobalamin (Vitamin B-12) 1,000 Mcg Tablet) 1,000 mcg PO DAILY [facility] Last Admin: 06/11/22 09:51 Dose: 1,000 mcg Fluvoxamine Maleate (Fluvoxamine Maleate 50 Mg Tablet) 100 mg PO DAILY [facility] Last Admin: 06/11/22 09:51 Dose: 100 mg Fluvoxamine Maleate (Fluvoxamine Maleate 50 Mg Tablet) 100 mg PO BEDTIME [facility] Last Admin: 06/10/22 21:08 Dose: 100 mg Hydrochlorothiazide (Hydrochlorothiazide 25 Mg Tablet) 25 mg PO DAILY [facility]; Protocol Last Admin: 06/11/22 09:51 Dose: 25 mg Hydroxyzine HCl (Hydroxyzine Hcl 25 Mg Tablet) 25 mg PO Q6H PRN PRN Reason: Anxiety Lactated Ringer's (Lr) 1,000 mls @ 50 mls/hr IVCONT .Q20H [facility] Last Admin: 06/11/22 10:44 Dose: Not Given Lactated Ringer's (Lr) 1,000 mls @ 50 mls/hr IVCONT .Q20H [facility] Last Admin: 06/11/22 10:44 Dose: Not Given Lamotrigine (Lamotrigine 100 Mg Tablet) 100 mg PO DAILY [facility] Last Admin: 06/11/22 09:51 Dose: 100 mg Magnesium Hydroxide (Milk Of Magnesia 30 Ml Oral.Susp) 30 ml PO DAILY PRN PRN Reason: Constipation Last Admin: 05/27/22 13:08 Dose: 30 ml Magnesium Hydroxide (Milk Of Magnesia 30 Ml Oral.Susp) 30 ml PO DAILY PRN PRN Reason: Constipation Mirtazapine (Mirtazapine 15 Mg Tablet) 15 mg PO BEDTIME [facility] Last Admin: 06/10/22 21:10 Dose: 15 mg Olanzapine (Olanzapine 2.5 Mg Tablet) 2.5 mg PO BID PRN PRN Reason: Agitation Olanzapine (Olanzapine 7.5 Mg Tablet) 15 mg PO BEDTIME [facility] Last Admin: 06/10/22 21:08 Dose: 15 mg Ondansetron HCl (Ondansetron Odt 4 Mg Tab.Rapdis) 4 mg TRANSLINGU DAILY PRN PRN Reason: Nausea Polyethylene Glycol (Polyethylene Glycol 3350 17 Gm Powd.Pack) 17 gm PO BID [facility] Last Admin: 06/11/22 09:52 Dose: 17 gm Quetiapine Fumarate (Quetiapine Fumarate 100 Mg Tablet) 100 mg PO BEDTIME PRN PRN Reason: Anxiety Senna/Docusate Sodium (Sennosides/Docusate Sodium Tablet) 2 tab PO BID [facility] Last Admin: 06/11/22 11:37 Dose: 2 tab Trazodone HCl (Trazodone Hcl 50 Mg Tablet) 50 mg PO BEDTIME MRX1 PRN PRN Reason: Insomnia Last Admin: 05/16/22 20:07 Dose: 50 mg Triamcinolone Acetonide (Triamcinolone Acet 0.1% Lotion 60 Ml Bottle) 1 appl TOPICAL BID [facility] Stop: 06/16/22 09:01 Last Admin: 06/11/22 11:37 Dose: 1 appl Vitamin D (Cholecalciferol (Vitamin D3) 25 Mcg Tablet) 25 mcg PO DAILY [facility] Last Admin: 06/11/22 09:51 Dose: 25 mcg Allergies Allergies Allergy/AdvReac Type Severity Reaction Status Date / Time Latex, Natural Rubber AdvReac Mild Rash Verified 06/06/22 07:18 Assessment & Plan Assessment & Plan (1) Major depressive disorder, recurrent severe without psychotic features: Status: Acute Code(s): F33.2 - Major depressive disorder, recurrent severe without psychotic features (2) Generalized anxiety disorder: Status: Acute Code(s): F41.1 - Generalized anxiety disorder Plan The patient is an elderly male with a long history of major depressive disorder with several prior admissions into the hospital for exacerbation of depression and previous treatment with ECT with for improvement.? The patient was initially treated at [facility] and transferring to this facility for ECT.? At this moment, the patient is severely depressed with some neuro cognitive impairment. Plan 1. Gather collateral information.? 2. Hospitalist workout with clearance for ECT.? Ready for ECT as per ThursdayMay 12 3. Continue regular medications.? 4. EKG for ECT treatment.? 5. ECT as soon as he is medically cleared.? Since he had COVID he was started later. 6. ECT continue 3 times per week. 7. Bowel treatment for constipation. 8. Increase Luvox up to 100 mg p.o. b.i.d. started on June 04. 9. Hospitalist consult for rash on leg, R/O cellulitis Reason for contiued inpatient stay Substantial Risk for: inability to function, rapid decompensation and med/psych decompensation Time Spent With Patient Time: Total time managing care of this patient today _20___ minutes.
[2022-06-11] MEDS: Mirtazapine 15 MG TABLET PO (20:38)
[2022-06-11] MEDS: OLANZapine 7.5 MG TABLET 15 MG PO (20:38)
[2022-06-12 07:00] VITALS: BMI 24.5
[2022-06-12] MEDS: fluvoxaMINE Maleate 50 MG TABLET 100 MG PO ×2 (09:09→20:30)
[2022-06-12] MEDS: polyethylene glycoL 3350 17 GM POWD.PACK PO ×2 (09:10→20:32)
[2022-06-12] MEDS: lamoTRIgine 100 MG TABLET PO (09:10)
[2022-06-12] MEDS: Sennosides/Docusate Sodium TABLET 2 TAB PO ×2 (09:10→20:31)
[2022-06-12] MEDS: Cyanocobalamin (Vitamin B-12) 1,000 MCG TABLET 1000 MCG PO (09:10)
[2022-06-12] MEDS: Cholecalciferol (Vitamin D3) 25 MCG TABLET PO (09:10)
[2022-06-12] MEDS: hydroCHLOROthiazide 25 MG TABLET PO (09:10)
[2022-06-12 09:39] VITALS: BP 124/95; PULSE 66; RESP 18; TEMP 36.6; O2SAT 96
[2022-06-12] MEDS: Triamcinolone Acet 0.1% Lotion 60 ML BOTTLE 1 APPL TOPICAL ×2 (09:59→20:32)
--- NOTE | 2022-06-12 15:50 | HO.PSYCHPN ---
Subjective Subjective Date of Service: 06/12/22 Reason For Visit: depression w/ SI Subjective Notes: Conditional Voluntary Interim History: The nursing staff reported the patient reported his anxiety and depression 05/23. The occupational therapist reported that he has participated in treatment teams and he had been cooperative and pleasant. The child welfare social worker reported that his sister is willing to take him after that discharge for a few days and continue with treatment. On interview the patient denies new symptoms. He reports some improvement of his depression. Mental Status Exam Mental Status Exam Patient Appearance: Well Grooomed and Appropriate Patient Orientation: Person and Situation Level of Consciousness: Awake and Appropriate Patient Behavior: Guarded and Passive Mood Description: Withdrawn Affect Description: Constricted Patient Cognition Impaired: Yes Ability to Follow Directions: Good Speech Pattern: Clear Hallucinations: None Delusions: Not Present Thought Process: Linear Thought Content: positive for [place] and positive for Goal Oriented Judgement: Fair Diagnostics Vital Signs (24Hr): Vital Signs - 24 hr 06/11/22 18:00 06/12/22 09:39 Temperature 96.3 F L 97.9 F Pulse Rate 61 66 Respiratory Rate 16 18 Blood Pressure 128/60 124/95 H Pulse Oximetry 97 96 Oxygen Delivery Method Room Air Room Air BMI result Body Mass Index 24.5 Labs 05/08/22 08:43 06/06/22 12:38 Medications Medications Current Medications Acetaminophen (Acetaminophen 325 Mg Tablet) 650 mg PO Q6H PRN PRN Reason: Headache/Pain Mild Scale (1-3) Last Admin: 05/13/22 20:13 Dose: 650 mg Acetaminophen (Acetaminophen 325 Mg Tablet) 650 mg PO Q6H PRN PRN Reason: Headache/Pain Mild Scale (1-3) Al Hydroxide/Mg Hydroxide (Magnesium Hydrox/Alum Hydrox 30 Ml Oral.Susp) 30 ml PO Q6H PRN PRN Reason: Heartburn/Nausea Al Hydroxide/Mg Hydroxide (Magnesium Hydrox/Alum Hydrox 30 Ml Oral.Susp) 30 ml PO Q6H PRN PRN Reason: Heartburn/Nausea Bisacodyl (Bisacodyl 10 Mg Supp.Rect) 10 mg ND DAILY PRN PRN Reason: Constipation Cyanocobalamin (Cyanocobalamin (Vitamin B-12) 1,000 Mcg Tablet) 1,000 mcg PO DAILY [facility] Last Admin: 06/12/22 09:10 Dose: 1,000 mcg Fluvoxamine Maleate (Fluvoxamine Maleate 50 Mg Tablet) 100 mg PO DAILY [facility] Last Admin: 06/12/22 09:09 Dose: 100 mg Fluvoxamine Maleate (Fluvoxamine Maleate 50 Mg Tablet) 100 mg PO BEDTIME [facility] Last Admin: 06/11/22 20:38 Dose: 100 mg Hydrochlorothiazide (Hydrochlorothiazide 25 Mg Tablet) 25 mg PO DAILY [facility]; Protocol Last Admin: 06/12/22 09:10 Dose: 25 mg Hydroxyzine HCl (Hydroxyzine Hcl 25 Mg Tablet) 25 mg PO Q6H PRN PRN Reason: Anxiety Lactated Ringer's (Lr) 1,000 mls @ 50 mls/hr IVCONT .Q20H [facility] Last Admin: 06/12/22 06:36 Dose: Not Given Lactated Ringer's (Lr) 1,000 mls @ 50 mls/hr IVCONT .Q20H [facility] Last Admin: 06/12/22 06:36 Dose: Not Given Lamotrigine (Lamotrigine 100 Mg Tablet) 100 mg PO DAILY [facility] Last Admin: 06/12/22 09:10 Dose: 100 mg Magnesium Hydroxide (Milk Of Magnesia 30 Ml Oral.Susp) 30 ml PO DAILY PRN PRN Reason: Constipation Last Admin: 05/27/22 13:08 Dose: 30 ml Magnesium Hydroxide (Milk Of Magnesia 30 Ml Oral.Susp) 30 ml PO DAILY PRN PRN Reason: Constipation Mirtazapine (Mirtazapine 15 Mg Tablet) 15 mg PO BEDTIME [facility] Last Admin: 06/11/22 20:38 Dose: 15 mg Olanzapine (Olanzapine 2.5 Mg Tablet) 2.5 mg PO BID PRN PRN Reason: Agitation Olanzapine (Olanzapine 7.5 Mg Tablet) 15 mg PO BEDTIME [facility] Last Admin: 06/11/22 20:38 Dose: 15 mg Ondansetron HCl (Ondansetron Odt 4 Mg Tab.Rapdis) 4 mg TRANSLINGU DAILY PRN PRN Reason: Nausea Polyethylene Glycol (Polyethylene Glycol 3350 17 Gm Powd.Pack) 17 gm PO BID [facility] Last Admin: 06/12/22 09:10 Dose: 17 gm Quetiapine Fumarate (Quetiapine Fumarate 100 Mg Tablet) 100 mg PO BEDTIME PRN PRN Reason: Anxiety Senna/Docusate Sodium (Sennosides/Docusate Sodium Tablet) 2 tab PO BID [facility] Last Admin: 06/12/22 09:10 Dose: 1 tab Trazodone HCl (Trazodone Hcl 50 Mg Tablet) 50 mg PO BEDTIME MRX1 PRN PRN Reason: Insomnia Last Admin: 05/16/22 20:07 Dose: 50 mg Triamcinolone Acetonide (Triamcinolone Acet 0.1% Lotion 60 Ml Bottle) 1 appl TOPICAL BID [facility] Stop: 06/16/22 09:01 Last Admin: 06/12/22 09:59 Dose: 1 appl Vitamin D (Cholecalciferol (Vitamin D3) 25 Mcg Tablet) 25 mcg PO DAILY [facility] Last Admin: 06/12/22 09:10 Dose: 25 mcg Allergies Allergies Allergy/AdvReac Type Severity Reaction Status Date / Time Latex, Natural Rubber AdvReac Mild Rash Verified 06/06/22 07:18 Assessment & Plan Assessment & Plan (1) Major depressive disorder, recurrent severe without psychotic features: Status: Acute Code(s): F33.2 - Major depressive disorder, recurrent severe without psychotic features (2) Generalized anxiety disorder: Status: Acute Code(s): F41.1 - Generalized anxiety disorder Plan The patient is an elderly male with a long history of major depressive disorder with several prior admissions into the hospital for exacerbation of depression and previous treatment with ECT with for improvement.? The patient was initially treated at [facility] and transferring to this facility for ECT.? At this moment, the patient is severely depressed with some neuro cognitive impairment. Plan 1. Gather collateral information.? 2. Hospitalist workout with clearance for ECT.? Ready for ECT as per ThursdayMay 12 3. Continue regular medications.? 4. EKG for ECT treatment.? 5. ECT as soon as he is medically cleared.? Since he had COVID he was started later. 6. ECT continue 3 times per week. 7. Bowel treatment for constipation. 8. Increase Luvox up to 100 mg p.o. b.i.d. started on June 04. 9. Hospitalist consult for rash on leg, R/O cellulitis Reason for contiued inpatient stay Substantial Risk for: inability to function, rapid decompensation and med/psych decompensation Time Spent With Patient Time: Total time managing care of this patient today __20__ minutes.
[2022-06-12 18:00] VITALS: BP 137/59; PULSE 63; RESP 16; TEMP 36.9; O2SAT 95
[2022-06-12] MEDS: Mirtazapine 15 MG TABLET PO (20:30)
[2022-06-12] MEDS: OLANZapine 7.5 MG TABLET 15 MG PO (20:30)
--- NOTE | 2022-06-12 22:11 | HO.ECTPROC ---
ECT Procedure Note Diagnosis/Treatment Date of Service: 06/11/22 Diagnosis: Major Depressive Disorder Previous ECT Date: 06/09/22 Treatment: Series Interval Clinical Notes: The patient reported that he was feeling better. Time: Total time managing care of this patient today ____ minutes. ECT Settings Device: THYMATRON DGx Electrode Placement: Rt temporal/ Lt frontal Program/Pulse Width: 0.50 Energy Percent: 100 Seizure Duration By EEG (in seconds): 76 Medications Administration General Anesthetic: Etomidate (14) Muscle Relaxant: Succinylcholine (100) Ancillary Medications Analgesics: Torodol - Pre ECT Anti-emetics: Zofran - Pre ECT Cardiovascular Medications: Glycopyrrolate Miscillaneous Medications: Propofol Airway Management Airway Management: Bag Mask Ventilation Treatment Recommendations No Changes Recommended: No change Pt Tolerated Procedure w/o Issue: Yes
[2022-06-13] VITALS (8 sets, daily range): BP systolic 121–190; BP diastolic 58–99; PULSE 56–97; RESP 16; TEMP 36.4–37.1; O2SAT 95–100
--- NOTE | 2022-06-13 08:35 | HO.ANESPROP2 ---
[facility] Active Problems Active Problems: All Active Problems (Updated 05/09/22 @ 15:51 by SYDNI Mao) HTN (hypertension) (Acute) Routine history and physical examination of adult (Acute) Major depressive disorder, recurrent (Acute) Generalized anxiety disorder (Acute) Major depressive disorder, recurrent severe without psychotic features (Acute) Past Medical History Medical History No known health problems Ruptured liver Functional capacity: independent ambulation Family History Family history of problems with anesthesia: No Surgical History Surgical History H/O right knee surgery History of Problems with Anesthesia: No Social History Social History Household Members: None Housing: Apartment Do you presently have visiting nurse or other home services: No Patient Tobacco Use Status: Never used Tobacco Smoked in Last 30 Days: No e-Cigarette/Vaping Use: Never Used Second Hand Smoke Exposure: No Use of substances other than those prescribed or required for medical reasons: No Currently Displaying Signs/Symptoms of Drug Intoxication Withdrawal: No Any prior treatment program specific to substance use: No Have you been hit, kicked, punched, or otherwise hurt by someone within the past year? If so, by whom?: No Do you feel safe in your current relationship?: No Current Relationship Is there a partner from a previous relationship who is making you feel unsafe now?: No Are you made to feel afraid or neglected: No Spiritual Healthcare Practices: n/a Adventism Healthcare Practices: n/a Cultural Healthcare Practices: n/a Are you DNR?: No Advance Directives: No Advance Directives Information Provided: No Do you have thoughts of harming others: None Do you have a plan to hurt others: No Plan Recently lost weight without trying: Yes How much weight loss: Unsure Eating poorly because of decreased appetite: No Nutrition screen score: 4 Nutrition Risks: No Nutritional Risk Poor oral hygiene: No service: No Sexual orientation: Straight/Heterosexual Meds Allergies Allergy/AdvReac Type Severity Reaction Status Date / Time Latex, Natural Rubber AdvReac Mild Rash Verified 06/06/22 07:18 Active Medications: Current Medications Acetaminophen (Acetaminophen 325 Mg Tablet) 650 mg PO Q6H PRN PRN Reason: Headache/Pain Mild Scale (1-3) Last Admin: 05/13/22 20:13 Dose: 650 mg Acetaminophen (Acetaminophen 325 Mg Tablet) 650 mg PO Q6H PRN PRN Reason: Headache/Pain Mild Scale (1-3) Al Hydroxide/Mg Hydroxide (Magnesium Hydrox/Alum Hydrox 30 Ml Oral.Susp) 30 ml PO Q6H PRN PRN Reason: Heartburn/Nausea Al Hydroxide/Mg Hydroxide (Magnesium Hydrox/Alum Hydrox 30 Ml Oral.Susp) 30 ml PO Q6H PRN PRN Reason: Heartburn/Nausea Bisacodyl (Bisacodyl 10 Mg Supp.Rect) 10 mg LA DAILY PRN PRN Reason: Constipation Cyanocobalamin (Cyanocobalamin (Vitamin B-12) 1,000 Mcg Tablet) 1,000 mcg PO DAILY [facility] Last Admin: 06/12/22 09:10 Dose: 1,000 mcg Fluvoxamine Maleate (Fluvoxamine Maleate 50 Mg Tablet) 100 mg PO DAILY [facility] Last Admin: 06/12/22 09:09 Dose: 100 mg Fluvoxamine Maleate (Fluvoxamine Maleate 50 Mg Tablet) 100 mg PO BEDTIME [facility] Last Admin: 06/12/22 20:30 Dose: 100 mg Hydrochlorothiazide (Hydrochlorothiazide 25 Mg Tablet) 25 mg PO DAILY [facility]; Protocol Last Admin: 06/12/22 09:10 Dose: 25 mg Hydroxyzine HCl (Hydroxyzine Hcl 25 Mg Tablet) 25 mg PO Q6H PRN PRN Reason: Anxiety Lamotrigine (Lamotrigine 100 Mg Tablet) 100 mg PO DAILY [facility] Last Admin: 06/12/22 09:10 Dose: 100 mg Magnesium Hydroxide (Milk Of Magnesia 30 Ml Oral.Susp) 30 ml PO DAILY PRN PRN Reason: Constipation Last Admin: 05/27/22 13:08 Dose: 30 ml Magnesium Hydroxide (Milk Of Magnesia 30 Ml Oral.Susp) 30 ml PO DAILY PRN PRN Reason: Constipation Mirtazapine (Mirtazapine 15 Mg Tablet) 15 mg PO BEDTIME [facility] Last Admin: 06/12/22 20:30 Dose: 15 mg Olanzapine (Olanzapine 2.5 Mg Tablet) 2.5 mg PO BID PRN PRN Reason: Agitation Olanzapine (Olanzapine 7.5 Mg Tablet) 15 mg PO BEDTIME [facility] Last Admin: 06/12/22 20:30 Dose: 15 mg Ondansetron HCl (Ondansetron Odt 4 Mg Tab.Rapdis) 4 mg TRANSLINGU DAILY PRN PRN Reason: Nausea Polyethylene Glycol (Polyethylene Glycol 3350 17 Gm Powd.Pack) 17 gm PO BID [facility] Last Admin: 06/12/22 20:32 Dose: 17 gm Quetiapine Fumarate (Quetiapine Fumarate 100 Mg Tablet) 100 mg PO BEDTIME PRN PRN Reason: Anxiety Senna/Docusate Sodium (Sennosides/Docusate Sodium Tablet) 2 tab PO BID [facility] Last Admin: 06/12/22 20:31 Dose: 2 tab Trazodone HCl (Trazodone Hcl 50 Mg Tablet) 50 mg PO BEDTIME MRX1 PRN PRN Reason: Insomnia Last Admin: 05/16/22 20:07 Dose: 50 mg Triamcinolone Acetonide (Triamcinolone Acet 0.1% Lotion 60 Ml Bottle) 1 appl TOPICAL BID [facility] Stop: 06/16/22 09:01 Last Admin: 06/12/22 20:32 Dose: 1 appl Vitamin D (Cholecalciferol (Vitamin D3) 25 Mcg Tablet) 25 mcg PO DAILY [facility] Last Admin: 06/12/22 09:10 Dose: 25 mcg Home Medications Medication Instructions Recorded Confirmed Last Taken Type l theanine 200 mg PO QID PRN Anxiety 10/15/21 05/07/22 10/15/21 07:20 History lamotrigine 100 mg tablet 100 mg PO DAILY 10/15/21 05/07/22 10/15/21 07:20 History (Lamictal) mirtazapine 15 mg tablet 15 mg PO BEDTIME 10/15/21 05/07/22 10/14/21 21:30 History quetiapine 50 mg tablet 50 - 100 mg PO BEDTIME PRN Anxiety 10/15/21 05/07/22 10/14/21 20:30 History risperidone 0.5 mg tablet 0.5 mg PO BID 10/15/21 05/07/22 10/15/21 07:20 History (Risperdal) amlodipine 2.5 mg tablet 2.5 mg PO DAILY 05/07/22 05/07/22 Unknown History cholecalciferol (vitamin D3) 25 25 mcg PO DAILY 05/07/22 05/07/22 Unknown History mcg (1,000 unit) capsule clonazepam 0.5 mg disintegrating 0.5 mg PO BEDTIME 05/07/22 05/07/22 Unknown History tablet cyanocobalamin (vitamin B-12) 1,000 mcg PO DAILY 05/07/22 05/07/22 Unknown History 1,000 mcg tablet fluvoxamine 100 mg tablet 100 mg PO BEDTIME 05/07/22 05/07/22 Unknown History olanzapine 15 mg disintegrating 15 mg PO BEDTIME 05/07/22 05/07/22 Unknown History tablet olanzapine 5 mg disintegrating 2.5 mg PO BID PRN Agitation 05/07/22 05/07/22 Unknown History tablet ondansetron HCl 4 mg tablet 4 mg PO NEEDED PRN Nausea 05/07/22 05/07/22 Unknown History Exam Exam Date and Time: June 13, 2022 0835 Height,Weight and Vital Signs: Height 6 ft 5 in Weight 93.7 kg Last Vital Signs Temp 97.6 F 06/13/22 05:41 Pulse 56 06/13/22 05:41 Resp 16 06/13/22 05:41 BP 124/62 06/13/22 05:41 Pulse Ox 97 06/13/22 05:41 O2 Del Method Room Air 06/13/22 05:41 O2 Flow Rate 4 06/11/22 08:15 Pertinent Lab Results Pertinent Lab Results: Laboratory Tests 05/08/22 05/08/22 05/08/22 08:43 08:43 08:43 WBC 3.7 L RBC 4.34 L Hgb 13.6 L Hct 40.0 L MCV 92.2 MCH 31.3 MCHC 34.0 RDW 12.5 Plt Count 150 L MPV 8.7 L Immature Gran % (Auto) 0.3 Neut % (Auto) 60.0 Lymph % (Auto) 27.4 [place] % (Auto) 8.6 Eos % (Auto) 3.2 Baso % (Auto) 0.5 Lymph # (Auto) 1.0 L [place] # (Auto) 0.3 Eos # (Auto) 0.1 Baso # (Auto) 0.0 Abs Immat Gran (auto) 0.01 Absolute Neuts (auto) 2.2 Absolute Nucleated RBC 0.000 Nucleated RBC % (auto) 0.0 Sodium 145 Potassium 3.9 Chloride 107 Carbon Dioxide 31 H Anion Gap 11 L BUN 16 Creatinine 0.83 Estim Creat Clear Calc 94.6 Estimated GFR > 60 Random Glucose Fasting Glucose 128 H Estimat Average Glucose 103 Hemoglobin A1c % 5.2 Calcium 8.8 Total Bilirubin 0.7 Direct Bilirubin AST 15 ALT 13 Alkaline Phosphatase 54 Total Protein 5.3 L Albumin 3.4 L Triglycerides 72 Cholesterol 165 LDL Cholesterol, Calc 101 HDL Cholesterol 50 Vitamin B12 545 Folate 14.9 TSH 1.51 COVID-19 ([facility]) COVID-19 [employer] 05/11/22 06/06/22 06/06/22 18:25 12:38 12:38 WBC RBC Hgb Hct MCV MCH MCHC RDW Plt Count MPV Immature Gran % (Auto) Neut % (Auto) Lymph % (Auto) [place] % (Auto) Eos % (Auto) Baso % (Auto) Lymph # (Auto) [place] # (Auto) Eos # (Auto) Baso # (Auto) Abs Immat Gran (auto) Absolute Neuts (auto) Absolute Nucleated RBC Nucleated RBC % (auto) Sodium 141 Potassium 4.2 Chloride 106 Carbon Dioxide 28 Anion Gap 11 L BUN 21 H Creatinine 0.81 Estim Creat Clear Calc 100.8 Estimated GFR > 60 Random Glucose 122 H Fasting Glucose Estimat Average Glucose 103 Hemoglobin A1c % 5.2 Calcium 8.4 Total Bilirubin 0.7 Direct Bilirubin 0.2 AST 27 ALT 36 Alkaline Phosphatase 75 Total Protein 5.9 L Albumin 3.6 Triglycerides 46 Cholesterol 201 LDL Cholesterol, Calc 130 HDL Cholesterol 62 Vitamin B12 Folate TSH 1.04 COVID-19 ([facility]) Positive A COVID-19 Clin Com See Note Airway Mallampati Class: II (caps multiple) TM Dist: >3cm Neck ROM: Full Heart: rrr Lungs: cta Assessment and Plan Assessment Anesthesia Assessment: Anesthesia Plan Discussed and Chart Reviewed Final Anesthetic Review Family History of Problems with Anesthesia: No History of Problems with Anesthesia: No NPO: Yes ASA Class: III Final Preanesthetic Review: No Changes in Pt Med Stat, Meds/Allgs Chart Reviewed and Consent Obtained/Reviewed Patient Risk: Intermediate Procedure Risk: Intermediate Anesthetic Plan Anesthetic Plan: GA Disposition: Standard PACU
--- NOTE | 2022-06-13 09:00 | MHC.SHP ---
Pre-Procedural Eval Section A Date of Service: 06/13/22 The patient is an INPATIENT: Yes Changes since office visit: Yes Changes in Medication and Yes Patient answered all questions; No Cold of Flu in the past 2 weeks and No New Medical Problems Section B Chief Complaint: depression w/ SI Allergies: Allergies Allergy/AdvReac Type Severity Reaction Status Date / Time Latex, Natural Rubber AdvReac Mild Rash Verified 06/06/22 07:18 Plan I have reviewed the history and physical and performed a pertinent physical examination on my patient. No changes have occurred unless specified. Time Spent With Patient Time: Total time managing care of this patient today ____ minutes.
--- NOTE | 2022-06-13 09:20 | HO.ECTPROC ---
ECT Procedure Note Diagnosis/Treatment Date of Service: 06/13/22 Diagnosis: Major Depressive Disorder Previous ECT Date: 06/11/22 Current Treatment Number: 11 Interval Clinical Notes: pt feeling better mancini affect Time: Total time managing care of this patient today ____ minutes. ECT Settings Device: THYMATRON DGx Electrode Placement: Rt temporal/ Lt frontal Program/Pulse Width: 0.50 Energy Percent: 85 Seizure Duration By EEG (in seconds): 55 Medications Administration General Anesthetic: Etomidate (12) Muscle Relaxant: Succinylcholine (100) Ancillary Medications Anti-emetics: Zofran - Pre ECT Airway Management Airway Management: Bag Mask Ventilation Treatment Recommendations No Changes Recommended: No change Notes: some post op htn Pt Tolerated Procedure w/o Issue: Yes
[2022-06-13] MEDS: Cholecalciferol (Vitamin D3) 25 MCG TABLET PO (11:00)
[2022-06-13] MEDS: hydroCHLOROthiazide 25 MG TABLET PO (11:01)
[2022-06-13] MEDS: fluvoxaMINE Maleate 50 MG TABLET 100 MG PO ×2 (11:01→20:22)
[2022-06-13] MEDS: Cyanocobalamin (Vitamin B-12) 1,000 MCG TABLET 1000 MCG PO (11:01)
[2022-06-13] MEDS: Sennosides/Docusate Sodium TABLET 2 TAB PO ×2 (11:02→20:20)
[2022-06-13] MEDS: lamoTRIgine 100 MG TABLET PO (11:02)
[2022-06-13] MEDS: polyethylene glycoL 3350 17 GM POWD.PACK PO ×2 (11:03→20:19)
[2022-06-13] MEDS: Triamcinolone Acet 0.1% Lotion 60 ML BOTTLE 1 APPL TOPICAL (11:07)
--- NOTE | 2022-06-13 14:41 | HO.PSYCHPN ---
Subjective Subjective Date of Service: 06/13/22 Reason For Visit: depression w/ SI Subjective Notes: Conditional Voluntary Interim History: The nursing staff reported the patient had been doing much better, he slept well and he went to ECT today in the morning. On interview the patient reported that he is slightly sedated after the procedure but his mood is much better. Next week we will meet with his sister and probably will think of discharge at the end of the week. Mental Status Exam Mental Status Exam Patient Appearance: Well Grooomed and Appropriate Patient Orientation: Person and Situation Level of Consciousness: Awake and Appropriate Patient Behavior: Guarded and Passive Mood Description: Withdrawn and Constricted Affect Description: Calm Patient Cognition Impaired: Yes Ability to Follow Directions: Good Speech Pattern: Clear Hallucinations: None Delusions: Not Present Thought Process: Linear Thought Content: positive for [place] and positive for Circumstantial Judgement: Fair Diagnostics Vital Signs (24Hr): Vital Signs - 24 hr 06/12/22 18:00 06/13/22 05:41 06/13/22 09:30 Temperature 98.4 F 97.6 F 98.5 F Pulse Rate 63 56 79 Respiratory Rate 16 16 16 Blood Pressure 137/59 L 124/62 189/97 H Pulse Oximetry 95 97 100 Oxygen Delivery Method Room Air Room Air Nasal Cannula with ETCO2 Oxygen Flow Rate 2 06/13/22 09:35 06/13/22 09:40 06/13/22 09:45 Temperature Pulse Rate 97 87 86 Respiratory Rate 16 16 16 Blood Pressure 190/98 H 168/99 H 175/92 H Pulse Oximetry 97 96 96 Oxygen Delivery Method Nasal Cannula with ETCO2 Nasal Cannula with ETCO2 Nasal Cannula with ETCO2 Oxygen Flow Rate 2 2 2 06/13/22 10:00 06/13/22 10:30 06/13/22 10:30 Temperature 98.4 F 97.8 F 97.8 F Pulse Rate 70 62 62 Respiratory Rate 16 16 16 Blood Pressure 153/86 H 147/76 H 147/76 H Pulse Oximetry 96 95 95 Oxygen Delivery Method Room Air Room Air Oxygen Flow Rate BMI result Body Mass Index 24.5 Labs 05/08/22 08:43 06/06/22 12:38 Medications Medications Current Medications Acetaminophen (Acetaminophen 325 Mg Tablet) 650 mg PO Q6H PRN PRN Reason: Headache/Pain Mild Scale (1-3) Last Admin: 05/13/22 20:13 Dose: 650 mg Acetaminophen (Acetaminophen 325 Mg Tablet) 650 mg PO Q6H PRN PRN Reason: Headache/Pain Mild Scale (1-3) Al Hydroxide/Mg Hydroxide (Magnesium Hydrox/Alum Hydrox 30 Ml Oral.Susp) 30 ml PO Q6H PRN PRN Reason: Heartburn/Nausea Al Hydroxide/Mg Hydroxide (Magnesium Hydrox/Alum Hydrox 30 Ml Oral.Susp) 30 ml PO Q6H PRN PRN Reason: Heartburn/Nausea Bisacodyl (Bisacodyl 10 Mg Supp.Rect) 10 mg NC DAILY PRN PRN Reason: Constipation Cyanocobalamin (Cyanocobalamin (Vitamin B-12) 1,000 Mcg Tablet) 1,000 mcg PO DAILY [facility] Last Admin: 06/13/22 11:01 Dose: 1,000 mcg Fluvoxamine Maleate (Fluvoxamine Maleate 50 Mg Tablet) 100 mg PO DAILY [facility] Last Admin: 06/13/22 11:01 Dose: 100 mg Fluvoxamine Maleate (Fluvoxamine Maleate 50 Mg Tablet) 100 mg PO BEDTIME [facility] Last Admin: 06/12/22 20:30 Dose: 100 mg Hydrochlorothiazide (Hydrochlorothiazide 25 Mg Tablet) 25 mg PO DAILY [facility]; Protocol Last Admin: 06/13/22 11:01 Dose: 25 mg Hydroxyzine HCl (Hydroxyzine Hcl 25 Mg Tablet) 25 mg PO Q6H PRN PRN Reason: Anxiety Lamotrigine (Lamotrigine 100 Mg Tablet) 100 mg PO DAILY [facility] Last Admin: 06/13/22 11:02 Dose: 100 mg Magnesium Hydroxide (Milk Of Magnesia 30 Ml Oral.Susp) 30 ml PO DAILY PRN PRN Reason: Constipation Last Admin: 05/27/22 13:08 Dose: 30 ml Magnesium Hydroxide (Milk Of Magnesia 30 Ml Oral.Susp) 30 ml PO DAILY PRN PRN Reason: Constipation Mirtazapine (Mirtazapine 15 Mg Tablet) 15 mg PO BEDTIME [facility] Last Admin: 06/12/22 20:30 Dose: 15 mg Olanzapine (Olanzapine 2.5 Mg Tablet) 2.5 mg PO BID PRN PRN Reason: Agitation Olanzapine (Olanzapine 7.5 Mg Tablet) 15 mg PO BEDTIME [facility] Last Admin: 06/12/22 20:30 Dose: 15 mg Ondansetron HCl (Ondansetron Odt 4 Mg Tab.Rapdis) 4 mg TRANSLINGU DAILY PRN PRN Reason: Nausea Polyethylene Glycol (Polyethylene Glycol 3350 17 Gm Powd.Pack) 17 gm PO BID [facility] Last Admin: 06/13/22 11:03 Dose: 17 gm Quetiapine Fumarate (Quetiapine Fumarate 100 Mg Tablet) 100 mg PO BEDTIME PRN PRN Reason: Anxiety Senna/Docusate Sodium (Sennosides/Docusate Sodium Tablet) 2 tab PO BID [facility] Last Admin: 06/13/22 11:02 Dose: 2 tab Trazodone HCl (Trazodone Hcl 50 Mg Tablet) 50 mg PO BEDTIME MRX1 PRN PRN Reason: Insomnia Last Admin: 05/16/22 20:07 Dose: 50 mg Triamcinolone Acetonide (Triamcinolone Acet 0.1% Lotion 60 Ml Bottle) 1 appl TOPICAL BID [facility] Stop: 06/16/22 09:01 Last Admin: 06/13/22 11:07 Dose: 1 appl Vitamin D (Cholecalciferol (Vitamin D3) 25 Mcg Tablet) 25 mcg PO DAILY [facility] Last Admin: 06/13/22 11:00 Dose: 25 mcg Allergies Allergies Allergy/AdvReac Type Severity Reaction Status Date / Time Latex, Natural Rubber AdvReac Mild Rash Verified 06/06/22 07:18 Assessment & Plan Assessment & Plan (1) Major depressive disorder, recurrent severe without psychotic features: Status: Acute Code(s): F33.2 - Major depressive disorder, recurrent severe without psychotic features (2) Generalized anxiety disorder: Status: Acute Code(s): F41.1 - Generalized anxiety disorder Plan The patient is an elderly male with a long history of major depressive disorder with several prior admissions into the hospital for exacerbation of depression and previous treatment with ECT with for improvement.? The patient was initially treated at [facility] and transferring to this facility for ECT.? At this moment, the patient is severely depressed with some neuro cognitive impairment. Plan 1. Gather collateral information.? 2. Hospitalist workout with clearance for ECT.? Ready for ECT as per ThursdayMay 12 3. Continue regular medications.? 4. EKG for ECT treatment.? 5. ECT as soon as he is medically cleared.? Since he had COVID he was started later. 6. ECT continue 3 times per week. 7. Bowel treatment for constipation. 8. Increase Luvox up to 100 mg p.o. b.i.d. started on June 04. 9. Hospitalist consult for rash on leg, R/O cellulitis Reason for contiued inpatient stay Substantial Risk for: inability to function, rapid decompensation and med/psych decompensation Time Spent With Patient Time: Total time managing care of this patient today __20__ minutes.
[2022-06-13] MEDS: OLANZapine 7.5 MG TABLET 15 MG PO (20:21)
[2022-06-13] MEDS: Mirtazapine 15 MG TABLET PO (20:23)
[2022-06-14 06:00] VITALS: BP 113/58; PULSE 69; RESP 18; TEMP 36.5; O2SAT 94
[2022-06-14] MEDS: Sennosides/Docusate Sodium TABLET 2 TAB PO ×2 (08:51→20:13)
[2022-06-14] MEDS: Cyanocobalamin (Vitamin B-12) 1,000 MCG TABLET 1000 MCG PO (08:52)
[2022-06-14] MEDS: fluvoxaMINE Maleate 50 MG TABLET 100 MG PO ×2 (08:52→20:12)
[2022-06-14] MEDS: hydroCHLOROthiazide 25 MG TABLET PO (08:52)
[2022-06-14] MEDS: Cholecalciferol (Vitamin D3) 25 MCG TABLET PO (08:52)
[2022-06-14] MEDS: lamoTRIgine 100 MG TABLET PO (08:53)
[2022-06-14] MEDS: polyethylene glycoL 3350 17 GM POWD.PACK PO ×2 (08:53→20:11)
--- NOTE | 2022-06-14 12:55 | P.PNPSI_ITS ---
Subjective Subjective Date of Service: 06/14/22 Reason For Visit: depression w/ SI Subjective Notes: Section 8 Interim History: Pt reports feeling much better, less depressed. He reports he now sees difference in his mood. He has been sleeping and eating well. He hopes to be discharged soon. No behavioral concerns. Medication Compliance: Yes Side effects from medications: No Review of Systems Review of Systems Negative except that which is stated in the HPI. Yes all other systems are reviewed and are negative Mental Status Exam Mental Status Exam Narrative: Appearance: wearing hospital gown, fair hygiene in NAD behavior: cooperative Speech: clear, normal rate/rhythm/volume, spontaneous TP: linear TC:feeling better, still depressed ruminating and obsessional Mood: Improved Affect: congruent, does brightens at times SI: somewhat vague regarding recent thoughts becomes defensive HI: none VH/AH: none Delusions: no overt delusional content reported or noted. Insight/judgment: fair x 2 tendency toward catastrophic thinking interferes with judgment Memory/cog: alert, oriented x 3. Diagnostics Vital Signs (24Hr): Vital Signs - 24 hr 06/13/22 18:00 06/13/22 18:00 06/14/22 06:00 Temperature 98.8 F 98.8 F 97.7 F Pulse Rate 64 64 69 Respiratory Rate 16 16 18 Blood Pressure 121/58 L 121/58 L 113/58 L Pulse Oximetry 95 100 94 Oxygen Delivery Method Room Air Room Air Room Air BMI result Body Mass Index 24.5 Labs 05/08/22 08:43 06/06/22 12:38 Medications Medications Current Medications Acetaminophen (Acetaminophen 325 Mg Tablet) 650 mg PO Q6H PRN PRN Reason: Headache/Pain Mild Scale (1-3) Last Admin: 05/13/22 20:13 Dose: 650 mg Acetaminophen (Acetaminophen 325 Mg Tablet) 650 mg PO Q6H PRN PRN Reason: Headache/Pain Mild Scale (1-3) Al Hydroxide/Mg Hydroxide (Magnesium Hydrox/Alum Hydrox 30 Ml Oral.Susp) 30 ml PO Q6H PRN PRN Reason: Heartburn/Nausea Al Hydroxide/Mg Hydroxide (Magnesium Hydrox/Alum Hydrox 30 Ml Oral.Susp) 30 ml PO Q6H PRN PRN Reason: Heartburn/Nausea Bisacodyl (Bisacodyl 10 Mg Supp.Rect) 10 mg MD DAILY PRN PRN Reason: Constipation Cyanocobalamin (Cyanocobalamin (Vitamin B-12) 1,000 Mcg Tablet) 1,000 mcg PO DAILY [facility] Last Admin: 06/14/22 08:52 Dose: 1,000 mcg Fluvoxamine Maleate (Fluvoxamine Maleate 50 Mg Tablet) 100 mg PO DAILY [facility] Last Admin: 06/14/22 08:52 Dose: 100 mg Fluvoxamine Maleate (Fluvoxamine Maleate 50 Mg Tablet) 100 mg PO BEDTIME [facility] Last Admin: 06/13/22 20:22 Dose: 100 mg Hydrochlorothiazide (Hydrochlorothiazide 25 Mg Tablet) 25 mg PO DAILY [facility]; Protocol Last Admin: 06/14/22 08:52 Dose: 25 mg Hydroxyzine HCl (Hydroxyzine Hcl 25 Mg Tablet) 25 mg PO Q6H PRN PRN Reason: Anxiety Lamotrigine (Lamotrigine 100 Mg Tablet) 100 mg PO DAILY [facility] Last Admin: 06/14/22 08:53 Dose: 100 mg Magnesium Hydroxide (Milk Of Magnesia 30 Ml Oral.Susp) 30 ml PO DAILY PRN PRN Reason: Constipation Last Admin: 05/27/22 13:08 Dose: 30 ml Magnesium Hydroxide (Milk Of Magnesia 30 Ml Oral.Susp) 30 ml PO DAILY PRN PRN Reason: Constipation Mirtazapine (Mirtazapine 15 Mg Tablet) 15 mg PO BEDTIME [facility] Last Admin: 06/13/22 20:23 Dose: 15 mg Olanzapine (Olanzapine 2.5 Mg Tablet) 2.5 mg PO BID PRN PRN Reason: Agitation Olanzapine (Olanzapine 7.5 Mg Tablet) 15 mg PO BEDTIME [facility] Last Admin: 06/13/22 20:21 Dose: 15 mg Ondansetron HCl (Ondansetron Odt 4 Mg Tab.Rapdis) 4 mg TRANSLINGU DAILY PRN PRN Reason: Nausea Polyethylene Glycol (Polyethylene Glycol 3350 17 Gm Powd.Pack) 17 gm PO BID [facility] Last Admin: 06/14/22 08:53 Dose: 17 gm Quetiapine Fumarate (Quetiapine Fumarate 100 Mg Tablet) 100 mg PO BEDTIME PRN PRN Reason: Anxiety Senna/Docusate Sodium (Sennosides/Docusate Sodium Tablet) 2 tab PO BID [facility] Last Admin: 06/14/22 08:51 Dose: 2 tab Trazodone HCl (Trazodone Hcl 50 Mg Tablet) 50 mg PO BEDTIME MRX1 PRN PRN Reason: Insomnia Last Admin: 05/16/22 20:07 Dose: 50 mg Triamcinolone Acetonide (Triamcinolone Acet 0.1% Lotion 60 Ml Bottle) 1 appl TOPICAL BID [facility] Stop: 06/16/22 09:01 Last Admin: 06/14/22 09:30 Dose: Not Given Vitamin D (Cholecalciferol (Vitamin D3) 25 Mcg Tablet) 25 mcg PO DAILY [facility] Last Admin: 06/14/22 08:52 Dose: 25 mcg Allergies Allergies Allergy/AdvReac Type Severity Reaction Status Date / Time Latex, Natural Rubber AdvReac Mild Rash Verified 06/06/22 07:18 Assessment & Plan Assessment & Plan (1) Major depressive disorder, recurrent severe without psychotic features: Status: Acute Code(s): F33.2 - Major depressive disorder, recurrent severe without psychotic features (2) Generalized anxiety disorder: Status: Acute Code(s): F41.1 - Generalized anxiety disorder Plan The patient is an elderly male with a long history of major depressive disorder with several prior admissions into the hospital for exacerbation of depression and previous treatment with ECT with for improvement.? The patient was initially treated at [facility] and transferring to this facility for ECT.? At this moment, the patient is severely depressed with some n euro cognitive impairment. Plan 1. Gather collateral information.? 2. Hospitalist workout with clearance for ECT.? Ready for ECT as per ThursdayMay 12 3. Continue regular medications.? 4. EKG for ECT treatment.? 5. ECT as soon as he is medically cleared.? Since he had COVID he was started later. 6. ECT continue 3 times per week. 7. Bowel treatment for constipation. 8. Increase Luvox up to 100 mg p.o. b.i.d. started on June 04. 9. Hospitalist consult for rash on leg, R/O cellulitis 06/14 continue tx. Reason for contiued inpatient stay Substantial Risk for: harm to self and inability to function Time Spent With Patient Time: Total time managing care of this patient today ____ minutes.
[2022-06-14 18:00] VITALS: BP 152/70; PULSE 67; RESP 18; TEMP 36.6; O2SAT 97
[2022-06-14] MEDS: OLANZapine 7.5 MG TABLET 15 MG PO (20:11)
[2022-06-14] MEDS: Mirtazapine 15 MG TABLET PO (20:12)
[2022-06-15 06:00] VITALS: BP 138/68; PULSE 68; RESP 18; TEMP 36.8
[2022-06-15] MEDS: hydroCHLOROthiazide 25 MG TABLET PO (08:39)
[2022-06-15] MEDS: fluvoxaMINE Maleate 50 MG TABLET 100 MG PO ×2 (08:39→20:36)
[2022-06-15] MEDS: Cholecalciferol (Vitamin D3) 25 MCG TABLET PO (08:39)
[2022-06-15] MEDS: Sennosides/Docusate Sodium TABLET 2 TAB PO ×2 (08:39→20:36)
[2022-06-15] MEDS: lamoTRIgine 100 MG TABLET PO (08:39)
[2022-06-15] MEDS: Cyanocobalamin (Vitamin B-12) 1,000 MCG TABLET 1000 MCG PO (08:39)
[2022-06-15] MEDS: polyethylene glycoL 3350 17 GM POWD.PACK PO ×2 (08:39→20:35)
[2022-06-15 18:00] VITALS: BP 157/84; PULSE 61; RESP 18; TEMP 36.7; O2SAT 96
--- NOTE | 2022-06-15 20:00 | P.PNPSI_ITS ---
Subjective Subjective Date of Service: 06/15/22 Reason For Visit: depression w/ SI Subjective Notes: Section 8 Interim History: Pt continues to report feeling much better, less depressed. He reports he now sees difference in his mood. He has been sleeping and eating well. He hopes to be discharged soon. No behavioral concerns. Sister came to visit him. He denies any physical concerns. Medication Compliance: Yes Review of Systems Review of Systems Negative except that which is stated in the HPI. Yes all other systems are reviewed and are negative Mental Status Exam Mental Status Exam Narrative: Appearance: wearing hospital gown, fair hygiene in NAD behavior: cooperative Speech: clear, normal rate/rhythm/volume, spontaneous TP: linear TC:feeling better, no overt psychosis or somatizations. Mood: Improved Affect: congruent, does brightens at times SI:none HI: none VH/AH: none Delusions: no overt delusional content reported or noted. Insight/judgment: fair x 2 tendency toward catastrophic thinking interferes with judgment Memory/cog: alert, oriented x 3. Diagnostics Vital Signs (24Hr): Vital Signs - 24 hr 06/15/22 06:00 Temperature 98.2 F Pulse Rate 68 Respiratory Rate 18 Blood Pressure 138/68 BMI result Body Mass Index 24.5 Labs 05/08/22 08:43 06/06/22 12:38 Medications Medications Current Medications Acetaminophen (Acetaminophen 325 Mg Tablet) 650 mg PO Q6H PRN PRN Reason: Headache/Pain Mild Scale (1-3) Last Admin: 05/13/22 20:13 Dose: 650 mg Acetaminophen (Acetaminophen 325 Mg Tablet) 650 mg PO Q6H PRN PRN Reason: Headache/Pain Mild Scale (1-3) Al Hydroxide/Mg Hydroxide (Magnesium Hydrox/Alum Hydrox 30 Ml Oral.Susp) 30 ml PO Q6H PRN PRN Reason: Heartburn/Nausea Al Hydroxide/Mg Hydroxide (Magnesium Hydrox/Alum Hydrox 30 Ml Oral.Susp) 30 ml PO Q6H PRN PRN Reason: Heartburn/Nausea Bisacodyl (Bisacodyl 10 Mg Supp.Rect) 10 mg [place] DAILY PRN PRN Reason: Constipation Cyanocobalamin (Cyanocobalamin (Vitamin B-12) 1,000 Mcg Tablet) 1,000 mcg PO DAILY [facility] Last Admin: 06/15/22 08:39 Dose: 1,000 mcg Fluvoxamine Maleate (Fluvoxamine Maleate 50 Mg Tablet) 100 mg PO DAILY [facility] Last Admin: 06/15/22 08:39 Dose: 100 mg Fluvoxamine Maleate (Fluvoxamine Maleate 50 Mg Tablet) 100 mg PO BEDTIME [facility] Last Admin: 06/14/22 20:12 Dose: 100 mg Hydrochlorothiazide (Hydrochlorothiazide 25 Mg Tablet) 25 mg PO DAILY [facility]; Protocol Last Admin: 06/15/22 08:39 Dose: 25 mg Hydroxyzine HCl (Hydroxyzine Hcl 25 Mg Tablet) 25 mg PO Q6H PRN PRN Reason: Anxiety Lamotrigine (Lamotrigine 100 Mg Tablet) 100 mg PO DAILY [facility] Last Admin: 06/15/22 08:39 Dose: 100 mg Magnesium Hydroxide (Milk Of Magnesia 30 Ml Oral.Susp) 30 ml PO DAILY PRN PRN Reason: Constipation Last Admin: 05/27/22 13:08 Dose: 30 ml Magnesium Hydroxide (Milk Of Magnesia 30 Ml Oral.Susp) 30 ml PO DAILY PRN PRN Reason: Constipation Mirtazapine (Mirtazapine 15 Mg Tablet) 15 mg PO BEDTIME [facility] Last Admin: 06/14/22 20:12 Dose: 15 mg Olanzapine (Olanzapine 2.5 Mg Tablet) 2.5 mg PO BID PRN PRN Reason: Agitation Olanzapine (Olanzapine 7.5 Mg Tablet) 15 mg PO BEDTIME [facility] Last Admin: 06/14/22 20:11 Dose: 15 mg Ondansetron HCl (Ondansetron Odt 4 Mg Tab.Rapdis) 4 mg TRANSLINGU DAILY PRN PRN Reason: Nausea Polyethylene Glycol (Polyethylene Glycol 3350 17 Gm Powd.Pack) 17 gm PO BID [facility] Last Admin: 06/15/22 08:39 Dose: 17 gm Quetiapine Fumarate (Quetiapine Fumarate 100 Mg Tablet) 100 mg PO BEDTIME PRN PRN Reason: Anxiety Senna/Docusate Sodium (Sennosides/Docusate Sodium Tablet) 2 tab PO BID [facility] Last Admin: 06/15/22 08:39 Dose: 2 tab Trazodone HCl (Trazodone Hcl 50 Mg Tablet) 50 mg PO BEDTIME MRX1 PRN PRN Reason: Insomnia Last Admin: 05/16/22 20:07 Dose: 50 mg Triamcinolone Acetonide (Triamcinolone Acet 0.1% Lotion 60 Ml Bottle) 1 appl TOPICAL BID [facility] Stop: 06/16/22 09:01 Last Admin: 06/15/22 08:57 Dose: Not Given Vitamin D (Cholecalciferol (Vitamin D3) 25 Mcg Tablet) 25 mcg PO DAILY [facility] Last Admin: 06/15/22 08:39 Dose: 25 mcg Allergies Allergies Allergy/AdvReac Type Severity Reaction Status Date / Time Latex, Natural Rubber AdvReac Mild Rash Verified 06/06/22 07:18 Assessment & Plan Assessment & Plan (1) Major depressive disorder, recurrent severe without psychotic features: Status: Acute Code(s): F33.2 - Major depressive disorder, recurrent severe without psychotic features (2) Generalized anxiety disorder: Status: Acute Code(s): F41.1 - Generalized anxiety disorder Plan The patient is an elderly male with a long history of major depressive disorder with several prior admissions into the hospital for exacerbation of depression and previous treatment with ECT with for improvement.? The patient was initially treated at [facility] and transferring to this facility for ECT.? At this moment, the patient is severely depressed with some neuro cognitive impairment. Plan 1. Gather collateral information.? 2. Hospitalist workout with clearance for ECT.? Ready for ECT as per ThursdayMay 12 3. Continue regular medications.? 4. EKG for ECT treatment.? 5. ECT as soon as he is medically cleared.? Since he had COVID he was started later. 6. ECT continue 3 times per week. 7. Bowel treatment for constipation. 8. Increase Luvox up to 100 mg p.o. b.i.d. started on June 04. 9. Hospitalist consult for rash on leg, R/O cellulitis 4/2 continue tx. Reason for contiued inpatient stay Substantial Risk for: inability to function Time Spent With Patient Time: Total time managing care of this patient today ____ minutes.
[2022-06-15] MEDS: Triamcinolone Acet 0.1% Lotion 60 ML BOTTLE 1 APPL TOPICAL (20:36)
[2022-06-15] MEDS: OLANZapine 7.5 MG TABLET 15 MG PO (20:36)
[2022-06-15] MEDS: Mirtazapine 15 MG TABLET PO (20:36)
[2022-06-16] VITALS (9 sets, daily range): BP systolic 131–215; BP diastolic 66–105; PULSE 61–100; RESP 14–19; TEMP 36.8–37; O2SAT 95–99
--- NOTE | 2022-06-16 07:06 | MHC.SHP ---
Pre-Procedural Eval Section A Date of Service: 06/16/22 The patient is an INPATIENT: Yes Changes since office visit: No Cold of Flu in the past 2 weeks, No New Medical Problems, No Changes in Medication and No Patient answered all questions The History & Physical has been completed within 30 days and I have reviewed it.: Yes Section B Chief Complaint: depression w/ SI Allergies: Allergies Allergy/AdvReac Type Severity Reaction Status Date / Time Latex, Natural Rubber AdvReac Mild Rash Verified 06/06/22 07:18 Plan I have reviewed the history and physical and performed a pertinent physical examination on my patient. No changes have occurred unless specified. Time Spent With Patient Time: Total time managing care of this patient today ____ minutes.
--- NOTE | 2022-06-16 07:26 | HO.ECTPROC ---
ECT Procedure Note Diagnosis/Treatment Date of Service: 06/16/22 Diagnosis: Major Depressive Disorder Previous ECT Date: 06/13/22 Current Treatment Number: 12 Treatment: Series Interval Clinical Notes: The patient reported improvement of dysphoria, he complained of recent dysuria, we will follow with [facility] today. Time: Total time managing care of this patient today __30__ minutes. ECT Settings Device: THYMATRON DGx Electrode Placement: Rt temporal/ Lt frontal Program/Pulse Width: 0.50 Energy Percent: 85 Seizure Duration By EEG (in seconds): 55 By Motor Observation (in seconds): 21 Medications Administration General Anesthetic: Etomidate (16) Muscle Relaxant: Succinylcholine (100) Ancillary Medications Analgesics: Torodol - Pre ECT Anti-emetics: Zofran - Pre ECT Airway Management Airway Management: Bag Mask Ventilation Treatment Recommendations No Changes Recommended: No change Pt Tolerated Procedure w/o Issue: Yes
[2022-06-16] MEDS: Sennosides/Docusate Sodium TABLET 2 TAB PO ×2 (09:57→20:16)
[2022-06-16] MEDS: lamoTRIgine 100 MG TABLET PO (09:58)
[2022-06-16] MEDS: Cholecalciferol (Vitamin D3) 25 MCG TABLET PO (09:58)
[2022-06-16] MEDS: Cyanocobalamin (Vitamin B-12) 1,000 MCG TABLET 1000 MCG PO (09:58)
[2022-06-16] MEDS: fluvoxaMINE Maleate 50 MG TABLET 100 MG PO ×2 (09:58→20:16)
[2022-06-16] MEDS: polyethylene glycoL 3350 17 GM POWD.PACK PO ×2 (09:59→20:16)
[2022-06-16] MEDS: hydroCHLOROthiazide 25 MG TABLET PO (09:59)
[2022-06-16] MEDS: Triamcinolone Acet 0.1% Lotion 60 ML BOTTLE 1 APPL TOPICAL (10:03)
[2022-06-16 10:17] LABS: Appearance Urine Cloudy; Color Urine Yellow; Glucose Urine UA Negative (Negative); Leukocyte Esterase Urine Negative (Negative); Nitrite Urine Negative (Negative); PH 8.5 (5.0-9.0); Urine Blood Negative (Negative); Urine Ketones Negative (Negative); Urine Protein Trace mg/dL (Neg-Trace)
[2022-06-16 10:23] LABS: Bacteria Urine None Seen (None Seen); Hyaline Casts Urine 0-2 /LPF (0-2); RBC Urine 0-2 /HPF (0-2); Squamous Epithelial Cell Urine 0-2 /HPF (0-2); WBC Urine 0-5 /HPF (0-5)
--- NOTE | 2022-06-16 15:34 | P.PNPSI_ITS ---
Subjective Subjective Date of Service: 06/16/22 Reason For Visit: depression w/ SI Subjective Notes: Conditional Voluntary Interim History: The nursing staff reported the patient is alert and oriented x3 he looks more oriented and occupational therapist reported that he is pretty functional in groups. Today we had ECT without any side effects, he reports improvement of dysphoria we will start working on discharge planning. He has gained weight so he agreed to lower Zyprexa to 10 mg at bedtime. Mental Status Exam Mental Status Exam Patient Appearance: Well Grooomed and Appropriate Patient Orientation: Person and Situation Level of Consciousness: Awake and Appropriate Patient Behavior: Appropriate, Cooperative and Passive Mood Description: Calm Affect Description: Constricted Patient Cognition Impaired: Yes Ability to Follow Directions: Good Speech Pattern: Clear Hallucinations: None Delusions: Not Present Thought Process: Distracted and Linear Thought Content: positive for Rel[place] and positive for Circumstantial Judgement: Fair Diagnostics Vital Signs (24Hr): Vital Signs - 24 hr 06/15/22 18:00 06/16/22 06:35 06/16/22 06:47 Temperature 98.1 F 98.6 F 98.4 F Pulse Rate 61 74 61 Respiratory Rate 18 16 18 Blood Pressure 157/84 H 131/74 178/85 H Pulse Oximetry 96 99 Oxygen Delivery Method Room Air Room Air Oxygen Flow Rate 06/16/22 07:44 06/16/22 07:49 06/16/22 07:54 Temperature 98.6 F Pulse Rate 83 98 95 Respiratory Rate 15 19 16 Blood Pressure 195/98 H 215/104 H 195/105 H Pulse Oximetry 97 97 95 Oxygen Delivery Method Nasal Cannula Nasal Cannula Room Air Oxygen Flow Rate 2 2 06/16/22 07:59 06/16/22 08:14 Temperature Pulse Rate 100 88 Respiratory Rate 17 14 Blood Pressure 191/96 H 186/87 H Pulse Oximetry 95 95 Oxygen Delivery Method Room Air Room Air Oxygen Flow Rate BMI result Body Mass Index 24.5 Labs 05/08/22 08:43 06/06/22 12:38 Labs: Laboratory Results - last 48 hr 06/16/22 09:10 Urine Color Yellow Urine Appearance Cloudy Urine pH 8.5 Ur Specific [place] 1.020 Urine Protein Trace Urine Glucose (UA) Negative Urine Ketones Negative Urine Blood Negative Urine Nitrite Negative Ur Leukocyte Esterase Negative Urine RBC 0-2 Urine WBC 0-5 Ur Squamous Epith Cells 0-2 Urine Bacteria None Seen Hyaline Casts 0-2 Medications Medications Current Medications Acetaminophen (Acetaminophen 325 Mg Tablet) 650 mg PO Q6H PRN PRN Reason: Headache/Pain Mild Scale (1-3) Last Admin: 05/13/22 20:13 Dose: 650 mg Acetaminophen (Acetaminophen 325 Mg Tablet) 650 mg PO Q6H PRN PRN Reason: Headache/Pain Mild Scale (1-3) Al Hydroxide/Mg Hydroxide (Magnesium Hydrox/Alum Hydrox 30 Ml Oral.Susp) 30 ml PO Q6H PRN PRN Reason: Heartburn/Nausea Al Hydroxide/Mg Hydroxide (Magnesium Hydrox/Alum Hydrox 30 Ml Oral.Susp) 30 ml PO Q6H PRN PRN Reason: Heartburn/Nausea Bisacodyl (Bisacodyl 10 Mg Supp.Rect) 10 mg [place] DAILY PRN PRN Reason: Constipation Cyanocobalamin (Cyanocobalamin (Vitamin B-12) 1,000 Mcg Tablet) 1,000 mcg PO DAILY [facility] Last Admin: 06/16/22 09:58 Dose: 1,000 mcg Fluvoxamine Maleate (Fluvoxamine Maleate 50 Mg Tablet) 100 mg PO DAILY [facility] Last Admin: 06/16/22 09:58 Dose: 100 mg Fluvoxamine Maleate (Fluvoxamine Maleate 50 Mg Tablet) 100 mg PO BEDTIME [facility] Last Admin: 06/15/22 20:36 Dose: 100 mg Hydrochlorothiazide (Hydrochlorothiazide 25 Mg Tablet) 25 mg PO DAILY [facility]; Protocol Last Admin: 06/16/22 09:59 Dose: 25 mg Hydroxyzine HCl (Hydroxyzine Hcl 25 Mg Tablet) 25 mg PO Q6H PRN PRN Reason: Anxiety Lamotrigine (Lamotrigine 100 Mg Tablet) 100 mg PO DAILY [facility] Last Admin: 06/16/22 09:58 Dose: 100 mg Magnesium Hydroxide (Milk Of Magnesia 30 Ml Oral.Susp) 30 ml PO DAILY PRN PRN Reason: Constipation Last Admin: 05/27/22 13:08 Dose: 30 ml Magnesium Hydroxide (Milk Of Magnesia 30 Ml Oral.Susp) 30 ml PO DAILY PRN PRN Reason: Constipation Mirtazapine (Mirtazapine 15 Mg Tablet) 15 mg PO BEDTIME [facility] Last Admin: 06/15/22 20:36 Dose: 15 mg Olanzapine (Olanzapine 2.5 Mg Tablet) 2.5 mg PO BID PRN PRN Reason: Agitation Olanzapine (Olanzapine 7.5 Mg Tablet) 15 mg PO BEDTIME [facility] Last Admin: 06/15/22 20:36 Dose: 15 mg Ondansetron HCl (Ondansetron Odt 4 Mg Tab.Rapdis) 4 mg TRANSLINGU DAILY PRN PRN Reason: Nausea Polyethylene Glycol (Polyethylene Glycol 3350 17 Gm Powd.Pack) 17 gm PO BID [facility] Last Admin: 06/16/22 09:59 Dose: 17 gm Quetiapine Fumarate (Quetiapine Fumarate 100 Mg Tablet) 100 mg PO BEDTIME PRN PRN Reason: Anxiety Senna/Docusate Sodium (Sennosides/Docusate Sodium Tablet) 2 tab PO BID [facility] Last Admin: 06/16/22 09:57 Dose: 2 tab Trazodone HCl (Trazodone Hcl 50 Mg Tablet) 50 mg PO BEDTIME MRX1 PRN PRN Reason: Insomnia Last Admin: 05/16/22 20:07 Dose: 50 mg Vitamin D (Cholecalciferol (Vitamin D3) 25 Mcg Tablet) 25 mcg PO DAILY [facility] Last Admin: 06/16/22 09:58 Dose: 25 mcg Allergies Allergies Allergy/AdvReac Type Severity Reaction Status Date / Time Latex, Natural Rubber AdvReac Mild Rash Verified 06/06/22 07:18 Assessment & Plan Assessment & Plan (1) Major depressive disorder, recurrent severe without psychotic features: Status: Acute Code(s): F33.2 - Major depressive disorder, recurrent severe without psychotic features (2) Generalized anxiety disorder: Status: Acute Code(s): F41.1 - Generalized anxiety disorder Plan The patient is an elderly male with a long history of major depressive disorder with several prior admissions into the hospital for exacerbation of depression and previous treatment with ECT with for improvement.? The patient was initially treated at [facility] and transferring to this facility for ECT.? At this moment, the patient is severely depressed with some neuro cognitive impairment. Plan 1. Gather collateral information.? 2. Hospitalist workout with clearance for ECT.? Ready for ECT as per ThursdayMay 12 3. Continue regular medications.? 4. EKG for ECT treatment.? 5. ECT as soon as he is medically cleared.? Since he had COVID he was started later. 6. ECT continue 3 times per week. 7. Bowel treatment for constipation. 8. Increase Luvox up to 100 mg p.o. b.i.d. started on June 04. 9. Hospitalist consult for rash on leg, R/O cellulitis 10. Lower Zyprexa to 10 mg p.o. q.h.s. Reason for contiued inpatient stay Substantial Risk for: inability to function, rapid decompensation and med/psych decompensation Time Spent With Patient Time: Total time managing care of this patient today __20__ minutes.
[2022-06-16] MEDS: OLANZapine 10 MG TABLET PO (20:16)
[2022-06-16] MEDS: Mirtazapine 15 MG TABLET PO (20:18)
[2022-06-17 06:00] VITALS: BP 135/96; PULSE 66; RESP 18; TEMP 36.3; O2SAT 96
[2022-06-17] MEDS: fluvoxaMINE Maleate 50 MG TABLET 100 MG PO ×2 (08:01→19:43)
[2022-06-17] MEDS: hydroCHLOROthiazide 25 MG TABLET PO (08:01)
[2022-06-17] MEDS: Sennosides/Docusate Sodium TABLET 2 TAB PO ×2 (08:01→19:41)
[2022-06-17] MEDS: Cholecalciferol (Vitamin D3) 25 MCG TABLET PO (08:01)
[2022-06-17] MEDS: Cyanocobalamin (Vitamin B-12) 1,000 MCG TABLET 1000 MCG PO (08:01)
[2022-06-17] MEDS: polyethylene glycoL 3350 17 GM POWD.PACK PO ×2 (08:02→19:41)
[2022-06-17] MEDS: lamoTRIgine 100 MG TABLET PO (08:02)
--- NOTE | 2022-06-17 17:03 | P.PNPSI_ITS ---
Subjective Subjective Date of Service: 06/17/22 Reason For Visit: depression w/ SI Subjective Notes: Conditional Voluntary Interim History: The nursing staff reported the patient had been alert and awake cooperative and pleasant, attending to groups with normal appetite. On interview the patient reports that he is feeling much better. Mental Status Exam Mental Status Exam Patient Appearance: Well Grooomed and Appropriate Patient Orientation: Person and Situation Level of Consciousness: Awake and Appropriate Patient Behavior: Cooperative and Passive Mood Description: Calm Affect Description: Constricted Patient Cognition Impaired: Yes Ability to Follow Directions: Good Speech Pattern: Clear Hallucinations: None Delusions: Not Present Thought Process: Linear Thought Content: positive for Intact Judgement: Fair Diagnostics Vital Signs (24Hr): Vital Signs - 24 hr 06/16/22 19:56 06/17/22 06:00 Temperature 98.6 F 97.4 F Pulse Rate 65 66 Respiratory Rate 18 18 Blood Pressure 138/66 135/96 H Pulse Oximetry 95 96 Oxygen Delivery Method Room Air Room Air BMI result Body Mass Index 24.5 Labs 05/08/22 08:43 06/06/22 12:38 Labs: Laboratory Results - last 48 hr 06/16/22 09:10 Urine Color Yellow Urine Appearance Cloudy Urine pH 8.5 Ur Specific [place] 1.020 Urine Protein Trace Urine Glucose (UA) Negative Urine Ketones Negative Urine Blood Negative Urine Nitrite Negative Ur Leukocyte Esterase Negative Urine RBC 0-2 Urine WBC 0-5 Ur Squamous Epith Cells 0-2 Urine Bacteria None Seen Hyaline Casts 0-2 Medications Medications Current Medications Acetaminophen (Acetaminophen 325 Mg Tablet) 650 mg PO Q6H PRN PRN Reason: Headache/Pain Mild Scale (1-3) Last Admin: 05/13/22 20:13 Dose: 650 mg Acetaminophen (Acetaminophen 325 Mg Tablet) 650 mg PO Q6H PRN PRN Reason: Headache/Pain Mild Scale (1-3) Al Hydroxide/Mg Hydroxide (Magnesium Hydrox/Alum Hydrox 30 Ml Oral.Susp) 30 ml PO Q6H PRN PRN Reason: Heartburn/Nausea Al Hydroxide/Mg Hydroxide (Magnesium Hydrox/Alum Hydrox 30 Ml Oral.Susp) 30 ml PO Q6H PRN PRN Reason: Heartburn/Nausea Bisacodyl (Bisacodyl 10 Mg Supp.Rect) 10 mg [place] DAILY PRN PRN Reason: Constipation Cyanocobalamin (Cyanocobalamin (Vitamin B-12) 1,000 Mcg Tablet) 1,000 mcg PO DAILY [facility] Last Admin: 06/17/22 08:01 Dose: 1,000 mcg Fluvoxamine Maleate (Fluvoxamine Maleate 50 Mg Tablet) 100 mg PO DAILY [facility] Last Admin: 06/17/22 08:01 Dose: 100 mg Fluvoxamine Maleate (Fluvoxamine Maleate 50 Mg Tablet) 100 mg PO BEDTIME [facility] Last Admin: 06/16/22 20:16 Dose: 100 mg Hydrochlorothiazide (Hydrochlorothiazide 25 Mg Tablet) 25 mg PO DAILY [facility]; Protocol Last Admin: 06/17/22 08:01 Dose: 25 mg Hydroxyzine HCl (Hydroxyzine Hcl 25 Mg Tablet) 25 mg PO Q6H PRN PRN Reason: Anxiety Lamotrigine (Lamotrigine 100 Mg Tablet) 100 mg PO DAILY [facility] Last Admin: 06/17/22 08:02 Dose: 100 mg Magnesium Hydroxide (Milk Of Magnesia 30 Ml Oral.Susp) 30 ml PO DAILY PRN PRN Reason: Constipation Last Admin: 05/27/22 13:08 Dose: 30 ml Magnesium Hydroxide (Milk Of Magnesia 30 Ml Oral.Susp) 30 ml PO DAILY PRN PRN Reason: Constipation Mirtazapine (Mirtazapine 15 Mg Tablet) 15 mg PO BEDTIME [facility] Last Admin: 06/16/22 20:18 Dose: 15 mg Olanzapine (Olanzapine 10 Mg Tablet) 10 mg PO BEDTIME [facility] Last Admin: 06/16/22 20:16 Dose: 10 mg Olanzapine (Olanzapine 2.5 Mg Tablet) 2.5 mg PO BID PRN PRN Reason: Agitation Ondansetron HCl (Ondansetron Odt 4 Mg Tab.Rapdis) 4 mg TRANSLINGU DAILY PRN PRN Reason: Nausea Polyethylene Glycol (Polyethylene Glycol 3350 17 Gm Powd.Pack) 17 gm PO BID [facility] Last Admin: 06/17/22 08:02 Dose: 17 gm Quetiapine Fumarate (Quetiapine Fumarate 100 Mg Tablet) 100 mg PO BEDTIME PRN PRN Reason: Anxiety Senna/Docusate Sodium (Sennosides/Docusate Sodium Tablet) 2 tab PO BID [facility] Last Admin: 06/17/22 08:01 Dose: 2 tab Trazodone HCl (Trazodone Hcl 50 Mg Tablet) 50 mg PO BEDTIME MRX1 PRN PRN Reason: Insomnia Last Admin: 05/16/22 20:07 Dose: 50 mg Vitamin D (Cholecalciferol (Vitamin D3) 25 Mcg Tablet) 25 mcg PO DAILY [facility] Last Admin: 06/17/22 08:01 Dose: 25 mcg Allergies Allergies Allergy/AdvReac Type Severity Reaction Status Date / Time Latex, Natural Rubber AdvReac Mild Rash Verified 06/06/22 07:18 Assessment & Plan Assessment & Plan (1) Major depressive disorder, recurrent severe without psychotic features: Status: Acute Code(s): F33.2 - Major depressive disorder, recurrent severe without psychotic features (2) Generalized anxiety disorder: Status: Acute Code(s): F41.1 - Generalized anxiety disorder Plan The patient is an elderly male with a long history of major depressive disorder with several prior admissions into the hospital for exacerbation of depression and previous treatment with ECT with for improvement.? The patient was initially treated at [facility] and transferring to this facility for ECT.? At this moment, the patient is severely depressed with some neuro cognitive impairment. Plan 1. Gather collateral information.? 2. Hospitalist workout with clearance for ECT.? Ready for ECT as per ThursdayMay 12 3. Continue regular medications.? 4. EKG for ECT treatment.? 5. ECT as soon as he is medically cleared.? Since he had COVID he was started later. 6. ECT continue 3 times per week. 7. Bowel treatment for constipation. 8. Increase Luvox up to 100 mg p.o. b.i.d. started on June 04. 9. Hospitalist consult for rash on leg, R/O cellulitis 10. Lower Zyprexa to 7.5 mg p.o. q.h.s. Reason for contiued inpatient stay Substantial Risk for: inability to function, rapid decompensation and med/psych decompensation Time Spent With Patient Time: Total time managing care of this patient today __20__ minutes.
[2022-06-17 18:00] VITALS: BP 141/67; PULSE 62; RESP 16; TEMP 36.7; O2SAT 97
[2022-06-17] MEDS: traZODone HCL 50 MG TABLET PO (19:42)
[2022-06-17] MEDS: Mirtazapine 15 MG TABLET PO (19:42)
[2022-06-17] MEDS: OLANZapine 7.5 MG TABLET PO (19:43)
[2022-06-18 06:00] VITALS: BP 159/74; PULSE 70; RESP 16; TEMP 35.8; O2SAT 97
[2022-06-18 08:08] VITALS: BP 143/66; PULSE 63; RESP 18; TEMP 36.4; O2SAT 97
[2022-06-18] MEDS: Cholecalciferol (Vitamin D3) 25 MCG TABLET PO (08:56)
[2022-06-18] MEDS: fluvoxaMINE Maleate 50 MG TABLET 100 MG PO ×2 (08:56→20:41)
[2022-06-18] MEDS: hydroCHLOROthiazide 25 MG TABLET PO (08:56)
[2022-06-18] MEDS: Cyanocobalamin (Vitamin B-12) 1,000 MCG TABLET 1000 MCG PO (08:56)
[2022-06-18] MEDS: lamoTRIgine 100 MG TABLET PO (08:56)
[2022-06-18] MEDS: Sennosides/Docusate Sodium TABLET 2 TAB PO ×2 (08:56→20:42)
[2022-06-18] MEDS: polyethylene glycoL 3350 17 GM POWD.PACK PO ×2 (08:58→20:47)
--- NOTE | 2022-06-18 12:56 | HO.PSYCHPN ---
Subjective Subjective Date of Service: 06/18/22 Reason For Visit: depression w/ SI Subjective Notes: Conditional Voluntary Interim History: The nursing staff reported the patient had been common cooperative, fully plan compliant with treatment. On interview the patient denies any side effects with the lowering of Zyprexa. We discussed treatment options and he agreed to do ECT after discharge once a week for 4 weeks. We are scheduling his discharge for this Thursday. Mental Status Exam Mental Status Exam Patient Appearance: Well Grooomed and Appropriate Patient Orientation: Person and Situation Level of Consciousness: Awake and Appropriate Patient Behavior: Appropriate and Cooperative Mood Description: Calm Affect Description: Calm Patient Cognition Impaired: No Ability to Follow Directions: Good Speech Pattern: Clear Hallucinations: None Delusions: Not Present Thought Process: Linear Thought Content: positive for Intact and positive for Circumstantial Judgement: Fair Diagnostics Vital Signs (24Hr): Vital Signs - 24 hr 06/17/22 18:00 06/18/22 06:00 06/18/22 08:08 Temperature 98.1 F 96.5 F L 97.5 F Pulse Rate 62 70 63 Respiratory Rate 16 16 18 Blood Pressure 141/67 H 159/74 H 143/66 H Pulse Oximetry 97 97 97 Oxygen Delivery Method Room Air Room Air Room Air BMI result Body Mass Index 24.5 Labs 05/08/22 08:43 06/06/22 12:38 Medications Medications Current Medications Acetaminophen (Acetaminophen 325 Mg Tablet) 650 mg PO Q6H PRN PRN Reason: Headache/Pain Mild Scale (1-3) Last Admin: 05/13/22 20:13 Dose: 650 mg Acetaminophen (Acetaminophen 325 Mg Tablet) 650 mg PO Q6H PRN PRN Reason: Headache/Pain Mild Scale (1-3) Al Hydroxide/Mg Hydroxide (Magnesium Hydrox/Alum Hydrox 30 Ml Oral.Susp) 30 ml PO Q6H PRN PRN Reason: Heartburn/Nausea Al Hydroxide/Mg Hydroxide (Magnesium Hydrox/Alum Hydrox 30 Ml Oral.Susp) 30 ml PO Q6H PRN PRN Reason: Heartburn/Nausea Bisacodyl (Bisacodyl 10 Mg Supp.Rect) 10 mg [place] DAILY PRN PRN Reason: Constipation Cyanocobalamin (Cyanocobalamin (Vitamin B-12) 1,000 Mcg Tablet) 1,000 mcg PO DAILY [facility] Last Admin: 06/18/22 08:56 Dose: 1,000 mcg Fluvoxamine Maleate (Fluvoxamine Maleate 50 Mg Tablet) 100 mg PO DAILY [facility] Last Admin: 06/18/22 08:56 Dose: 100 mg Fluvoxamine Maleate (Fluvoxamine Maleate 50 Mg Tablet) 100 mg PO BEDTIME [facility] Last Admin: 06/17/22 19:43 Dose: 100 mg Hydrochlorothiazide (Hydrochlorothiazide 25 Mg Tablet) 25 mg PO DAILY [facility]; Protocol Last Admin: 06/18/22 08:56 Dose: 25 mg Hydroxyzine HCl (Hydroxyzine Hcl 25 Mg Tablet) 25 mg PO Q6H PRN PRN Reason: Anxiety Lamotrigine (Lamotrigine 100 Mg Tablet) 100 mg PO DAILY [facility] Last Admin: 06/18/22 08:56 Dose: 100 mg Magnesium Hydroxide (Milk Of Magnesia 30 Ml Oral.Susp) 30 ml PO DAILY PRN PRN Reason: Constipation Last Admin: 05/27/22 13:08 Dose: 30 ml Magnesium Hydroxide (Milk Of Magnesia 30 Ml Oral.Susp) 30 ml PO DAILY PRN PRN Reason: Constipation Mirtazapine (Mirtazapine 15 Mg Tablet) 15 mg PO BEDTIME [facility] Last Admin: 06/17/22 19:42 Dose: 15 mg Olanzapine (Olanzapine 7.5 Mg Tablet) 7.5 mg PO BEDTIME [facility] Last Admin: 06/17/22 19:43 Dose: 7.5 mg Olanzapine (Olanzapine 2.5 Mg Tablet) 2.5 mg PO BID PRN PRN Reason: Agitation Ondansetron HCl (Ondansetron Odt 4 Mg Tab.Rapdis) 4 mg TRANSLINGU DAILY PRN PRN Reason: Nausea Polyethylene Glycol (Polyethylene Glycol 3350 17 Gm Powd.Pack) 17 gm PO BID [facility] Last Admin: 06/18/22 08:58 Dose: 17 gm Quetiapine Fumarate (Quetiapine Fumarate 100 Mg Tablet) 100 mg PO BEDTIME PRN PRN Reason: Anxiety Senna/Docusate Sodium (Sennosides/Docusate Sodium Tablet) 2 tab PO BID [facility] Last Admin: 06/18/22 08:56 Dose: 2 tab Trazodone HCl (Trazodone Hcl 50 Mg Tablet) 50 mg PO BEDTIME MRX1 PRN PRN Reason: Insomnia Last Admin: 06/17/22 19:42 Dose: 50 mg Vitamin D (Cholecalciferol (Vitamin D3) 25 Mcg Tablet) 25 mcg PO DAILY [facility] Last Admin: 06/18/22 08:56 Dose: 25 mcg Allergies Allergies Allergy/AdvReac Type Severity Reaction Status Date / Time Latex, Natural Rubber AdvReac Mild Rash Verified 06/06/22 07:18 Assessment & Plan Assessment & Plan (1) Major depressive disorder, recurrent severe without psychotic features: Status: Acute Code(s): F33.2 - Major depressive disorder, recurrent severe without psychotic features (2) Generalized anxiety disorder: Status: Acute Code(s): F41.1 - Generalized anxiety disorder Plan The patient is an elderly male with a long history of major depressive disorder with several prior admissions into the hospital for exacerbation of depression and previous treatment with ECT with for improvement.? The patient was initially treated at [facility] and transferring to this facility for ECT.? At this moment, the patient is severely depressed with some neuro cognitive impairment. Plan 1. Gather collateral information.? 2. Hospitalist workout with clearance for ECT.? Ready for ECT as per ThursdayMay 12 3. Continue regular medications.? 4. EKG for ECT treatment.? 5. ECT as soon as he is medically cleared.? Since he had COVID he was started later. 6. ECT continue 3 times per week. 7. Bowel treatment for constipation. 8. Increase Luvox up to 100 mg p.o. b.i.d. started on June 04. 9. Hospitalist consult for rash on leg, R/O cellulitis 10. Lower Zyprexa to 7.5 mg p.o. q.h.s. Reason for contiued inpatient stay Substantial Risk for: inability to function, rapid decompensation and med/psych decompensation Time Spent With Patient Time: Total time managing care of this patient today _20___ minutes.
[2022-06-18 18:00] VITALS: BP 137/66; PULSE 61; RESP 14; TEMP 36.5; O2SAT 98
[2022-06-18] MEDS: traZODone HCL 50 MG TABLET PO (20:41)
[2022-06-18] MEDS: Mirtazapine 15 MG TABLET PO (20:41)
[2022-06-18] MEDS: OLANZapine 7.5 MG TABLET PO (20:41)
[2022-06-19 06:00] VITALS: BP 133/62; PULSE 66; RESP 16; TEMP 37.2; O2SAT 98
[2022-06-19 07:00] VITALS: BMI 24.3
[2022-06-19] MEDS: hydroCHLOROthiazide 25 MG TABLET PO (08:17)
[2022-06-19] MEDS: lamoTRIgine 100 MG TABLET PO (08:18)
[2022-06-19] MEDS: fluvoxaMINE Maleate 50 MG TABLET 100 MG PO ×2 (08:18→20:13)
[2022-06-19] MEDS: Cyanocobalamin (Vitamin B-12) 1,000 MCG TABLET 1000 MCG PO (08:18)
[2022-06-19] MEDS: Cholecalciferol (Vitamin D3) 25 MCG TABLET PO (08:18)
[2022-06-19] MEDS: Sennosides/Docusate Sodium TABLET 2 TAB PO ×2 (08:18→20:13)
[2022-06-19] MEDS: polyethylene glycoL 3350 17 GM POWD.PACK PO (08:18)
--- NOTE | 2022-06-19 10:26 | P.PNPSI_ITS ---
Subjective Subjective Date of Service: 06/19/22 Reason For Visit: depression w/ SI Subjective Notes: Conditional Voluntary Interim History: The nursing staff reported the patient had been compliant with treatment he slept well last night. His appetite is normal. On interview the patient reports that he is feeling much better, we will discharge him tomorrow. Mental Status Exam Mental Status Exam Patient Appearance: Well Grooomed and Appropriate Patient Orientation: Person and Situation Level of Consciousness: Awake and Appropriate Patient Behavior: Appropriate and Cooperative Mood Description: Calm Affect Description: Relaxed Patient Cognition Impaired: No Ability to Follow Directions: Good Speech Pattern: Clear Hallucinations: None Delusions: Not Present Thought Process: Linear Thought Content: positive for Circumstantial Judgement: Fair Diagnostics Vital Signs (24Hr): Vital Signs - 24 hr 06/18/22 18:00 06/19/22 06:00 Temperature 97.7 F 98.9 F Pulse Rate 61 66 Respiratory Rate 14 16 Blood Pressure 137/66 133/62 Pulse Oximetry 98 98 Oxygen Delivery Method Room Air Room Air BMI result Body Mass Index 24.5 Labs 05/08/22 08:43 06/06/22 12:38 Medications Medications Current Medications Acetaminophen (Acetaminophen 325 Mg Tablet) 650 mg PO Q6H PRN PRN Reason: Headache/Pain Mild Scale (1-3) Last Admin: 05/13/22 20:13 Dose: 650 mg Acetaminophen (Acetaminophen 325 Mg Tablet) 650 mg PO Q6H PRN PRN Reason: Headache/Pain Mild Scale (1-3) Al Hydroxide/Mg Hydroxide (Magnesium Hydrox/Alum Hydrox 30 Ml Oral.Susp) 30 ml PO Q6H PRN PRN Reason: Heartburn/Nausea Al Hydroxide/Mg Hydroxide (Magnesium Hydrox/Alum Hydrox 30 Ml Oral.Susp) 30 ml PO Q6H PRN PRN Reason: Heartburn/Nausea Bisacodyl (Bisacodyl 10 Mg Supp.Rect) 10 mg [place] DAILY PRN PRN Reason: Constipation Cyanocobalamin (Cyanocobalamin (Vitamin B-12) 1,000 Mcg Tablet) 1,000 mcg PO DAILY [facility] Last Admin: 06/19/22 08:18 Dose: 1,000 mcg Fluvoxamine Maleate (Fluvoxamine Maleate 50 Mg Tablet) 100 mg PO DAILY [facility] Last Admin: 06/19/22 08:18 Dose: 100 mg Fluvoxamine Maleate (Fluvoxamine Maleate 50 Mg Tablet) 100 mg PO BEDTIME [facility] Last Admin: 06/18/22 20:41 Dose: 100 mg Hydrochlorothiazide (Hydrochlorothiazide 25 Mg Tablet) 25 mg PO DAILY [facility]; Protocol Last Admin: 06/19/22 08:17 Dose: 25 mg Hydroxyzine HCl (Hydroxyzine Hcl 25 Mg Tablet) 25 mg PO Q6H PRN PRN Reason: Anxiety Lamotrigine (Lamotrigine 100 Mg Tablet) 100 mg PO DAILY [facility] Last Admin: 06/19/22 08:18 Dose: 100 mg Magnesium Hydroxide (Milk Of Magnesia 30 Ml Oral.Susp) 30 ml PO DAILY PRN PRN Reason: Constipation Last Admin: 05/27/22 13:08 Dose: 30 ml Magnesium Hydroxide (Milk Of Magnesia 30 Ml Oral.Susp) 30 ml PO DAILY PRN PRN Reason: Constipation Mirtazapine (Mirtazapine 15 Mg Tablet) 15 mg PO BEDTIME [facility] Last Admin: 06/18/22 20:41 Dose: 15 mg Olanzapine (Olanzapine 7.5 Mg Tablet) 7.5 mg PO BEDTIME [facility] Last Admin: 06/18/22 20:41 Dose: 7.5 mg Olanzapine (Olanzapine 2.5 Mg Tablet) 2.5 mg PO BID PRN PRN Reason: Agitation Ondansetron HCl (Ondansetron Odt 4 Mg Tab.Rapdis) 4 mg TRANSLINGU DAILY PRN PRN Reason: Nausea Polyethylene Glycol (Polyethylene Glycol 3350 17 Gm Powd.Pack) 17 gm PO BID [facility] Last Admin: 06/19/22 08:18 Dose: 17 gm Quetiapine Fumarate (Quetiapine Fumarate 100 Mg Tablet) 100 mg PO BEDTIME PRN PRN Reason: Anxiety Senna/Docusate Sodium (Sennosides/Docusate Sodium Tablet) 2 tab PO BID [facility] Last Admin: 06/19/22 08:18 Dose: 2 tab Trazodone HCl (Trazodone Hcl 50 Mg Tablet) 50 mg PO BEDTIME MRX1 PRN PRN Reason: Insomnia Last Admin: 06/18/22 20:41 Dose: 50 mg Vitamin D (Cholecalciferol (Vitamin D3) 25 Mcg Tablet) 25 mcg PO DAILY [facility] Last Admin: 06/19/22 08:18 Dose: 25 mcg Allergies Allergies Allergy/AdvReac Type Severity Reaction Status Date / Time Latex, Natural Rubber AdvReac Mild Rash Verified 03/24/23 07:18 Assessment & Plan Assessment & Plan (1) Major depressive disorder, recurrent severe without psychotic features: Status: Acute Code(s): F33.2 - Major depressive disorder, recurrent severe without psychotic features (2) Generalized anxiety disorder: Status: Acute Code(s): F41.1 - Generalized anxiety disorder Plan The patient is an elderly male with a long history of major depressive disorder with several prior admissions into the hospital for exacerbation of depression and previous treatment with ECT with for improvement.? The patient was initially treated at [facility] and transferring to this facility for ECT.? At this moment, the patient is severely depressed with some neuro cognitive impairment. Plan 1. Gather collateral information.? 2. Hospitalist workout with clearance for ECT.? Ready for ECT as per ThursdayMay 12 3. Continue regular medications.? 4. EKG for ECT treatment.? 5. ECT as soon as he is medically cleared.? Since he had COVID he was started later. 6. ECT continue 3 times per week. 7. Bowel treatment for constipation. 8. Increase Luvox up to 100 mg p.o. b.i.d. started on June 04. 9. Hospitalist consult for rash on leg, R/O cellulitis 10. Lower Zyprexa to 7.5 mg p.o. q.h.s. 11. Discharge tomorrow with ECT once a week for 4 weeks Reason for contiued inpatient stay Substantial Risk for: inability to function, rapid decompensation and med/psych decompensation Time Spent With Patient Time: Total time managing care of this patient today __20__ minutes.
[2022-06-19 16:33] VITALS: BP 132/62; PULSE 59; RESP 16; TEMP 36.2; O2SAT 96
[2022-06-19] MEDS: Mirtazapine 15 MG TABLET PO (20:13)
[2022-06-19] MEDS: OLANZapine 7.5 MG TABLET PO (20:13)
[2022-06-20 06:00] VITALS: BP 162/76; PULSE 60; RESP 18; TEMP 36; O2SAT 95
[2022-06-20] MEDS: hydroCHLOROthiazide 25 MG TABLET PO (08:23)
[2022-06-20] MEDS: fluvoxaMINE Maleate 50 MG TABLET 100 MG PO (08:23)
[2022-06-20] MEDS: Cholecalciferol (Vitamin D3) 25 MCG TABLET PO (08:24)
[2022-06-20] MEDS: lamoTRIgine 100 MG TABLET PO (08:24)
[2022-06-20] MEDS: Sennosides/Docusate Sodium TABLET 2 TAB PO (08:24)
[2022-06-20] MEDS: Cyanocobalamin (Vitamin B-12) 1,000 MCG TABLET 1000 MCG PO (08:24)
[2022-06-20] MEDS: polyethylene glycoL 3350 17 GM POWD.PACK PO (08:26)
--- NOTE | 2022-06-20 10:05 | PM.PSYDC ---
DS: Providers Provider Date of Service: 06/20/22 Date of admission: 05/07/22 16:33 Date of discharge: 06/20/22 Primary care physician: Chandni Hidalgo MD Attending physician on discharge: Robin Chambers DS: Diagnosis Discharge Diagnosis (1) Major depressive disorder, recurrent severe without psychotic features: Status: Acute (2) Generalized anxiety disorder: Status: Acute DS: Medications Discharge Medications Home Medications: Home Medications Medication Instructions Recorded Confirmed l theanine 200 mg PO QID PRN Anxiety 10/15/21 05/07/22 lamotrigine 100 mg tablet 100 mg PO DAILY 10/15/21 05/07/22 (Lamictal) mirtazapine 15 mg tablet 15 mg PO BEDTIME 10/15/21 05/07/22 quetiapine 50 mg tablet 50 - 100 mg PO BEDTIME PRN Anxiety 10/15/21 05/07/22 risperidone 0.5 mg tablet 0.5 mg PO BID 10/15/21 05/07/22 (Risperdal) amlodipine 2.5 mg tablet 2.5 mg PO DAILY 05/07/22 05/07/22 cholecalciferol (vitamin D3) 25 25 mcg PO DAILY 05/07/22 05/07/22 mcg (1,000 unit) capsule clonazepam 0.5 mg disintegrating 0.5 mg PO BEDTIME 05/07/22 05/07/22 tablet cyanocobalamin (vitamin B-12) 1,000 mcg PO DAILY 05/07/22 05/07/22 1,000 mcg tablet fluvoxamine 100 mg tablet 100 mg PO BEDTIME 05/07/22 05/07/22 olanzapine 15 mg disintegrating 15 mg PO BEDTIME 05/07/22 05/07/22 tablet olanzapine 5 mg disintegrating 2.5 mg PO BID PRN Agitation 05/07/22 05/07/22 tablet ondansetron HCl 4 mg tablet 4 mg PO NEEDED PRN Nausea 05/07/22 05/07/22 Mental Status Exam Mental Status Exam Patient Appearance: Well Grooomed and Appropriate Patient Orientation: Person, Place, Time and Situation Level of Consciousness: Awake, Appropriate and Alert Patient Behavior: Cooperative Mood Description: Calm Affect Description: Appropriate Patient Cognition Impaired: No Ability to Follow Directions: Good Speech Pattern: Clear Hallucinations: None Delusions: Not Present Thought Process: Linear Thought Content: positive for Intact Judgement: Good Data Data Completed and Pending Completed studies during hospitalization [Text1]: 06/16/22 09:10 Urine Color Yellow Urine Appearance Cloudy Urine pH 8.5 Ur Specific [place] 1.020 Urine Protein Trace Urine Glucose (UA) Negative Urine Ketones Negative Urine Blood Negative Urine Nitrite Negative Ur Leukocyte Esterase Negative Urine RBC 0-2 Urine WBC 0-5 Ur Squamous Epith Cells 0-2 Urine Bacteria None Seen Hyaline Casts 0-2 DS: Summary Hospital Course Hospital Course: The patient is an elderly male who was transferred from another hospital for ECT. The patient has suffered with a major depressive episode that has not resolved with several trials of antipsychotics and antidepressants. Finally, they decided to try ECT and transferring to this facility for the treatment. On admission, the patient was alert awake and oriented, his cognition was intact but he was extremely dysphoric. We started the workout for ECT but unfortunately he contracted COVID-19 in the unit. After he was cleared from COVID we start treatment. The patient had 12 sessions of ECT without any complications. Around Section 8 or 9, the patient's mood started improving. Also we increased fluvoxamine up to 100 mg p.o. b.i.d. since the patient besides his depression, he was very anxious with OCD symptoms. The patient's mood improved remarkably he was able to participating well the groups and he was future oriented. The patient realized that he had gained several lb since he was in the hospital. We review his list of medications and we started slow tapering of Zyprexa up to 7.5 mg p.o. q.h.s. with no side effects. Since there were no safety concerns and he is depression improved, discharge planning was discussed. Time spent discussing smoking cessation with patient: 3 to 10 minutes Status at Discharge Cognitive/behavioral status at discharge: At baseline Functional status at discharge: independent ambulation Overall status at discharge: patient is back to baseline Time Spent with Patient Time attestation: Total time managing care of this patient today __30__ minutes. Time spent: Less than 30 minutes Discharge Plan Discharge Anticipated Discharge Date/Time: 06/20/22 10:14 Patient Disposition: Home, Self-Care Discharge Diagnosis: Major depressive disorder recurrent episode severe without psychosis. Obsessive-compulsive disorder Referrals: Rayshawn Stokes, [place], [facility] [Other] - 1 Week (Referral was placed for you to have therapy with Rayshawn Stokes. Please follow up with his office for appointment date and time. ) [facility] ECT [Other] - 06/23/22 (Outpatient ECT appointments scheduled once a week on Thursday' x4 weeks. Please contact [facility] with any questions. ECT has been scheduled for you for 06/23, 07/02, 07/07, and 07/14. ) Dr Tim Brooks [Other] - 06/25/22 11:30 am (Your next appointment with Dr Brooks is scheduled for 06/25/22 at 11:30am. ) Chandni Hidalgo MD [Primary Care Provider] - 06/26/22 12:00 pm (Appointment made w/Dr. Hidalgo) Discharge Medications: New polyethylene glycol 3350 17 gram Powder In Packet 17 g PO BID 30 Days Qty: 60 0RF sennosides-docusate sodium [Senna Plus] 8.6-50 mg Tablet 2 tab PO BID 30 Days Qty: 120 0RF olanzapine 7.5 mg Tablet 7.5 mg PO BEDTIME 30 Days Qty: 30 0RF hydrochlorothiazide 25 mg Tablet 25 mg PO DAILY 30 Days Qty: 30 0RF Protocol: Hold for SBP< HOLD for SBP < : 90 fluvoxamine 50 mg Tablet 100 mg PO DAILY 30 Days Qty: 60 0RF Continued cyanocobalamin (vitamin B-12) 1,000 mcg Tablet 1,000 mcg PO DAILY 30 Days Qty: 30 0RF amlodipine 2.5 mg Tablet 2.5 mg PO DAILY 30 Days Qty: 30 0RF fluvoxamine 100 mg Tablet 100 mg PO BEDTIME 30 Days Qty: 30 0RF mirtazapine 15 mg Tablet 15 mg PO BEDTIME 30 Days Qty: 30 0RF lamotrigine [Lamictal] 100 mg Tablet 100 mg PO DAILY 30 Days Qty: 30 0RF Rx Instructions: Increase to 150 mg total dose on 10/19/21 cholecalciferol (vitamin D3) 25 mcg (1,000 unit) Capsule 25 mcg PO DAILY 30 Days Qty: 30 0RF Discontinued ondansetron HCl [Zofran] 4 mg Tablet 4 mg PO NEEDED PRN (Reason: Nausea) olanzapine 15 mg Tablet,Disintegrating 15 mg PO BEDTIME olanzapine 5 mg Tablet,Disintegrating 2.5 mg PO BID PRN (Reason: Agitation) clonazepam 0.5 mg Tablet,Disintegrating 0.5 mg PO BEDTIME risperidone [Risperdal] 0.5 mg Tablet 0.5 mg PO BID quetiapine 50 mg Tablet 50 - 100 mg PO BEDTIME PRN (Reason: Anxiety) l theanine 200 mg 200 mg PO QID PRN (Reason: Anxiety) Discharge Orders: Discharge Order (Routine); Ordered 06/20/22 Ordered By: Rboin Chambers Diet: Advance to usual diet Activity on Discharge: As tolerated Stand Alone Forms: Patient Portal Discharge page Care Plan Goals: Care plan goals achieved in this admission Health Concerns: Continue treatment with outpatient providers Plan of Treatment: Continue medication management ECT once a week for 4 weeks as an outpatient Assessment: Elderly male with a long history of major depressive disorder and OCD who was admitted initially to another hospital for treatment of depression and transfer here for ECT. The patient improved remarkably with ECT and titration of fluvoxamine. We started slow tapering of Ciprodex a with no side effects or worsening of his symptoms. At this moment much better safe to be in the community.
== END 2022-06-20 11:30 | disposition home or self-care (01) | DRG 885 ==
PROVIDERS: Psychiatry & Neurology Psychiatry; Admitting Provider Psychiatry & Neurology Psychiatry; PCP Internal Medicine; Visit Provider Psychiatry & Neurology Psychiatry
PROC: GZB4ZZZ Other Electroconvulsive Therapy (ICD-10-PCS; CPT 90870; principal; 2022-05-21 07:00)
PROC: (CPT 90870; principal; 2022-05-30 15:30)
DX: F33.2 Major depressive disorder, recurrent severe without psychotic features (principal); U07.1 COVID-19; R45.851 Suicidal ideations; F33.9 Major depressive disorder, recurrent, unspecified; Z23 Encounter for immunization; K59.00 Constipation, unspecified; I10 Essential (primary) hypertension; F41.1 Generalized anxiety disorder; Z91.040 Latex allergy status; Z79.899 Other long term (current) drug therapy
CPT/HCPCS: 36415; 80048; 80053; 80061; 80076; 81001; 82607; 82746; 83036; 84443; 85025; 87635; 90686; 90870; 93005; J0330; J0461; J1885; J2405

== ENCOUNTER 2022-06-23 06:38 | Day surgery (SDC) | payer MEDICARE, SELFPAY ==
[2022-06-23 06:50] VITALS: BP 164/83; PULSE 71; RESP 20; TEMP 36.6; O2SAT 98; BMI 23.7
--- NOTE | 2022-06-23 06:56 | P.CONAN_ITS ---
[facility] Active Problems Active Problems: All Active Problems (Updated 05/09/22 @ 15:51 by SYDNI Mao) HTN (hypertension) (Acute) Routine history and physical examination of adult (Acute) Major depressive disorder, recurrent (Acute) Generalized anxiety disorder (Acute) Major depressive disorder, recurrent severe without psychotic features (Acute) Past Medical History Medical History No known health problems Ruptured liver Family History Family history of problems with anesthesia: No Surgical History Surgical History H/O right knee surgery History of Problems with Anesthesia: No Social History Social History Household Members: None Housing: Apartment Do you presently have visiting nurse or other home services: No Patient Tobacco Use Status: Never used Tobacco e-Cigarette/Vaping Use: Never Used Second Hand Smoke Exposure: No Advance Directives: No Advance Directives Information Provided: Yes service: No Sexual orientation: Straight/Heterosexual Meds Allergies Allergy/AdvReac Type Severity Reaction Status Date / Time Latex, Natural Rubber AdvReac Mild Rash Verified 06/06/22 07:18 Active Medications: Current Medications Lactated Ringer's (Lr) 1,000 mls @ 50 mls/hr IVCONT .Q20H ZIA Exam Exam Date and Time: June 23, 2022 0656 Height,Weight and Vital Signs: Height 6 ft 5 in Weight 90.718 kg Last Vital Signs Temp 97.9 F 06/23/22 06:50 Pulse 71 06/23/22 06:50 Resp 20 06/23/22 06:50 BP 164/83 H 06/23/22 06:50 Pulse Ox 98 06/23/22 06:50 O2 Del Method Room Air 06/23/22 06:50 Airway Mallampati Class: II TM Dist: >3cm Neck ROM: Full Heart: rrr Lungs: cta Assessment and Plan Assessment Anesthesia Assessment: Anesthesia Plan Discussed and Chart Reviewed Final Anesthetic Review Family History of Problems with Anesthesia: No History of Problems with Anesthesia: No NPO: Yes ASA Class: III Final Preanesthetic Review: No Changes in Pt Med Stat, Meds/Allgs Chart Reviewed and Consent Obtained/Reviewed Patient Risk: Intermediate Procedure Risk: Intermediate Anesthetic Plan Anesthetic Plan: GA Disposition: Standard PACU
[2022-06-23 07:04] LABS: COVID-19 Test Negative (Negative); IDNOW Serial# BCCEAD1C
--- NOTE | 2022-06-23 07:26 | MHC.SHP ---
Pre-Procedural Eval Section A Date of Service: 06/23/22 The patient is an INPATIENT: No Changes since office visit: Yes Patient answered all questions; No Cold of Flu in the past 2 weeks, No New Medical Problems and No Changes in Medication The History & Physical has been completed within 30 days and I have reviewed it.: No Section B Chief Complaint: depression Details of Present Illness: recurrent depression Relevant Social History: None Present Medications: see Short Stay Collaborative assessment Medical History: Significant History (htn) Allergies: Allergies Allergy/AdvReac Type Severity Reaction Status Date / Time Latex, Natural Rubber AdvReac Mild Rash Verified 06/06/22 07:18 Review of Systems Sugical H&P ROS: Negative: Constitution, Cardiovascular, Respiratory and Psychiatric (feels much better ) and Yes, Specify: Gastrointestinal (diarrhea) Exam Surgical H&P Exam: Normal: HEENT, Normal: Heart and Normal: Lungs Plan Diagnosis/Plan: Unchanged I have reviewed the history and physical and performed a pertinent physical examination on my patient. No changes have occurred unless specified. Time Spent With Patient Time: Total time managing care of this patient today ____ minutes.
--- NOTE | 2022-06-23 07:39 | HO.ECTPROC ---
ECT Procedure Note Diagnosis/Treatment Date of Service: 06/23/22 Diagnosis: Major Depressive Disorder Current Treatment Number: 13 Treatment: Series Interval Clinical Notes: pt discharged doing well Time: Total time managing care of this patient today ____ minutes. ECT Settings Device: THYMATRON DGx Electrode Placement: Rt temporal/ Lt frontal Program/Pulse Width: 0.50 Energy Percent: 85 Seizure Duration By EEG (in seconds): 42 Medications Administration General Anesthetic: Etomidate Muscle Relaxant: Succinylcholine Ancillary Medications Analgesics: Torodol - Pre ECT Anti-emetics: Zofran - Pre ECT Treatment Recommendations No Changes Recommended: No change Notes: take amlodipine at home with sip prior to tx had transient hypertension Pt Tolerated Procedure w/o Issue: Yes
[2022-06-23 07:51] VITALS: BP 185/99; PULSE 99; RESP 16; TEMP 37.8; O2SAT 96
[2022-06-23 07:56] VITALS: BP 192/99; PULSE 95; RESP 12; O2SAT 96
[2022-06-23 08:01] VITALS: BP 184/98; PULSE 90; RESP 16; O2SAT 100
[2022-06-23 08:07] VITALS: BP 180/98; PULSE 87; RESP 12; O2SAT 100
[2022-06-23 08:22] VITALS: BP 175/96; PULSE 82; RESP 18; TEMP 36.4; O2SAT 98
== END 2022-06-23 09:03 | disposition home or self-care (01) ==
PROVIDERS: Visit Provider Psychiatry & Neurology Psychiatry
PROC: (CPT 90870; principal; 2022-06-23 08:00)
DX: F33.2 Major depressive disorder, recurrent severe without psychotic features (principal); I10 Essential (primary) hypertension; Z79.899 Other long term (current) drug therapy; Z91.040 Latex allergy status; Z20.822 Contact with and (suspected) exposure to COVID-19
CPT/HCPCS: 87635; 90870; J0330; J1885; J2405

== ENCOUNTER 2022-07-02 06:27 | Day surgery (SDC) | payer MEDICARE, SELFPAY ==
[2022-07-02] VITALS (9 sets, daily range): BP systolic 150–185; BP diastolic 73–93; PULSE 66–84; RESP 13–20; TEMP 36.7–37.4; O2SAT 95–99; BMI 24.2
[2022-07-02 06:46] LABS: COVID-19 Test Negative (Negative); IDNOW Serial# 55D5AD1C
--- NOTE | 2022-07-02 06:59 | P.CONAN_ITS ---
[facility] Active Problems Active Problems: All Active Problems (Updated 06/28/22 @ 00:04 by Lucia Roberts) HTN (hypertension) (Acute) Major depressive disorder, recurrent (Acute) Generalized anxiety disorder (Acute) Major depressive disorder, recurrent severe without psychotic features (Acute) Past Medical History Medical History No known health problems Ruptured liver Family History Family history of problems with anesthesia: No Surgical History Surgical History H/O right knee surgery History of Problems with Anesthesia: No Social History Social History Household Members: None Housing: Apartment Do you presently have visiting nurse or other home services: No Patient Tobacco Use Status: Never used Tobacco e-Cigarette/Vaping Use: Never Used Second Hand Smoke Exposure: No Advance Directives: No Advance Directives Information Provided: Yes service: No Sexual orientation: Straight/Heterosexual Meds Allergies Allergy/AdvReac Type Severity Reaction Status Date / Time Latex, Natural Rubber AdvReac Mild Rash Verified 06/06/22 07:18 Exam Exam Date and Time: July 02, 2022 0659 Height,Weight and Vital Signs: Height 6 ft 5 in Weight 92.533 kg Last Vital Signs Temp 98.5 F 07/02/22 06:42 Pulse 66 07/02/22 06:42 Resp 20 07/02/22 06:42 BP 158/73 H 07/02/22 06:42 Pulse Ox 98 07/02/22 06:42 O2 Del Method Room Air 07/02/22 06:42 Pertinent Lab Results Pertinent Lab Results: Laboratory Tests 07/02/22 06:26 COVID-19 (AYUSH) Negative COVID-19 Clin Com See Note Airway Mallampati Class: II TM Dist: >3cm Neck ROM: Full Assessment and Plan Assessment Anesthesia Assessment: Anesthesia Plan Discussed and Chart Reviewed Final Anesthetic Review Family History of Problems with Anesthesia: No History of Problems with Anesthesia: No NPO: Yes ASA Class: III Final Preanesthetic Review: No Changes in Pt Med Stat, Meds/Allgs Chart Reviewed, Consent Obtained/Reviewed and Anes Risks/Benef Reviewed Patient Risk: Low Procedure Risk: Low Anesthetic Plan Anesthetic Plan: GA Disposition: Standard PACU
--- NOTE | 2022-07-02 07:28 | MHC.SHP ---
Pre-Procedural Eval Section A Date of Service: 07/02/22 The patient is an INPATIENT: No Changes since office visit: Yes Patient answered all questions; No Cold of Flu in the past 2 weeks, No New Medical Problems and No Changes in Medication The History & Physical has been completed within 30 days and I have reviewed it.: No Section B Chief Complaint: depression Details of Present Illness: recurrent depression anxiety Relevant Social History: None Present Medications: see Short Stay Collaborative assessment Medical History: Significant History (htn) Allergies: Allergies Allergy/AdvReac Type Severity Reaction Status Date / Time Latex, Natural Rubber AdvReac Mild Rash Verified 06/06/22 07:18 Review of Systems Sugical H&P ROS: Negative: Constitution, Cardiovascular, Respiratory, Psychiatric (has anxiety) and Gastrointestinal Exam Surgical H&P Exam: Normal: HEENT, Normal: Heart and Normal: Lungs Exam Comment: elevated bp Plan Diagnosis/Plan: Unchanged I have reviewed the history and physical and performed a pertinent physical examination on my patient. No changes have occurred unless specified. Time Spent With Patient Time: Total time managing care of this patient today ____ minutes.
--- NOTE | 2022-07-02 07:43 | HO.ECTPROC ---
ECT Procedure Note Diagnosis/Treatment Date of Service: 07/02/22 Diagnosis: Major Depressive Disorder Previous ECT Date: 06/23/22 Current Treatment Number: 14 Treatment: Series Interval Clinical Notes: pt having tapered series mood generally improved has returned home Time: Total time managing care of this patient today ____ minutes. ECT Settings Device: THYMATRON DGx Electrode Placement: Rt temporal/ Lt frontal Program/Pulse Width: 0.50 Energy Percent: 60 Seizure Duration By EEG (in seconds): 72 Medications Administration General Anesthetic: Etomidate (16) Muscle Relaxant: Succinylcholine (100) Ancillary Medications Analgesics: Torodol - Pre ECT (15) Anti-emetics: Zofran - Pre ECT (4) Miscillaneous Medications: Propofol (30 post) Airway Management Airway Management: Bag Mask Ventilation Treatment Recommendations No Changes Recommended: No change Notes: transient htn briefly did not need tx did better with propofol post tx take amlodipine sip water at home Pt Tolerated Procedure w/o Issue: Yes
--- NOTE | 2022-07-02 08:15 | P.CONAN_ITS ---
[facility] Active Problems Active Problems: All Active Problems (Updated 06/28/22 @ 00:04 by Lucia Roberts) HTN (hypertension) (Acute) Major depressive disorder, recurrent (Acute) Generalized anxiety disorder (Acute) Major depressive disorder, recurrent severe without psychotic features (Acute) Past Medical History Medical History No known health problems Ruptured liver Family History Family history of problems with anesthesia: No Surgical History Surgical History H/O right knee surgery History of Problems with Anesthesia: No Social History Social History Household Members: None Housing: Apartment Do you presently have visiting nurse or other home services: No Patient Tobacco Use Status: Never used Tobacco e-Cigarette/Vaping Use: Never Used Second Hand Smoke Exposure: No service: No Sexual orientation: Straight/Heterosexual Meds Allergies Allergy/AdvReac Type Severity Reaction Status Date / Time Latex, Natural Rubber AdvReac Mild Rash Verified 06/06/22 07:18 Exam Exam Date and Time: July 02, 2022 0815 Height,Weight and Vital Signs: Height 6 ft 5 in Weight 92.533 kg Last Vital Signs Temp 99.4 F 07/02/22 07:50 Pulse 78 07/02/22 08:05 Resp 16 07/02/22 08:05 BP 174/91 H 07/02/22 08:05 Pulse Ox 99 07/02/22 08:05 O2 Del Method Nasal Cannula with Capnography 07/02/22 08:05 O2 Flow Rate 2 07/02/22 08:05 Pertinent Lab Results Pertinent Lab Results: Laboratory Tests 07/02/22 06:26 COVID-19 ([facility]) Negative COVID-19 Clin Com See Note Airway Mallampati Class: II TM Dist: >3cm Neck ROM: Full Denture: Upper and Lower Assessment and Plan Assessment Anesthesia Assessment: Anesthesia Plan Discussed and Chart Reviewed Final Anesthetic Review Family History of Problems with Anesthesia: No History of Problems with Anesthesia: No NPO: Yes ASA Class: II Final Preanesthetic Review: No Changes in Pt Med Stat, Meds/Allgs Chart Reviewed, Consent Obtained/Reviewed and Anes Risks/Benef Reviewed Patient Risk: Low Procedure Risk: Low Anesthetic Plan Anesthetic Plan: MAC: Disposition: Standard PACU
== END 2022-07-02 09:19 | disposition home or self-care (01) ==
PROVIDERS: Visit Provider Psychiatry & Neurology Psychiatry
PROC: (CPT 90870; principal; 2022-07-02 07:00)
DX: F33.2 Major depressive disorder, recurrent severe without psychotic features (principal); F41.1 Generalized anxiety disorder; I10 Essential (primary) hypertension; Z91.040 Latex allergy status; Z79.899 Other long term (current) drug therapy
CPT/HCPCS: 87635; 90870; J0330; J2405

== ENCOUNTER → 2022-07-07 06:26 | Day surgery (SDC) | payer MEDICARE, SELFPAY ==
--- NOTE | 2022-07-07 | ECG_ITS ---
Test Reason : TACHYCARDIA Blood Pressure : / mmHG Vent. Rate : 127 BPM Atrial Rate : 254 BPM P-R Int : 000 ms QRS Dur : 154 ms QT Int : 344 ms P-R-T Axes : -87 -28 007 degrees QTc Int : 499 ms Atrial flutter with 2:1 A-V conduction Non-specific intra-ventricular conduction block Minimal voltage criteria for LVH, may be normal variant ( Trinity product ) Possible Inferior infarct , age undetermined Abnormal ECG When compared with ECG of 09-MAY-2022 13:43, Atrial flutter has replaced Sinus rhythm Vent. rate has increased BY 65 BPM Questionable change in QRS duration Referred By: Avril Palumbo Electronically Signed By:Feliberto Rivas
[2022-07-07 06:34] VITALS: BP 171/83; PULSE 71; RESP 18; TEMP 37; O2SAT 97; BMI 24.9
--- NOTE | 2022-07-07 06:55 | HO.ANESPROP2 ---
[facility] Active Problems Active Problems: All Active Problems (Updated 06/28/22 @ 00:04 by Lucia Roberts) HTN (hypertension) (Acute) Major depressive disorder, recurrent (Acute) Generalized anxiety disorder (Acute) Major depressive disorder, recurrent severe without psychotic features (Acute) Past Medical History Medical History No known health problems Ruptured liver Family History Family history of problems with anesthesia: No Surgical History Surgical History H/O right knee surgery History of Problems with Anesthesia: No Social History Social History Household Members: None Housing: Apartment Do you presently have visiting nurse or other home services: No Patient Tobacco Use Status: Never used Tobacco e-Cigarette/Vaping Use: Never Used Second Hand Smoke Exposure: No Advance Directives: No Advance Directives Information Provided: Yes service: No Sexual orientation: Straight/Heterosexual Meds Allergies Allergy/AdvReac Type Severity Reaction Status Date / Time Latex, Natural Rubber AdvReac Mild Rash Verified 06/06/22 07:18 Exam Exam Date and Time: July 07, 2022 0655 Height,Weight and Vital Signs: Height 6 ft 5 in Weight 95.254 kg Last Vital Signs Temp 98.6 F 07/07/22 06:34 Pulse 71 07/07/22 06:34 Resp 18 07/07/22 06:34 BP 171/83 H 07/07/22 06:34 Pulse Ox 97 07/07/22 06:34 O2 Del Method Room Air 07/07/22 06:34 Airway Mallampati Class: II TM Dist: >3cm Neck ROM: Full Heart: rrr Lungs: cta Assessment and Plan Assessment Anesthesia Assessment: Anesthesia Plan Discussed and Chart Reviewed Final Anesthetic Review Family History of Problems with Anesthesia: No History of Problems with Anesthesia: No NPO: Yes ASA Class: III Final Preanesthetic Review: No Changes in Pt Med Stat, Meds/Allgs Chart Reviewed and Consent Obtained/Reviewed Patient Risk: Intermediate Procedure Risk: Intermediate Anesthetic Plan Anesthetic Plan: GA Disposition: Standard PACU
--- NOTE | 2022-07-07 06:59 | MHC.SHP ---
Pre-Procedural Eval Section A Date of Service: 07/07/22 The patient is an INPATIENT: No Changes since office visit: No Cold of Flu in the past 2 weeks, No New Medical Problems, No Changes in Medication and No Patient answered all questions The History & Physical has been completed within 30 days and I have reviewed it.: Yes Section B Chief Complaint: depression Allergies: Allergies Allergy/AdvReac Type Severity Reaction Status Date / Time Latex, Natural Rubber AdvReac Mild Rash Verified 06/06/22 07:18 Plan I have reviewed the history and physical and performed a pertinent physical examination on my patient. No changes have occurred unless specified. Time Spent With Patient Time: Total time managing care of this patient today ____ minutes.
--- NOTE | 2022-07-07 07:39 | HO.ECTPROC ---
ECT Procedure Note Diagnosis/Treatment Date of Service: 07/07/22 Diagnosis: Major Depressive Disorder Previous ECT Date: 07/02/22 Current Treatment Number: 15 Treatment: Series Interval Clinical Notes: The patient requested to stop ECT. He looks more dysphoric than usual, he has other medical symptoms such as frequent urination. Before the procedure, he was extremely anxious since he noticed that his BP was high, I reassured him that he would be safe. During the procedure, his BP went very high, needed nitro. Seizure was stopped after 72s with propofol Time: Total time managing care of this patient today _30___ minutes. ECT Settings Device: THYMATRON DGx Electrode Placement: Rt temporal/ Lt frontal Program/Pulse Width: 0.50 Energy Percent: 60 Seizure Duration By EEG (in seconds): 72 By Motor Observation (in seconds): 0 Medications Administration General Anesthetic: Etomidate (16) Muscle Relaxant: Succinylcholine (100) Ancillary Medications Analgesics: Torodol - Pre ECT Anti-emetics: Zofran - Pre ECT Miscillaneous Medications: Propofol (30) Airway Management Airway Management: Bag Mask Ventilation Treatment Recommendations No Changes Recommended: No change Notes: Case discussed with the anesthesiology team and they want a new cards clearence. Pt Tolerated Procedure w/o Issue: Yes
[2022-07-07 08:36] VITALS: BP 175/96; PULSE 126; RESP 16; TEMP 37.1; O2SAT 96
[2022-07-07 08:41] VITALS: BP 176/98; PULSE 128; RESP 12; O2SAT 99
[2022-07-07 08:46] VITALS: BP 178/105; PULSE 100; RESP 16; O2SAT 99
[2022-07-07] MEDS: Metoprolol Tartrate 2.5 MG in 0.9 % Sodium Chloride 50 ML 210 MG IV (08:58)
[2022-07-07 09:01] VITALS: BP 164/90; PULSE 115; RESP 16; O2SAT 99
[2022-07-07 09:16] VITALS: BP 165/92; PULSE 118; RESP 16; TEMP 37.1; O2SAT 99
== END ==
PROVIDERS: Visit Provider Psychiatry & Neurology Psychiatry
PROC: (CPT 90870; principal; 2022-07-07 07:00)
DX: F33.2 Major depressive disorder, recurrent severe without psychotic features (principal); F41.1 Generalized anxiety disorder; I10 Essential (primary) hypertension; G47.00 Insomnia, unspecified; Z79.899 Other long term (current) drug therapy; Z91.041 Radiographic dye allergy status
CPT/HCPCS: 90870; 93005; J0330; J0461; J1885; J2370; J2405

== ENCOUNTER 2022-07-07 09:34 | Emergency (ER) | payer MEDICARE, SELFPAY ==
--- NOTE | 2022-07-07 | ECG_ITS ---
Test Reason : AFLUTTER Blood Pressure : / mmHG Vent. Rate : 058 BPM Atrial Rate : 058 BPM P-R Int : 162 ms QRS Dur : 102 ms QT Int : 410 ms P-R-T Axes : 008 030 041 degrees QTc Int : 402 ms Sinus bradycardia Otherwise normal ECG When compared with ECG of 07-JUL-2022 11:43, Sinus rhythm has replaced Atrial flutter Referred By: Zachariah Cleveland Electronically Signed By:Feliberto Rivas
[2022-07-07 09:38] VITALS: BP 142/83; PULSE 125; RESP 16; TEMP 36.9; O2SAT 97; BMI 25.9
--- NOTE | 2022-07-07 09:39 | ECG_ITS ---
Test Reason : A FLUTTER Blood Pressure : / mmHG Vent. Rate : 125 BPM Atrial Rate : 271 BPM P-R Int : 000 ms QRS Dur : 090 ms QT Int : 322 ms P-R-T Axes : -86 -29 -24 degrees QTc Int : 464 ms Atrial flutter with variable A-V block Nonspecific ST abnormality Abnormal ECG When compared with ECG of 07-JUL-2022 08:35, QRS duration has decreased Referred By: Zachariah Cleveland Electronically Signed By:Feliberto Rivas
--- NOTE | 2022-07-07 09:40 | ED_ITS ---
HPI - General Adult General Chief complaint: Arrhythmia/Palpitations Stated complaint: Changes on EKG Time Seen by Provider: 07/07/22 09:38 Source: other (Anesthesia) Mode of arrival: other (Transport) Limitations: altered mental status History of Present Illness HPI narrative: 72-year-old male with history of major depression on ECT, hypertension presents after ECT with recurrent atrial flutter, atrial fibrillation with rapid ventricular response. Patient has a history of hypertension and in association with the CT. He had premedicated the night before with his blood pressure medications and again this morning with amlodipine. Prior to procedure he was given nitroglycerin and subsequent from the procedure also had nitroglycerin. Pressure was well maintained. However, postprocedure was noted to have atrial fibrillation or atrial flutter with rapid ventricular response at did not respond to metoprolol. Patient was otherwise asymptomatic. There was some apparent ischemic changes reported on EKG however have not been able to visualize. Patient is otherwise doing well without complaints of chest pain, shortness breath, palpitations lightheadedness. There is no clear relieving or exacerbating features. Heart rate is scribed is moderate to severe. Patient has a little bit confused post ECT. Related Data Previous Rx's Medication Instructions Recorded amlodipine 2.5 mg tablet 2.5 mg PO DAILY 30 days #30 tabs 06/20/22 cholecalciferol (vitamin D3) 25 25 mcg PO DAILY 30 days #30 caps 06/20/22 mcg (1,000 unit) capsule cyanocobalamin (vitamin B-12) 1,000 mcg PO DAILY 30 days #30 tabs 06/20/22 1,000 mcg tablet fluvoxamine 100 mg tablet 100 mg PO BEDTIME 30 days #30 tabs 06/20/22 fluvoxamine 50 mg tablet 100 mg PO DAILY 30 days #60 tabs 06/20/22 hydrochlorothiazide 25 mg tablet 25 mg PO DAILY 30 days #30 tabs 06/20/22 lamotrigine 100 mg tablet 100 mg PO DAILY 30 days #30 tabs 06/20/22 (Lamictal) mirtazapine 15 mg tablet 15 mg PO BEDTIME 30 days #30 tabs 06/20/22 olanzapine 7.5 mg tablet 7.5 mg PO BEDTIME 30 days #30 tabs 06/20/22 polyethylene glycol 3350 17 gram 17 g PO BID 30 days #60 ea 06/20/22 oral powder packet sennosides 8.6 mg-docusate sodium 2 tab PO BID 30 days #120 tabs 06/20/22 50 mg tablet (Senna Plus) apixaban 5 mg tablet (Eliquis) 5 mg PO BID #60 tabs 07/07/22 metoprolol tartrate 25 mg tablet 12.5 mg PO BID #30 tabs 07/07/22 Allergies Allergy/AdvReac Type Severity Reaction Status Date / Time Latex, Natural Rubber AdvReac Mild Rash Verified 06/06/22 07:18 [facility] Past Medical History Medical History No known health problems Ruptured liver Surgical History H/O right knee surgery Social History Social History Household Members: None Housing: Apartment Do you presently have visiting nurse or other home services: No Patient Tobacco Use Status: Never used Tobacco Smoked in Last 30 Days: No e-Cigarette/Vaping Use: Never Used Second Hand Smoke Exposure: No Advance Directives: Yes Advance Directives Information Provided: No Advance Directives on File: No service: No Sexual orientation: Straight/Heterosexual Physical Exam ED Vital Signs: Vital Signs - 24 hr 07/07/22 09:38 07/07/22 09:42 07/07/22 10:06 Temperature 98.5 F 98.5 F Pulse Rate 125 H 142 H 99 Respiratory Rate 16 14 Blood Pressure 142/83 H 130/75 Pulse Oximetry 97 98 96 Oxygen Delivery Method Room Air Room Air Room Air 07/07/22 11:19 07/07/22 11:41 Temperature 98.3 F 97.9 F Pulse Rate 67 65 Respiratory Rate 18 15 Blood Pressure 106/61 102/72 Pulse Oximetry 99 97 Oxygen Delivery Method Room Air Room Air BMI result Body Mass Index 25.9 GEN: Well developed, no acute distress, alert, oriented HEENT: Normocephalic, atraumatic, normal external ears, nose appears normal, no oropharyngeal edema or exudates Eyes: Normal to appearance Neck: Supple, no lymphadenopathy Respiratory: Talks in complete sentences, no respiratory distress, clear to aus cultation bilaterally Cardiovascular: Regular rate and rhythm, no murmurs rubs or gallops Abdomen: Soft, nontender, nondistended, no guarding, no rebound Back: No CVA tenderness Extremities: No clubbing cyanosis or edema Neurologic: No focal neurologic deficits, cranial nerves 2-12 intact, strength is 5/5 bilaterally Skin: No rash Course Course Course Narrative: 72-year-old male presents with atrial flutter. This occurred post electroconvulsive therapy just prior to arrival. Patient will receive metoprolol 5 mg IV this. This would be a 2nd dose. If this does not work, could consider Cardizem versus cardioversion. Patient is already NPO he will remain so. Reevaluation(s) Reevaluation #1: Heart rate improved to 99 post metoprolol 5 mg IV push. Time: 10:21 Reevaluation #2: Patient now rate controlled flutter. This is after metoprolol and Cardizem. I have sent the EKG over to cardiology. I want to see if they would recommend ca rdioversion. Reevaluation #3: Patient cardioverted on his own. We restarting up for an a electrical cardioversion. This is done after multiple consultations with Cardiology. Patient is currently normal sinus rhythm with a heart rate of 60. He is a symptomatic. His CHADS2 score is 2. He should be on anticoagulation. He will continue beta-blockers follow-up with Cardiology. Care was discussed with both sisters in the patient extensively. Time: 14:00 Medications Administered Discontinued Medications Generic Name Dose Route Start Last Admin Trade Name Freq PRN Reason Stop Dose Admin Diltiazem HCl 15 mg 07/07/22 10:31 07/07/22 10:44 Diltiazem Hcl 50 Mg/10 Ml Vial IVPUSH 07/07/22 10:32 15 mg STAT STA Administration Sodium Chloride 1,000 mls @ 999 mls/hr 07/07/22 09:45 07/07/22 13:12 Ns IV 07/07/22 10:45 Infused .Q1H1M IZA Infusion Metoprolol Tartrate 5 mg 07/07/22 09:50 07/07/22 09:59 Metoprolol Tartrate 5 Mg/5 Ml Vial IVPUSH 07/07/22 09:51 5 mg ONCE ONE Administration Medical Decision Making Medical Decision Making MDM Narrative: 72-year-old male presents with atrial flutter with rapid ventricular response. He has a reported history of this. He is not on any blood thinning medications. He is slightly confused post ECT/anesthesia. Will try 2nd dose of metoprolol 5 mg IV. He may require diltiazem. As we know the onset of his cardiac arrhythmia, we could certainly consider cardioversion. He will be made NPO. Differential Diagnosis Differential Diagnoses: The differential diagnosis associated with the presentation includes (Atrial fibrillation, atrial flutter, SVT) Atrial flutter Admission/Observation Consideration of admission/observation: Escalation of care including admission/observation considered Lab Data MDM Lab Attestation statement: I reviewed the patient's lab results. 07/07/22 09:53 07/07/22 09:53 Labs: Lab Results 07/07/22 07/07/22 Range/Units 09:53 09:53 WBC 3.8 L (4.8-10.8) X10*3/uL RBC 3.96 L (4.60-5.80) X10*6/uL Hgb 12.6 L (14.0-18.0) g/dl Hct 37.4 L (42.0-52.0) % MCV 94.4 (80.0-98.0) fL MCH 31.8 (27.0-33.0) pg MCHC 33.7 (31.0-36.0) g/dl RDW 12.1 (11.0-16.0) % Plt Count 145 L (160-400) X10*3/uL MPV 8.8 L (9.4-12.4) fL Immature Gran % (Auto) 0.5 H (0.0-0.4) % Neut % (Auto) 76.7 H (45-73) % Lymph % (Auto) 11.8 L (20-40) % Wheeler % (Auto) 10.0 (2-11) % Eos % (Auto) 0.5 (0-4) % Baso % (Auto) 0.5 (0-2) % Lymph # (Auto) 0.5 L (1.2-4.9) X10*3/uL Wheeler # (Auto) 0.4 (0.1-1.2) X10*3/uL Eos # (Auto) 0.0 (0.0-0.4) X10*3/uL Baso # (Auto) 0.0 (0.0-0.2) X10*3/uL Abs Immat Gran (auto) 0.02 (0.00-0.03) X10*3/uL Absolute Neuts (auto) 2.9 (2.0-8.3) x10*3/uL Absolute Nucleated RBC 0.000 (0.0-0.012) X10*3/uL Nucleated RBC % (auto) 0.0 (0.0-0.2) /100WBC Sodium 144 (135-145) mmol/L Potassium 3.9 (3.3-5.1) mmol/L Chloride 106 (96-108) mmol/L Carbon Dioxide 29 (22-29) mmol/L Anion Gap 13 (12-20) BUN 14 (9-16) mg/dL Creatinine 0.81 (0.5-1.4) mg/dL Estim Creat Clear Calc 100.8 Estimated GFR > 60 Random Glucose 97 (60-115) mg/dL Calcium 8.5 (8.4-10.2) mg/dL TSH 1.12 (0.32-4.0) uIU/mL Independent Interpretation I performed an independent interpretation of an: EKG (Atrial flutter with variable response, heart rate 125, rate related changes.) Independent Historian Clinical information obtained from an independent historian. History obtained from or confirmed by: Other (Anesthesia, sisters) External Record Review External record reviewed: Inpatient record Tests considered The following testing was considered but not selected: Chest x-ray Prescription Management I considered prescription management with: Other (Beta-odalys) Chronic Conditions Patient?s care impacted by: Hypertension Critical Care Time Critical Care Time Critical Care Time: Yes Total Critical Care Time: 50 Attestation: Critical care time the amount of approximately 50 minutes was performed with bedside assessment, frequent reassessments, interpretation and medical data, consultation with Cardiology, administration of intravenous medications to manage a potentially life-threatening condition, all done outside the procedures Discharge Plan Discharge Clinical Impression: Atrial flutter, Pancytopenia Patient Disposition: Home, Self-Care Instructions: Atrial Flutter (DC) Prescriptions: New Eliquis 5 mg tablet 5 mg PO BID Qty: 60 0RF metoprolol tartrate 25 mg tablet 12.5 mg PO BID Qty: 30 0RF No Action polyethylene glycol 3350 17 gram Powder In Packet 17 g PO BID 30 Days Qty: 60 0RF sennosides-docusate sodium [Senna Plus] 8.6-50 mg Tablet 2 tab PO BID 30 Days Qty: 120 0RF olanzapine 7.5 mg Tablet 7.5 mg PO BEDTIME 30 Days Qty: 30 0RF hydrochlorothiazide 25 mg Tablet 25 mg PO DAILY 30 Days Qty: 30 0RF Protocol: Hold for SBP< HOLD for SBP < : 90 fluvoxamine 50 mg Tablet 100 mg PO DAILY 30 Days Qty: 60 0RF cyanocobalamin (vitamin B-12) 1,000 mcg Tablet 1,000 mcg PO DAILY 30 Days Qty: 30 0RF amlodipine 2.5 mg Tablet 2.5 mg PO DAILY 30 Days Qty: 30 0RF fluvoxamine 100 mg Tablet 100 mg PO BEDTIME 30 Days Qty: 30 0RF mirtazapine 15 mg Tablet 15 mg PO BEDTIME 30 Days Qty: 30 0RF lamotrigine [Lamictal] 100 mg Tablet 100 mg PO DAILY 30 Days Qty: 30 0RF Rx Instructions: Increase to 150 mg total dose on 10/19/21 cholecalciferol (vitamin D3) 25 mcg (1,000 unit) Capsule 25 mcg PO DAILY 30 Days Qty: 30 0RF Referrals: Feliberto Rivas MD [Physician] - 1 week
[2022-07-07 09:42] VITALS: PULSE 142; TEMP 36.9; O2SAT 98
[2022-07-07 09:58] LABS: MANUAL DIFF FLAG NO
[2022-07-07] MEDS: 0.9 % Sodium Chloride 1,000 ML 999 ML IV (09:59)
[2022-07-07] MEDS: Metoprolol Tartrate 5 MG/5 ML VIAL IVPUSH (09:59)
[2022-07-07 10:00] LABS: Hematocrit 37.4 % (42.0-52.0); Hemoglobin 12.6 g/dl (14.0-18.0); Mean Corpuscular HGB Conc 33.7 g/dl (31.0-36.0); Mean Corpuscular Hemoglobin 31.8 pg (27.0-33.0); Mean Corpuscular Volume 94.4 fL (80.0-98.0); Platelet Count 145 X10*3/uL (160-400); Red Blood Count 3.96 X10*6/uL (4.60-5.80); Red Cell Distribution Width 12.1 % (11.0-16.0); White Blood Count 3.8 X10*3/uL (4.8-10.8)
[2022-07-07 10:01] LABS: Basophils Percent Auto 0.5 % (0-2); Eosinophils Percent Auto 0.5 % (0-4); Imm Gran Abs Auto 0.02 X10*3/uL (0.00-0.03); Imm Gran Pct Auto 0.5 % (0.0-0.4); Lymphocytes Absolute Auto 0.5 X10*3/uL (1.2-4.9); Lymphocytes Percent Auto 11.8 % (20-40); Mean Platelet Volume 8.8 fL (9.4-12.4); Monocytes Absolute Auto 0.4 X10*3/uL (0.1-1.2); Neutrophils Absolute Auto 2.9 x10*3/uL (2.0-8.3); Neutrophils Percent Auto 76.7 % (45-73)
[2022-07-07 10:06] VITALS: BP 130/75; PULSE 99; RESP 14; O2SAT 96
[2022-07-07 10:23] LABS: Anion Gap 13 (12-20); Blood Urea Nitrogen 14 mg/dL (9-16); Calcium 8.5 mg/dL (8.4-10.2); Carbon Dioxide 29 mmol/L (22-29); Chloride 106 mmol/L (96-108); Creatinine Clr Calc Pharmacy 100.8; Estimated Glomerular Filt Rate > 60; Glucose Random 97 mg/dL (60-115); Potassium 3.9 mmol/L (3.3-5.1); Sodium 144 mmol/L (135-145)
[2022-07-07 10:38] LABS: TSH reflex Free T4 1.12 uIU/mL (0.32-4.0)
[2022-07-07] MEDS: dilTIAZem HCL 50 MG/10 ML VIAL 15 MG IVPUSH (10:44)
--- NOTE | 2022-07-07 10:55 | PC.NURSE ---
Coming from PACU post ECT treatment which patient completed. Found to be in aflutter with rate in 140's. Upon arrival, pt alert and oriented resp even and unlabored denying any chest pain. Medicated per the MAR. Pt remains in aflutter at this time with a rate of 66. Family at bedside.
[2022-07-07 11:19] VITALS: BP 106/61; PULSE 67; RESP 18; TEMP 36.8; O2SAT 99
[2022-07-07 11:41] VITALS: BP 102/72; PULSE 65; RESP 15; TEMP 36.6; O2SAT 97
--- NOTE | 2022-07-07 11:42 | ECG_ITS ---
Test Reason : REPEAT Blood Pressure : / mmHG Vent. Rate : 070 BPM Atrial Rate : 277 BPM P-R Int : 000 ms QRS Dur : 110 ms QT Int : 400 ms P-R-T Axes : -78 011 034 degrees QTc Int : 432 ms Atrial flutter with variable A-V block Abnormal ECG When compared with ECG of 07-JUL-2022 09:55, Vent. rate has decreased BY 55 BPM Questionable change in QRS duration Referred By: Zachariah Cleveland Electronically Signed By:Feliberto Rivas
--- NOTE | 2022-07-07 13:21 | PC.NURSE ---
Pt noted to be in sinus rhythm on the monitor, ekg obtained showing sinus bradycardia
[2022-07-07 14:12] VITALS: BP 128/72; PULSE 62; RESP 16; TEMP 36.8; O2SAT 98
== END 2022-07-07 14:36 | disposition home or self-care (01) ==
PROVIDERS: Emergency Provider Emergency Medicine; PCP Internal Medicine
DX: I48.92 Unspecified atrial flutter (principal); D61.818 Other pancytopenia; I97.89 Other postprocedural complications and disorders of the circulatory system, not elsewhere classified; Y84.8 Other medical procedures as the cause of abnormal reaction of the patient, or of later complication, without mention of misadventure at the time of the procedure; Y92.239 Unspecified place in hospital as the place of occurrence of the external cause; I10 Essential (primary) hypertension; Z79.899 Other long term (current) drug therapy
CPT/HCPCS: 36415; 80048; 84443; 85025; 93005; 96361; 96374; 96375; 99285

== ENCOUNTER → 2022-08-20 14:24 | Outpatient (BNVA) | payer MEDICARE, SELFPAY | PROVIDERS: PCP Internal Medicine; Visit Provider Internal Medicine Cardiovascular Disease | DX: I48.92 Unspecified atrial flutter (principal); I10 Essential (primary) hypertension; Z79.01 Long term (current) use of anticoagulants | CPT/HCPCS: 93005; 99202 ==

== ENCOUNTER 2022-12-31 13:54 | Outpatient (AMB) | payer MEDICARE, SELFPAY ==
[2022-12-31 13:59] VITALS: BP 142/74; PULSE 60; BMI 25.1
--- NOTE | 2022-12-31 13:59 | A.OFFVIS_ITS ---
Intake Vital Signs 12/31/22 13:59 Height 6 ft 5 in Weight 211 lb 10.3 oz BMI 25.1 BP 142/74 H Blood Pressure Location Lt brachial Position Sitting Pulse 60 Intake Visit Reasons: 4 mth f/up marie records Intake Note: 4 month follow-up was at [facility] feeling good Supervisor Wound Required: No Online Merchandising Specialist: Online Merchandising Specialist Present Accompanied by: Spouse Allergies Latex, Natural Rubber Adverse Reaction (Mild, Verified 08/20/22 14:48) Rash Medication List - Last Reconciled 12/31/22 by Feliberto Rivas MD amlodipine 2.5 mg PO DAILY 30 days apixaban (Eliquis) 5 mg PO BID Chlorella algae (bulk) ea miscellaneous cholecalciferol (vitamin D3) 25 mcg PO DAILY 30 days cyanocobalamin (vitamin B-12) 1,000 mcg PO DAILY 30 days docusate sodium (Colace Clear) 50 mg PO DAILY fluvoxamine 100 mg (2 x 50 mg) PO DAILY 30 days fluvoxamine 100 mg PO BEDTIME 30 days hydrochlorothiazide 25 mg See Protocol PO DAILY 30 days lamotrigine (Lamictal) 100 mg PO DAILY 30 days liothyronine 5 mcg PO BID metoprolol tartrate 12.5 mg (1/2 x 25 mg) PO BID mirtazapine 15 mg PO BEDTIME 30 days multivitamin 1 tab PO DAILY olanzapine 7.5 mg PO BEDTIME 30 days sennosides-docusate sodium 8.6-50 mg (Senna Plus) 2 tabs PO BID 30 days HPI HPI Comments History of Present Illness Details 72 year gentleman here for follow-up. He was in the emergency department with atrial flutter of her electroconvulsive therapy for depression. He has major depression and has struggled with depression for many many years. He recently underwent electroconvulsive therapy and after getting his 3rd se ssion developed atrial flutter. He was brought to the emergency department where he received metoprolol IV and after blood doses converted to sinus rhythm. He does not remember any details about this event because he was post electroconvulsive therapy in usually he gets amnesia after that. He gets some palpitations at home and approximately 10 months before that he had an episode of palpitation for which he called EMS and received metoprolol. He has no chest pain or shortness of breath. He walks regularly. He has been taking Eliquis without any bleeding concerns. He is saying he had some workup done including concern) he had an echocardiogram done there. 12/31/2022: He returns for follow-up. Juan Jose reyes has been doing well. He has been taking apixaban without any bleeding. Denies any palpitations, chest pain or shortness of breath. He has been walking and also swimming without any significant complaints. Blood pressure is mildly elevated. [facility] Medical History (Updated 08/20/22 @ 15:29 by Feliberto Rivas MD) Ruptured liver No known health problems Surgical History (Updated 08/20/22 @ 14:52 by SANTOS Wilson) History of surgery of liver H/O right knee surgery Family History (Updated 08/20/22 @ 14:53 by SANTOS Wilson) Mother Asthma Heart disease Lymphoma CHF (congestive heart failure) Pacemaker Heart valve replaced Father Heart disease HTN (hypertension) Pacemaker Prostate cancer Sister Uterine cancer Sister ALL (acute lymphoblastic leukemia of ) Social History (Updated 08/20/22 @ 14:54 by SANTOS Wilson) Household Members: None Housing: Apartment Do you presently have visiting nurse or other home services: No Alcohol intake: current Alcohol intake frequency: holidays/special occasions only Patient Tobacco Use Status: Never used Tobacco e-Cigarette/Vaping Use: Never Used Second Hand Smoke Exposure: No service: No Sexual orientation: Straight/Heterosexual Review of Systems Const Denies chills, Denies fatigue, Denies fever(s), Denies frequent falls, Denies weakness, Denies weight gain and Denies weight loss ENT Denies dizziness Card Denies chest pain, Denies leg edema, Denies lightheadedness, Denies palpitations, Denies dyspnea, Denies dyspnea on exertion, Denies orthopnea and Denies other (loss of consciousness) Resp Denies cough, Denies dyspnea and Denies dyspnea on exertion GI Denies hematochezia and Denies change in stool character Musc Denies abnormal gait, Denies muscle weakness, Denies numbness, Denies radiating pain into limb and Denies tingling Neuro Denies abnormal gait, Denies dizziness, Denies frequent falls, Denies numbness, Denies tingling and Denies weakness Endo Denies fatigue and Denies palpitations Physical Exam Vital Signs: Last Vital Signs Pulse 60 10/18/23 13:59 BP 142/74 H 12/31/22 13:59 BMI result Body Mass Index 25.1 GENERAL APPEARANCE: in no acute distress, pleasant. NECK: no carotid bruit, no jugular venous distention. SKIN: no suspicious lesions, warm and dry. HEART: no murmurs, regular rate and rhythm. LUNGS: clear to auscultation bilaterally. ABDOMEN: soft, nontender. EXTREMITIES: no edema. PERIPHERAL PULSES: equal. NEUROLOGIC: No gross deficits, AAO X 3 Assessment & Plan Assessment & Plan (1) Atrial flutter: Code(s): I48.92 - Unspecified atrial flutter (2) HTN (hypertension): Code(s): I10 - Essential (primary) hypertension Plan Pleasant 72 gentleman who is here for follow-up. He has background history of hypertension atrial flutter. He is on apixaban for anticoagulation. He is tolerating it well without any significant bleeding concerns at this point. His blood pressure is mildly elevated. His previous readings were little low and I think we should have more blood pressure readings before we change any medications. If he follows up with his primary care physician in the interim and if blood pressure continues to be elevated then amlodipine can be increased to 5 mg once a day. Thank you for allowing me to participate in the care of your patient. Please feel free to contact me if you have any questions. Coding Level of Care Code Est Pt Level 4 (15302) Diagnoses Atrial flutter I48.92 HTN (hypertension) I10
== END 2022-12-31 14:21 | disposition home or self-care (01) ==
PROVIDERS: PCP Internal Medicine; Visit Provider Internal Medicine Cardiovascular Disease
DX: I48.92 Unspecified atrial flutter (principal); I10 Essential (primary) hypertension
CPT/HCPCS: 99214

== ENCOUNTER → 2022-12-31 13:54 | Outpatient (BNVA) | payer MEDICARE, SELFPAY | PROVIDERS: PCP Internal Medicine; Visit Provider Internal Medicine Cardiovascular Disease | DX: I48.92 Unspecified atrial flutter (principal); I10 Essential (primary) hypertension | CPT/HCPCS: 99212 ==

== ENCOUNTER 2023-03-19 19:00 | Outpatient (BNV) | payer MEDICARE, SELFPAY | END 2023-03-20 09:29 | PROVIDERS: Admitting Provider Psychiatry & Neurology Psychiatry; Visit Provider Internal Medicine Cardiovascular Disease | DX: I48.92 Unspecified atrial flutter (principal) | CPT/HCPCS: 93010 ==

== ENCOUNTER 2023-03-19 19:00 | Inpatient (IN) | payer MEDICARE, SELFPAY ==
[2023-03-19 19:48] VITALS: BP 147/69; PULSE 81; RESP 16; TEMP 36.8; O2SAT 96
[2023-03-19 20:04] VITALS: BMI 25.6
--- NOTE | 2023-03-20 00:56 | PC.ADMIT ---
Mr Whittington was admitted to on 03/19/22 at 19:[address] [facility], on a CV for the treatment of Major depressive disorder, recurrent, with psychotic features. According to crisis notes, pt presented for evaluation for SI with plan. pt reported his long standing depression was worsening. per report, pt stated he had done research about how people hang themselves in [place] and attempted this today, by wrapping something around his neck as an attempt to cut off my carotids , when he realized that was not going to work, he stopped. According to crisis notes, pt wrote a suicide note and left it for his sister to find. Upon arrival here at [facility], pt is alert and oriented to self, place and time. pt is cooperative with care and with a brighter affect. pt denied all pysch symptoms, denied SI/HI/VH/AH and did not appear to be responding to internal stimuli. Skin check completed x2 two persons, and intact. pt is independent with ADL's. pt is steady on feet with ambulation. She was placed on 5 minute checks for safety. pt reports feeling safe on the unit.
[2023-03-20 08:40] LABS: Alanine Aminotransferase 95 U/L (0-40); Albumin Level 4.1 g/dL (3.5-5.0); Alkaline Phosphatase 69 U/L (39-117); Anion Gap 11 (12-20); Aspartate Amino Transferase 44 U/L (5-37); Bilirubin Total 0.6 mg/dL (0.0-1.0); Blood Urea Nitrogen 14 mg/dL (9-16); Calcium 9.4 mg/dL (8.4-10.2); Carbon Dioxide 33 mmol/L (22-29); Chloride 94 mmol/L (96-108); Creatinine Clr Calc Pharmacy 90.7; Estimated Glomerular Filt Rate > 60; Glucose Fasting 95 mg/dL (60-99); Potassium 4.1 mmol/L (3.3-5.1); Sodium 134 mmol/L (135-145)
[2023-03-20 08:46] VITALS: BP 129/64; PULSE 72; RESP 16; TEMP 36.3; O2SAT 96
[2023-03-20] MEDS: Docusate Sodium 100 MG CAPSULE PO (08:56)
--- NOTE | 2023-03-20 08:58 | HO.PSYADMNOT ---
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 He was rushed to the emergency room, medically cleared and transferring to this facility for psychiatric stabilization. On interview, the patient was pleasant, cooperative reported that he had been depressed for the last months. Apparently after the discharge on June 2022, he was doing fairly well, he remembered that ECT worked but not as much as he initially thought, he stopped treatment in the middle of June 2022 and he relapsed on his depressive symptoms slowly in the last weeks with depressed mood, anhedonia, lack of energy, feelings of hopelessness and suicidal thoughts. The patient adamantly denies history of hypomania or aidan. No psychotic symptoms. The patient was able to contract for safety in the facility, we start the medical workout to restart ECT. At this moment the patient is not very open on this kind of treatment. We will try to gather more collateral information did not next hours. Past Psychiatric History: Several inpatient stays at [facility], as well as in 2000, After being referred here from inpatient unit at [place] for ECT. Several [facility]'s, including [facility] [place]. Psychiatrist: Tim Brooks [phone]. Therapist Daniel Ryan [phone]. Medical Evaluation Reviewed: Hospitalist Elieser Pending [facility] Medical History Ruptured liver No known health problems Surgical History History of surgery of liver H/O right knee surgery Family History: Alcohol use disorder Social History: Lives alone in an apartment. Raised by both parents, they when he was 12 years old. Five sisters, 1 at age 22 due to illness. Describes family as supportive. Lives alone, has supportive friends. Met developmental milestones as expected. Attended private [employer] schools, graduated high school, college. Completed [employer] school, decided not to work in this field. 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 Patient , former spouse has 2 children from a previous marriage. Substance History: Past history of alcohol use disorder Trauma History: None reported Diagnostics Vital Signs (24Hr): Vital Signs - 24 hr 03/19/23 19:48 03/20/23 08:46 Temperature 98.3 F 97.4 F Pulse Rate 81 72 Respiratory Rate 16 16 Blood Pressure 147/69 H 129/64 Pulse Oximetry 96 96 Oxygen Delivery Method Room Air Room Air BMI result Body Mass Index 25.6 Labs 03/20/23 08:03 Labs: Laboratory Results - last 48 hr 03/20/23 08:03 Sodium 134 L Potassium 4.1 Chloride 94 L Carbon Dioxide 33 H Anion Gap 11 L BUN 14 Creatinine 0.90 Estim Creat Clear Calc 90.7 Estimated GFR > 60 Fasting Glucose 95 Calcium 9.4 D Total Bilirubin 0.6 AST 44 H ALT 95 H Alkaline Phosphatase 69 Total Protein 7.0 Albumin 4.1 Meds/Allergies Meds Home Medications Medication Instructions Recorded Confirmed Type docusate sodium 50 mg capsule 100 mg PO NEEDED 08/20/22 03/19/23 History (Colace Clear) liothyronine 5 mcg tablet 5 mcg PO BEDTIME 12/31/22 03/19/23 History fluvoxamine 250 mg PO BID 03/19/23 03/19/23 History liothyronine 10 mcg PO DAILY 03/19/23 03/19/23 History olanzapine 5 mg PO BEDTIME 03/19/23 03/19/23 History Allergies Allergies Allergy/AdvReac Type Severity Reaction Status Date / Time Latex, Natural Rubber AdvReac Mild Rash Verified 08/20/22 14:48 Mental Status Exam Mental Status Exam Patient Appearance: Appropriate Patient Orientation: Person and Situation Level of Consciousness: Awake and Appropriate Patient Behavior: Guarded and Passive Mood Description: Withdrawn Affect Description: Constricted Patient Cognition Impaired: Yes Ability to Follow Directions: Good Speech Pattern: Clear Hallucinations: None Delusions: Not Present Thought Process: Distracted Thought Content: positive for [place] and positive for Poverty of Content Judgement: Poor Assessment & Plan Assessment & Plan (1) Atrial flutter: Status: Acute Code(s): I48.92 - Unspecified atrial flutter (2) Major depressive disorder, recurrent severe without psychotic features: Status: Acute Code(s): F33.2 - Major depressive disorder, recurrent severe without psychotic features (3) Generalized anxiety disorder: Status: Acute Code(s): F41.1 - Generalized anxiety disorder (4) Obsessive compulsive disorder: Status: Acute Code(s): F42.9 - Obsessive-compulsive disorder, unspecified Plan The patient is an elderly male with a past history of major depressive disorder, generalized anxiety disorder and obsessive-compulsive disorder had been on several trials of antidepressants who was brought from the emergency room of another hospital for exacerbation of depression with suicidal ideation with a plan. The patient is very well known by this team since he was admitted last June and needed ECT that improved his mental status. He stopped treatment last June. Plan 1. Gather collateral information we will try to contact her sister who is a good support and knows him better. 2. Continue with his regular medications and antidepressants. 3. EKG for medical clearance. 4. Referral to the medical team, blood work and reassessment results. 5. 15 minute checks. Patient educated on: diagnosis, ECT and medical condition Reason for continued inpatient stay Substantial Risk for: inability to function, rapid decompensation and med/psych decompensation Statement Statement: I have reviewed the history and physical and performed a pertinent examination on my patient. No changes have occurred unless specified. If the History and Physical was not performed prior to admission, the Hospitalist's service will be consulted for completing the admission physical. Time Spent With Patient Time: Total time managing care of this patient today __45__ minutes.
--- NOTE | 2023-03-20 16:50 | HO.PM.IMCN ---
History of Present Illness Data of Consult Service Date: 03/20/23 Primary Care Provider: Unknown Physician HPI Reason for consult: Admission H&P Pt is a 72-year-old male with a PMH significant for?paroxsymal AFib on Eliquis, HTN, insomnia, ERENDIRA, and severe depression with psychotic features who is admitted to [facility] for increasing depression with SI with a plan to hang himself. Pt had apparently been researching how to hang themselves in [facility] and left behind a suicide note to his sister. Medical consult for admission H&P. Pt seen and evaluated at bedside. Pt reports overall feeling fine and has no acute medical complaints. Denies fever, chills, nausea, vomiting, diarrhea, abdominal pain. No chest pain/pressure, palpitations. Denies SOB. No headache, acute vision changes. Review of Systems Review of Systems: Pt has no acute medical complaints at this time [facility] Medical History Ruptured liver No known health problems Family History (Updated 08/20/22 @ 14:53 by SANTOS Wilson) Mother Asthma Heart disease Lymphoma CHF (congestive heart failure) Pacemaker Heart valve replaced Father Heart disease HTN (hypertension) Pacemaker Prostate cancer Sister Uterine cancer Sister ALL (acute lymphoblastic leukemia of ) Surgical History History of surgery of liver H/O right knee surgery Social History (Updated 08/20/22 @ 14:54 by SANTOS Wilson) Household Members: None Housing: Apartment Do you presently have visiting nurse or other home services: No Alcohol intake: current Alcohol intake frequency: holidays/special occasions only Patient Tobacco Use Status: Never used Tobacco e-Cigarette/Vaping Use: Never Used Second Hand Smoke Exposure: No Use of substances other than those prescribed or required for medical reasons: No Currently Displaying Signs/Symptoms of Drug Intoxication Withdrawal: No Have you been hit, kicked, punched, or otherwise hurt by someone within the past year? If so, by whom?: No Do you feel safe in your current relationship?: No Current Relationship Are you made to feel afraid or neglected: No Spiritual Healthcare Practices: i wish i did per pt Restorationism Healthcare Practices: none Cultural Healthcare Practices: none Advance Directives: No Advance Directives Information Provided: No Do you have thoughts of harming others: None Do you have a plan to hurt others: No Plan Recently lost weight without trying: No Eating poorly because of decreased appetite: No Nutrition Risks: No Nutritional Risk service: No Sexual orientation: Straight/Heterosexual Meds Allergies Allergy/AdvReac Type Severity Reaction Status Date / Time Latex, Natural Rubber AdvReac Mild Rash Verified 08/20/22 14:48 Active Medications: Current Medications Acetaminophen (Acetaminophen 325 Mg Tablet) 650 mg PO Q6H PRN PRN Reason: Headache/Pain Mild Scale (1-3) Al Hydroxide/Mg Hydroxide (Magnesium Hydrox/Alum Hydrox 30 Ml Oral.Susp) 30 ml PO Q6H PRN PRN Reason: Heartburn/Nausea Amlodipine Besylate (Amlodipine Besylate 2.5 Mg Tablet) 2.5 mg PO DAILY [facility]; Protocol Last Admin: 03/20/23 11:28 Dose: 2.5 mg Apixaban (Apixaban 5 Mg Tablet) 5 mg PO BID [facility] Last Admin: 03/20/23 08:56 Dose: 5 mg Apixaban (Apixaban 5 Mg Tablet) 5 mg PO BID [facility] Last Admin: 03/20/23 11:31 Dose: Not Given Cyanocobalamin (Cyanocobalamin (Vitamin B-12) 1,000 Mcg Tablet) 1,000 mcg PO DAILY [facility] Docusate Sodium (Docusate Sodium 100 Mg Capsule) 100 mg PO DAILY PRN PRN Reason: Constipation Last Admin: 03/20/23 08:56 Dose: 100 mg Fluvoxamine Maleate (Fluvoxamine Maleate 50 Mg Tablet) 250 mg PO BID [facility] Last Admin: 03/20/23 11:23 Dose: 250 mg Lamotrigine (Lamotrigine 25 Mg Tablet) 50 mg PO DAILY [facility] Last Admin: 03/20/23 08:56 Dose: 50 mg Lamotrigine (Lamotrigine 100 Mg Tablet) 100 mg PO DAILY [facility] Last Admin: 03/20/23 11:28 Dose: 100 mg Magnesium Hydroxide (Milk Of Magnesia 30 Ml Oral.Susp) 30 ml PO DAILY PRN PRN Reason: Constipation Metoprolol Tartrate (Metoprolol Tartrate 12.5 Mg Halftab) 12.5 mg PO BID [facility]; Protocol Last Admin: 03/20/23 11:28 Dose: 12.5 mg Mirtazapine (Mirtazapine 15 Mg Tablet) 15 mg PO BEDTIME [facility] Non-Formulary Medication (Liothyronine) 10 mcg PO DAILY [facility] Non-Formulary Medication (Liothyronine) 5 mcg PO BEDTIME [facility] Olanzapine (Olanzapine 2.5 Mg Tablet) 2.5 mg PO TID PRN PRN Reason: agitation Olanzapine (Olanzapine 5 Mg Tablet) 5 mg PO BEDTIME [facility] Trazodone HCl (Trazodone Hcl 50 Mg Tablet) 50 mg PO BEDTIME MRX1 PRN PRN Reason: Insomnia Home Medications Medication Instructions Recorded Confirmed Last Taken Type docusate sodium 50 mg capsule 100 mg PO NEEDED 08/20/22 03/19/23 1 Day Ago History (Colace Clear) ~03/18/23 liothyronine 5 mcg tablet 5 mcg PO BEDTIME 12/31/22 03/19/23 1 Day Ago History ~03/18/23 fluvoxamine 250 mg PO BID 03/19/23 03/19/23 1 Day Ago History ~03/18/23 liothyronine 10 mcg PO DAILY 03/19/23 03/19/23 1 Day Ago History ~03/18/23 olanzapine 5 mg PO BEDTIME 03/19/23 03/19/23 1 Day Ago History ~03/18/23 Physical Exam Vital Signs and Narrative: Vital Signs: Last Vital Signs Temp 97.4 F 03/20/23 08:46 Pulse 72 03/20/23 08:46 Resp 16 03/20/23 08:46 BP 129/64 03/20/23 08:46 Pulse Ox 96 03/20/23 08:46 O2 Del Method Room Air 03/20/23 08:46 BMI result Body Mass Index 25.6 General: AOx3, no acute distress Resp: CTA bilaterally CVS: S1, S2, RRR GI: +BS, NT, no distention Skin: Warm, dry Neuro: Cranial nerves II-XII grossly intact bilaterally. Motor grossly intact bilaterally Extremities: No edema Psych: Flat affect Results Labs 03/20/23 08:03 Labs: Laboratory Results - last 24 hr 03/20/23 08:03 Anion Gap 11 L Estim Creat Clear Calc 90.7 Estimated GFR > 60 Fasting Glucose 95 Calcium 9.4 D Total Bilirubin 0.6 AST 44 H ALT 95 H Alkaline Phosphatase 69 Total Protein 7.0 Albumin 4.1 Assessment and Plan (1) Medical clearance for psychiatric admission: Status: Acute Plan Pt is a 72-year-old male with a PMH significant for?paroxsymal AFib on Eliquis, HTN, insomnia, ERENDIRA, and severe depression with psychotic features who is admitted to [facility] for increasing depression with SI with a plan to hang himself. Pt had apparently been researching how to hang themselves in [facility] and left behind a suicide note to his sister. Medical consult for admission H&P. Pt seen and evaluated at bedside. Pt reports overall feeling fine and has no acute medical complaints. Mood disorder Plan as per psychiatry Paroxysmal AFib Continue metoprolol, Eliquis HTN Continue amlodipine, hydrochlorothiazide Thank you for allowing us to participate in the care of this patient. Signing off at this time. Please re-consult if any acute complaints or issues arise.
[2023-03-20 18:00] VITALS: BP 138/65; PULSE 70; RESP 18; TEMP 36.9; O2SAT 95
[2023-03-21 08:25] VITALS: BP 120/57; PULSE 61; RESP 16; TEMP 36.6; O2SAT 92
--- NOTE | 2023-03-21 12:34 | HO.PSYCHPN ---
Subjective Subjective Date of Service: 03/21/23 Reason For Visit: major depressive disorder, recurrent,w/psychotic Subjective Notes: Conditional Voluntary Medical Problems Affecting Mental Status: No Interim History: met with patient. Discussed with Nursing. Chart reviewed. Overall pleasant, engaged in no management issues. Reports today that he has been feeling depressed, more hopeless, isolating. Is hopeful that medications can help with his depression rather than ECT. Is working on treatment planning with primary team. No SI. No overt evidence of psychosis. Sleep energy and appetite okay. Medication Compliance: Yes Side effects from medications: No Attending Groups: No Review of Systems Acute medical concerns: No Review of Systems Review of Systems Unremarkable Mental Status Exam Mental Status Exam Narrative: pleasant. Engaged. Oriented. Fair self-care. Is guarded. Depressed. Hopeless but denies active SI. No HI. No agitation. No overt psychosis noted. Insight and judgment fair Diagnostics Vital Signs (24Hr): Vital Signs - 24 hr 03/20/23 18:00 03/21/23 08:25 Temperature 98.4 F 97.8 F Pulse Rate 70 61 Respiratory Rate 18 16 Blood Pressure 138/65 120/57 L Pulse Oximetry 95 92 Oxygen Delivery Method Room Air Room Air BMI result Body Mass Index 25.6 Labs 03/20/23 08:03 Labs: Laboratory Results - last 48 hr 03/20/23 08:03 Sodium 134 L Potassium 4.1 Chloride 94 L Carbon Dioxide 33 H Anion Gap 11 L BUN 14 Creatinine 0.90 Estim Creat Clear Calc 90.7 Estimated GFR > 60 Fasting Glucose 95 Calcium 9.4 D Total Bilirubin 0.6 AST 44 H ALT 95 H Alkaline Phosphatase 69 Total Protein 7.0 Albumin 4.1 Medications Medications Current Medications Acetaminophen (Acetaminophen 325 Mg Tablet) 650 mg PO Q6H PRN PRN Reason: Headache/Pain Mild Scale (1-3) Al Hydroxide/Mg Hydroxide (Magnesium Hydrox/Alum Hydrox 30 Ml Oral.Susp) 30 ml PO Q6H PRN PRN Reason: Heartburn/Nausea Amlodipine Besylate (Amlodipine Besylate 2.5 Mg Tablet) 2.5 mg PO DAILY [facility]; Protocol Last Admin: 03/21/23 08:28 Dose: 2.5 mg Apixaban (Apixaban 5 Mg Tablet) 5 mg PO BID [facility] Last Admin: 03/21/23 08:27 Dose: 5 mg Cyanocobalamin (Cyanocobalamin (Vitamin B-12) 1,000 Mcg Tablet) 1,000 mcg PO DAILY [facility] Last Admin: 03/21/23 08:28 Dose: 1,000 mcg Docusate Sodium (Docusate Sodium 100 Mg Capsule) 100 mg PO DAILY PRN PRN Reason: Constipation Last Admin: 03/20/23 08:56 Dose: 100 mg Fluvoxamine Maleate (Fluvoxamine Maleate 50 Mg Tablet) 250 mg PO BID [facility] Last Admin: 03/21/23 08:28 Dose: 250 mg Lamotrigine (Lamotrigine 25 Mg Tablet) 50 mg PO DAILY [facility] Last Admin: 03/21/23 08:27 Dose: 50 mg Lamotrigine (Lamotrigine 100 Mg Tablet) 100 mg PO DAILY [facility] Last Admin: 03/21/23 08:28 Dose: 100 mg Magnesium Hydroxide (Milk Of Magnesia 30 Ml Oral.Susp) 30 ml PO DAILY PRN PRN Reason: Constipation Metoprolol Tartrate (Metoprolol Tartrate 12.5 Mg Halftab) 12.5 mg PO BID [facility]; Protocol Last Admin: 03/21/23 08:28 Dose: 12.5 mg Mirtazapine (Mirtazapine 15 Mg Tablet) 15 mg PO BEDTIME [facility] Last Admin: 03/20/23 21:11 Dose: 15 mg Non-Formulary Medication (Liothyronine) 10 mcg PO DAILY [facility] Non-Formulary Medication (Liothyronine) 5 mcg PO BEDTIME [facility] Olanzapine (Olanzapine 2.5 Mg Tablet) 2.5 mg PO TID PRN PRN Reason: agitation Olanzapine (Olanzapine 5 Mg Tablet) 5 mg PO BEDTIME [facility] Last Admin: 03/20/23 21:11 Dose: 5 mg Trazodone HCl (Trazodone Hcl 50 Mg Tablet) 50 mg PO BEDTIME MRX1 PRN PRN Reason: Insomnia Allergies Allergies Allergy/AdvReac Type Severity Reaction Status Date / Time Latex, Natural Rubber AdvReac Mild Rash Verified 08/20/22 14:48 Assessment & Plan Assessment & Plan (1) Medical clearance for psychiatric admission: Status: Acute Code(s): Z00.8 - Encounter for other general examination (2) Major depressive disorder, recurrent severe without psychotic features: Status: Acute Code(s): F33.2 - Major depressive disorder, recurrent severe without psychotic features (3) Generalized anxiety disorder: Status: Acute Code(s): F41.1 - Generalized anxiety disorder Plan The patient is an elderly male with a past history of major depressive disorder, generalized anxiety disorder and obsessive-compulsive disorder had been on several trials of antidepressants who was brought from the emergency room of another hospital for exacerbation of depression with suicidal ideation with a plan. The patient is very well known by this team since he was admitted last June and needed ECT that improved his mental status. He stopped treatment last June. Plan 1. Gather collateral information we will try to contact her sister who is a good support and knows him better. 2. Continue with his regular medications and antidepressants. 3. EKG for medical clearance. 4. 15 minute checks. Patient educated on: diagnosis, ECT and medical condition Reason for continued inpatient stay Substantial Risk for: inability to function, rapid decompensation and med/psych decompensation Time Spent With Patient Time: Total time managing care of this patient today ____ minutes.
[2023-03-21 18:00] VITALS: BP 154/78; PULSE 62; RESP 18; TEMP 36.8; O2SAT 98
[2023-03-21] MEDS: traZODone HCL 50 MG TABLET PO (21:21)
[2023-03-22 08:00] VITALS: BP 137/64; PULSE 85; RESP 17; TEMP 36.2; O2SAT 98
--- NOTE | 2023-03-22 10:31 | HO.PSYCHPN ---
Subjective Subjective Date of Service: 03/22/23 Reason For Visit: major depressive disorder, recurrent,w/psychotic Medical Problems Affecting Mental Status: No Interim History: No significant changes from yesterday i.e. continues to feel depressed, isolative hopeful that hospital treatment will alleviate symptoms. Continues to remain ambivalent around medications verses ECT. Continuing to work with primary team regarding treatment planning and best approach. Did attend some groups today. Medication Compliance: Yes Side effects from medications: No Attending Groups: Intermittent Review of Systems Acute medical concerns: No Review of Systems Review of Systems Unremarkable Mental Status Exam Mental Status Exam Narrative: pleasant. Engaged. Oriented. Fair self-care. Less guarded. Depressed. Hopeless but denies active SI. No HI. No agitation. No overt psychosis noted. Insight and judgment fair Diagnostics Vital Signs (24Hr): Vital Signs - 24 hr 03/21/23 18:00 03/22/23 08:00 Temperature 98.2 F 97.1 F Pulse Rate 62 85 Respiratory Rate 18 17 Blood Pressure 154/78 H 137/64 Pulse Oximetry 98 98 Oxygen Delivery Method Room Air Room Air BMI result Body Mass Index 25.6 Labs 03/20/23 08:03 Medications Medications Current Medications Acetaminophen (Acetaminophen 325 Mg Tablet) 650 mg PO Q6H PRN PRN Reason: Headache/Pain Mild Scale (1-3) Al Hydroxide/Mg Hydroxide (Magnesium Hydrox/Alum Hydrox 30 Ml Oral.Susp) 30 ml PO Q6H PRN PRN Reason: Heartburn/Nausea Amlodipine Besylate (Amlodipine Besylate 2.5 Mg Tablet) 2.5 mg PO DAILY [facility]; Protocol Last Admin: 03/22/23 08:03 Dose: 2.5 mg Apixaban (Apixaban 5 Mg Tablet) 5 mg PO BID [facility] Last Admin: 03/22/23 08:03 Dose: 5 mg Cyanocobalamin (Cyanocobalamin (Vitamin B-12) 1,000 Mcg Tablet) 1,000 mcg PO DAILY [facility] Last Admin: 03/22/23 08:03 Dose: 1,000 mcg Docusate Sodium (Docusate Sodium 100 Mg Capsule) 100 mg PO DAILY PRN PRN Reason: Constipation Last Admin: 03/21/23 21:21 Dose: 100 mg Fluvoxamine Maleate (Fluvoxamine Maleate 50 Mg Tablet) 250 mg PO BID [facility] Last Admin: 03/22/23 08:02 Dose: 250 mg Lamotrigine (Lamotrigine 25 Mg Tablet) 50 mg PO DAILY [facility] Last Admin: 03/22/23 08:02 Dose: 50 mg Lamotrigine (Lamotrigine 100 Mg Tablet) 100 mg PO DAILY [facility] Last Admin: 03/22/23 08:03 Dose: 100 mg Magnesium Hydroxide (Milk Of Magnesia 30 Ml Oral.Susp) 30 ml PO DAILY PRN PRN Reason: Constipation Metoprolol Tartrate (Metoprolol Tartrate 12.5 Mg Halftab) 12.5 mg PO BID [facility]; Protocol Last Admin: 03/22/23 08:02 Dose: 12.5 mg Mirtazapine (Mirtazapine 15 Mg Tablet) 15 mg PO BEDTIME [facility] Last Admin: 03/21/23 21:18 Dose: 15 mg Non-Formulary Medication (Liothyronine) 10 mcg PO DAILY [facility] Non-Formulary Medication (Liothyronine) 5 mcg PO BEDTIME [facility] Olanzapine (Olanzapine 2.5 Mg Tablet) 2.5 mg PO TID PRN PRN Reason: agitation Olanzapine (Olanzapine 5 Mg Tablet) 5 mg PO BEDTIME [facility] Last Admin: 03/21/23 21:18 Dose: 5 mg Trazodone HCl (Trazodone Hcl 50 Mg Tablet) 50 mg PO BEDTIME MRX1 PRN PRN Reason: Insomnia Last Admin: 03/21/23 21:21 Dose: 50 mg Allergies Allergies Allergy/AdvReac Type Severity Reaction Status Date / Time Latex, Natural Rubber AdvReac Mild Rash Verified 08/20/22 14:48 Assessment & Plan Assessment & Plan (1) Medical clearance for psychiatric admission: Status: Acute Code(s): Z00.8 - Encounter for other general examination (2) Major depressive disorder, recurrent severe without psychotic features: Status: Acute Code(s): F33.2 - Major depressive disorder, recurrent severe without psychotic features (3) Generalized anxiety disorder: Status: Acute Code(s): F41.1 - Generalized anxiety disorder Plan The patient is an elderly male with a past history of major depressive disorder, generalized anxiety disorder and obsessive-compulsive disorder had been on several trials of antidepressants who was brought from the emergency room of another hospital for exacerbation of depression with suicidal ideation with a plan. The patient is very well known by this team since he was admitted last June and needed ECT that improved his mental status. He stopped treatment last June. Plan 1. Gather collateral information we will try to contact her sister who is a good support and knows him better. 2. Continue with his regular medications and antidepressants. 3. EKG for medical clearance. 4. 15 minute checks. Patient educated on: diagnosis, ECT and medical condition 03/22/2023: No changes to current plan Reason for continued inpatient stay Substantial Risk for: inability to function Time Spent With Patient Time: Total time managing care of this patient today ____ minutes.
[2023-03-22 18:00] VITALS: BP 143/69; PULSE 58; RESP 18; TEMP 36.6; O2SAT 97
[2023-03-22] MEDS: traZODone HCL 50 MG TABLET PO (21:18)
[2023-03-23 06:00] VITALS: BP 110/60; PULSE 58; RESP 16; TEMP 36.4; O2SAT 96
--- NOTE | 2023-03-23 14:02 | HO.PSYCHPN ---
Subjective Subjective Date of Service: 03/23/23 Reason For Visit: major depressive disorder, recurrent,w/psychotic Subjective Notes: Conditional Voluntary Interim History: The nursing staff reported the patient has refused ECT and he slept 8 hours. On interview the patient denies active suicidal ideation he still dysphoric and he is open to have ketamine. We will discuss it with Anesthesiology. Mental Status Exam Mental Status Exam Patient Appearance: Appropriate Patient Orientation: Person and Situation Level of Consciousness: Awake and Appropriate Patient Behavior: Guarded and Passive Mood Description: Withdrawn Affect Description: Constricted Patient Cognition Impaired: Yes Ability to Follow Directions: Good Speech Pattern: Clear Hallucinations: None Delusions: Not Present Thought Process: Distracted and Slowed Thinking Thought Content: positive for [place] and positive for Poverty of Content Judgement: Fair Diagnostics Vital Signs (24Hr): Vital Signs - 24 hr 03/22/23 18:00 03/23/23 06:00 Temperature 97.9 F 97.6 F Pulse Rate 58 58 Respiratory Rate 18 16 Blood Pressure 143/69 H 110/60 Pulse Oximetry 97 96 Oxygen Delivery Method Room Air Room Air BMI result Body Mass Index 25.6 Labs 03/20/23 08:03 Medications Medications Current Medications Acetaminophen (Acetaminophen 325 Mg Tablet) 650 mg PO Q6H PRN PRN Reason: Headache/Pain Mild Scale (1-3) Al Hydroxide/Mg Hydroxide (Magnesium Hydrox/Alum Hydrox 30 Ml Oral.Susp) 30 ml PO Q6H PRN PRN Reason: Heartburn/Nausea Amlodipine Besylate (Amlodipine Besylate 2.5 Mg Tablet) 2.5 mg PO DAILY [facility]; Protocol Last Admin: 03/23/23 08:55 Dose: 2.5 mg Apixaban (Apixaban 5 Mg Tablet) 5 mg PO BID [facility] Last Admin: 03/23/23 08:55 Dose: 5 mg Cyanocobalamin (Cyanocobalamin (Vitamin B-12) 1,000 Mcg Tablet) 1,000 mcg PO DAILY [facility] Last Admin: 03/23/23 08:55 Dose: 1,000 mcg Docusate Sodium (Docusate Sodium 100 Mg Capsule) 100 mg PO DAILY PRN PRN Reason: Constipation Last Admin: 03/21/23 21:21 Dose: 100 mg Fluvoxamine Maleate (Fluvoxamine Maleate 50 Mg Tablet) 250 mg PO BID [facility] Last Admin: 03/23/23 08:55 Dose: 250 mg Lactic Acid (Ammonium Lactate 12 % Lotion 226 Gm Bottle) 1 appl TOPICAL BID [facility]; Protocol Last Admin: 03/23/23 11:45 Dose: Not Given Lamotrigine (Lamotrigine 25 Mg Tablet) 50 mg PO DAILY [facility] Last Admin: 03/23/23 08:55 Dose: 50 mg Lamotrigine (Lamotrigine 100 Mg Tablet) 100 mg PO DAILY [facility] Last Admin: 03/23/23 08:55 Dose: 100 mg Magnesium Hydroxide (Milk Of Magnesia 30 Ml Oral.Susp) 30 ml PO DAILY PRN PRN Reason: Constipation Metoprolol Tartrate (Metoprolol Tartrate 12.5 Mg Halftab) 12.5 mg PO BID [facility]; Protocol Last Admin: 03/23/23 08:55 Dose: 12.5 mg Mirtazapine (Mirtazapine 15 Mg Tablet) 15 mg PO BEDTIME [facility] Last Admin: 03/22/23 21:18 Dose: 15 mg Non-Formulary Medication (Liothyronine) 10 mcg PO DAILY [facility] Non-Formulary Medication (Liothyronine) 5 mcg PO BEDTIME [facility] Olanzapine (Olanzapine 2.5 Mg Tablet) 2.5 mg PO TID PRN PRN Reason: agitation Olanzapine (Olanzapine 5 Mg Tablet) 5 mg PO BEDTIME [facility] Last Admin: 03/22/23 21:18 Dose: 5 mg Trazodone HCl (Trazodone Hcl 50 Mg Tablet) 50 mg PO BEDTIME MRX1 PRN PRN Reason: Insomnia Last Admin: 03/22/23 21:18 Dose: 50 mg Allergies Allergies Allergy/AdvReac Type Severity Reaction Status Date / Time Latex, Natural Rubber AdvReac Mild Rash Verified 08/20/22 14:48 Assessment & Plan Assessment & Plan (1) Medical clearance for psychiatric admission: Status: Acute Code(s): Z00.8 - Encounter for other general examination (2) Major depressive disorder, recurrent severe without psychotic features: Status: Acute Code(s): F33.2 - Major depressive disorder, recurrent severe without psychotic features (3) Generalized anxiety disorder: Status: Acute Code(s): F41.1 - Generalized anxiety disorder Plan The patient is an elderly male with a past history of major depressive disorder, generalized anxiety disorder and obsessive-compulsive disorder had been on several trials of antidepressants who was brought from the emergency room of another hospital for exacerbation of depression with suicidal ideation with a plan. The patient is very well known by this team since he was admitted last June and needed ECT that improved his mental status. He stopped treatment last June. Plan 1. Gather collateral information we will try to contact her sister who is a good support and knows him better. 2. Continue with his regular medications and antidepressants. 3. EKG for medical clearance. 4. 15 minute checks. 5. Patient educated on: diagnosis, ECT and medical condition Reason for continued inpatient stay Substantial Risk for: inability to function, rapid decompensation and med/psych decompensation Time Spent With Patient Time: Total time managing care of this patient today _20___ minutes.
[2023-03-23 18:00] VITALS: BP 123/60; PULSE 54; RESP 18; TEMP 36.3; O2SAT 97
[2023-03-23] MEDS: fluvoxaMINE Maleate 50 MG TABLET 250 MG PO (20:57)
[2023-03-23] MEDS: traZODone HCL 50 MG TABLET PO (20:58)
[2023-03-23] MEDS: OLANZapine 5 MG TABLET PO (20:58)
[2023-03-23] MEDS: Mirtazapine 15 MG TABLET PO (20:58)
[2023-03-23] MEDS: Apixaban 5 MG TABLET PO (21:00)
[2023-03-24 08:00] VITALS: BP 144/71; PULSE 64; RESP 18; TEMP 36.4; O2SAT 95
[2023-03-24] MEDS: Metoprolol Tartrate 12.5 MG HALFTAB PO ×2 (08:33→21:14)
[2023-03-24] MEDS: Cyanocobalamin (Vitamin B-12) 1,000 MCG TABLET 1000 MCG PO (08:33)
[2023-03-24] MEDS: lamoTRIgine 25 MG TABLET 50 MG PO (08:33)
[2023-03-24] MEDS: amLODIPine Besylate 2.5 MG TABLET PO (08:34)
[2023-03-24] MEDS: Apixaban 5 MG TABLET PO ×2 (08:34→21:14)
[2023-03-24] MEDS: fluvoxaMINE Maleate 50 MG TABLET 250 MG PO ×2 (08:34→21:15)
[2023-03-24] MEDS: lamoTRIgine 100 MG TABLET PO (08:34)
--- NOTE | 2023-03-24 11:51 | HO.PSYCHPN ---
Subjective Subjective Date of Service: 03/24/23 Reason For Visit: major depressive disorder, recurrent,w/psychotic Subjective Notes: Conditional Voluntary Interim History: The nursing staff reported the patient had been compliant with treatment he slept well last night and he denies anxiety. Adamantly denies active suicidal ideation. The protective services social worker reported that they are referring him to a ketamine clinic in the community and probably he will need a cardiology consult for clearance. On interview the patient does not want to have ECT. Still mildly dysphoric. Mental Status Exam Mental Status Exam Patient Appearance: Appropriate Patient Orientation: Person and Situation Level of Consciousness: Awake and Appropriate Patient Behavior: Guarded and Passive Mood Description: Withdrawn Affect Description: Constricted Patient Cognition Impaired: Yes Ability to Follow Directions: Good Speech Pattern: Clear Hallucinations: None Delusions: Not Present Thought Process: Distracted and Slowed Thinking Thought Content: positive for [place] and positive for Poverty of Content Judgement: Fair Diagnostics Vital Signs (24Hr): Vital Signs - 24 hr 03/23/23 18:00 03/24/23 08:00 Temperature 97.3 F 97.5 F Pulse Rate 54 64 Respiratory Rate 18 18 Blood Pressure 123/60 144/71 H Pulse Oximetry 97 95 Oxygen Delivery Method Room Air Room Air BMI result Body Mass Index 25.6 Labs 03/20/23 08:03 Medications Medications Current Medications Acetaminophen (Acetaminophen 325 Mg Tablet) 650 mg PO Q6H PRN PRN Reason: Headache/Pain Mild Scale (1-3) Al Hydroxide/Mg Hydroxide (Magnesium Hydrox/Alum Hydrox 30 Ml Oral.Susp) 30 ml PO Q6H PRN PRN Reason: Heartburn/Nausea Amlodipine Besylate (Amlodipine Besylate 2.5 Mg Tablet) 2.5 mg PO DAILY [facility]; Protocol Last Admin: 03/24/23 08:34 Dose: 2.5 mg Apixaban (Apixaban 5 Mg Tablet) 5 mg PO BID [facility] Last Admin: 03/24/23 08:34 Dose: 5 mg Cyanocobalamin (Cyanocobalamin (Vitamin B-12) 1,000 Mcg Tablet) 1,000 mcg PO DAILY [facility] Last Admin: 03/24/23 08:33 Dose: 1,000 mcg Docusate Sodium (Docusate Sodium 100 Mg Capsule) 100 mg PO DAILY PRN PRN Reason: Constipation Last Admin: 03/21/23 21:21 Dose: 100 mg Fluvoxamine Maleate (Fluvoxamine Maleate 50 Mg Tablet) 250 mg PO BID [facility] Last Admin: 03/24/23 08:34 Dose: 250 mg Lactic Acid (Ammonium Lactate 12 % Lotion 226 Gm Bottle) 1 appl TOPICAL BID [facility]; Protocol Last Admin: 03/24/23 08:34 Dose: 1 appl Lamotrigine (Lamotrigine 25 Mg Tablet) 50 mg PO DAILY [facility] Last Admin: 03/24/23 08:33 Dose: 50 mg Lamotrigine (Lamotrigine 100 Mg Tablet) 100 mg PO DAILY [facility] Last Admin: 03/24/23 08:34 Dose: 100 mg Magnesium Hydroxide (Milk Of Magnesia 30 Ml Oral.Susp) 30 ml PO DAILY PRN PRN Reason: Constipation Metoprolol Tartrate (Metoprolol Tartrate 12.5 Mg Halftab) 12.5 mg PO BID [facility]; Protocol Last Admin: 03/24/23 08:33 Dose: 12.5 mg Mirtazapine (Mirtazapine 15 Mg Tablet) 15 mg PO BEDTIME [facility] Last Admin: 03/23/23 20:58 Dose: 15 mg Non-Formulary Medication (Liothyronine) 10 mcg PO DAILY [facility] Non-Formulary Medication (Liothyronine) 5 mcg PO BEDTIME [facility] Olanzapine (Olanzapine 2.5 Mg Tablet) 2.5 mg PO TID PRN PRN Reason: agitation Olanzapine (Olanzapine 5 Mg Tablet) 5 mg PO BEDTIME [facility] Last Admin: 03/23/23 20:58 Dose: 5 mg Trazodone HCl (Trazodone Hcl 50 Mg Tablet) 50 mg PO BEDTIME MRX1 PRN PRN Reason: Insomnia Last Admin: 03/23/23 20:58 Dose: 50 mg Allergies Allergies Allergy/AdvReac Type Severity Reaction Status Date / Time Latex, Natural Rubber AdvReac Mild Rash Verified 08/20/22 14:48 Assessment & Plan Assessment & Plan (1) Medical clearance for psychiatric admission: Status: Acute Code(s): Z00.8 - Encounter for other general examination (2) Major depressive disorder, recurrent severe without psychotic features: Status: Acute Code(s): F33.2 - Major depressive disorder, recurrent severe without psychotic features (3) Generalized anxiety disorder: Status: Acute Code(s): F41.1 - Generalized anxiety disorder Plan The patient is an elderly male with a past history of major depressive disorder, generalized anxiety disorder and obsessive-compulsive disorder had been on several trials of antidepressants who was brought from the emergency room of another hospital for exacerbation of depression with suicidal ideation with a plan. The patient is very well known by this team since he was admitted last June and needed ECT that improved his mental status. He stopped treatment last June. Plan 1. Gather collateral information we will try to contact her sister who is a good support and knows him better. 2. Continue with his regular medications and antidepressants. 3. EKG for medical clearance. 4. 15 minute checks. 5. Patient educated on: diagnosis, ECT and medical condition Reason for continued inpatient stay Substantial Risk for: inability to function, rapid decompensation and med/psych decompensation Time Spent With Patient Time: Total time managing care of this patient today _20___ minutes.
[2023-03-24 18:38] VITALS: BP 134/60; PULSE 58; RESP 16; TEMP 36.1; O2SAT 97
[2023-03-24] MEDS: Mirtazapine 15 MG TABLET PO (21:15)
[2023-03-24] MEDS: OLANZapine 5 MG TABLET PO (21:15)
[2023-03-25 08:00] VITALS: BP 148/75; PULSE 63; RESP 16; TEMP 36.8; O2SAT 95
--- NOTE | 2023-03-25 09:02 | HO.PSYCHPN ---
Subjective Subjective Date of Service: 03/25/23 Reason For Visit: major depressive disorder, recurrent,w/psychotic Subjective Notes: Conditional Voluntary Interim History: The nursing staff reported the patient had been compliant with treatment he has been visible in the unit. He slept well. We put a consult with the hospitalist for clearance for ketamine and they will do it tomorrow. On interview the patient denies new symptoms he looks dysphoric but safe. Mental Status Exam Mental Status Exam Patient Appearance: Well Grooomed and Appropriate Patient Orientation: Person and Situation Level of Consciousness: Awake Patient Behavior: Guarded and Passive Mood Description: Withdrawn Affect Description: Constricted Patient Cognition Impaired: Yes Ability to Follow Directions: Good Speech Pattern: Clear Hallucinations: None Delusions: Not Present Thought Process: Distracted and Slowed Thinking Thought Content: positive for [place] and positive for Poverty of Content Judgement: Fair Diagnostics Vital Signs (24Hr): Vital Signs - 24 hr 03/24/23 18:38 Temperature 97.0 F Pulse Rate 58 Respiratory Rate 16 Blood Pressure 134/60 Pulse Oximetry 97 Oxygen Delivery Method Room Air BMI result Body Mass Index 25.6 Labs 03/20/23 08:03 Medications Medications Current Medications Acetaminophen (Acetaminophen 325 Mg Tablet) 650 mg PO Q6H PRN PRN Reason: Headache/Pain Mild Scale (1-3) Al Hydroxide/Mg Hydroxide (Magnesium Hydrox/Alum Hydrox 30 Ml Oral.Susp) 30 ml PO Q6H PRN PRN Reason: Heartburn/Nausea Amlodipine Besylate (Amlodipine Besylate 2.5 Mg Tablet) 2.5 mg PO DAILY [facility]; Protocol Last Admin: 03/24/23 08:34 Dose: 2.5 mg Apixaban (Apixaban 5 Mg Tablet) 5 mg PO BID [facility] Last Admin: 03/24/23 21:14 Dose: 5 mg Cyanocobalamin (Cyanocobalamin (Vitamin B-12) 1,000 Mcg Tablet) 1,000 mcg PO DAILY [facility] Last Admin: 03/24/23 08:33 Dose: 1,000 mcg Docusate Sodium (Docusate Sodium 100 Mg Capsule) 100 mg PO DAILY PRN PRN Reason: Constipation Last Admin: 03/21/23 21:21 Dose: 100 mg Fluvoxamine Maleate (Fluvoxamine Maleate 50 Mg Tablet) 250 mg PO BID [facility] Last Admin: 03/24/23 21:15 Dose: 250 mg Lactic Acid (Ammonium Lactate 12 % Lotion 226 Gm Bottle) 1 appl TOPICAL BID [facility]; Protocol Last Admin: 03/24/23 21:14 Dose: 1 appl Lamotrigine (Lamotrigine 25 Mg Tablet) 50 mg PO DAILY [facility] Last Admin: 03/24/23 08:33 Dose: 50 mg Lamotrigine (Lamotrigine 100 Mg Tablet) 100 mg PO DAILY [facility] Last Admin: 03/24/23 08:34 Dose: 100 mg Magnesium Hydroxide (Milk Of Magnesia 30 Ml Oral.Susp) 30 ml PO DAILY PRN PRN Reason: Constipation Metoprolol Tartrate (Metoprolol Tartrate 12.5 Mg Halftab) 12.5 mg PO BID [facility]; Protocol Last Admin: 03/24/23 21:14 Dose: 12.5 mg Mirtazapine (Mirtazapine 15 Mg Tablet) 15 mg PO BEDTIME [facility] Last Admin: 03/24/23 21:15 Dose: 15 mg Non-Formulary Medication (Liothyronine) 10 mcg PO DAILY [facility] Non-Formulary Medication (Liothyronine) 5 mcg PO BEDTIME [facility] Olanzapine (Olanzapine 2.5 Mg Tablet) 2.5 mg PO TID PRN PRN Reason: agitation Olanzapine (Olanzapine 5 Mg Tablet) 5 mg PO BEDTIME [facility] Last Admin: 03/24/23 21:15 Dose: 5 mg Trazodone HCl (Trazodone Hcl 50 Mg Tablet) 50 mg PO BEDTIME MRX1 PRN PRN Reason: Insomnia Last Admin: 03/23/23 20:58 Dose: 50 mg Allergies Allergies Allergy/AdvReac Type Severity Reaction Status Date / Time Latex, Natural Rubber AdvReac Mild Rash Verified 08/20/22 14:48 Assessment & Plan Assessment & Plan (1) Medical clearance for psychiatric admission: Status: Acute Code(s): Z00.8 - Encounter for other general examination (2) Major depressive disorder, recurrent severe without psychotic features: Status: Acute Code(s): F33.2 - Major depressive disorder, recurrent severe without psychotic features (3) Generalized anxiety disorder: Status: Acute Code(s): F41.1 - Generalized anxiety disorder Plan The patient is an elderly male with a past history of major depressive disorder, generalized anxiety disorder and obsessive-compulsive disorder had been on several trials of antidepressants who was brought from the emergency room of another hospital for exacerbation of depression with suicidal ideation with a plan. The patient is very well known by this team since he was admitted last June and needed ECT that improved his mental status. He stopped treatment last June. Plan 1. Gather collateral information we will try to contact her sister who is a good support and knows him better. 2. Continue with his regular medications and antidepressants. 3. EKG for medical clearance. 4. 15 minute checks. 5. Patient educated on: diagnosis, ECT and medical condition. At this moment the patient does not want ECT and wants ketamine treatment. Reason for continued inpatient stay Substantial Risk for: inability to function, rapid decompensation and med/psych decompensation Time Spent With Patient Time: Total time managing care of this patient today _20___ minutes.
[2023-03-25] MEDS: lamoTRIgine 25 MG TABLET 50 MG PO (09:31)
[2023-03-25] MEDS: Metoprolol Tartrate 12.5 MG HALFTAB PO ×2 (09:31→21:18)
[2023-03-25] MEDS: fluvoxaMINE Maleate 50 MG TABLET 250 MG PO ×2 (09:32→21:18)
[2023-03-25] MEDS: lamoTRIgine 100 MG TABLET PO (09:32)
[2023-03-25] MEDS: Cyanocobalamin (Vitamin B-12) 1,000 MCG TABLET 1000 MCG PO (09:32)
[2023-03-25] MEDS: Apixaban 5 MG TABLET PO ×2 (09:32→21:18)
[2023-03-25] MEDS: amLODIPine Besylate 2.5 MG TABLET PO (09:32)
[2023-03-25 20:00] VITALS: BP 151/67; PULSE 76; RESP 18; TEMP 35.8; O2SAT 96
[2023-03-25] MEDS: OLANZapine 5 MG TABLET PO (21:18)
[2023-03-25] MEDS: Mirtazapine 15 MG TABLET PO (21:18)
[2023-03-26 06:00] VITALS: BP 149/70; PULSE 57; RESP 15; TEMP 36.6; O2SAT 97
[2023-03-26] MEDS: Cyanocobalamin (Vitamin B-12) 1,000 MCG TABLET 1000 MCG PO (08:59)
[2023-03-26] MEDS: amLODIPine Besylate 2.5 MG TABLET PO (08:59)
[2023-03-26] MEDS: fluvoxaMINE Maleate 50 MG TABLET 250 MG PO ×2 (08:59→20:46)
[2023-03-26] MEDS: lamoTRIgine 25 MG TABLET 50 MG PO (08:59)
[2023-03-26] MEDS: Apixaban 5 MG TABLET PO ×2 (08:59→20:49)
[2023-03-26] MEDS: lamoTRIgine 100 MG TABLET PO (08:59)
--- NOTE | 2023-03-26 13:56 | HE.PHANOTE ---
RE: LIOTHYRONINE REACHED OUT TO DR PITTS SEVERAL TIMES REGARDING PENDING LIOTHYRONINE ORDER. WE DON'T HAVE APPROPRIATE FORM TO MAKE UP HIS HOME DOSE AND THE ORDERS HAVE BEEN PENDING SINCE 03/19/23. WITH NO RESPONSE FROM PROVIDER YET, I ALSO REACHED OUT TO RESISTOR TESTING MACHINE OPERATOR [facility] (KORY) AND SHE IS ALSO WORKING ON TRYING TO GET SOME THYROID TREATMENT STARTED FOR THIS PATIENT SO WE DON'T LEAVE HIM UNTREATED ANY LONGER. I DID SUGGEST TO PROVIDER THAT WE HAVE 25 MCG LIOTHYRONINE AND COULD HAVE HIM TAKE 1/2 TABLET DAILY TO GET CLOSE TO DAILY DOSE OR HE COULD DRAW TSH TO CHECK CURRENT THYROID STATUS. LEVOTHYROXINE IS ALSO AN OPTION BUT UNKNOWN IF PATIENT IS ABLE TO METABOLIZE THIS TO T3. THIS WAS ALSO DISCUSSED WITH KORY.
--- NOTE | 2023-03-26 14:15 | HO.PSYCHPN ---
Subjective Subjective Date of Service: 03/26/23 Reason For Visit: major depressive disorder, recurrent,w/psychotic Subjective Notes: Conditional Voluntary Interim History: The nursing staff reported the patient slept well, no changes in his mental status fully compliant with treatment. The social science professor called the clinic that will provide the ketamine and psychotherapy. The hospitalist was informed yesterday about the clearance that they are requesting but they could not do it yesterday. I contact his wildlife veterinarian who is on this practice and I explained about the treatment plan. On interview the patient denies new symptoms, waiting for placement Mental Status Exam Mental Status Exam Patient Appearance: Appropriate Patient Orientation: Person, Place and Situation Level of Consciousness: Awake and Appropriate Patient Behavior: Guarded and Passive Mood Description: Withdrawn Affect Description: Constricted Patient Cognition Impaired: Yes Ability to Follow Directions: Good Speech Pattern: Clear Hallucinations: None Delusions: Not Present Thought Process: Distracted and Slowed Thinking Thought Content: positive for [place] and positive for Poverty of Content Judgement: Fair Diagnostics Vital Signs (24Hr): Vital Signs - 24 hr 03/25/23 20:00 03/26/23 06:00 Temperature 96.5 F L 97.9 F Pulse Rate 76 57 Respiratory Rate 18 15 Blood Pressure 151/67 H 149/70 H Pulse Oximetry 96 97 Oxygen Delivery Method Room Air Room Air BMI result Body Mass Index 25.6 Labs 03/20/23 08:03 Medications Medications Current Medications Acetaminophen (Acetaminophen 325 Mg Tablet) 650 mg PO Q6H PRN PRN Reason: Headache/Pain Mild Scale (1-3) Al Hydroxide/Mg Hydroxide (Magnesium Hydrox/Alum Hydrox 30 Ml Oral.Susp) 30 ml PO Q6H PRN PRN Reason: Heartburn/Nausea Amlodipine Besylate (Amlodipine Besylate 2.5 Mg Tablet) 2.5 mg PO DAILY [facility]; Protocol Last Admin: 03/26/23 08:59 Dose: 2.5 mg Apixaban (Apixaban 5 Mg Tablet) 5 mg PO BID [facility] Last Admin: 03/26/23 08:59 Dose: 5 mg Cyanocobalamin (Cyanocobalamin (Vitamin B-12) 1,000 Mcg Tablet) 1,000 mcg PO DAILY [facility] Last Admin: 03/26/23 08:59 Dose: 1,000 mcg Docusate Sodium (Docusate Sodium 100 Mg Capsule) 100 mg PO DAILY PRN PRN Reason: Constipation Last Admin: 03/21/23 21:21 Dose: 100 mg Fluvoxamine Maleate (Fluvoxamine Maleate 50 Mg Tablet) 250 mg PO BID [facility] Last Admin: 03/26/23 08:59 Dose: 250 mg Lactic Acid (Ammonium Lactate 12 % Lotion 226 Gm Bottle) 1 appl TOPICAL BID [facility]; Protocol Last Admin: 03/26/23 08:59 Dose: 1 appl Lamotrigine (Lamotrigine 25 Mg Tablet) 50 mg PO DAILY [facility] Last Admin: 03/26/23 08:59 Dose: 50 mg Lamotrigine (Lamotrigine 100 Mg Tablet) 100 mg PO DAILY [facility] Last Admin: 03/26/23 08:59 Dose: 100 mg Magnesium Hydroxide (Milk Of Magnesia 30 Ml Oral.Susp) 30 ml PO DAILY PRN PRN Reason: Constipation Metoprolol Tartrate (Metoprolol Tartrate 12.5 Mg Halftab) 12.5 mg PO BID [facility]; Protocol Last Admin: 03/26/23 08:58 Dose: Not Given Mirtazapine (Mirtazapine 15 Mg Tablet) 15 mg PO BEDTIME [facility] Last Admin: 03/25/23 21:18 Dose: 15 mg Non-Formulary Medication (Liothyronine) 10 mcg PO DAILY [facility] Non-Formulary Medication (Liothyronine) 5 mcg PO BEDTIME [facility] Olanzapine (Olanzapine 2.5 Mg Tablet) 2.5 mg PO TID PRN PRN Reason: agitation Olanzapine (Olanzapine 5 Mg Tablet) 5 mg PO BEDTIME [facility] Last Admin: 03/25/23 21:18 Dose: 5 mg Trazodone HCl (Trazodone Hcl 50 Mg Tablet) 50 mg PO BEDTIME MRX1 PRN PRN Reason: Insomnia Last Admin: 03/23/23 20:58 Dose: 50 mg Allergies Allergies Allergy/AdvReac Type Severity Reaction Status Date / Time Latex, Natural Rubber AdvReac Mild Rash Verified 08/20/22 14:48 Assessment & Plan Assessment & Plan (1) Medical clearance for psychiatric admission: Status: Acute Code(s): Z00.8 - Encounter for other general examination (2) Major depressive disorder, recurrent severe without psychotic features: Status: Acute Code(s): F33.2 - Major depressive disorder, recurrent severe without psychotic features (3) Generalized anxiety disorder: Status: Acute Code(s): F41.1 - Generalized anxiety disorder Plan The patient is an elderly male with a past history of major depressive disorder, generalized anxiety disorder and obsessive-compulsive disorder had been on several trials of antidepressants who was brought from the emergency room of another hospital for exacerbation of depression with suicidal ideation with a plan. The patient is very well known by this team since he was admitted last June and needed ECT that improved his mental status. He stopped treatment last June. Plan 1. Gather collateral information we will try to contact her sister who is a good support and knows him better. 2. Continue with his regular medications and antidepressants. 3. EKG for medical clearance. 4. 15 minute checks. 5. Patient educated on: diagnosis, ECT and medical condition. At this moment the patient does not want ECT and wants ketamine treatment. Reason for continued inpatient stay Substantial Risk for: inability to function, rapid decompensation and med/psych decompensation Time Spent With Patient Time: Total time managing care of this patient today _20___ minutes.
[2023-03-26 18:00] VITALS: BP 136/78; PULSE 72; RESP 16; TEMP 36.8; O2SAT 95
[2023-03-26] MEDS: OLANZapine 5 MG TABLET PO (20:49)
[2023-03-26] MEDS: Metoprolol Tartrate 12.5 MG HALFTAB PO (20:49)
[2023-03-26] MEDS: traZODone HCL 50 MG TABLET PO (20:50)
[2023-03-26] MEDS: Mirtazapine 15 MG TABLET PO (20:50)
[2023-03-27 06:00] VITALS: BP 120/56; PULSE 63; RESP 17; TEMP 36.6; O2SAT 99
[2023-03-27] MEDS: fluvoxaMINE Maleate 50 MG TABLET 250 MG PO ×2 (08:20→22:10)
[2023-03-27] MEDS: Cyanocobalamin (Vitamin B-12) 1,000 MCG TABLET 1000 MCG PO (08:20)
[2023-03-27] MEDS: Apixaban 5 MG TABLET PO ×2 (08:21→22:01)
[2023-03-27] MEDS: Metoprolol Tartrate 12.5 MG HALFTAB PO ×2 (08:21→22:01)
[2023-03-27] MEDS: lamoTRIgine 100 MG TABLET PO (08:21)
[2023-03-27] MEDS: amLODIPine Besylate 2.5 MG TABLET PO (08:21)
[2023-03-27] MEDS: lamoTRIgine 25 MG TABLET 50 MG PO (08:22)
--- NOTE | 2023-03-27 08:48 | PM.EVENT ---
Event Note Date of Service: 03/27/23 Event Note: Consult placed for out patient treatment and for cardiology evaluation pre-op. Will schedule patient to be seen as out patient next week. Time Spent With Patient Time: Total time managing care of this patient today ____ minutes.
[2023-03-27 12:23] LABS: COVID-19 Test Positive (Negative); IDNOW Serial# 08D9AD1C
--- NOTE | 2023-03-27 12:29 | P.PNPSI_ITS ---
Subjective Subjective Date of Service: 03/27/23 Reason For Visit: major depressive disorder, recurrent,w/psychotic Subjective Notes: Conditional Voluntary Interim History: The nursing staff reported the patient had been compliant with treatment, he slept well last night. On interview the patient denies new symptoms but now he has COVID positive and he reports some upper respiratory symptoms no fever. Mental Status Exam Mental Status Exam Patient Appearance: Appropriate Patient Orientation: Person and Situation Level of Consciousness: Awake and Appropriate Patient Behavior: Guarded and Passive Mood Description: Withdrawn Affect Description: Constricted Patient Cognition Impaired: Yes Ability to Follow Directions: Good Speech Pattern: Clear Hallucinations: None Delusions: Not Present Thought Process: Goal Oriented and Linear Thought Content: positive for Circumstantial Judgement: Fair Diagnostics Vital Signs (24Hr): Vital Signs - 24 hr 03/26/23 18:00 03/27/23 06:00 Temperature 98.3 F 97.9 F Pulse Rate 72 63 Respiratory Rate 16 17 Blood Pressure 136/78 120/56 L Pulse Oximetry 95 99 Oxygen Delivery Method Room Air Room Air BMI result Body Mass Index 25.6 Labs 03/20/23 08:03 Labs: Laboratory Results - last 48 hr 03/27/23 11:34 COVID-19 ([facility]) Positive A COVID-19 Clin Com See Note Medications Medications Current Medications Acetaminophen (Acetaminophen 325 Mg Tablet) 650 mg PO Q6H PRN PRN Reason: Headache/Pain Mild Scale (1-3) Al Hydroxide/Mg Hydroxide (Magnesium Hydrox/Alum Hydrox 30 Ml Oral.Susp) 30 ml PO Q6H PRN PRN Reason: Heartburn/Nausea Amlodipine Besylate (Amlodipine Besylate 2.5 Mg Tablet) 2.5 mg PO DAILY [facility]; Protocol Last Admin: 03/27/23 08:21 Dose: 2.5 mg Apixaban (Apixaban 5 Mg Tablet) 5 mg PO BID [facility] Last Admin: 03/27/23 08:21 Dose: 5 mg Cyanocobalamin (Cyanocobalamin (Vitamin B-12) 1,000 Mcg Tablet) 1,000 mcg PO DAILY [facility] Last Admin: 03/27/23 08:20 Dose: 1,000 mcg Docusate Sodium (Docusate Sodium 100 Mg Capsule) 100 mg PO DAILY PRN PRN Reason: Constipation Last Admin: 03/21/23 21:21 Dose: 100 mg Fluvoxamine Maleate (Fluvoxamine Maleate 50 Mg Tablet) 250 mg PO BID [facility] Last Admin: 03/27/23 08:20 Dose: 250 mg Lactic Acid (Ammonium Lactate 12 % Lotion 226 Gm Bottle) 1 appl TOPICAL BID [facility]; Protocol Last Admin: 03/27/23 09:42 Dose: 1 appl Lamotrigine (Lamotrigine 25 Mg Tablet) 50 mg PO DAILY [facility] Last Admin: 03/27/23 08:22 Dose: 50 mg Lamotrigine (Lamotrigine 100 Mg Tablet) 100 mg PO DAILY [facility] Last Admin: 03/27/23 08:21 Dose: 100 mg Magnesium Hydroxide (Milk Of Magnesia 30 Ml Oral.Susp) 30 ml PO DAILY PRN PRN Reason: Constipation Metoprolol Tartrate (Metoprolol Tartrate 12.5 Mg Halftab) 12.5 mg PO BID [facility]; Protocol Last Admin: 03/27/23 08:21 Dose: 12.5 mg Mirtazapine (Mirtazapine 15 Mg Tablet) 15 mg PO BEDTIME [facility] Last Admin: 03/26/23 20:50 Dose: 15 mg Non-Formulary Medication (Liothyronine) 10 mcg PO DAILY [facility] Non-Formulary Medication (Liothyronine) 5 mcg PO BEDTIME [facility] Olanzapine (Olanzapine 2.5 Mg Tablet) 2.5 mg PO TID PRN PRN Reason: agitation Olanzapine (Olanzapine 5 Mg Tablet) 5 mg PO BEDTIME [facility] Last Admin: 03/26/23 20:49 Dose: 5 mg Trazodone HCl (Trazodone Hcl 50 Mg Tablet) 50 mg PO BEDTIME MRX1 PRN PRN Reason: Insomnia Last Admin: 03/26/23 20:50 Dose: 50 mg Allergies Allergies Allergy/AdvReac Type Severity Reaction Status Date / Time Latex, Natural Rubber AdvReac Mild Rash Verified 08/20/22 14:48 Assessment & Plan Assessment & Plan (1) Medical clearance for psychiatric admission: Status: Acute Code(s): Z00.8 - Encounter for other general examination (2) Major depressive disorder, recurrent severe without psychotic features: Status: Acute Code(s): F33.2 - Major depressive disorder, recurrent severe without psychotic features (3) Generalized anxiety disorder: Status: Acute Code(s): F41.1 - Generalized anxiety disorder Plan The patient is an elderly male with a past history of major depressive disorder, generalized anxiety disorder and obsessive-compulsive disorder had been on several trials of antidepressants who was brought from the emergency room of another hospital for exacerbation of depression with suicidal ideation with a plan. The patient is very well known by this team since he was admitted last June and needed ECT that improved his mental status. He stopped treatment last June. Plan 1. Gather collateral information we will try to contact her sister who is a good support and knows him better. 2. Continue with his regular medications and antidepressants. 3. EKG for medical clearance. 4. 15 minute checks. 5. Patient educated on: diagnosis, ECT and medical condition. At this moment the patient does not want ECT and wants ketamine treatment. Reason for continued inpatient stay Substantial Risk for: inability to function, rapid decompensation and med/psych decompensation Time Spent With Patient Time: Total time managing care of this patient today _20___ minutes.
[2023-03-27] MEDS: Mirtazapine 15 MG TABLET PO (21:58)
[2023-03-27] MEDS: Docusate Sodium 100 MG CAPSULE PO (21:59)
[2023-03-27] MEDS: Acetaminophen 325 MG TABLET 650 MG PO (21:59)
[2023-03-27] MEDS: traZODone HCL 50 MG TABLET PO (22:01)
[2023-03-27] MEDS: OLANZapine 5 MG TABLET PO (22:02)
[2023-03-27 22:39] VITALS: BP 165/77; PULSE 60; RESP 16; TEMP 36.4; O2SAT 97
[2023-03-28 06:00] VITALS: BP 139/73; PULSE 60; RESP 18; TEMP 36.3; O2SAT 97
--- NOTE | 2023-03-28 08:53 | P.PNPSI_ITS ---
Subjective Subjective Date of Service: 03/28/23 Reason For Visit: major depressive disorder, recurrent,w/psychotic Subjective Notes: Conditional Voluntary Interim History: The nursing staff reported the patient took Tylenol p.r.n. for pain and symptoms related to COVID-19 infection. He slept well last night. On interview the patient reports that he is feeling physically sick but safe. Mental Status Exam Mental Status Exam Patient Appearance: Appropriate Patient Orientation: Person and Situation Level of Consciousness: Awake Patient Behavior: Guarded and Passive Mood Description: Withdrawn Affect Description: Constricted Patient Cognition Impaired: Yes Ability to Follow Directions: Good Speech Pattern: Clear Hallucinations: None Delusions: Not Present Thought Process: Distracted and Slowed Thinking Thought Content: positive for [place] and positive for Poverty of Content Judgement: Poor Diagnostics Vital Signs (24Hr): Vital Signs - 24 hr 03/27/23 22:39 Temperature 97.6 F Pulse Rate 60 Respiratory Rate 16 Blood Pressure 165/77 H Pulse Oximetry 97 Oxygen Delivery Method Room Air BMI result Body Mass Index 25.6 Labs 03/20/23 08:03 Labs: Laboratory Results - last 48 hr 03/27/23 11:34 COVID-19 ([facility]) Positive A COVID-19 Clin Com See Note Medications Medications Current Medications Acetaminophen (Acetaminophen 325 Mg Tablet) 650 mg PO Q6H PRN PRN Reason: Headache/Pain Mild Scale (1-3) Last Admin: 03/27/23 21:59 Dose: 650 mg Al Hydroxide/Mg Hydroxide (Magnesium Hydrox/Alum Hydrox 30 Ml Oral.Susp) 30 ml PO Q6H PRN PRN Reason: Heartburn/Nausea Amlodipine Besylate (Amlodipine Besylate 2.5 Mg Tablet) 2.5 mg PO DAILY [facility]; Protocol Last Admin: 03/27/23 08:21 Dose: 2.5 mg Apixaban (Apixaban 5 Mg Tablet) 5 mg PO BID [facility] Last Admin: 03/27/23 22:01 Dose: 5 mg Cyanocobalamin (Cyanocobalamin (Vitamin B-12) 1,000 Mcg Tablet) 1,000 mcg PO DAILY [facility] Last Admin: 03/27/23 08:20 Dose: 1,000 mcg Docusate Sodium (Docusate Sodium 100 Mg Capsule) 100 mg PO DAILY PRN PRN Reason: Constipation Last Admin: 03/27/23 21:59 Dose: 100 mg Fluvoxamine Maleate (Fluvoxamine Maleate 50 Mg Tablet) 250 mg PO BID [facility] Last Admin: 03/27/23 22:10 Dose: 250 mg Lactic Acid (Ammonium Lactate 12 % Lotion 226 Gm Bottle) 1 appl TOPICAL BID [facility]; Protocol Last Admin: 03/27/23 21:58 Dose: 1 appl Lamotrigine (Lamotrigine 25 Mg Tablet) 50 mg PO DAILY [facility] Last Admin: 03/27/23 08:22 Dose: 50 mg Lamotrigine (Lamotrigine 100 Mg Tablet) 100 mg PO DAILY [facility] Last Admin: 03/27/23 08:21 Dose: 100 mg Magnesium Hydroxide (Milk Of Magnesia 30 Ml Oral.Susp) 30 ml PO DAILY PRN PRN Reason: Constipation Metoprolol Tartrate (Metoprolol Tartrate 12.5 Mg Halftab) 12.5 mg PO BID [facility]; Protocol Last Admin: 03/27/23 22:01 Dose: 12.5 mg Mirtazapine (Mirtazapine 15 Mg Tablet) 15 mg PO BEDTIME [facility] Last Admin: 03/27/23 21:58 Dose: 15 mg Non-Formulary Medication (Liothyronine) 10 mcg PO DAILY [facility] Non-Formulary Medication (Liothyronine) 5 mcg PO BEDTIME [facility] Olanzapine (Olanzapine 2.5 Mg Tablet) 2.5 mg PO TID PRN PRN Reason: agitation Olanzapine (Olanzapine 5 Mg Tablet) 5 mg PO BEDTIME [facility] Last Admin: 03/27/23 22:02 Dose: 5 mg Trazodone HCl (Trazodone Hcl 50 Mg Tablet) 50 mg PO BEDTIME MRX1 PRN PRN Reason: Insomnia Last Admin: 03/27/23 22:01 Dose: 50 mg Allergies Allergies Allergy/AdvReac Type Severity Reaction Status Date / Time Latex, Natural Rubber AdvReac Mild Rash Verified 08/20/22 14:48 Assessment & Plan Assessment & Plan (1) Medical clearance for psychiatric admission: Status: Acute Code(s): Z00.8 - Encounter for other general examination (2) Major depressive disorder, recurrent severe without psychotic features: Status: Acute Code(s): F33.2 - Major depressive disorder, recurrent severe without psychotic features (3) Generalized anxiety disorder: Status: Acute Code(s): F41.1 - Generalized anxiety disorder Plan The patient is an elderly male with a past history of major depressive disorder, generalized anxiety disorder and obsessive-compulsive disorder had been on several trials of antidepressants who was brought from the emergency room of another hospital for exacerbation of depression with suicidal ideation with a plan. The patient is very well known by this team since he was admitted last June and needed ECT that improved his mental status. He stopped treatment last June. Plan 1. Gather collateral information we will try to contact her sister who is a good support and knows him better. 2. Continue with his regular medications and antidepressants. 3. EKG for medical clearance. 4. 15 minute checks. 5. Patient educated on: diagnosis, ECT and medical condition. At this moment the patient does not want ECT and wants ketamine treatment. Reason for continued inpatient stay Substantial Risk for: inability to function, rapid decompensation and med/psych decompensation Time Spent With Patient Time: Total time managing care of this patient today _20___ minutes.
[2023-03-28] MEDS: fluvoxaMINE Maleate 50 MG TABLET 250 MG PO ×2 (09:43→20:35)
[2023-03-28] MEDS: amLODIPine Besylate 2.5 MG TABLET PO (09:43)
[2023-03-28] MEDS: lamoTRIgine 100 MG TABLET PO (09:43)
[2023-03-28] MEDS: Apixaban 5 MG TABLET PO ×2 (09:44→20:37)
[2023-03-28] MEDS: Metoprolol Tartrate 12.5 MG HALFTAB PO ×2 (09:44→20:38)
[2023-03-28] MEDS: Cyanocobalamin (Vitamin B-12) 1,000 MCG TABLET 1000 MCG PO (09:44)
[2023-03-28] MEDS: lamoTRIgine 25 MG TABLET 50 MG PO (09:44)
[2023-03-28 18:00] VITALS: BP 156/71; PULSE 53; RESP 16; TEMP 35.8; O2SAT 99
[2023-03-28] MEDS: Acetaminophen 325 MG TABLET 650 MG PO (20:36)
[2023-03-28] MEDS: Mirtazapine 15 MG TABLET PO (20:37)
[2023-03-28] MEDS: Docusate Sodium 100 MG CAPSULE PO (20:37)
[2023-03-28] MEDS: OLANZapine 5 MG TABLET PO (20:38)
[2023-03-29 06:00] VITALS: BP 102/67; PULSE 56; RESP 18; TEMP 36.8; O2SAT 93
[2023-03-29] MEDS: fluvoxaMINE Maleate 50 MG TABLET 250 MG PO ×2 (09:41→20:39)
[2023-03-29] MEDS: Metoprolol Tartrate 12.5 MG HALFTAB PO ×2 (09:42→20:39)
[2023-03-29] MEDS: lamoTRIgine 25 MG TABLET 50 MG PO (09:42)
[2023-03-29] MEDS: lamoTRIgine 100 MG TABLET PO (09:42)
[2023-03-29] MEDS: Cyanocobalamin (Vitamin B-12) 1,000 MCG TABLET 1000 MCG PO (09:42)
[2023-03-29] MEDS: amLODIPine Besylate 2.5 MG TABLET PO (09:43)
[2023-03-29] MEDS: Apixaban 5 MG TABLET PO ×2 (09:43→20:39)
--- NOTE | 2023-03-29 11:15 | HO.PSYCHPN ---
Subjective Subjective Date of Service: 03/29/23 Reason For Visit: major depressive disorder, recurrent,w/psychotic Subjective Notes: Conditional Voluntary Interim History: The nursing staff reported the patient had been compliant with treatment his blood pressure and vital signs have been okay, he was able to contract for safety. On interview the patient was asking several questions regarding ketamine treatment. Mental Status Exam Mental Status Exam Patient Appearance: Appropriate Patient Orientation: Person and Situation Level of Consciousness: Awake and Appropriate Patient Behavior: Appropriate Mood Description: Calm and Constricted Affect Description: Calm Patient Cognition Impaired: Yes Ability to Follow Directions: Good Speech Pattern: Clear Hallucinations: None Delusions: Not Present Thought Process: Distracted and Slowed Thinking Thought Content: positive for [place] and positive for Poverty of Content Judgement: Fair Diagnostics Vital Signs (24Hr): Vital Signs - 24 hr 03/28/23 18:00 03/29/23 06:00 Temperature 96.5 F L 98.3 F Pulse Rate 53 56 Respiratory Rate 16 18 Blood Pressure 156/71 H 102/67 Pulse Oximetry 99 93 Oxygen Delivery Method Room Air Room Air BMI result Body Mass Index 25.6 Labs 03/20/23 08:03 Labs: Laboratory Results - last 48 hr 03/27/23 11:34 COVID-19 ([facility]) Positive A COVID-19 Clin Com See Note Medications Medications Current Medications Acetaminophen (Acetaminophen 325 Mg Tablet) 650 mg PO Q6H PRN PRN Reason: Headache/Pain Mild Scale (1-3) Last Admin: 03/28/23 20:36 Dose: 650 mg Al Hydroxide/Mg Hydroxide (Magnesium Hydrox/Alum Hydrox 30 Ml Oral.Susp) 30 ml PO Q6H PRN PRN Reason: Heartburn/Nausea Amlodipine Besylate (Amlodipine Besylate 2.5 Mg Tablet) 2.5 mg PO DAILY [facility]; Protocol Last Admin: 03/29/23 09:43 Dose: 2.5 mg Apixaban (Apixaban 5 Mg Tablet) 5 mg PO BID [facility] Last Admin: 03/29/23 09:43 Dose: 5 mg Cyanocobalamin (Cyanocobalamin (Vitamin B-12) 1,000 Mcg Tablet) 1,000 mcg PO DAILY [facility] Last Admin: 03/29/23 09:42 Dose: 1,000 mcg Docusate Sodium (Docusate Sodium 100 Mg Capsule) 100 mg PO DAILY PRN PRN Reason: Constipation Last Admin: 03/28/23 20:37 Dose: 100 mg Fluvoxamine Maleate (Fluvoxamine Maleate 50 Mg Tablet) 250 mg PO BID [facility] Last Admin: 03/29/23 09:41 Dose: 250 mg Lactic Acid (Ammonium Lactate 12 % Lotion 226 Gm Bottle) 1 appl TOPICAL BID [facility]; Protocol Last Admin: 03/29/23 09:43 Dose: 1 appl Lamotrigine (Lamotrigine 25 Mg Tablet) 50 mg PO DAILY [facility] Last Admin: 03/29/23 09:42 Dose: 50 mg Lamotrigine (Lamotrigine 100 Mg Tablet) 100 mg PO DAILY [facility] Last Admin: 03/29/23 09:42 Dose: 100 mg Magnesium Hydroxide (Milk Of Magnesia 30 Ml Oral.Susp) 30 ml PO DAILY PRN PRN Reason: Constipation Metoprolol Tartrate (Metoprolol Tartrate 12.5 Mg Halftab) 12.5 mg PO BID [facility]; Protocol Last Admin: 03/29/23 09:42 Dose: 12.5 mg Mirtazapine (Mirtazapine 15 Mg Tablet) 15 mg PO BEDTIME [facility] Last Admin: 03/28/23 20:37 Dose: 15 mg Non-Formulary Medication (Liothyronine) 10 mcg PO DAILY [facility] Non-Formulary Medication (Liothyronine) 5 mcg PO BEDTIME [facility] Olanzapine (Olanzapine 2.5 Mg Tablet) 2.5 mg PO TID PRN PRN Reason: agitation Olanzapine (Olanzapine 5 Mg Tablet) 5 mg PO BEDTIME [facility] Last Admin: 03/28/23 20:38 Dose: 5 mg Trazodone HCl (Trazodone Hcl 50 Mg Tablet) 50 mg PO BEDTIME MRX1 PRN PRN Reason: Insomnia Last Admin: 03/27/23 22:01 Dose: 50 mg Allergies Allergies Allergy/AdvReac Type Severity Reaction Status Date / Time Latex, Natural Rubber AdvReac Mild Rash Verified 08/20/22 14:48 Assessment & Plan Assessment & Plan (1) Medical clearance for psychiatric admission: Status: Acute Code(s): Z00.8 - Encounter for other general examination (2) Major depressive disorder, recurrent severe without psychotic features: Status: Acute Code(s): F33.2 - Major depressive disorder, recurrent severe without psychotic features (3) Generalized anxiety disorder: Status: Acute Code(s): F41.1 - Generalized anxiety disorder Plan The patient is an elderly male with a past history of major depressive disorder, generalized anxiety disorder and obsessive-compulsive disorder had been on several trials of antidepressants who was brought from the emergency room of another hospital for exacerbation of depression with suicidal ideation with a plan. The patient is very well known by this team since he was admitted last June and needed ECT that improved his mental status. He stopped treatment last June. Plan 1. Gather collateral information we will try to contact her sister who is a good support and knows him better. 2. Continue with his regular medications and antidepressants. 3. EKG for medical clearance. 4. 15 minute checks. 5. Patient educated on: diagnosis, ECT and medical condition. At this moment the patient does not want ECT and wants ketamine treatment. Reason for continued inpatient stay Substantial Risk for: inability to function, rapid decompensation and med/psych decompensation Time Spent With Patient Time: Total time managing care of this patient today __20__ minutes.
[2023-03-29 18:00] VITALS: BP 112/56; PULSE 60; RESP 18; TEMP 36.4; O2SAT 94
[2023-03-29] MEDS: Mirtazapine 15 MG TABLET PO (20:40)
[2023-03-29] MEDS: OLANZapine 5 MG TABLET PO (20:40)
[2023-03-30 08:00] VITALS: BP 100/62; PULSE 62; RESP 18; TEMP 36.6; O2SAT 94
[2023-03-30] MEDS: lamoTRIgine 25 MG TABLET 50 MG PO (09:52)
[2023-03-30] MEDS: fluvoxaMINE Maleate 50 MG TABLET 250 MG PO ×2 (09:52→21:14)
[2023-03-30] MEDS: lamoTRIgine 100 MG TABLET PO (09:53)
[2023-03-30] MEDS: Metoprolol Tartrate 12.5 MG HALFTAB PO (09:53)
[2023-03-30] MEDS: Cyanocobalamin (Vitamin B-12) 1,000 MCG TABLET 1000 MCG PO (09:53)
[2023-03-30] MEDS: amLODIPine Besylate 2.5 MG TABLET PO (09:54)
[2023-03-30] MEDS: Apixaban 5 MG TABLET PO ×2 (09:58→21:14)
--- NOTE | 2023-03-30 15:38 | P.PNPSI_ITS ---
Subjective Subjective Date of Service: 03/30/23 Reason For Visit: major depressive disorder, recurrent,w/psychotic Subjective Notes: Conditional Voluntary Interim History: The nursing staff reported the patient had been fully compliant with treatment. On interview the patient denies new symptoms he feels much better. Today we had a family meeting with his sister and we discussed possibility with discharge planning. Mental Status Exam Mental Status Exam Patient Appearance: Well Grooomed and Appropriate Patient Orientation: Person, Place and Situation Level of Consciousness: Awake and Appropriate Patient Behavior: Guarded and Passive Mood Description: Withdrawn Affect Description: Constricted Patient Cognition Impaired: No Ability to Follow Directions: Good Speech Pattern: Clear Hallucinations: None Delusions: Not Present Thought Process: Linear Thought Content: positive for [place] and positive for Circumstantial Judgement: Fair Diagnostics Vital Signs (24Hr): Vital Signs - 24 hr 03/29/23 18:00 03/30/23 08:00 Temperature 97.6 F 97.9 F Pulse Rate 60 62 Respiratory Rate 18 18 Blood Pressure 112/56 L 100/62 Pulse Oximetry 94 94 Oxygen Delivery Method Room Air Room Air BMI result Body Mass Index 25.6 Labs 03/20/23 08:03 Medications Medications Current Medications Acetaminophen (Acetaminophen 325 Mg Tablet) 650 mg PO Q6H PRN PRN Reason: Headache/Pain Mild Scale (1-3) Last Admin: 03/28/23 20:36 Dose: 650 mg Al Hydroxide/Mg Hydroxide (Magnesium Hydrox/Alum Hydrox 30 Ml Oral.Susp) 30 ml PO Q6H PRN PRN Reason: Heartburn/Nausea Amlodipine Besylate (Amlodipine Besylate 2.5 Mg Tablet) 2.5 mg PO DAILY [facility]; Protocol Last Admin: 03/30/23 09:54 Dose: 2.5 mg Apixaban (Apixaban 5 Mg Tablet) 5 mg PO BID [facility] Last Admin: 03/30/23 09:58 Dose: 5 mg Cyanocobalamin (Cyanocobalamin (Vitamin B-12) 1,000 Mcg Tablet) 1,000 mcg PO DAILY [facility] Last Admin: 03/30/23 09:53 Dose: 1,000 mcg Docusate Sodium (Docusate Sodium 100 Mg Capsule) 100 mg PO DAILY PRN PRN Reason: Constipation Last Admin: 03/28/23 20:37 Dose: 100 mg Fluvoxamine Maleate (Fluvoxamine Maleate 50 Mg Tablet) 250 mg PO BID [facility] Last Admin: 03/30/23 09:52 Dose: 250 mg Lactic Acid (Ammonium Lactate 12 % Lotion 226 Gm Bottle) 1 appl TOPICAL BID [facility]; Protocol Last Admin: 03/30/23 09:54 Dose: Not Given Lamotrigine (Lamotrigine 25 Mg Tablet) 50 mg PO DAILY [facility] Last Admin: 03/30/23 09:52 Dose: 50 mg Lamotrigine (Lamotrigine 100 Mg Tablet) 100 mg PO DAILY [facility] Last Admin: 03/30/23 09:53 Dose: 100 mg Magnesium Hydroxide (Milk Of Magnesia 30 Ml Oral.Susp) 30 ml PO DAILY PRN PRN Reason: Constipation Metoprolol Tartrate (Metoprolol Tartrate 12.5 Mg Halftab) 12.5 mg PO BID [facility]; Protocol Last Admin: 03/30/23 09:53 Dose: 12.5 mg Mirtazapine (Mirtazapine 15 Mg Tablet) 15 mg PO BEDTIME [facility] Last Admin: 03/29/23 20:40 Dose: 15 mg Non-Formulary Medication (Liothyronine) 10 mcg PO DAILY [facility] Non-Formulary Medication (Liothyronine) 5 mcg PO BEDTIME [facility] Olanzapine (Olanzapine 2.5 Mg Tablet) 2.5 mg PO TID PRN PRN Reason: agitation Olanzapine (Olanzapine 5 Mg Tablet) 5 mg PO BEDTIME [facility] Last Admin: 03/29/23 20:40 Dose: 5 mg Trazodone HCl (Trazodone Hcl 50 Mg Tablet) 50 mg PO BEDTIME MRX1 PRN PRN Reason: Insomnia Last Admin: 03/27/23 22:01 Dose: 50 mg Allergies Allergies Allergy/AdvReac Type Severity Reaction Status Date / Time Latex, Natural Rubber AdvReac Mild Rash Verified 08/20/22 14:48 Assessment & Plan Assessment & Plan (1) Medical clearance for psychiatric admission: Status: Acute Code(s): Z00.8 - Encounter for other general examination (2) Major depressive disorder, recurrent severe without psychotic features: Status: Acute Code(s): F33.2 - Major depressive disorder, recurrent severe without psychotic features (3) Generalized anxiety disorder: Status: Acute Code(s): F41.1 - Generalized anxiety disorder Plan The patient is an elderly male with a past history of major depressive disorder, generalized anxiety disorder and obsessive-compulsive disorder had been on several trials of antidepressants who was brought from the emergency room of another hospital for exacerbation of depression with suicidal ideation with a plan. The patient is very well known by this team since he was admitted last June and needed ECT that improved his mental status. He stopped treatment last June. Plan 1. Gather collateral information we will try to contact her sister who is a good support and knows him better. 2. Continue with his regular medications and antidepressants. 3. EKG for medical clearance. 4. 15 minute checks. 5. Patient educated on: diagnosis, ECT and medical condition. At this moment the patient does not want ECT and wants ketamine treatment. Reason for continued inpatient stay Substantial Risk for: inability to function, rapid decompensation and med/psych decompensation Time Spent With Patient Time: Total time managing care of this patient today __20__ minutes.
[2023-03-30 21:09] VITALS: BP 138/68; PULSE 55; RESP 18; TEMP 36.2; O2SAT 95
[2023-03-30] MEDS: Mirtazapine 15 MG TABLET PO (21:14)
[2023-03-30] MEDS: OLANZapine 5 MG TABLET PO (21:14)
--- NOTE | 2023-03-31 00:10 | PC.NURSE ---
Assumed care of patient 03/30 at 19:00. See shift assessments and EMAR for full details. Handoff report given to oncoming RN 23:00.
[2023-03-31] MEDS: Acetaminophen 325 MG TABLET 650 MG PO (00:15)
[2023-03-31] MEDS: traZODone HCL 50 MG TABLET PO (00:15)
[2023-03-31 08:05] VITALS: BP 156/77; PULSE 60; RESP 18; TEMP 36.6; O2SAT 96
--- NOTE | 2023-03-31 08:23 | HO.PSYCHPN ---
Subjective Subjective Date of Service: 03/31/23 Reason For Visit: major depressive disorder, recurrent,w/psychotic Subjective Notes: Conditional Voluntary Interim History: The nursing staff reported the patient had been isolative pleasant, he slept 8 hours. Yesterday we had a family meeting with his sister and we were talking about the possibility of discharge planning. On interview the patient denies new symptoms still mildly dysphoric. Mental Status Exam Mental Status Exam Patient Appearance: Well Grooomed and Appropriate Patient Orientation: Person and Situation Level of Consciousness: Awake and Appropriate Patient Behavior: Guarded and Passive Mood Description: Withdrawn Affect Description: Constricted Patient Cognition Impaired: No Ability to Follow Directions: Good Speech Pattern: Clear Hallucinations: None Delusions: Not Present Thought Process: Goal Oriented and Linear Thought Content: positive for Circumstantial Judgement: Fair Diagnostics Vital Signs (24Hr): Vital Signs - 24 hr 03/30/23 21:09 Temperature 97.1 F Pulse Rate 55 Respiratory Rate 18 Blood Pressure 138/68 Pulse Oximetry 95 Oxygen Delivery Method Room Air BMI result Body Mass Index 25.6 Labs 03/20/23 08:03 Medications Medications Current Medications Acetaminophen (Acetaminophen 325 Mg Tablet) 650 mg PO Q6H PRN PRN Reason: Headache/Pain Mild Scale (1-3) Last Admin: 03/31/23 00:15 Dose: 325 mg Al Hydroxide/Mg Hydroxide (Magnesium Hydrox/Alum Hydrox 30 Ml Oral.Susp) 30 ml PO Q6H PRN PRN Reason: Heartburn/Nausea Amlodipine Besylate (Amlodipine Besylate 2.5 Mg Tablet) 2.5 mg PO DAILY [facility]; Protocol Last Admin: 03/30/23 09:54 Dose: 2.5 mg Apixaban (Apixaban 5 Mg Tablet) 5 mg PO BID [facility] Last Admin: 03/30/23 21:14 Dose: 5 mg Cyanocobalamin (Cyanocobalamin (Vitamin B-12) 1,000 Mcg Tablet) 1,000 mcg PO DAILY [facility] Last Admin: 03/30/23 09:53 Dose: 1,000 mcg Docusate Sodium (Docusate Sodium 100 Mg Capsule) 100 mg PO DAILY PRN PRN Reason: Constipation Last Admin: 03/28/23 20:37 Dose: 100 mg Fluvoxamine Maleate (Fluvoxamine Maleate 50 Mg Tablet) 250 mg PO BID [facility] Last Admin: 01/15/24 21:14 Dose: 250 mg Lactic Acid (Ammonium Lactate 12 % Lotion 226 Gm Bottle) 1 appl TOPICAL BID [facility]; Protocol Last Admin: 03/30/23 21:15 Dose: 1 appl Lamotrigine (Lamotrigine 25 Mg Tablet) 50 mg PO DAILY [facility] Last Admin: 03/30/23 09:52 Dose: 50 mg Lamotrigine (Lamotrigine 100 Mg Tablet) 100 mg PO DAILY [facility] Last Admin: 03/30/23 09:53 Dose: 100 mg Magnesium Hydroxide (Milk Of Magnesia 30 Ml Oral.Susp) 30 ml PO DAILY PRN PRN Reason: Constipation Metoprolol Tartrate (Metoprolol Tartrate 12.5 Mg Halftab) 12.5 mg PO BID [facility]; Protocol Last Admin: 03/30/23 21:15 Dose: Not Given Mirtazapine (Mirtazapine 15 Mg Tablet) 15 mg PO BEDTIME [facility] Last Admin: 03/30/23 21:14 Dose: 15 mg Non-Formulary Medication (Liothyronine) 10 mcg PO DAILY [facility] Non-Formulary Medication (Liothyronine) 5 mcg PO BEDTIME [facility] Olanzapine (Olanzapine 2.5 Mg Tablet) 2.5 mg PO TID PRN PRN Reason: agitation Olanzapine (Olanzapine 5 Mg Tablet) 5 mg PO BEDTIME [facility] Last Admin: 03/30/23 21:14 Dose: 5 mg Trazodone HCl (Trazodone Hcl 50 Mg Tablet) 50 mg PO BEDTIME MRX1 PRN PRN Reason: Insomnia Last Admin: 03/31/23 00:15 Dose: 50 mg Allergies Allergies Allergy/AdvReac Type Severity Reaction Status Date / Time Latex, Natural Rubber AdvReac Mild Rash Verified 08/20/22 14:48 Assessment & Plan Assessment & Plan (1) Medical clearance for psychiatric admission: Status: Acute Code(s): Z00.8 - Encounter for other general examination (2) Major depressive disorder, recurrent severe without psychotic features: Status: Acute Code(s): F33.2 - Major depressive disorder, recurrent severe without psychotic features (3) Generalized anxiety disorder: Status: Acute Code(s): F41.1 - Generalized anxiety disorder Plan The patient is an elderly male with a past history of major depressive disorder, generalized anxiety disorder and obsessive-compulsive disorder had been on several trials of antidepressants who was brought from the emergency room of another hospital for exacerbation of depression with suicidal ideation with a plan. The patient is very well known by this team since he was admitted last June and needed ECT that improved his mental status. He stopped treatment last June. Plan 1. Gather collateral information we will try to contact her sister who is a good support and knows him better. 2. Continue with his regular medications and antidepressants. 3. EKG for medical clearance. 4. 15 minute checks. 5. Patient educated on: diagnosis, ECT and medical condition. At this moment the patient does not want ECT and wants ketamine treatment. Reason for continued inpatient stay Substantial Risk for: inability to function, rapid decompensation and med/psych decompensation Time Spent With Patient Time: Total time managing care of this patient today __20__ minutes.
[2023-03-31] MEDS: lamoTRIgine 25 MG TABLET 50 MG PO (09:07)
[2023-03-31] MEDS: lamoTRIgine 100 MG TABLET PO (09:07)
[2023-03-31] MEDS: fluvoxaMINE Maleate 50 MG TABLET 250 MG PO ×2 (09:08→21:24)
[2023-03-31] MEDS: Metoprolol Tartrate 12.5 MG HALFTAB PO (09:08)
[2023-03-31] MEDS: Apixaban 5 MG TABLET PO ×2 (09:08→21:24)
[2023-03-31] MEDS: Cyanocobalamin (Vitamin B-12) 1,000 MCG TABLET 1000 MCG PO (09:09)
[2023-03-31] MEDS: amLODIPine Besylate 2.5 MG TABLET PO (09:09)
[2023-03-31 18:00] VITALS: BP 127/63; PULSE 54; RESP 18; TEMP 36.3; O2SAT 96
[2023-03-31] MEDS: OLANZapine 5 MG TABLET PO (21:24)
[2023-03-31] MEDS: Mirtazapine 15 MG TABLET PO (21:24)
[2023-04-01 06:00] VITALS: BP 161/78; PULSE 62; RESP 16; TEMP 36.3; O2SAT 97
[2023-04-01] MEDS: lamoTRIgine 25 MG TABLET 50 MG PO (08:30)
[2023-04-01] MEDS: fluvoxaMINE Maleate 50 MG TABLET 250 MG PO ×2 (08:30→21:53)
[2023-04-01] MEDS: Apixaban 5 MG TABLET PO ×2 (08:30→21:15)
[2023-04-01] MEDS: Cyanocobalamin (Vitamin B-12) 1,000 MCG TABLET 1000 MCG PO (08:30)
[2023-04-01] MEDS: lamoTRIgine 100 MG TABLET PO (08:30)
[2023-04-01] MEDS: amLODIPine Besylate 2.5 MG TABLET PO (08:30)
[2023-04-01] MEDS: Metoprolol Tartrate 12.5 MG HALFTAB PO (08:30)
--- NOTE | 2023-04-01 14:33 | P.PNPSI_ITS ---
Subjective Subjective Date of Service: 04/01/23 Reason For Visit: major depressive disorder, recurrent,w/psychotic Subjective Notes: Conditional Voluntary Interim History: The nursing staff reported the patient had been compliant with treatment he had been seen pleasant and cooperative he slept well. The health and social care teacher reported that we had a family meeting with her sister fairly he will be discharged this Thursday. On interview the patient reports no changes in his mental status safe in the community. Mental Status Exam Mental Status Exam Patient Appearance: Appropriate Patient Orientation: Person and Situation Level of Consciousness: Awake and Appropriate Patient Behavior: Guarded and Passive Mood Description: Withdrawn Affect Description: Constricted Patient Cognition Impaired: Yes Ability to Follow Directions: Good Speech Pattern: Clear Hallucinations: None Delusions: Not Present Thought Process: Goal Oriented and Linear Thought Content: positive for Circumstantial Judgement: Fair Diagnostics Vital Signs (24Hr): Vital Signs - 24 hr 03/31/23 18:00 04/01/23 06:00 Temperature 97.4 F 97.4 F Pulse Rate 54 62 Respiratory Rate 18 16 Blood Pressure 127/63 161/78 H Pulse Oximetry 96 97 Oxygen Delivery Method Room Air Room Air BMI result Body Mass Index 25.6 Labs 03/20/23 08:03 Medications Medications Current Medications Acetaminophen (Acetaminophen 325 Mg Tablet) 650 mg PO Q6H PRN PRN Reason: Headache/Pain Mild Scale (1-3) Last Admin: 03/31/23 00:15 Dose: 325 mg Al Hydroxide/Mg Hydroxide (Magnesium Hydrox/Alum Hydrox 30 Ml Oral.Susp) 30 ml PO Q6H PRN PRN Reason: Heartburn/Nausea Amlodipine Besylate (Amlodipine Besylate 2.5 Mg Tablet) 2.5 mg PO DAILY [facility]; Protocol Last Admin: 04/01/23 08:30 Dose: 2.5 mg Apixaban (Apixaban 5 Mg Tablet) 5 mg PO BID [facility] Last Admin: 04/01/23 08:30 Dose: 5 mg Cyanocobalamin (Cyanocobalamin (Vitamin B-12) 1,000 Mcg Tablet) 1,000 mcg PO DAILY [facility] Last Admin: 04/01/23 08:30 Dose: 1,000 mcg Docusate Sodium (Docusate Sodium 100 Mg Capsule) 100 mg PO DAILY PRN PRN Reason: Constipation Last Admin: 03/28/23 20:37 Dose: 100 mg Fluvoxamine Maleate (Fluvoxamine Maleate 50 Mg Tablet) 250 mg PO BID [facility] Last Admin: 04/01/23 08:30 Dose: 250 mg Lactic Acid (Ammonium Lactate 12 % Lotion 226 Gm Bottle) 1 appl TOPICAL BID [facility]; Protocol Last Admin: 04/01/23 08:33 Dose: 1 appl Lamotrigine (Lamotrigine 25 Mg Tablet) 50 mg PO DAILY [facility] Last Admin: 04/01/23 08:30 Dose: 50 mg Lamotrigine (Lamotrigine 100 Mg Tablet) 100 mg PO DAILY [facility] Last Admin: 04/01/23 08:30 Dose: 100 mg Magnesium Hydroxide (Milk Of Magnesia 30 Ml Oral.Susp) 30 ml PO DAILY PRN PRN Reason: Constipation Metoprolol Tartrate (Metoprolol Tartrate 12.5 Mg Halftab) 12.5 mg PO BID [facility]; Protocol Last Admin: 04/01/23 08:30 Dose: 12.5 mg Mirtazapine (Mirtazapine 15 Mg Tablet) 15 mg PO BEDTIME [facility] Last Admin: 03/31/23 21:24 Dose: 15 mg Non-Formulary Medication (Liothyronine) 10 mcg PO DAILY [facility] Non-Formulary Medication (Liothyronine) 5 mcg PO BEDTIME [facility] Olanzapine (Olanzapine 2.5 Mg Tablet) 2.5 mg PO TID PRN PRN Reason: agitation Olanzapine (Olanzapine 5 Mg Tablet) 5 mg PO BEDTIME [facility] Last Admin: 03/31/23 21:24 Dose: 5 mg Trazodone HCl (Trazodone Hcl 50 Mg Tablet) 50 mg PO BEDTIME MRX1 PRN PRN Reason: Insomnia Last Admin: 03/31/23 00:15 Dose: 50 mg Allergies Allergies Allergy/AdvReac Type Severity Reaction Status Date / Time Latex, Natural Rubber AdvReac Mild Rash Verified 08/20/22 14:48 Assessment & Plan Assessment & Plan (1) Medical clearance for psychiatric admission: Status: Acute Code(s): Z00.8 - Encounter for other general examination (2) Major depressive disorder, recurrent severe without psychotic features: Status: Acute Code(s): F33.2 - Major depressive disorder, recurrent severe without psychotic features (3) Generalized anxiety disorder: Status: Acute Code(s): F41.1 - Generalized anxiety disorder Plan The patient is an elderly male with a past history of major depressive disorder, generalized anxiety disorder and obsessive-compulsive disorder had been on several trials of antidepressants who was brought from the emergency room of another hospital for exacerbation of depression with suicidal ideation with a plan. The patient is very well known by this team since he was admitted last June and needed ECT that improved his mental status. He stopped treatment last June. Plan 1. Gather collateral information we will try to contact her sister who is a good support and knows him better. 2. Continue with his regular medications and antidepressants. 3. EKG for medical clearance. 4. 15 minute checks. 5. Patient educated on: diagnosis, ECT and medical condition. At this moment the patient does not want ECT and wants ketamine treatment. Reason for continued inpatient stay Substantial Risk for: inability to function, rapid decompensation and med/psych decompensation Time Spent With Patient Time: Total time managing care of this patient today __20__ minutes.
[2023-04-01 18:00] VITALS: BP 138/67; PULSE 58; RESP 18; TEMP 36.7; O2SAT 95
[2023-04-01] MEDS: Docusate Sodium 100 MG CAPSULE PO (21:14)
[2023-04-01] MEDS: Mirtazapine 15 MG TABLET PO (21:15)
[2023-04-01] MEDS: OLANZapine 5 MG TABLET PO (21:15)
[2023-04-02 07:00] VITALS: BMI 27.9
[2023-04-02 08:00] VITALS: BP 139/75; PULSE 66; RESP 18; TEMP 36.3; O2SAT 95
[2023-04-02] MEDS: Cyanocobalamin (Vitamin B-12) 1,000 MCG TABLET 1000 MCG PO (08:53)
[2023-04-02] MEDS: Metoprolol Tartrate 12.5 MG HALFTAB PO ×2 (08:53→20:45)
[2023-04-02] MEDS: fluvoxaMINE Maleate 50 MG TABLET 250 MG PO ×2 (08:54→20:43)
[2023-04-02] MEDS: lamoTRIgine 100 MG TABLET PO (08:54)
[2023-04-02] MEDS: lamoTRIgine 25 MG TABLET 50 MG PO (08:54)
[2023-04-02] MEDS: amLODIPine Besylate 2.5 MG TABLET PO (08:54)
[2023-04-02] MEDS: Apixaban 5 MG TABLET PO ×2 (08:54→20:46)
--- NOTE | 2023-04-02 14:18 | HO.PSYCHPN ---
Subjective Subjective Date of Service: 04/02/23 Reason For Visit: major depressive disorder, recurrent,w/psychotic Subjective Notes: Conditional Voluntary Interim History: The nursing staff reported the patient is pleasant and cooperative, feeling well he slept 8 hours. On interview the patient denies suicidal ideation he feels better, he agreed on discharge planning for tomorrow morning Mental Status Exam Mental Status Exam Patient Appearance: Well Grooomed and Appropriate Patient Orientation: Person and Situation Level of Consciousness: Awake Patient Behavior: Guarded and Passive Mood Description: Withdrawn Affect Description: Constricted Patient Cognition Impaired: Yes Ability to Follow Directions: Good Speech Pattern: Clear Hallucinations: None Delusions: Not Present Thought Process: Goal Oriented and Linear Thought Content: positive for [place] and positive for Poverty of Content Judgement: Fair Diagnostics Vital Signs (24Hr): Vital Signs - 24 hr 04/01/23 18:00 04/02/23 08:00 Temperature 98.1 F 97.4 F Pulse Rate 58 66 Respiratory Rate 18 18 Blood Pressure 138/67 139/75 Pulse Oximetry 95 95 Oxygen Delivery Method Room Air Room Air BMI result Body Mass Index 27.9 Labs 03/20/23 08:03 Medications Medications Current Medications Acetaminophen (Acetaminophen 325 Mg Tablet) 650 mg PO Q6H PRN PRN Reason: Headache/Pain Mild Scale (1-3) Last Admin: 03/31/23 00:15 Dose: 325 mg Al Hydroxide/Mg Hydroxide (Magnesium Hydrox/Alum Hydrox 30 Ml Oral.Susp) 30 ml PO Q6H PRN PRN Reason: Heartburn/Nausea Amlodipine Besylate (Amlodipine Besylate 2.5 Mg Tablet) 2.5 mg PO DAILY [facility]; Protocol Last Admin: 04/02/23 08:54 Dose: 2.5 mg Apixaban (Apixaban 5 Mg Tablet) 5 mg PO BID [facility] Last Admin: 04/02/23 08:54 Dose: 5 mg Cyanocobalamin (Cyanocobalamin (Vitamin B-12) 1,000 Mcg Tablet) 1,000 mcg PO DAILY [facility] Last Admin: 04/02/23 08:53 Dose: 1,000 mcg Docusate Sodium (Docusate Sodium 100 Mg Capsule) 100 mg PO DAILY PRN PRN Reason: Constipation Last Admin: 04/01/23 21:14 Dose: 100 mg Fluvoxamine Maleate (Fluvoxamine Maleate 50 Mg Tablet) 250 mg PO BID [facility] Last Admin: 04/02/23 08:54 Dose: 250 mg Lactic Acid (Ammonium Lactate 12 % Lotion 226 Gm Bottle) 1 appl TOPICAL BID [facility]; Protocol Last Admin: 04/02/23 08:57 Dose: 1 appl Lamotrigine (Lamotrigine 25 Mg Tablet) 50 mg PO DAILY [facility] Last Admin: 04/02/23 08:54 Dose: 50 mg Lamotrigine (Lamotrigine 100 Mg Tablet) 100 mg PO DAILY [facility] Last Admin: 04/02/23 08:54 Dose: 100 mg Magnesium Hydroxide (Milk Of Magnesia 30 Ml Oral.Susp) 30 ml PO DAILY PRN PRN Reason: Constipation Metoprolol Tartrate (Metoprolol Tartrate 12.5 Mg Halftab) 12.5 mg PO BID [facility]; Protocol Last Admin: 04/02/23 08:53 Dose: 12.5 mg Mirtazapine (Mirtazapine 15 Mg Tablet) 15 mg PO BEDTIME [facility] Last Admin: 04/01/23 21:15 Dose: 15 mg Non-Formulary Medication (Liothyronine) 10 mcg PO DAILY [facility] Non-Formulary Medication (Liothyronine) 5 mcg PO BEDTIME [facility] Olanzapine (Olanzapine 2.5 Mg Tablet) 2.5 mg PO TID PRN PRN Reason: agitation Olanzapine (Olanzapine 5 Mg Tablet) 5 mg PO BEDTIME [facility] Last Admin: 04/01/23 21:15 Dose: 5 mg Trazodone HCl (Trazodone Hcl 50 Mg Tablet) 50 mg PO BEDTIME MRX1 PRN PRN Reason: Insomnia Last Admin: 03/31/23 00:15 Dose: 50 mg Allergies Allergies Allergy/AdvReac Type Severity Reaction Status Date / Time Latex, Natural Rubber AdvReac Mild Rash Verified 08/20/22 14:48 Assessment & Plan Assessment & Plan (1) Medical clearance for psychiatric admission: Status: Acute Code(s): Z00.8 - Encounter for other general examination (2) Major depressive disorder, recurrent severe without psychotic features: Status: Acute Code(s): F33.2 - Major depressive disorder, recurrent severe without psychotic features (3) Generalized anxiety disorder: Status: Acute Code(s): F41.1 - Generalized anxiety disorder Plan The patient is an elderly male with a past history of major depressive disorder, generalized anxiety disorder and obsessive-compulsive disorder had been on several trials of antidepressants who was brought from the emergency room of another hospital for exacerbation of depression with suicidal ideation with a plan. The patient is very well known by this team since he was admitted last June and needed ECT that improved his mental status. He stopped treatment last June. Plan 1. Gather collateral information we will try to contact her sister who is a good support and knows him better. 2. Continue with his regular medications and antidepressants. 3. EKG for medical clearance. 4. 15 minute checks. 5. Patient educated on: diagnosis, ECT and medical condition. At this moment the patient does not want ECT and wants ketamine treatment. Reason for continued inpatient stay Substantial Risk for: inability to function, rapid decompensation and med/psych decompensation Time Spent With Patient Time: Total time managing care of this patient today __20__ minutes.
[2023-04-02 14:41] LABS: COVID-19 Test Negative (Negative); IDNOW Serial# 6674DD1D
--- NOTE | 2023-04-02 16:13 | PM.PSYDC ---
DS: Providers Provider Date of Service: 04/02/23 Date of admission: 03/19/23 19:00 Date of discharge: 04/03/23 Primary care physician: Unknown Physician Attending physician on admission: Robin Chambers Consults: 03/19/23 22:37 Consult to Hospitalist Routine Comment: Consulting Provider: Hospitalist Reason For Exam: admission physical 03/26/23 14:25 Consult to Cardiology Routine Consulting Provider: [facility] Reason for consultation: Patient will have Ketamine treatment as an outpatient, refused ECT. Has provider been notified: Yes Attending physician on discharge: Robin Chambers DS: Diagnosis Discharge Diagnosis (1) Medical clearance for psychiatric admission: Status: Acute (2) Major depressive disorder, recurrent severe without psychotic features: Status: Acute (3) Generalized anxiety disorder: Status: Acute DS: Medications Discharge Medications Home Medications: Home Medications Medication Instructions Recorded Confirmed olanzapine 5 mg PO BEDTIME 03/19/23 03/19/23 Previous Rx's Medication Instructions Recorded hydrochlorothiazide 25 mg tablet 25 mg PO DAILY 30 days #30 tabs 06/20/22 amlodipine 2.5 mg tablet 2.5 mg PO DAILY 30 days #30 tabs 04/02/23 ammonium lactate 12 % lotion 1 appl topical BID 30 days #1 g 04/02/23 apixaban 5 mg tablet (Eliquis) 5 mg PO BID 30 days #60 tabs 04/02/23 cyanocobalamin (vitamin B-12) 1,000 mcg PO DAILY 30 days #30 tabs 04/02/23 1,000 mcg tablet docusate sodium 50 mg capsule 100 mg (2 x 50 mg) PO NEEDED 30 04/02/23 (Colace Clear) days #30 caps fluvoxamine 250 mg PO BID 30 days #60 tabs 04/02/23 lamotrigine 100 mg tablet 100 mg PO DAILY 30 days #30 tabs 04/02/23 (Lamictal) lamotrigine 25 mg tablet 50 mg (2 x 25 mg) PO DAILY 30 days 04/02/23 #60 tabs liothyronine 10 mcg PO DAILY 30 days #30 tabs 04/02/23 liothyronine 5 mcg tablet 5 mcg PO BEDTIME 30 days #30 tabs 04/02/23 metoprolol tartrate 25 mg tablet 12.5 mg (1/2 x 25 mg) PO BID 30 04/02/23 days #30 tabs mirtazapine 15 mg tablet 15 mg PO BEDTIME 30 days #30 tabs 04/02/23 olanzapine 5 mg tablet 5 mg PO BEDTIME 30 days #30 tabs 04/02/23 trazodone 50 mg tablet 50 mg PO BEDTIME MRX1 PRN Insomnia 04/02/23 30 days #60 tabs Mental Status Exam Mental Status Exam Patient Appearance: Well Grooomed and Appropriate Patient Orientation: Person, Place, Time and Situation Level of Consciousness: Awake and Appropriate Patient Behavior: Guarded and Passive Mood Description: Withdrawn Affect Description: Constricted Patient Cognition Impaired: Yes Ability to Follow Directions: Good Speech Pattern: Clear Hallucinations: None Delusions: Not Present Thought Process: Goal Oriented and Linear Thought Content: positive for Intact and positive for Circumstantial Judgement: Fair Data Data Completed and Pending Completed studies during hospitalization [Text1]: 03/27/23 04/02/23 11:34 14:15 COVID-19 ([facility]) Positive A Negative COVID-19 Clin Com See Note See Note DS: Summary Hospital Course Hospital Course: The patient is a 72-year-old male, 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 Please see the HPI of the admission note for further details. Apparently his sister found him that he was researching of methods of suicidal attempts. The patient is very well known by this team since he was admitted before transferred from [facility] for ECT. In the past he did very well with ECT but at this point on admission the patient refused to have this treatment. He wanted to do ketamine and he already had already appointments and aftercare in a local clinic. While he was in the unit, we continue with his regular medications, he has a very complex medication regimen that we did not change. The patient was able to participate in groups he was future oriented and there was no evidence of suicidal ideation. Since there were no safety concerns discharge planning was discussed. Time Spent with Patient Time attestation: Total time managing care of this patient today ____ minutes. Discharge Plan Discharge Anticipated Discharge Date/Time: 04/03/23 10:00 Discharge Diagnosis: Major depressive disorder Obsessive-compulsive disorder Referrals: [facility] [Other] - 04/07/23 11:00 am (Your follow up appointment has been scheduled with Dr. Bustos for Thursday04/07/23 at 11am) Daniel Stokes LM [Other] - 04/08/23 10:00 am (Your next appointment your therapist is scheduled for 04/08/23 at 10AM. ) Dr Tim Brooks Psychiatrist [Other] - 05/05/23 11:00 am (Your next psychiatry appointment is scheduled for 05/05/23 at 11AM.) [facility] [Other] - 2 Weeks (Referral was placed for PHP program. Note: There is a waitlist and program will contact you once there is an opening to come in for an intake. ) [facility] [Other] - 2 Months (Per Dr Verito Asencio at [facility]: They will need last outpatient Cardiology note, last EKG, and last echocardiogram from your Care Coordination Manager. Once reecived and reviwed you will be reconsidered for therapy in 2 months with no further inpatient admissions. ) Discharge Medications: New ammonium lactate 12 % Lotion 1 appl topical BID 30 Days Qty: 1 0RF Protocol: Apply to: Apply to: bi lateral feet trazodone 50 mg Tablet 50 mg PO BEDTIME MRX1 PRN (Reason: Insomnia) 30 Days Qty: 60 0RF olanzapine 5 mg Tablet 5 mg PO BEDTIME 30 Days Qty: 30 0RF lamotrigine 25 mg Tablet 50 mg PO DAILY 30 Days Qty: 60 0RF Continued cyanocobalamin (vitamin B-12) 1,000 mcg Tablet 1,000 mcg PO DAILY 30 Days Qty: 30 0RF Colace Clear 50 mg capsule 100 mg PO NEEDED 30 Days Qty: 30 0RF amlodipine 2.5 mg Tablet 2.5 mg PO DAILY 30 Days Qty: 30 0RF Rx Instructions: pt takes it every afternoon liothyronine 5 mcg tablet 5 mcg PO BEDTIME 30 Days Qty: 30 0RF mirtazapine 15 mg Tablet 15 mg PO BEDTIME 30 Days Qty: 30 0RF lamotrigine [Lamictal] 100 mg Tablet 100 mg PO DAILY 30 Days Qty: 30 0RF Rx Instructions: Increase to 150 mg total dose on 10/19/21 metoprolol tartrate 25 mg tablet 12.5 mg PO BID 30 Days Qty: 30 0RF Eliquis 5 mg tablet 5 mg PO BID 30 Days Qty: 60 0RF fluvoxamine tablet 250 mg PO BID 30 Days Qty: 60 0RF liothyronine tablet 10 mcg PO DAILY 30 Days Qty: 30 0RF Discontinued hydrochlorothiazide 25 mg Tablet 25 mg PO DAILY 30 Days Qty: 30 0RF Protocol: Hold for SBP< HOLD for SBP < : 90 Rx Instructions: pt takes this medication in the AM olanzapine tablet 5 mg PO BEDTIME Discharge Orders: Discharge Order (Routine); Ordered 04/03/23 Ordered By: Robin Chambers Diet: Advance to usual diet Activity on Discharge: As tolerated Stand Alone Forms: Patient Portal Discharge page Care Plan Goals: Care plan goals achieved in this admission Health Concerns: Continue treatment with regular outpatient providers Plan of Treatment: Continue with medication management with regular outpatient providers Continue ketamine as an outpatient. Assessment: Elderly male with a past history of major depressive disorder and OCD who was brought into this facility for exacerbation of depression with suicidal ideation. Historically he responded well to ECT but now he wants to ketamine. He was treated and since there were no safety concerns discharge planning was discussed.
[2023-04-02 18:00] VITALS: BP 148/70; PULSE 67; RESP 16; TEMP 36.8; O2SAT 97
[2023-04-02] MEDS: OLANZapine 5 MG TABLET PO (20:46)
[2023-04-02] MEDS: Mirtazapine 15 MG TABLET PO (20:46)
[2023-04-02] MEDS: Acetaminophen 325 MG TABLET 650 MG PO (20:49)
[2023-04-03 08:00] VITALS: BP 139/68; PULSE 61; RESP 18; TEMP 36.4; O2SAT 97
[2023-04-03] MEDS: fluvoxaMINE Maleate 50 MG TABLET 250 MG PO (08:25)
[2023-04-03] MEDS: Cyanocobalamin (Vitamin B-12) 1,000 MCG TABLET 1000 MCG PO (08:25)
[2023-04-03] MEDS: Apixaban 5 MG TABLET PO (08:26)
[2023-04-03] MEDS: lamoTRIgine 100 MG TABLET PO (08:26)
[2023-04-03] MEDS: lamoTRIgine 25 MG TABLET 50 MG PO (08:26)
[2023-04-03] MEDS: Metoprolol Tartrate 12.5 MG HALFTAB PO (08:42)
[2023-04-03] MEDS: amLODIPine Besylate 2.5 MG TABLET PO (08:42)
--- NOTE | 2023-04-03 08:46 | P.DS_ITS ---
DS: Providers Provider Date of admission: 03/19/23 19:00 Primary care physician: Unknown Physician Consults: 03/19/23 22:37 Consult to Hospitalist Routine Comment: Consulting Provider: Hospitalist Reason For Exam: admission physical 03/26/23 14:25 Consult to Cardiology Routine Consulting Provider: [facility] Reason for consultation: Patient will have Ketamine treatment as an outpatient, refused ECT. Has provider been notified: Yes DS: Diagnosis Discharge Diagnosis (1) Medical clearance for psychiatric admission: Status: Acute (2) Major depressive disorder, recurrent severe without psychotic features: Status: Acute (3) Generalized anxiety disorder: Status: Acute DS: Medications Discharge Medications Home Medications: Previous Rx's Medication Instructions Recorded amlodipine 2.5 mg tablet 2.5 mg PO DAILY 30 days #30 tabs 04/02/23 ammonium lactate 12 % lotion 1 appl topical BID 30 days #1 g 04/02/23 apixaban 5 mg tablet (Eliquis) 5 mg PO BID 30 days #60 tabs 04/02/23 cyanocobalamin (vitamin B-12) 1,000 mcg PO DAILY 30 days #30 tabs 04/02/23 1,000 mcg tablet docusate sodium 50 mg capsule 100 mg (2 x 50 mg) PO NEEDED 30 04/02/23 (Colace Clear) days #30 caps fluvoxamine 250 mg PO BID 30 days #60 tabs 04/02/23 lamotrigine 100 mg tablet 100 mg PO DAILY 30 days #30 tabs 04/02/23 (Lamictal) lamotrigine 25 mg tablet 50 mg (2 x 25 mg) PO DAILY 30 days 04/02/23 #60 tabs liothyronine 10 mcg PO DAILY 30 days #30 tabs 04/02/23 liothyronine 5 mcg tablet 5 mcg PO BEDTIME 30 days #30 tabs 04/02/23 metoprolol tartrate 25 mg tablet 12.5 mg (1/2 x 25 mg) PO BID 30 04/02/23 days #30 tabs mirtazapine 15 mg tablet 15 mg PO BEDTIME 30 days #30 tabs 04/02/23 olanzapine 5 mg tablet 5 mg PO BEDTIME 30 days #30 tabs 04/02/23 trazodone 50 mg tablet 50 mg PO BEDTIME MRX1 PRN Insomnia 04/02/23 30 days #60 tabs Data Data Completed and Pending Completed studies during hospitalization [Text1]: 03/27/23 04/02/23 11:34 14:15 COVID-19 (AYUSH) Positive A Negative COVID-19 Clin Com See Note See Note DS: Summary Hospital Course Hospital Course: The patient is a 72-year-old male, 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 Please see the HPI of the admission note for further details. Apparently his sister found him that he was researching of methods of suicidal attempts. The patient is very well known by this team since he was admitted before transferred from [facility] for ECT. In the past he did very well with ECT but at this point on admission the patient refused to have this treatment. He wanted to do ketamine and he already had already appointments and aftercare in a local clinic. While he was in the unit, we continue with his regular medications, he has a very complex medication regimen that we did not change. The patient was able to participate in groups he was future oriented and there was no evidence of suicidal ideation. Since there were no safety concerns discharge planning was discussed. Time Spent with Patient Time attestation: Total time managing care of this patient today ____ minutes. Discharge Plan Discharge Anticipated Discharge Date/Time: 04/03/23 10:00 Patient Disposition: Home, Self-Care Discharge Diagnosis: Major depressive disorder Obsessive-compulsive disorder Referrals: Dr Bustos [facility] [Other] - 04/07/23 11:00 am (Your follow up appointment has been scheduled with Dr. Bustos for Thursday04/07/23 at 11am) [facility] [Other] - 04/08/23 10:00 am (Your next appointment your therapist is scheduled for 04/08/23 at 10AM. ) Dr Tim Brooks [facility] [Other] - 05/05/23 11:00 am (Your next psychiatry appointment is scheduled for 05/05/23 at 11AM.) [facility] [Other] - 2 Weeks (Referral was placed for PHP program. Note: There is a waitlist and program will contact you once there is an opening to come in for an intake. ) [facility] [Other] - 2 Months (Per Dr Verito Asencio at [facility]: They will need last outpatient Cardiology note, last EKG, and last echocardiogram from your Industrial Furnace [employer]ricator. Once reecived and reviwed you will be reconsidered for therapy in 2 months with no further inpatient admissions. ) Discharge Medications: New ammonium lactate 12 % Lotion 1 appl topical BID 30 Days Qty: 1 0RF Protocol: Apply to: Apply to: bi lateral feet trazodone 50 mg Tablet 50 mg PO BEDTIME MRX1 PRN (Reason: Insomnia) 30 Days Qty: 60 0RF olanzapine 5 mg Tablet 5 mg PO BEDTIME 30 Days Qty: 30 0RF lamotrigine 25 mg Tablet 50 mg PO DAILY 30 Days Qty: 60 0RF Continued cyanocobalamin (vitamin B-12) 1,000 mcg Tablet 1,000 mcg PO DAILY 30 Days Qty: 30 0RF Colace Clear 50 mg capsule 100 mg PO NEEDED 30 Days Qty: 30 0RF amlodipine 2.5 mg Tablet 2.5 mg PO DAILY 30 Days Qty: 30 0RF Rx Instructions: pt takes it every afternoon liothyronine 5 mcg tablet 5 mcg PO BEDTIME 30 Days Qty: 30 0RF mirtazapine 15 mg Tablet 15 mg PO BEDTIME 30 Days Qty: 30 0RF lamotrigine [Lamictal] 100 mg Tablet 100 mg PO DAILY 30 Days Qty: 30 0RF Rx Instructions: Increase to 150 mg total dose on 10/19/21 metoprolol tartrate 25 mg tablet 12.5 mg PO BID 30 Days Qty: 30 0RF Eliquis 5 mg tablet 5 mg PO BID 30 Days Qty: 60 0RF fluvoxamine tablet 250 mg PO BID 30 Days Qty: 60 0RF liothyronine tablet 10 mcg PO DAILY 30 Days Qty: 30 0RF Discontinued hydrochlorothiazide 25 mg Tablet 25 mg PO DAILY 30 Days Qty: 30 0RF Protocol: Hold for SBP< HOLD for SBP < : 90 Rx Instructions: pt takes this medication in the AM olanzapine tablet 5 mg PO BEDTIME Discharge Orders: Discharge Order (Routine); Ordered 04/03/23 Ordered By: Robin Chambers Diet: Advance to usual diet Activity on Discharge: As tolerated Stand Alone Forms: Patient Portal Discharge page Care Plan Goals: Care plan goals achieved in this admission Health Concerns: Continue treatment with regular outpatient providers Plan of Treatment: Continue with medication management with regular outpatient providers Continue ketamine as an outpatient. Assessment: Elderly male with a past history of major depressive disorder and OCD who was brought into this facility for exacerbation of depression with suicidal ideation. Historically he responded well to ECT but now he wants to ketamine. He was treated and since there were no safety concerns discharge planning was discussed.
== END 2023-04-03 10:50 | disposition home or self-care (01) | DRG 885 ==
PROVIDERS: Psychiatry & Neurology Psychiatry; Admitting Provider Psychiatry & Neurology Psychiatry; Visit Provider Psychiatry & Neurology Psychiatry
DX: F33.2 Major depressive disorder, recurrent severe without psychotic features (principal); U07.1 COVID-19; R45.851 Suicidal ideations; F42.9 Obsessive-compulsive disorder, unspecified; F41.1 Generalized anxiety disorder; I48.0 Paroxysmal atrial fibrillation; Z91.040 Latex allergy status; Z79.01 Long term (current) use of anticoagulants; Z79.899 Other long term (current) drug therapy
CPT/HCPCS: 36415; 80053; 87635; 93005

== ENCOUNTER → 2023-03-19 19:00 | Outpatient (BNV) | payer MEDICARE, SELFPAY | PROVIDERS: Admitting Provider Psychiatry & Neurology Psychiatry; Visit Provider Student in an Organized Health Care Education/Training Program | DX: Z02.2 Encounter for examination for admission to residential institution (principal) | CPT/HCPCS: 99429 ==

== ENCOUNTER → 2023-03-19 19:00 | Outpatient (BNV) | payer MEDICARE, SELFPAY | PROVIDERS: Admitting Provider Psychiatry & Neurology Psychiatry; Visit Provider Psychiatry & Neurology Psychiatry | DX: F33.2 Major depressive disorder, recurrent severe without psychotic features (principal); F41.1 Generalized anxiety disorder | CPT/HCPCS: 90792; 99231; 99232; 99238 ==

== ENCOUNTER 2023-07-08 13:46 | Outpatient (AMB) | payer MEDICARE, SELFPAY ==
[2023-07-08 13:48] VITALS: BP 130/62; PULSE 51; BMI 28.1
--- NOTE | 2023-07-08 13:48 | MHC.OFFVIS ---
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 Accompanied by: Sister Allergies Latex, Natural Rubber Adverse Reaction (Mild, Verified 08/20/22 14:48) Rash Medication List - Last Reconciled 07/08/23 by Feliberto Rivas MD ammonium lactate 12% 1 appl See Protocol topical BID 30 days apixaban (Eliquis) 5 mg PO BID 30 days cyanocobalamin (vitamin B-12) 1,000 mcg PO DAILY 30 days docusate sodium (Colace Clear) 100 mg (2 x 50 mg) PO NEEDED 30 days [fluvoxamine 250 mg PO BID 30 days] hydrochlorothiazide 25 mg PO DAILY lamotrigine 50 mg (2 x 25 mg) PO DAILY 30 days lamotrigine (Lamictal) 100 mg PO DAILY 30 days [liothyronine 10 mcg PO DAILY 30 days] liothyronine 5 mcg PO BEDTIME 30 days metoprolol tartrate 12.5 mg (1/2 x 25 mg) PO BID 30 days mirtazapine 15 mg PO BEDTIME 30 days olanzapine 5 mg PO BEDTIME 30 days trazodone 50 mg PO BEDTIME MRX1 PRN 30 days HPI Comments Details: 72 year gentleman here for follow-up. He was in the emergency department with atrial flutter of her electroconvulsive therapy for depression. He has major depression and has struggled with depression for many many years. He recently underwent electroconvulsive therapy and after getting his 3rd session developed atrial flutter. He was brought to the emergency department where he received metoprolol IV and after blood doses converted to sinus rhythm. He does not remember any details about this event because he was post electroconvulsive therapy in usually he gets amnesia after that. He gets some palpitations at home and approximately 10 months before that he had an episode of palpitation for which he called EMS and received metoprolol. He has no chest pain or shortness of breath. He walks regularly. He has been taking Eliquis without any bleeding concerns. He is saying he had some workup done including concern) he had an echocardiogram done there. 12/31/2022: He returns for follow-up. He has been doing well. He has been taking apixaban without any bleeding. Denies any palpitations, chest pain or shortness of breath. He has been walking and also swimming without any significant complaints. Blood pressure is mildly elevated. 07/08/23: He returns for follow-up. Blood pressure is better controlled. It appears he is taking hydrochlorothiazide 25 mg daily and metoprolol tartrate 12.5 mg twice a day. He is on anticoagulation with apixaban 5 mg twice a day. His amlodipine has been stopped due to edema. He is saying that he has been experiencing exam pressure-like feeling on the left side of his chest which happens with activity. It appears this is a consistent symptom. Is denying any symptoms at rest or when he is laying flat. No acid reflux. [facility] Medical History Ruptured liver No known health problems Surgical History History of surgery of liver H/O right knee surgery Family History Mother Asthma Heart disease Lymphoma CHF (congestive heart failure) Pacemaker Heart valve replaced Father Heart disease HTN (hypertension) Pacemaker Prostate cancer Sister Uterine cancer Sister ALL (acute lymphoblastic leukemia of ) Social History Household Members: None Housing: Apartment Do you presently have visiting nurse or other home services: No Alcohol intake: current Alcohol intake frequency: holidays/special occasions only Patient Tobacco Use Status: Never used Tobacco e-Cigarette/Vaping Use: Never Used Second Hand Smoke Exposure: No service: No Sexual orientation: Straight/Heterosexual Review of Systems Const Denies chills, Denies fatigue, Denies fever(s), Denies frequent falls, Denies weakness, Denies weight gain and Denies weight loss ENT Denies dizziness Card Denies chest pain, Denies leg edema, Denies lightheadedness, Denies palpitations, Denies dyspnea and Denies dyspnea on exertion Resp Denies cough, Denies dyspnea and Denies dyspnea on exertion GI Denies hematochezia Musc Denies abnormal gait, Denies muscle weakness, Denies numbness, Denies radiating pain into limb and Denies tingling Neuro Denies abnormal gait, Denies dizziness, Denies frequent falls, Denies numbness, Denies tingling and Denies weakness Endo Denies fatigue and Denies palpitations Physical Exam Vital Signs: Last Vital Signs Pulse 51 07/08/23 13:48 BP 130/62 07/08/23 13:48 BMI result Body Mass Index 28.1 GENERAL APPEARANCE: in no acute distress, pleasant. NECK: no carotid bruit, no jugular venous distention. SKIN: no suspicious lesions, warm and dry. HEART: no murmurs, regular rate and rhythm. LUNGS: clear to auscultation bilaterally. ABDOMEN: soft, nontender. EXTREMITIES: no edema. PERIPHERAL PULSES: equal. NEUROLOGIC: No gross deficits, AAO X 3 Assessment & Plan Assessment & Plan (1) Atrial flutter: Code(s): I48.92 - Unspecified atrial flutter Category: Medical (2) HTN (hypertension): Code(s): I10 - Essential (primary) hypertension Category: Medical (3) Chest discomfort: Code(s): R07.89 - Other chest pain Category: Medical Plan 73-year-old gentleman who is here for follow-up. He has background history of atrial flutter and has been on anticoagulation with apixaban. He is on hydrochlorothiazide and metoprolol tartrate for blood pressure control her blood pressure is well controlled. He was taking amlodipine 2.5 mg daily but due to peripheral edema this has been discontinued. He has been experiencing some pressure-like feeling in his chest which happens with activities specially when he is going up hill. This is a new symptom for him and is quite consistent. No chest discomfort laying flat in bed. No acid reflux. After discussion we have decided to perform an exercise stress test. We will do a modified Tim protocol stress test for him. Thank you for allowing me to participate in the care of your patient. Please feel free to contact me if you have any questions. Orders: Orders CA stress test Today R07.89 - Other chest pain Coding Level of Care Code Est Pt Level 4 (51247) Diagnoses Atrial flutter I48.92 HTN (hypertension) I10 Chest discomfort R07.89
== END 2023-07-08 14:18 | disposition home or self-care (01) ==
PROVIDERS: PCP Internal Medicine; Visit Provider Internal Medicine Cardiovascular Disease
DX: I48.92 Unspecified atrial flutter (principal); I10 Essential (primary) hypertension; R07.89 Other chest pain
CPT/HCPCS: 99214

== ENCOUNTER → 2023-07-08 13:46 | Outpatient (BNVA) | payer MEDICARE, SELFPAY | PROVIDERS: PCP Internal Medicine; Visit Provider Internal Medicine Cardiovascular Disease | DX: I48.92 Unspecified atrial flutter (principal); I10 Essential (primary) hypertension; R07.89 Other chest pain | CPT/HCPCS: 99212 ==

== ENCOUNTER → 2023-07-21 10:27 | Outpatient (REF) | payer MEDICARE, SELFPAY ==
--- NOTE | 2023-07-21 10:33 | CA_ITS ---
Acquisition Time: 2023-07-21 10:43:30 Total Exercise Time: 00:09:07 Test Indications: CP, AFLUTTER Medications: SEE H Protocol: SILVIA Max HR: 126 BPM 86% of Pred: 145 BPM Max BP: 138/080 mmHG Max Work Load: 10.2 METS Exercise stress test exercise 9 min 7 sec of Silvia protocol achieving 86% MPHR, with midl SOB, no chets discomfort, without arrhythmias, with normotensive repsonse to exercise, without EKG changes. Test reviewed with Dr. Rivas. Referred By: Feliberto Rivas Overread By: Ronel Benavides
== END ==
LOC: HO.CARD 10:27
PROVIDERS: PCP Internal Medicine; Visit Provider Internal Medicine Cardiovascular Disease
DX: R07.89 Other chest pain (principal)
CPT/HCPCS: 93017

== ENCOUNTER → 2023-07-21 10:33 | Outpatient (BNV) | payer MEDICARE, SELFPAY | PROVIDERS: PCP Internal Medicine; Visit Provider Nurse Practitioner | DX: R06.02 Shortness of breath (principal) | CPT/HCPCS: 93016; 93018 ==

== ENCOUNTER 2023-09-09 15:09 | Outpatient (AMB) | payer MEDICARE, SELFPAY ==
--- NOTE | 2023-09-09 15:11 | A.OFFVIS_ITS ---
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 Accompanied by: Self / Same As Patient Allergies Latex, Natural Rubber Adverse Reaction (Mild, Verified 08/20/22 14:48) Rash Medication List - Last Reconciled 09/09/23 by Feliberto Rivas MD ammonium lactate 12% 1 appl See Protocol topical BID 30 days apixaban (Eliquis) 5 mg PO BID 30 days cyanocobalamin (vitamin B-12) 1,000 mcg PO DAILY 30 days docusate sodium (Colace Clear) 100 mg (2 x 50 mg) PO NEEDED 30 days [fluvoxamine 250 mg PO BID 30 days] furosemide 20 mg PO DAILY lamotrigine 50 mg (2 x 25 mg) PO DAILY 30 days lamotrigine (Lamictal) 100 mg PO DAILY 30 days [liothyronine 10 mcg PO DAILY 30 days] liothyronine 5 mcg PO BEDTIME 30 days metoprolol tartrate 12.5 mg (1/2 x 25 mg) PO BID 30 days mirtazapine 15 mg PO BEDTIME 30 days tamsulosin 0.4 mg PO DAILY trazodone 50 mg PO BEDTIME MRX1 PRN 30 days HPI Comments Details: 73 year gentleman here for follow-up. He was in the emergency department with atrial flutter of her electroconvulsive therapy for depression. He has major depression and has struggled with depression for many many years. He recently underwent electroconvulsive therapy and after getting his 3rd session developed atrial flutter. He was brought to the emergency department where he received metoprolol IV and after blood doses converted to sinus rhythm. He does not remember any details about this event because he was post electroconvulsive therapy in usually he gets amnesia after that. He gets some palpitations at home and approximately 10 months before that he had an episode of palpitation for which he called EMS and received metoprolol. He has no chest pain or shortness of breath. He walks regularly. He has been taking Eliquis without any bleeding concerns. He is saying he had some workup done including concern) he had an echocardiogram done there. 12/31/2022: He returns for follow-up. He has been doing well. He has been taking apixaban without any bleeding. Denies any palpitations, chest pain or shortness of breath. He has been walking and also swimming without any significant complaints. Blood pressure is mildly elevated. 07/08/23: He returns for follow-up. Blood pressure is better controlled. It appears he is taking hydrochlorothiazide 25 mg daily and metoprolol tartrate 12.5 mg twice a day. He is on anticoagulation with apixaban 5 mg twice a day. His amlodipine has been stopped due to edema. He is saying that he has been experiencing exam pressure-like feeling on the left side of his chest which happens with activity. It appears this is a consistent symptom. Is denying any symptoms at rest or when he is laying flat. No acid reflux. 09/09/2023: He is here for follow-up. Her last visit he was complaining of some chest discomfort which led exercise stress test. He was able to exercise for 9 minutes 7 seconds on Tim protocol achieving 13.2 metabolic equivalents. His maximum blood pressure was 130/80. He did not get any chest discomfort but did complain of mild shortness of breath. Overall the stress test was good. On follow-up he is denying any chest discomfort. He is complaining of lower extremity edema which has been present for the last 10 years. He has been using compression stockings. He said he had varicose veins previously. Recently he was started on tamsulosin by urologist. He is saying his PCP has decrease the metoprolol dose and also stopped the hydrochlorothiazide and started him on Lasix 20 mg daily. [facility] Medical History Ruptured liver No known health problems Surgical History History of surgery of liver H/O right knee surgery Family History Mother Asthma Heart disease Lymphoma CHF (congestive heart failure) Pacemaker Heart valve replaced Father Heart disease HTN (hypertension) Pacemaker Prostate cancer Sister Uterine cancer Sister ALL (acute lymphoblastic leukemia of ) Social History Household Members: None Housing: Apartment Do you presently have visiting nurse or other home services: No Alcohol intake: current Alcohol intake frequency: holidays/special occasions only Patient Tobacco Use Status: Never used Tobacco e-Cigarette/Vaping Use: Never Used Second Hand Smoke Exposure: No service: No Sexual orientation: Straight/Heterosexual Review of Systems Const Denies chills, Denies fatigue, Denies fever(s), Denies frequent falls, Denies weakness, Denies weight gain and Denies weight loss ENT Denies dizziness Card Denies chest pain, Denies leg edema, Denies lightheadedness, Denies palpitations, Denies dyspnea and Denies dyspnea on exertion Resp Denies cough, Denies dyspnea and Denies dyspnea on exertion GI Denies hematochezia Musc Denies abnormal gait, Denies muscle weakness, Denies numbness, Denies radiating pain into limb and Denies tingling Neuro Denies abnormal gait, Denies dizziness, Denies frequent falls, Denies numbness, Denies tingling and Denies weakness Endo Denies fatigue and Denies palpitations Physical Exam Vital Signs: Last Vital Signs Pulse 58 09/09/23 15:12 BP 120/62 09/09/23 15:12 BMI result Body Mass Index 28.5 GENERAL APPEARANCE: in no acute distress, pleasant. NECK: no carotid bruit, no jugular venous distention. SKIN: no suspicious lesions, warm and dry. HEART: no murmurs, regular rate and rhythm. LUNGS: Crackles in both lungs. ABDOMEN: soft, nontender. EXTREMITIES: no edema. PERIPHERAL PULSES: equal. NEUROLOGIC: No gross deficits, AAO X 3 Office Procedures EKG Details: Sinus bradycardia 58 beats per minute, normal axis, QTC 418 milliseconds. [id number], Complete Assessment & Plan Assessment & Plan (1) HTN (hypertension): Code(s): I10 - Essential (primary) hypertension Category: Medical (2) Atrial flutter: Code(s): I48.92 - Unspecified atrial flutter Category: Medical (3) Peripheral edema: Code(s): R60.0 - Localized edema Category: Medical Plan Pleasant 73 year gentleman who is here for follow-up. He has background history of atrial flutter and is currently on anticoagulation. He complained of some chest pain on previous visit and underwent stress testing which was normal. Blood pressure is well controlled. He has peripheral edema and is concerned about it. This has been ongoing for ma ny years and he has been using compression stockings. He has been started on Lasix by the primary care physician. He has some crackles on examination but I do not think that he is in heart failure currently. Agree with diuretics currently. In terms of his edema we will arrange a ultrasound venous insufficiency study. If he truly had venous reflux and I will refer him to vascular surgery. Thank you for allowing me to participate in the care of your patient. Please feel free to contact me if you have any questions. Orders: Orders US venous insuf bilat Today R60.0 - Localized edema Coding Level of Care Code Est Pt Level 4 (34471) Diagnoses HTN (hypertension) I10 Atrial flutter I48.92 Peripheral edema R60.0 CPT Codes EKG - CPT: [id number], Complete ([id number])
[2023-09-09 15:12] VITALS: BP 120/62; PULSE 58; BMI 28.5
== END 2023-09-09 15:51 | disposition home or self-care (01) ==
PROVIDERS: PCP Internal Medicine; Visit Provider Internal Medicine Cardiovascular Disease
DX: I10 Essential (primary) hypertension (principal); I48.92 Unspecified atrial flutter; R60.0 Localized edema
CPT/HCPCS: 93010; 99214

== ENCOUNTER → 2023-09-09 15:09 | Outpatient (BNVA) | payer MEDICARE, SELFPAY | PROVIDERS: PCP Internal Medicine; Visit Provider Internal Medicine Cardiovascular Disease | DX: I10 Essential (primary) hypertension (principal); I48.92 Unspecified atrial flutter; R60.0 Localized edema | CPT/HCPCS: 93005; 99212 ==

== ENCOUNTER 2023-09-16 12:59 | Outpatient (REF) | payer MEDICARE, SELFPAY ==
--- NOTE | ~2023-09-16 | US_ITS ---
EXAMINATION: US LOWER EXTREMITY VENOUS (REFLUX EXAM), BILATERAL CLINICAL INFORMATION: Chronic venous insufficiency with lower extremity varicose veins and edema COMPARISON: None. TECHNIQUE: Color flow triplex imaging and compression Doppler was performed to evaluate both the deep and the superficial systems bilaterally. To evaluate the superficial system, the examination was performed in the upright position. Color-flow Doppler ultrasound and compression ultrasound were utilized. In addition, maneuvers were utilized to demonstrate reflux. FINDINGS: 1. DEEP VENOUS ULTRASOUND OF THE RIGHT LOWER EXTREMITY: Common Femoral Vein: Compressible, normal respiratory variation and augmented flow. Femoral Vein: Compressible, normal color flow and augmentation. Popliteal Vein: Compressible, normal augmentation. Deep Reflux: There is deep venous reflux in the mid superficial femoral vein measuring 1688 ms There is no evidence of a Singletary's cyst. 2. SUPERFICIAL ULTRASOUND WITH DOPPLER OF RIGHT LOWER EXTREMITY: GREAT SAPHENOUS VEIN: Saphenofemoral Junction: 0.8 cm; Reflux: 0 ms Proximal Thigh: 0.6 cm; Reflux: 0 ms Mid Thigh: 0.5 cm; Reflux: 0 ms Distal Thigh: 0.4 cm; Reflux: 2364 ms At Knee: 0.4 cm; Reflux: 2000 ms Proximal Calf: 0.3 cm; Reflux: 2268 ms Mid Calf: 0.3 cm; Reflux: 2268 ms Distal Calf: 0.4 cm; Reflux: 2368 ms DUPLICATED MEDIAL GREAT SAPHENOUS VEIN: Diameter: None imaged Reflux: NA DUPLICATED LATERAL GREAT SAPHENOUS VEIN: Diameter: None imaged Reflux: NA SMALL SAPHENOUS VEIN: Saphenopopliteal Junction: 0.3 cm; Reflux: 0 ms Proximal: 0.3 cm; Reflux: 0 ms Distal: 0.3 cm; Reflux: 0 ms VEIN OF GIACOMINI: Size: NA Reflux: NA PERFORATORS: Location: Mid thigh extending into the great saphenous vein Size: 0.4 cm Reflux: 996 ms VARICOSITIES: Location: Distal thigh, medial knee, proximal calf off the great saphenous vein Size: 0.3 to 0.6 cm Reflux: Ranging from 960 ms to 2868 ms 3. DEEP VENOUS ULTRASOUND OF THE LEFT LOWER EXTREMITY: Common Femoral Vein: Compressible, normal respiratory variation and augmented flow. Femoral Vein: Compressible, normal color flow and augmentation. Popliteal Vein: Compressible, normal augmentation. Deep Reflux: Deep venous reflux seen now within the common femoral vein measuring 2056 ms and popliteal vein measuring 1112 ms There is no evidence of a Singletary's cyst. 4. SUPERFICIAL ULTRASOUND WITH DOPPLER OF LEFT LOWER EXTREMITY: GREAT SAPHENOUS VEIN: Saphenofemoral Junction: 0.9 cm; Reflux: 2260 ms Proximal Thigh: 1.0 cm; Reflux: 2352 ms Mid Thigh: 0.5 cm; Reflux: 2100 ms Distal Thigh: 0.6 cm; Reflux: 2388 ms At Knee: 0.6 cm; Reflux: 2532 ms Proximal Calf: 0.6 cm; Reflux: 2384 ms Mid Calf: 0.4 cm; Reflux: 1756 ms Distal Calf: 0.4 cm; Reflux: 2552 ms DUPLICATED MEDIAL GREAT SAPHENOUS VEIN: Diameter: None imaged Reflux: NA DUPLICATED LATERAL GREAT SAPHENOUS VEIN: Diameter: None imaged. Reflux: NA SMALL SAPHENOUS VEIN: Saphenopopliteal Junction: 0.3 cm; Reflux: 0 ms Mid: Duplicated segment, both measuring 0.1 cm; Reflux: 0 ms Distal: 0.3 cm; Reflux: 1804 ms VEIN OF GIACOMINI: Size: NA Reflux: NA PERFORATORS: Location: Proximal calf Size: 0.3 cm Reflux: NA VARICOSITIES: Location: Proximal thigh, distal thigh, proximal calf, mid calf off the great saphenous vein Size: 0.3 to 0.7 cm Reflux: Ranging from 2372 ms to 3004 ms US/US venous insuf bilat IMPRESSION: Right: Severe reflux within the great saphenous vein from the distal thigh through the ankle. There is deep venous reflux in the superficial femoral vein. Multiple branching of varicose veins with reflux as described above Left: Severe reflux throughout the great saphenous vein. Focal segmental reflux in the small saphenous vein in the distal calf. Deep venous reflux within the common femoral vein and popliteal vein. Multiple branching varicose veins throughout the left lower extremity with reflux as described
== END 2023-09-16 13:00 | disposition home or self-care (01) ==
LOC: HO.US 12:59
PROVIDERS: Visit Provider Internal Medicine Cardiovascular Disease
DX: R60.0 Localized edema (principal)
CPT/HCPCS: 93970

== ENCOUNTER 2023-12-15 10:26 | Outpatient (AMB) | payer MEDICARE, SELFPAY ==
--- NOTE | 2023-12-15 10:33 | A.OFFVIS_ITS ---
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 US done on 09/16/23. Patient has swelling all the time. No other symptoms . Patient states he has been wearing compression socks for over 10 years. 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 Complaints include pain over varicosities, swelling of lower extremities , cramping, fatigue, and heaviness of the lower extremities. It has been affecting there daily activities including left. It is noted more so in left leg. Patient denies any previous venous surgery or injections. Patient denies any history of DVT/ PE. Patient denies any history of phlebitis. Trial of compression includes - prescription compression given by Cardiology on office visit 09/09/2023 They now present for vascular evaluation regarding their varicose veins. [facility], LATER [facility] Medical History Ruptured liver No known health problems Surgical History History of surgery of liver H/O right knee surgery Family History Mother Asthma Heart disease Lymphoma CHF (congestive heart failure) Pacemaker Heart valve replaced Father Heart disease HTN (hypertension) Pacemaker Prostate cancer Sister Uterine cancer Sister ALL (acute lymphoblastic leukemia of infant) Social History Household Members: None Housing: Apartment Do you presently have visiting nurse or other home services: No Alcohol intake: current Alcohol intake frequency: holidays/special occasions only Patient Tobacco Use Status: Never used Tobacco e-Cigarette/Vaping Use: Never Used Second Hand Smoke Exposure: No service: No Sexual orientation: Straight/Heterosexual Review of Systems Const Reports as per HPI ENT Reports no additional complaints Card Denies chest pain, Denies chest pain at rest and Denies chest pain with activity Resp Denies chest congestion and Denies cough GI Reports no additional complaints Musc Details: pain over varicosities, aching of lower extremities, swelling, cramping, heaviness and tiredness, itching Denies abnormal gait Skin/Breast Reports pruritus and Denies wounds Neuro Reports no additional complaints and Denies abnormal gait Psych Denies no additional complaints Physical Exam Const General: cooperative, healthy appearing and comfortable Orientation/consciousness: oriented to person, oriented to place and oriented to time Neck Carotids: no bruits Chest Chest palpation & inspection: normal inspection of the chest and normal palpation of entire chest wall Resp Effort & Inspection: normal respiratory effort and able to speak in complete sentences Cardio Rate: regular rate Heart sounds: S1 normal heart sound present and S2 normal heart sound present Peripheral pulses: Peripheral pulses 2+ throughout GI Inspection: Yes normal to inspection Skin Other: +2 edema, large rope-like varicosities greater than 4 mm CEAP Classification C4 - skin color changes Ep - Etiology Primary As - superficial veins P - reflux General skin exam: dry skin Neuro General: oriented to person, oriented to place and oriented to time Extrem Right lower extremity: full ROM, normal capillary refill and edema Left lower extremity: full ROM, normal capillary refill and edema Psych Mental Status: mental status grossly normal Assessment & Plan Assessment & Plan (1) Varicose veins of left lower extremity with inflammation: Code(s): I83.12 - Varicose veins of left lower extremity with inflammation Category: Medical Plan: This patient has varicose veins with inflammation. They continue to be a source of discomfort for the patient. The patient has tried conservative treatment with compression, leg elevation and exercise program for over 3 months time. They have been compliant with all treatment. This has provided minimal relief for the patient. I do not anticipate this course of treatment will alter the underlying etiology. The patient has been scheduled for lower extremity venous treatment inclusive of --- left great saphenous vein radiofrequency ablation. Risks, benefits, and complications of this procedure has been discussed in detail with the patient including but not limited to bleeding, infection, and the development of a DVT. The patient has demonstrated a clear understanding and has consented. We will schedule the patient as soon as possible. Thank you for allowing us to participate in this patient's care. If there are any questions or concerns please do not hesitate to contact us. Coding Level of Care Code New Pt Level 4 (27241) Diagnoses Varicose veins of left lower extremity with inflammation I83.12
== END 2023-12-15 11:10 | disposition home or self-care (01) ==
PROVIDERS: PCP Internal Medicine; Visit Provider Surgery Vascular Surgery
DX: I83.12 Varicose veins of left lower extremity with inflammation (principal)
CPT/HCPCS: 99204

== ENCOUNTER → 2023-12-15 10:26 | Outpatient (BNVA) | payer MEDICARE, SELFPAY | PROVIDERS: PCP Internal Medicine; Visit Provider Surgery Vascular Surgery | DX: I83.12 Varicose veins of left lower extremity with inflammation (principal); I83.812 Varicose veins of left lower extremity with pain | CPT/HCPCS: 99202 ==

== ENCOUNTER 2024-01-08 08:28 | Outpatient (AMB) | payer MEDICARE, SELFPAY ==
--- NOTE | 2024-01-08 08:35 | A.OFFVIS_ITS ---
Intake Visit Reasons: Left GSV RFA Accompanied by: Self / Same As Patient Allergies Latex, Natural Rubber Adverse Reaction (Mild, Verified 01/08/24 08:35) Rash PFSH Medical History Ruptured liver No known health problems Surgical History History of surgery of liver H/O right knee surgery Family History Mother Asthma Heart disease Lymphoma CHF (congestive heart failure) Pacemaker Heart valve replaced Father Heart disease HTN (hypertension) Pacemaker Prostate cancer Sister Uterine cancer Sister ALL (acute lymphoblastic leukemia of ) Social History Household Members: None Housing: Apartment Do you presently have visiting nurse or other home services: No Alcohol intake: current Alcohol intake frequency: holidays/special occasions only Patient Tobacco Use Status: Never used Tobacco e-Cigarette/Vaping Use: Never Used Second Hand Smoke Exposure: No service: No Sexual orientation: Straight/Heterosexual Office Procedures Vascular Office Procedure Details Details: Diagnosis: Varicose veins with inflammation of left leg Procedure: Endovenous radiofrequency ablation of the left great saphenous vein(s) of the lower extremity. Anesthesia: Local infiltration 5 cc, Tumescent 300 cc. Estimated Blood Loss: minimal Specimen: Varicose veins The patient was transferred to the procedure suite and the insufficient saphenou s vein was mapped by ultrasound and diagrammed on the overlying skin. The depth and diameter of the vein(s) to be treated was documented. The varicose tributary veins and suitable access sites were identified and mapped as well. The patient was then positioned supine on the procedure table. The affected limb was prepped and draped in the usual sterile fashion. The RF catheter was placed on the sterile field, flushed and wiped down, prepared, and connected by a sterile cable. The patient was placed in supine position and local anesthesia was instilled in the skin overlying the access site. A skin incision was made overlying the identified and mapped great saphenous vein entry site. The vein was accessed using ultrasound guidance and the Seldinger technique, a guide wire was introduced through the needle, which was then exchanged over the guide wire for a 6F sheath, which was secured in place. The guide wire was removed and the sheath was flushed. The RF catheter was placed into the vein through the sheath and preferentially, imaging was used to place the catheter tip just inferior to the superficial epigastric vein to preserve normal physiological flow in that vein. Additionally, it was confirmed by ultrasound guidance that the catheter tip was also placed a minimum of 1.5cm distal to the saphenofemoral junction. After the RF catheter position was verified by ultrasound, tumescent anesthesia was infiltrated, under ultrasound guidance, precisely into the perivenous compartment along the entire length of vein from the entry site to the saphenofemoral junction until a halo of fluid was noted around the vein. The patient was then placed in supine position to further exsanguinate the superficial venous system. After RF catheter position was again confirmed with ultrasound imaging, and under direct external compression along the length of the heating element, RF energy was applied. The vein was segmentally ablated by heating a 8 cm segment and then indexing the catheter forward by 7.5 cm until the treatment length is completed. Device temperature was maintained at 120 plus or minus 5 degrees C with an initial power level of 40W dropping to below 20W for each treatment. Total vein length treated 32 cm Total cycles of RF 6. Repeat ultrasound of the saphenous vein was performed, confirming successful treatment. The catheter and sheath were withdrawn and hemostasis established with direct pressure. After assuring hemostasis, the skin incision over the saphenous vein was closed with a bandage and a compression wrap, and/ or graduated compression stocking was applied from the level of the foot to the most proximal level of the thigh. 32351 - Endovenous RF, 1st Vein All charges added?: Procedure code (CPT) selection complete Assessment & Plan Assessment & Plan (1) Varicose veins of left lower extremity with inflammation: Comment: 01/08/2024 - left great saphenous vein radiofrequency ablation Code(s): I83.12 - Varicose veins of left lower extremity with inflammation Category: Medical Plan: See op note Coding Level of Care Code Procedure Only Diagnoses Varicose veins of left lower extremity with inflammation I83.12 CPT Codes Details - Vascular 1: 01091 - Endovenous RF, 1st Vein ([id number])
== END 2024-01-08 09:29 | disposition home or self-care (01) ==
PROVIDERS: PCP Internal Medicine; Visit Provider Surgery Vascular Surgery
DX: I83.12 Varicose veins of left lower extremity with inflammation (principal)
CPT/HCPCS: 36475

== ENCOUNTER → 2024-01-08 08:28 | Outpatient (BNVA) | payer MEDICARE, SELFPAY | PROVIDERS: PCP Internal Medicine; Visit Provider Surgery Vascular Surgery | DX: I83.12 Varicose veins of left lower extremity with inflammation (principal) | CPT/HCPCS: 36475; J2003; J2004 ==

== ENCOUNTER 2024-01-11 12:37 | Outpatient (REF) | payer MEDICARE, SELFPAY ==
--- NOTE | ~2024-01-11 | US_ITS ---
EXAMINATION: TRIPLEX SCANNING OF LEFT LOWER EXTREMITY; SUPERFICIAL ULTRASOUND WITH DOPPLER OF LEFT LOWER EXTREMITY CLINICAL INFORMATION: Status post radiofrequency ablation of the left great saphenous vein Originally performed on 01/08/2024. COMPARISON: 09/16/2023. TECHNIQUE: Color flow triplex imaging and compression Doppler were performed as well as superficial ultrasound with Doppler. FINDINGS: LEFT LOWER EXTREMITY DEEP VENOUS SYSTEM: Respiratory variation, normal compression and augmented flow are noted throughout the lower extremity. The visualized common femoral vein, femoral vein, profunda femoral vein, popliteal vein and the calf veins show no evidence of deep venous thrombosis. There is no evidence of Singletary's cyst. SUPERFICIAL VENOUS SYSTEM: The great saphenous vein is occluded from the access site to 4.0 cm before the saphenofemoral junction. There is no extension of thrombus into the deep system. US/US venous duplex LE LT IMPRESSION: 1. No evidence of DVT. 2. Excellent appearance status post ablation of the left great saphenous vein. Electronically signed by: Lucas Cotto MD 01/11/2024 01:27 PM EDT
== END 2024-01-11 12:38 | disposition home or self-care (01) ==
LOC: HO.US 12:37
PROVIDERS: PCP Internal Medicine; Visit Provider Surgery Vascular Surgery
DX: M79.604 Pain in right leg (principal); Z98.890 Other specified postprocedural states
CPT/HCPCS: 93971

== ENCOUNTER 2024-01-13 14:24 | Outpatient (AMB) | payer MEDICARE, SELFPAY ==
[2024-01-13 14:46] VITALS: BP 110/60; PULSE 61; BMI 26.9
--- NOTE | 2024-01-13 14:46 | A.OFFVIS_ITS ---
Vital Signs 01/13/24 14:46 Height 6 ft 5 in Weight 227 lb 1.218 oz BMI 26.9 BP 110/60 Blood Pressure Location Lt brachial Position Sitting Pulse 61 Pulse Source Pulse Oximeter Intake Visit Reasons: 4 mth f/up LE US Delineator Required: No Accompanied by: Sister Allergies Latex, Natural Rubber Adverse Reaction (Mild, Verified 01/08/24 08:35) Rash Medication List - Last Reconciled 01/13/24 by Feliberto Rivas MD ammonium lactate 12% 1 appl See Protocol topical BID 30 days apixaban (Eliquis) 5 mg PO BID 30 days cyanocobalamin (vitamin B-12) 1,000 mcg PO DAILY 30 days docusate sodium (Colace Clear) 100 mg (2 x 50 mg) PO NEEDED 30 days [fluvoxamine 200 mg PO BID] furosemide 20 mg PO DAILY lamotrigine 50 mg (2 x 25 mg) PO DAILY 30 days lamotrigine (Lamictal) 100 mg PO DAILY 30 days [liothyronine 10 mcg PO DAILY 30 days] liothyronine 5 mcg PO BEDTIME 30 days metoprolol tartrate 12.5 mg PO BID PRN mirtazapine 7.5 mg PO BEDTIME omega-3 fatty acids 1,250 mg PO DAILY tamsulosin 0.4 mg PO .QAD HPI Comments Details: 73 year gentleman here for follow-up. He was in the emergency department with atrial flutter of her electroconvulsive therapy for depression. He has major depression and has struggled with depression for many many years. He recently underwent electroconvulsive therapy and after getting his 3rd session developed atrial flutter. He was brought to the emergency department where he received metoprolol IV and after blood doses converted to sinus rhythm. He does not remember any details about this event because he was post electroconvulsive therapy in usually he gets amnesia after that. He gets some palpitations at home and approximately 10 months before that he had an episode of palpitation for which he called EMS and received metoprolol. He has no chest pain or shortness of breath. He walks regularly. He has been taking Eliquis without any bleeding concerns. He is saying he had some workup done including concern) he had an echocardiogram done there. 12/31/2022: He returns for follow-up. He has been doing well. He has been taking apixaban without any bleeding. Denies any palpitations, chest pain or shortness of breath. He has been walking and also swimming without any significant complaints. Blood pressure is mildly elevated. 07/08/23: He returns for follow-up. Blood pressure is better controlled. It appears he is taking hydrochlorothiazide 25 mg daily and metoprolol tartrate 12.5 mg twice a day. He is on anticoagulation with apixaban 5 mg twice a day. His amlodipine has been stopped due to edema. He is saying that he has been experiencing exam pressure-like feeling on the left side of his chest which happens with activity. It appears this is a consistent symptom. Is denying any symptoms at rest or when he is laying flat. No acid reflux. 09/09/2023: He is here for follow-up. Her last visit he was complaining of some chest discomfort which led exercise stress test. He was able to exercise for 9 minutes 7 seconds on Tim protocol achieving 13.2 metabolic equivalents. His maximum blood pressure was 130/80. He did not get any chest discomfort but did complain of mild shortness of breath. Overall the stress test was good. On follow-up he is denying any chest discomfort. He is complaining of lower extremity edema which has been present for the last 10 years. He has been using compression stockings. He said he had varicose veins previously. Recently he was started on tamsulosin by urologist. He is saying his PCP has decrease the metoprolol dose and also stopped the hydrochlorothiazide and started him on Lasix 20 mg daily. 01/13/2024: He is here for follow-up. He had 2 falls. One was during summertime when he was in the basement and it was hot. Second episode was when he was standing in the sikh in a choir. He is saying that he did not pass out. His blood pressure has been borderline. He was on Lasix for peripheral edema which now has been diagnosed as venous reflux and he has had ablation on the left side already. He will follow up with vascular surgery. [facility] Medical History (Updated 01/13/24 @ 14:55 by Renetta Oconnell CMA) Embolism from left greater saphenous vein Ruptured liver No known health problems Surgical History History of surgery of liver H/O right knee surgery Family History Mother Asthma Heart disease Lymphoma CHF (congestive heart failure) Pacemaker Heart valve replaced Father Heart disease HTN (hypertension) Pacemaker Prostate cancer Sister Uterine cancer Sister ALL (acute lymphoblastic leukemia of ) Social History Household Members: None Housing: Apartment Do you presently have visiting nurse or other home services: No Alcohol intake: current Alcohol intake frequency: holidays/special occasions o nly Patient Tobacco Use Status: Never used Tobacco e-Cigarette/Vaping Use: Never Used Second Hand Smoke Exposure: No service: No Sexual orientation: Straight/Heterosexual Review of Systems Const Denies chills, Denies fatigue, Denies fever(s), Denies frequent falls, Denies weakness, Denies weight gain and Denies weight loss ENT Reports dizziness Card Denies chest pain, Denies leg edema, Denies lightheadedness, Denies palpitations, Denies dyspnea and Denies dyspnea on exertion Resp Denies cough, Denies dyspnea and Denies dyspnea on exertion GI Denies hematochezia Musc Denies abnormal gait, Denies muscle weakness, Denies numbness, Denies radiating pain into limb and Denies tingling Neuro Denies abnormal gait, Reports dizziness, Denies frequent falls, Denies numbness, Denies tingling and Denies weakness Endo Denies fatigue and Denies palpitations Physical Exam Vital Signs: Last Vital Signs Pulse 61 01/13/24 14:46 BP 110/60 01/13/24 14:46 BMI result Body Mass Index 26.9 GENERAL APPEARANCE: in no acute distress, pleasant. NECK: no carotid bruit, no jugular venous distention. SKIN: no suspicious lesions, warm and dry. HEART: no murmurs, regular rate and rhythm. LUNGS: Crackles in both lungs. ABDOMEN: soft, nontender. EXTREMITIES: no edema. PERIPHERAL PULSES: equal. NEUROLOGIC: No gross deficits, AAO X 3 Assessment & Plan Assessment & Plan (1) HTN (hypertension): Code(s): I10 - Essential (primary) hypertension Category: Medical (2) Atrial flutter: Code(s): I48.92 - Unspecified atrial flutter Category: Medical Plan Pleasant 73 year gentleman who is here for follow-up. He has background history of atrial flutter and is currently on anticoagulation. He complained of some chest pain on previous visit and underwent stress testing which was normal. Blood pressure is normal. Stop the Lasix. I have advised him to keep himself well hydrated. Two episodes of falls are likely due to low blood pressure/vasovagal episodes. He was asking whether he needs pacemaker. Currently there is no indication for pacemaker. We will continue to monitor him closely. Thank you for allowing me to participate in the care of your patient. Please feel free to contact me if you have any questions. Medications: Changed From metoprolol tartrate 12.5 mg (1/2 x 25 mg) PO BID 30 days 30 tabs 0RF To metoprolol tartrate 12.5 mg PO BID PRN From [fluvoxamine] 250 mg PO BID 30 days 60 tabs 0RF To [fluvoxamine] 200 mg PO BID Coding Level of Care Code Est Pt Level 5 (08214) Diagnoses HTN (hypertension) I10 Atrial flutter I48.92
== END 2024-01-13 15:22 | disposition home or self-care (01) ==
LOC: HO.HCS 14:24
PROVIDERS: PCP Internal Medicine; Visit Provider Internal Medicine Cardiovascular Disease
DX: I10 Essential (primary) hypertension (principal); I48.92 Unspecified atrial flutter
CPT/HCPCS: 99214

== ENCOUNTER → 2024-01-13 14:24 | Outpatient (BNVA) | payer MEDICARE, SELFPAY | PROVIDERS: PCP Internal Medicine; Visit Provider Internal Medicine Cardiovascular Disease | DX: I10 Essential (primary) hypertension (principal); I48.92 Unspecified atrial flutter | CPT/HCPCS: 99212 ==

== ENCOUNTER 2024-01-21 13:55 | Outpatient (AMB) | payer MEDICARE, SELFPAY ==
[2024-01-21 13:57] VITALS: BMI 26.9
--- NOTE | 2024-01-21 13:57 | A.OFFVIS_ITS ---
Vital Signs 01/21/24 13:57 Height 6 ft 5 in Weight 227 lb BMI 26.9 Intake Visit Reasons: 2 wk follow up Left GSV RFA 01/08/24 Intake Note: 2 week follow up left GSV RFA 01/08/24, pt states no issues. Does have some discoloration along treated area of thigh. Accompanied by: Sister Allergies Latex, Natural Rubber Adverse Reaction (Mild, Verified 01/21/24 14:03) Rash HPI HPI 2 wk follow up Left GSV RFA 01/08/24: Details: Complex 73-year-old gentleman presents for follow-up status post left great saphenous vein ablation. He reports he is doing fairly well from the procedure. Overall he does notice us decrease in swelling and discomfort. Does have some swelling of the right lower extremity. He now presents for routine postprocedure follow-up. Of note his postprocedure ultrasound was negative for DVT. [facility] Medical History (Updated 01/21/24 @ 16:03 by Carlos Sylvester MD) Embolism from left greater saphenous vein Ruptured liver No known health problems Surgical History (Updated 01/21/24 @ 14:12 by SANTOS Guerrier) Status post ablation of incompetent vein using laser (01/08/24) History of surgery of liver H/O right knee surgery Family History Mother Asthma Heart disease Lymphoma CHF (congestive heart failure) Pacemaker Heart valve replaced Father Heart disease HTN (hypertension) Pacemaker Prostate cancer Sister Uterine cancer Sister ALL (acute lymphoblastic leukemia of infant) Social History Household Members: None Housing: Apartment Do you presently have visiting nurse or other home services: No Alcohol intake: current Alcohol intake frequency: holidays/special occasions only Patient Tobacco Use Status: Never used Tobacco e-Cigarette/Vaping Use: Never Used Second Hand Smoke Exposure: No service: No Sexual orientation: Straight/Heterosexual Review of Systems Const Reports as per HPI ENT Reports no additional complaints Card Denies chest pain, Denies chest pain at rest and Denies chest pain with activity Resp Denies chest congestion and Denies cough GI Reports no additional complaints Musc Details: pain over varicosities, aching of lower extremities, swelling, cramping, heaviness and tiredness, itching Denies abnormal gait Skin/Breast Reports pruritus and Denies wounds Neuro Reports no additional complaints and Denies abnormal gait Psych Denies no additional complaints Physical Exam Vital Signs: BMI result Body Mass Index 26.9 Const General: cooperative, healthy appearing and comfortable Orientation/consciousness: oriented to person, oriented to place and oriented to time Neck Carotids: no bruits Chest Chest palpation & inspection: normal inspection of the chest and normal palpation of entire chest wall Resp Effort & Inspection: normal respiratory effort and able to speak in complete sentences Cardio Rate: regular rate Heart sounds: S1 normal heart sound present and S2 normal heart sound present Peripheral pulses: Peripheral pulses 2+ throughout GI Inspection: Yes normal to inspection Skin Other: +2 edema, CEAP Classification C4 - skin color changes Ep - Etiology Primary As - superficial veins P - reflux General skin exam: dry skin Neuro General: oriented to person, oriented to place and oriented to time Extrem Right lower extremity: full ROM, normal capillary refill and edema Left lower extremity: full ROM, normal capillary refill and edema Psych Mental Status: mental status grossly normal Assessment & Plan Assessment & Plan (1) Varicose veins of right lower extremity with inflammation: Code(s): I83.11 - Varicose veins of right lower extremity with inflammation Category: Medical Plan: This patient has varicose veins with inflammation. They continue to be a source of discomfort for the patient. The patient has tried conservative treatment with compression, leg elevation and exercise program for over 3 months time. They have been compliant with all treatment. This has provided minimal relief for the patient. I do not anticipate this course of treatment will alter the underlying etiology. The patient has been scheduled for lower extremity venous treatment inclusive of --- right great saphenous vein Cyanoacralate ablation. Risks, benefits, and complications of this procedure has been discussed in detail with the patient including but not limited to bleeding, infection, and the development of a DVT. The patient has demonstrated a clear understanding and has consented. We will schedule the patient as soon as possible. Thank you for allowing us to participate in this patient's care. If there are any questions or concerns please do not hesitate to contact us. (2) Varicose veins of left lower extremity with inflammation: Comment: 01/08/2024 - left great saphenous vein radiofrequency ablation Code(s): I83.12 - Varicose veins of left lower extremity with inflammation Category: Medical Plan: Doing well postprocedure. We will treat right lower extremity. We did discuss continued use of compression Coding Level of Care Code Est Pt Level 4 (96061) Diagnoses Varicose veins of right lower extremity with inflammation I83.11 Varicose veins of left lower extremity with inflammation I83.12
== END 2024-01-21 14:40 | disposition home or self-care (01) ==
LOC: HO.HVS 13:56
PROVIDERS: PCP Internal Medicine; Visit Provider Surgery Vascular Surgery
DX: I83.11 Varicose veins of right lower extremity with inflammation (principal); I83.12 Varicose veins of left lower extremity with inflammation
CPT/HCPCS: 99214

== ENCOUNTER → 2024-01-21 13:55 | Outpatient (BNVA) | payer MEDICARE, SELFPAY | PROVIDERS: PCP Internal Medicine; Visit Provider Surgery Vascular Surgery | DX: I83.11 Varicose veins of right lower extremity with inflammation (principal); I83.12 Varicose veins of left lower extremity with inflammation | CPT/HCPCS: 99212 ==

== ENCOUNTER 2024-03-25 10:15 | Outpatient (AMB) | payer MEDICARE, SELFPAY ==
--- NOTE | 2024-03-25 11:51 | A.OFFVIS_ITS ---
Intake Visit Reasons: Right Venaseal Accompanied by: Self / Same As Patient Allergies Latex, Natural Rubber Adverse Reaction (Mild, Verified 03/25/24 11:52) Rash PFSH Medical History Embolism from left greater saphenous vein Ruptured liver No known health problems Surgical History Status post ablation of incompetent vein using laser (01/08/24) History of surgery of liver H/O right knee surgery Family History Mother Asthma Heart disease Lymphoma CHF (congestive heart failure) Pacemaker Heart valve replaced Father Heart disease HTN (hypertension) Pacemaker Prostate cancer Sister Uterine cancer Sister ALL (acute lymphoblastic leukemia of infant) Social History Household Members: None Housing: Apartment Do you presently have visiting nurse or other home services: No Alcohol intake: current Alcohol intake frequency: holidays/special occasions only Patient Tobacco Use Status: Never used Tobacco e-Cigarette/Vaping Use: Never Used Second Hand Smoke Exposure: No service: No Sexual orientation: Straight/Heterosexual Office Procedures Vascular Office Procedure Details Details: Diagnosis: Right Leg varicose veins with inflammation Procedure: Endovenous Ablation of the right Great Saphenous Vein with VenaSeal Closure System Anesthesia: Local infiltration 5 cc, French Folding Machine Operator: SYDNI Santoyo Estimated Blood Loss: min Specimen: none Duplex ultrasound was used to map out the insufficient saphenous vein, and access was determined and marked on the overlying skin. The depth and diameter of the vein(s) to be treated was documented. The patient was placed supine on the procedure table and the leg was prepped and draped using sterile technique. Ultasound guidance was again used to localize the access site. 1% lidocaine was injected as a local anesthetic in the subcutaneous tissues at the target location in the GSV in the lower leg. Using ultrasound guidance, access was gained at this location with the 19 gauge thin walled access needle and followed by introduction of a short guidewire, location confirmed with ultrasound. A small, 3 mm incision was made at the access site to allow for introduction and placement of the 7 Fr x7cm introducer/dilator. The dilator and guidewire were removed. The 0.035 guidewire from the VenaSeal kit was then introduced and positioned at the saphenofemoral junction using ultrasound guidance. The 80 cm 7 Fr introducer sheath/dilator was positioned 5cm from the saphenofemoral junction. The guidewire and dilator were removed, and the remaining sheath was flushed with sterile saline, with the syringe remaining in place prior to the next steps. The cyanoacrylate adhesive was precisely primed into the 5 F delivery catheter and this catheter/syringe combination was attached within the dispenser gun. This assembly was introduced through the 7F sheath and positioned 5 cm caudal of the saphenofemoral junction under ultrasound guidance. The steps from the IFU were followed for dispensing amounts, locations and compression times, 2 aliquots proximally with 3 minutes of compression, and 1 aliquot every 3 cm distally with 30 sec of compression along the course of the vessel. Following the last injection and compression sequence, the catheter and introducer sheath were pulled out from the access site. Hemostasis was achieved with manual compression and an adhesive bandage was applied to the incision. Ultrasound confirmed complete coaptation and closure of the treated segments of the GSV, and the absence of any DVT at the saphenofemoral junction. Treatment time was approximately 8 minutes and the vein length treated was 60 cm. The drapes were removed and the patient cleaned and prepared for discharge. Post op ultrasound check is scheduled for 48-72 hours and the patient was given written post-op instructions. 96710 - Endoven Ther Chem Adhes 1st All charges added?: Procedure code (CPT) selection complete Assessment & Plan Assessment & Plan (1) Varicose veins of right lower extremity with inflammation: Comment: 03/25/2024 - right great saphenous vein Cyanoacralate ablation Code(s): I83.11 - Varicose veins of right lower extremity with inflammation Category: Medical Plan: See op note Coding Level of Care Code Procedure Only Diagnoses Varicose veins of right lower extremity with inflammation I83.11 CPT Codes Details - Vascular 3: 39662 - Endoven Ther Chem Adhes 1st ([id number])
== END 2024-03-25 11:53 | disposition home or self-care (01) ==
PROVIDERS: PCP Internal Medicine; Visit Provider Surgery Vascular Surgery
DX: I83.11 Varicose veins of right lower extremity with inflammation (principal)
CPT/HCPCS: 36482

== ENCOUNTER → 2024-03-25 10:15 | Outpatient (BNVA) | payer MEDICARE, SELFPAY | PROVIDERS: PCP Internal Medicine; Visit Provider Surgery Vascular Surgery | DX: I83.11 Varicose veins of right lower extremity with inflammation (principal) | CPT/HCPCS: 36482; J2003 ==

== ENCOUNTER 2024-04-07 13:04 | Outpatient (AMB) | payer MEDICARE, SELFPAY ==
[2024-04-07 13:09] VITALS: BMI 26.9
--- NOTE | 2024-04-07 13:09 | MHC.OFFVIS ---
Vital Signs 04/07/24 13:09 Height 6 ft 5 in Weight 227 lb BMI 26.9 Intake Visit Reasons: 2 week follow up s/p Right Venaseal Intake Note: 2 week follow up Right GSV Venaseal on 03/25/24, pt states he is doing well and has hx of Left GSV RFA 01/08/24. Pt states he thinks there is less swelling. Accompanied by: Self / Same As Patient Allergies Latex, Natural Rubber Adverse Reaction (Mild, Verified 04/07/24 13:13) Rash HPI HPI 2 week follow up s/p Right Venaseal: Details: 73-year-old gentleman presents for follow-up status post right great saphenous vein ablation. He previously had left great saphenous vein ablation. Reports overall doing fairly well. Reports that the swelling has decreased. He does have a small cluster of varicosities in the left calf which are not causing him any discomfort at the current time. He now presents for routine postprocedure follow-up [facility] Medical History Embolism from left greater saphenous vein Ruptured liver No known health problems Surgical History Status post ablation of incompetent vein using laser (01/08/24) History of surgery of liver H/O right knee surgery Family History Mother Asthma Heart disease Lymphoma CHF (congestive heart failure) Pacemaker Heart valve replaced Father Heart disease HTN (hypertension) Pacemaker Prostate cancer Sister Uterine cancer Sister ALL (acute lymphoblastic leukemia of ) Social History Household Members: None Housing: Apartment Do you presently have visiting nurse or other home services: No Alcohol intake: current Alcohol intake frequency: holidays/special occasions only Patient Tobacco Use Status: Never used Tobacco e-Cigarette/Vaping Use: Never Used Second Hand Smoke Exposure: No service: No Sexual orientation: Straight/Heterosexual Review of Systems Const All systems reviewed & are unremarkable except as noted in HPI and below Reports no additional complaints ENT Reports Normal hearing present Card Denies chest pain, Denies chest pain at rest, Denies chest pain with activity and Denies pedal edema Resp Denies cough GI Denies abdominal pain Musc Denies abnormal gait, Denies muscle cramps and Denies radiating pain into limb Skin/Breast Denies skin ulcer and Denies wounds Neuro Reports Normal hearing present and Denies abnormal gait Psych Reports no additional complaints Physical Exam Vital Signs: BMI result Body Mass Index 26.9 Const General: cooperative, healthy appearing and comfortable Orientation/consciousness: oriented to person, oriented to place and oriented to time HEENT Head: Yes normal to inspection Neck Neck: Yes normal visual inspection Carotids: no bruits Chest Chest palpation & inspection: normal inspection of the chest Resp Effort & Inspection: normal respiratory effort and able to speak in complete sentences Auscultation: clear to auscultation bilaterally, no crackles, no rales, no rhonchi and no wheezes Cardio Rate: regular rate Rhythm: regular rhythm Heart sounds: S1 normal heart sound present and S2 normal heart sound present Bruits: no carotid bruits Peripheral pulses: Peripheral pulses 2+ throughout GI Inspection: Yes normal to inspection Skin Wounds: no wounds Hair: normal Neuro General: oriented to person, oriented to place and oriented to time Cranial nerves: Yes CN's II-XII intact bilaterally and Yes Normal hearing present Cognition (Neuro): normal cognition Motor exam (neuro): 5/5 motor strength present throughout Extrem Other: venous exam: +1 edema. Small cluster varicosities and left calf General: No clubbing, No cyanosis and Yes edema Psych Appearance: grossly normal Mental Status: mental status grossly normal Speech and movement: Normal speech and movement present Assessment & Plan Assessment & Plan (1) Varicose veins of right lower extremity with inflammation: Comment: 03/25/2024 - right great saphenous vein Cyanoacralate ablation Code(s): I83.11 - Varicose veins of right lower extremity with inflammation Category: Medical Plan: The patient has done extremely well with all venous treatments. Patient's may often experience postprocedure phlebitic episodes and I have discussed with the patient use of warm compresses and NSAIDS if tolerated for pain discomfort. In addition, I have discussed continued conservative measures including use of compression, leg elevation, and exercise. The patient was also given an information sheet regarding appropriate use of compression stockings and future purchases. Thank you for allowing us to care for your patient with venous disease. (2) Varicose veins of left lower extremity with inflammation: Comment: 01/08/2024 - left great saphenous vein radiofrequency ablation Code(s): I83.12 - Varicose veins of left lower extremity with inflammation Category: Medical Plan: See above Coding Level of Care Code Est Pt Level 3 (72895) Diagnoses Varicose veins of right lower extremity with inflammation I83.11 Varicose veins of left lower extremity with inflammation I83.12
== END 2024-04-07 13:30 | disposition home or self-care (01) ==
PROVIDERS: PCP Internal Medicine; Visit Provider Surgery Vascular Surgery
DX: I83.11 Varicose veins of right lower extremity with inflammation (principal); I83.12 Varicose veins of left lower extremity with inflammation
CPT/HCPCS: 99213

== ENCOUNTER → 2024-04-07 13:04 | Outpatient (BNVA) | payer MEDICARE, SELFPAY | PROVIDERS: PCP Internal Medicine; Visit Provider Surgery Vascular Surgery | DX: I83.11 Varicose veins of right lower extremity with inflammation (principal); I83.12 Varicose veins of left lower extremity with inflammation | CPT/HCPCS: 99212 ==

== ENCOUNTER 2024-05-20 10:14 | Outpatient (AMB) | payer MEDICARE, SELFPAY ==
--- NOTE | 2024-05-20 10:17 | A.OFFVIS_ITS ---
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 Accompanied by: Self / Same As Patient Allergies Latex, Natural Rubber Adverse Reaction (Mild, Verified 04/07/24 13:13) Rash Medication List - Last Reconciled 05/20/24 by Morenita Licona NP-C apixaban (Eliquis) 5 mg PO BID 30 days berberine fsqlw-zzyihxx-jzohy 500 mg-250 mg- 7.5 mcg caps PO cholecalciferol (vitamin D3) 125 mcg PO DAILY cyanocobalamin (vitamin B-12) 1,000 mcg PO DAILY 30 days docusate sodium (Colace Clear) 100 mg (2 x 50 mg) PO NEEDED 30 days [fluvoxamine 200 mg PO BID] furosemide 20 mg PO DAILY lamotrigine 50 mg (2 x 25 mg) PO DAILY 30 days lamotrigine (Lamictal) 100 mg PO DAILY 30 days [liothyronine 10 mcg PO DAILY 30 days] liothyronine 5 mcg PO BEDTIME 30 days metoprolol tartrate 12.5 mg PO BID PRN mirtazapine 7.5 mg PO BEDTIME multivitamin 1 tab PO DAILY omega-3 fatty acids 1,250 mg PO DAILY phosphatidylserine mg PO tamsulosin 0.4 mg PO .QAD [ultra prostate PO DAILY] HPI HPI 4 mth f/up r/s 3/3 km: Details: Kobe is a 74-year-old male with past medical history of depression, hypertension, atrial flutter following ECT treatment, lower extremity venous reflux who presents for follow-up. Today he reports that he has been having issues with intermittent lightheadedness. He is wondering if any of his medications can cause this problem. He has not had any presyncope, syncope, falls since last visit in December. He denies having chest discomfort at rest or with activity. No shortness of breath, PND, orthopnea. He will get some mild lower leg edema and wears his compression stockings. He is compliant with his medications. [facility] Medical History Embolism from left greater saphenous vein Ruptured liver No known health problems Surgical History Status post ablation of incompetent vein using laser (01/08/24) History of surgery of liver H/O right knee surgery Family History Mother Asthma Heart disease Lymphoma CHF (congestive heart failure) Pacemaker Heart valve replaced Father Heart disease HTN (hypertension) Pacemaker Prostate cancer Sister Uterine cancer Sister ALL (acute lymphoblastic leukemia of infant) Social History Household Members: None Housing: Apartment Do you presently have visiting nurse or other home services: No Alcohol intake: current Alcohol intake frequency: holidays/special occasions only Patient Tobacco Use Status: Never used Tobacco e-Cigarette/Vaping Use: Never Used Second Hand Smoke Exposure: No service: No Sexual orientation: Straight/Heterosexual Review of Systems Const Details: lightheadedness All systems reviewed & are unremarkable except as noted in HPI and below Denies chills, Denies fatigue, Denies fever(s), Denies weight gain and Denies weight loss ENT Denies dizziness Card Denies chest pain, Denies leg edema, Denies lightheadedness, Denies palpitations, Denies dyspnea on exertion, Denies orthopnea and Denies other Resp Denies cough and Denies dyspnea on exertion GI Denies hematochezia and Denies change in stool character Musc Denies abnormal gait, Denies muscle weakness, Denies numbness, Denies radiating pain into limb and Denies tingling Neuro Denies abnormal gait, Denies dizziness, Denies numbness and Denies tingling Endo Denies fatigue and Denies palpitations Physical Exam Vital Signs: Last Vital Signs Pulse 58 05/20/24 10:18 BP 116/60 05/20/24 10:18 BMI result Body Mass Index 27.5 Const General: cooperative, healthy appearing, comfortable and no acute distress Orientation/consciousness: patient oriented x3 Neck Neck: Yes normal visual inspection and Yes no JVD Resp Effort & Inspection: normal respiratory effort Auscultation: clear to auscultation bilaterally, no crackles, no rales, no rhonchi and no wheezes Cardio Jugular venous distension: no JVD Rate: regular rate Rhythm: regular rhythm Heart sounds: S1 normal heart sound present, S2 normal heart sound present, no murmurs and no rubs Neuro General: patient oriented x3 Extrem General: Yes normal to inspection, No no pedal edema and No calf tenderness Psych Appearance: grossly normal Mental Status: mental status grossly normal Speech and movement: Normal speech and movement present Assessment & Plan Assessment & Plan (1) Atrial flutter: Code(s): I48.92 - Unspecified atrial flutter Category: Medical Plan: History of atrial flutter with last known occurrence following ECT treatment 07/07/2022. No known recurrence since then. He denies heart palpitations. He has metoprolol on hand to use p.r.n. in the event of PAF. He is on Eliquis for anticoagulation. Last labs in our system 03/20/2023 showed creatinine 0.9, hematocrit 12.6. He is due for updated labs which he says are followed by PCP. Instructed to call us if he has any concerning heart palpitations. Emergency care if needed. Cardiology follow-up 6 months, sooner if needed. (2) Intermittent lightheadedness: Code(s): R42 - Dizziness and giddiness Category: Medical Plan: Reports of intermittent lightheadedness. His blood pressure is on the low side which can contribute to this symptom. He is on Lasix 20 mg daily for lower leg edema. He is currently wearing compression stocking and has no significant edema noted. Suggested he trial taking Lasix every other day to see if that helps lightheadedness and still controls edema. Instructed to maintain good hydration, sit down if he becomes presyncopal. He is not on any antihypertensives. Instructed to call if this symptom persists. (3) HTN (hypertension): Code(s): I10 - Essential (primary) hypertension Category: Medical Plan: As above (4) Peripheral edema: Code(s): R60.0 - Localized edema Category: Medical Plan: He has a known history venous insufficiency and follows with Dr. Sylvester. Plan Time spent on chart review, documentation, interview, assessment Coding Level of Care Code Est Pt Level 4 (67190) Complex EM visit Add On G2211 Diagnoses Atrial flutter I48.92 Intermittent lightheadedness R42 HTN (hypertension) I10 Peripheral edema R60.0 Time Spent (min) 28
[2024-05-20 10:18] VITALS: BP 116/60; PULSE 58; BMI 27.5
--- OUTSIDE RECORDS SUMMARY | 2024-05-20 11:28 | XMS_ITS | Clinical Summary ---
Author Organization [facility] Address [address] [place] [address] Care Team Providers Care Plasma Center Technician Name Role Phone Joshua Barnes Primary Care Provider [phone] Active Problems Problem Noted Date Diagnosed Date Pain in joint, lower leg 07/27/2009 Sacroiliitis, not elsewhere classified 0 Social History Tobacco Use Types Packs/Day Years Used Date Smoking Tobacco: Never Assessed Sex and Gender Information Value Date Recorded Sex Assigned at Not on file Legal Sex Male 1:07 AM EDT Gender Identity Not on file Sexual Orientation Not on file Plan of Treatment Health Maintenance Due Date Last Done Comments Hepatitis C Screening 1950 DTaP/Tdap/Td (1 - Tdap) 1966 Pneumococcal 50+ years (1 of 1 - PCV) 1998 Zoster (Shingrix) (1 of 2) 1998 RSV (1 - 1-dose 75+ series) 2023 COVID-19 Vaccine ( - 2023-2 5 season) 2023 Influenza (#1) 2023 HPV Vaccine Aged Out No longer eligi ble based on patient's age to complete this topic Hep A Aged Out No longer eligi ble based on patient's age to complete this topic Hep B Aged Out No longer eligi ble based on patient's age to complete this topic Hib Aged Out No longer eligi ble based on patient's age to complete this topic Meningococcal ACWY Aged Out No longer eligible based on patient's age to complete this topic Zoster (Zostavax) Discontinued Insurance [employer] FFS Care Teams Plasma Center Technician Relationship Specialty Start Date End Date Joshua Barnes [address] [place] [address] PCP - General 04/16/09
== END 2024-05-20 10:48 | disposition home or self-care (01) ==
PROVIDERS: Visit Provider Nurse Practitioner Family
DX: I48.92 Unspecified atrial flutter (principal); R42 Dizziness and giddiness; I10 Essential (primary) hypertension; R60.0 Localized edema
CPT/HCPCS: 99214; G2211

== ENCOUNTER → 2024-05-20 10:14 | Outpatient (BNVA) | payer MEDICARE, SELFPAY | PROVIDERS: Visit Provider Nurse Practitioner Family | DX: I48.92 Unspecified atrial flutter (principal); R42 Dizziness and giddiness; I10 Essential (primary) hypertension; R60.0 Localized edema | CPT/HCPCS: 99212 ==

== ENCOUNTER 2024-12-21 13:06 | Outpatient (AMB) | payer MEDICARE, SELFPAY ==
[2024-12-21 13:17] VITALS: BP 100/60; PULSE 53; BMI 26.9
--- NOTE | 2024-12-21 13:17 | MHC.OFFVIS ---
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 Required: No Accompanied by: Self / Same As Patient Allergies Latex, Natural Rubber Adverse Reaction (Mild, Verified 04/07/24 13:13) Rash Medication List - Last Reconciled 12/21/24 by Feliberto Rivas MD apixaban (Eliquis) 5 mg PO BID 30 days berberine [id number]-[id number]-tiluu 500 mg-250 mg- 7.5 mcg caps PO cholecalciferol (vitamin D3) 125 mcg PO DAILY cyanocobalamin (vitamin B-12) 1,000 mcg PO DAILY 30 days docusate sodium (Colace Clear) 100 mg (2 x 50 mg) PO NEEDED 30 days [fluvoxamine 200 mg PO BID] lamotrigine 50 mg (2 x 25 mg) PO DAILY 30 days lamotrigine (Lamictal) 100 mg PO DAILY 30 days [liothyronine 10 mcg PO DAILY 30 days] liothyronine 5 mcg PO BEDTIME 30 days metoprolol tartrate 12.5 mg PO BID PRN mirtazapine 7.5 mg PO BEDTIME multivitamin 1 tab PO DAILY omega-3 fatty acids 1,250 mg PO DAILY phosphatidylserine mg PO tamsulosin 0.4 mg PO .QAD [ultra prostate PO DAILY] HPI Comments Details: 73 year gentleman here for follow-up. He was in the emergency department with atrial flutter of her electroconvulsive therapy for depression. He has major depression and has struggled with depression for many many years. He recently underwent electroconvulsive therapy and after getting his 3rd session developed atrial flutter. He was brought to the emergency department where he received metoprolol IV and after blood doses converted to sinus rhythm. He does not remember any details about this event because he was post electroconvulsive therapy in usually he gets amnesia after that. He gets some palpitations at home and approximately 10 months before that he had an episode of palpitation for which he called EMS and received metoprolol. He has no chest pain or shortness of breath. He walks regularly. He has been taking Eliquis without any bleeding concerns. He is saying he had some workup done including concern) he had an echocardiogram done there. 12/31/2022: He returns for follow-up. He has been doing well. He has been taking apixaban without any bleeding. Denies any palpitations, chest pain or shortness of breath. He has been walking and also swimming without any significant complaints. Blood pressure is mildly elevated. 07/08/23: He returns for follow-up. Blood pressure is better controlled. It appears he is taking hydrochlorothiazide 25 mg daily and metoprolol tartrate 12.5 mg twice a day. He is on anticoagulation with apixaban 5 mg twice a day. His amlodipine has been stopped due to edema. He is saying that he has been experiencing exam pressure-like feeling on the left side of his chest which happens with activity. It appears this is a consistent symptom. Is denying any symptoms at rest or when he is laying flat. No acid reflux. 09/09/2023: He is here for follow-up. Her last visit he was complaining of some chest discomfort which led exercise stress test. He was able to exercise for 9 minutes 7 seconds on Tim protocol achieving 13.2 metabolic equivalents. His maximum blood pressure was 130/80. He did not get any chest discomfort but did complain of mild shortness of breath. Overall the stress test was good. On follow-up he is denying any chest discomfort. He is complaining of lower extremity edema which has been present for the last 10 years. He has been using compression stockings. He said he had varicose veins previously. Recently he was started on tamsulosin by urologist. He is saying his PCP has decrease the metoprolol dose and also stopped the hydrochlorothiazide and started him on Lasix 20 mg daily. 01/13/2024: He is here for follow-up. He had 2 falls. One was during summertime when he was in the basement and it was hot. Second episode was when he was standing in the [employer] in a choir. He is saying that he did not pass out. His blood pressure has been borderline. He was on Lasix for peripheral edema which now has been diagnosed as venous reflux and he has had ablation on the left side already. He will follow up with vascular surgery. 12/21/24: He is here for follow-up. His EKGs showing sinus bradycardia. He continues to be asymptomatic. Taking Eliquis regularly. [facility] Medical History Embolism from left greater saphenous vein Ruptured liver No known health problems Surgical History Status post ablation of incompetent vein using laser (01/08/24) History of surgery of liver H/O right knee surgery Family History Mother Asthma Heart disease Lymphoma CHF (congestive heart failure) Pacemaker Heart valve replaced Father Heart disease HTN (hypertension) Pacemaker Prostate cancer Sister Uterine cancer Sister ALL (acute lymphoblastic leukemia of ) Social History Household Members: None Housing: Apartment Do you presently have visiting nurse or other home services: No Alcohol intake: current Alcohol intake frequency: holidays/special occasions only Patient Tobacco Use Status: Never used Tobacco e-Cigarette/Vaping Use: Never Used Second Hand Smoke Exposure: No service: No Sexual orientation: Straight/Heterosexual Review of Systems Const Denies chills, Denies fatigue, Denies fever(s), Denies frequent falls, Denies weakness, Denies weight gain and Denies weight loss ENT Denies dizziness Card Denies chest pain, Denies leg edema, Denies lightheadedness, Denies palpitations, Denies dyspnea and Denies dyspnea on exertion Resp Denies cough, Denies dyspnea and Denies dyspnea on exertion GI Denies hematochezia Musc Denies abnormal gait, Denies muscle weakness, Denies numbness, Denies radiating pain into limb and Denies tingling Neuro Denies abnormal gait, Denies dizziness, Denies frequent falls, Denies numbness, Denies tingling and Denies weakness Endo Denies fatigue and Denies palpitations Physical Exam Vital Signs: Last Vital Signs Pulse 53 12/21/24 13:17 BP 100/60 12/21/24 13:17 BMI result Body Mass Index 26.9 GENERAL APPEARANCE: in no acute distress, pleasant. NECK: no carotid bruit, no jugular venous distention. SKIN: no suspicious lesions, warm and dry. HEART: no murmurs, regular rate and rhythm. Bradycardic. LUNGS: Clear to auscultation.. ABDOMEN: soft, nontender. EXTREMITIES: +1 edema at ankles. PERIPHERAL PULSES: equal. NEUROLOGIC: No gross deficits, AAO X 3 Office Procedures EKG Details: Sinus bradycardia 53 beats per minute, QTC 405 milliseconds. [id number], Complete Assessment & Plan Assessment & Plan (1) Atrial flutter: Code(s): I48.92 - Unspecified atrial flutter Category: Medical Plan [age] gentleman who is here for follow-up. He had atrial flutter in the setting of electroconvulsive therapy. This was the only episode of atrial flutter documented in him. He has not had any further episodes since then. He is on metoprolol low dose along with Eliquis for anticoagulation. Clinically has been stable. Lower extremity edema is due to venous insufficiency and he underwent ablation with improvement in edema. He is still has some swelling but he is saying that things are improving. He is off the diuretics at this stage. Discussed that atrial flutter is easily amenable to ablation with good success rate and if this is the only arrhythmia documented in him then maybe down the line we can stop the anticoagulation. He will read about ablation and we will get back to us. Follow up with us in 6 months. Thank you for allowing me to participate in the care of your patient. Please feel free to contact me if you have any questions. Coding Level of Care Code Est Pt Level 4 (84225) Diagnoses Atrial flutter I48.92 CPT Codes EKG - CPT: 13046-[id number], Complete ([id number])
== END 2024-12-21 13:47 | disposition home or self-care (01) ==
PROVIDERS: Family Provider Family Medicine; Visit Provider Internal Medicine Cardiovascular Disease
DX: I48.92 Unspecified atrial flutter (principal)
CPT/HCPCS: 93010; 99214

== ENCOUNTER → 2024-12-21 13:06 | Outpatient (BNVA) | payer MEDICARE, SELFPAY | PROVIDERS: Visit Provider Internal Medicine Cardiovascular Disease | DX: I48.92 Unspecified atrial flutter (principal) | CPT/HCPCS: 93005; 99212 ==